=== PATIENT | female | born 1940 | race Caucasian/White ===

== ENCOUNTER 2020-01-18 09:33 | Outpatient (CLI) | payer MEDICARE, SELFPAY ==
--- NOTE | ~2020-01-18 | DEXA_ITS ---
Bone Density Report Name: Umm Hutson V Age: 79 Sex: Female Ethnicity: White Date of : 1940 Indication: postmenopausal; height loss; hysterectomy; Referring Provider: Marielena Cintron Study: Bone densitometry was performed. Exam Date: January 18, 2020 Accession number: [id number] Bone Density: Region BMD T-score Z-score Classification AP Spine (L1-L4) 0.999 -0.4 2.2 Normal Femoral Neck (Right) 0.564 -2.6 -0.3 Osteoporosis Total Hip (Right) 0.749 -1.6 0.4 Osteopenia World Health Organization criteria for BMD impression classify patients as: Normal (T-score at or above -1.0), Osteopenia (T-score between -1.0 and -2.5), or Osteoporosis (T-score at or below -2.5). 10-year Fracture Risk: FRAX not reported because: Some T-score for Spine Total or Hip Total or Femoral Neck at or below -2.5 Clinical Information Provided by Patient: Has the following medical conditions: Hysterectomy Patient maximum height was 67 Menopause Age: 51 Onset of menses at age 17 Number of children 3 Impression: The patient has osteoporosis, based on the Right Femoral Neck T-score. Discussion: INCREASED RISK OF FRACTURE. BONE DENSITY IS UNDESIRABLY LOW AT ONE OR MORE SKELETAL SITES, CONSISTENT WITH POSTMENOPAUSAL OSTEOPOROSIS. This patient's lowest T-score meets the World Health Organization's (WHO) criteria for osteoporosis at one or more sites (T-score -2.5 or below). In untreated patients, the risk of osteoporotic fracture increases approximately two-fold for each 1.0 SD decrease in T-score. Low bone density is not the only risk factor for fracture; also consider factors such as patient's age, frailty or poor health, risk of falling, risk of injury, previous osteoporotic fracture, family history of osteoporosis, cigarette smoking, low body weight, etc. Not everyone with low bone mineral density has osteoporosis; osteomalacia and other metabolic bone disorders should also be considered. Patients who have osteoporosis should be evaluated for specific diseases and conditions (secondary causes) that may cause or contribute to bone loss. The [place] [employer]ocrinologists (AACE) and National Osteoporosis Foundation (NOF) recommend pharmacologic intervention for all postmenopausal women whose T-score is in this range. The patient should follow a healthful lifestyle (good nutrition with adequate calcium and vitamin D, and appropriate weight-bearing exercise). Follow-Up: Consider a repeat BMD and Vertebral Fracture Assessment (VFA) exam in 2 years or sooner if medically necessary, to reassess this patient's status. Reported by: SILKE on 01/18/2020 10:04:00 AM. Reviewed, dictated and finalized at location AGareth ANDERSON
== END 2020-01-18 09:34 | disposition home or self-care (01) ==
PROVIDERS: PCP Family Medicine; Visit Provider Family Medicine
DX: Z78.0 Asymptomatic menopausal state (principal); M81.0 Age-related osteoporosis without current pathological fracture; M85.851 Other specified disorders of bone density and structure, right thigh
CPT/HCPCS: 77080

== ENCOUNTER 2020-02-09 14:27 | Outpatient (CLI) | payer MEDICARE, SELFPAY ==
--- NOTE | 2020-02-09 15:09 | ECHO_ITS ---
Patient Info Name: Umm Hutson Age: 79 years : 1940 Gender: Female Ht: 67 in Wt: 230 lbs BSA: 2.26 m2 HR: 58 bpm BP: 109 / 54 mmHg Technical Quality: Good Exam Date: 02/09/2020 3:18 PM Exam Location: [facility] Patient Status: Outpatient Admit Date: 02/09/2020 Staff Ordering Physician: Paulie Alegre DO Drum Reel Cutter: Ana Mason RCS Attending Provider: Paulie Alegre DO Referring Physician: Codey HUGO; Exam Type: CA echo doppler color flow Study Info Indications - heart failure Complete two-dimensional, color flow and Doppler transthoracic echocardiogram is performed. Summary 1. Complete two-dimensional, color flow and Doppler transthoracic echocardiogram is performed. 2. Left ventricular chamber dimension is normal. 3. Left ventricular systolic function is normal, estimated at 60-65%. 4. The left ventricular diastolic function is grade I diastolic dysfunction. 5. E/e' 9 is minimally elevated. 6. No pulmonary hypertension, estimated pulmonary arterial systolic pressure is 23 mmHg. 7. There is trace pulmonic regurgitation. Left Ventricle E/e' 9 is minimally elevated. Left ventricular chamber dimension is normal. Left ventricular systolic function is normal, estimated at 60-65%. The left ventricular diastolic function is grade I diastolic dysfunction. Right Ventricle Right ventricular chamber dimension is normal. Right ventricular systolic function is normal. Left Atria Left atrial chamber dimension is normal. Right Atria Right atrial chamber dimension is normal. Aortic Valve The aortic valve is trileaflet. There is no aortic valve stenosis. There is no aortic valve regurgitation. Pulmonic Valve There is trace pulmonic regurgitation. Mitral Valve There is no mitral valve stenosis. There is no mitral valve regurgitation. Tricuspid Valve There is no tricuspid valve regurgitation. No pulmonary hypertension, estimated pulmonary arterial systolic pressure is 23 mmHg. Pericardium/Pleural There is no pericardial effusion. Inferior Vena Cava Normal inferior vena cava with >50% collapse upon inspiration consistent with normal right atrial pressure, 5 mmHg. Aorta The aortic root size at the sinus of Valsalva is normal. Left Ventricular Outflow Tract Name Value Normal LVOT 2D LVOT Diameter 2.0 cm LVOT Doppler LVOT Peak Gradient 5 mmHg LVOT Mean Gradient 3 mmHg LVOT VTI 24 cm LVOT VTI/AV VTI Ratio 0.8 LVOT Stroke Volume 73 ml LVOT CO 15.1 l/min LVOT CI 6.7 l/min/m2 Pulmonic Valve Name Value Normal PV Doppler PV Peak Gradient 3 mmHg Mitral Valve
== END 2020-02-09 14:28 | disposition home or self-care (01) ==
PROVIDERS: PCP Family Medicine; Visit Provider Internal Medicine Cardiovascular Disease
DX: I50.9 Heart failure, unspecified (principal)
CPT/HCPCS: 93306

== ENCOUNTER 2020-08-01 16:06 | Outpatient (CLI) | payer MEDICARE, SELFPAY ==
--- NOTE | ~2020-08-01 | XR_ITS ---
XR shoulder RT min 2V DATE: 08/01/2020 17:02 INDICATION: Right shoulder injury from fall TECHNIQUE: 4 views COMPARISON: July 25, 2018 right shoulder FINDINGS: Cerclage wire mid right clavicular shaft for old healed fracture deformity. Diffuse osteopenia. Right humeral head prosthesis. No recent fracture or dislocation or any periosteal reaction or bone destruction is evident. Degenerative spurring of the thoracic spine. IMPRESSION: Right humeral head replacement Old internally fixated right clavicular shaft fracture, healed No recent fracture or dislocation is evident Reviewed, dictated and finalized at location B. [employer]PRESENT[employer]IVE
== END 2020-08-01 16:07 | disposition home or self-care (01) ==
PROVIDERS: PCP Family Medicine; Visit Provider Family Medicine
DX: S49.90XA Unspecified injury of shoulder and upper arm, unspecified arm, initial encounter (principal); X58.XXXA Exposure to other specified factors, initial encounter
CPT/HCPCS: 73030

== ENCOUNTER 2021-01-24 11:20 | Outpatient (CLI) | payer MEDICARE, SELFPAY ==
[2021-01-24 12:13] LABS: Basophils Percent Auto 0.4 % (0.2-1.2); Eosinophils Percent Auto 0.7 % (0-4.4); Hematocrit 40.3 % (37.0-47.0); Hemoglobin 12.6 g/dL (12.0-15.0); Immature Granulocyte Absolute 0.03 K/mm3 (0.00-0.031); Immature Granulocyte Percent A 0.6 % (0-0.5); Lymphocytes Absolute Auto 2.08 K/mm3 (0.9-3.2); Lymphocytes Percent Auto 38.3 % (18.3-44.2); Mean Corpuscular HGB Conc 31.3 g/dl (32-36); Mean Corpuscular Hemoglobin 29.2 pg (26-34); Mean Corpuscular Volume 93.3 fl (80-100); Mean Platelet Volume 8.8 fl (7.4-10.4); Monocytes Absolute Auto 0.4 K/mm3 (0.1-0.6); Monocytes Percent Auto 7.7 % (2.6-8.5); Neutrophils Absolute Auto 2.8 K/mm3 (1.3-6.7); Neutrophils Percent Auto 52.3 % (45.5-73.1); Platelet Count Result 213 k/mm3 (150-375); Red Blood Count 4.32 M/mm3 (4.2-5.4); Red Cell Distribution Width 13.2 % (11.5-14.5); White Blood Count 5.4 K/mm3 (4.5-10.0)
[2021-01-24 13:22] LABS: Erythrocyte Sedimentation Rate 19 mm/hr (0-20)
== END 2021-01-24 11:21 | disposition home or self-care (01) ==
PROVIDERS: PCP Family Medicine; Visit Provider Physician Assistant
DX: R10.31 Right lower quadrant pain (principal); R10.32 Left lower quadrant pain
CPT/HCPCS: 36415; 85025; 85652

== ENCOUNTER 2022-04-05 18:32 | Emergency (ER) | payer MEDICARE, SELFPAY ==
[2022-04-05] VITALS (16 sets, daily range): BP systolic 125–136; BP diastolic 63–82; PULSE 54–78; RESP 15–20; TEMP 36.1; O2SAT 96–98
--- NOTE | ~2022-04-05 | CT_ITS ---
EXAMINATION: CT brain wo con INDICATION: Slurred speech COMPARISON: 03/14/2016 TECHNIQUE: Standard unenhanced head CT. The dose-length product (DLP) was 605.33 mGy-cm. The mA was a djusted according to patient size. Iterative reconstruction technique was employed. FINDINGS: There is no acute intraparenchymal hemorrhage. No evidence of mass lesion. No evidence of a cute infarction. There is moderate periventricular and subcortical hypodensity probably related to sm all vessel ischemic disease. There is moderate prominence of the sulci and ventricles related to cere bral atrophy. Intracranial calcified cerebral atherosclerosis is noted. There are no extra-axial irma ections. There is no mass effect or midline shift. The orbits and soft tissues are unremarkable. The visualized sinuses and mastoid air cells are well aerated. IMPRESSION: 1. No acute intracranial abnormality. 2. Age related findings. Reviewed, dictated and finalized at location F.
--- NOTE | ~2022-04-05 | XR_ITS ---
EXAMINATION: XR chest 1V portable INDICATION: Possible CVA TECHNIQUE: Portable AP chest at 1931 hours COMPARISON: 01/16/2019 FINDINGS: There is scarring of the lung apices. No pleural effusion or pneumothorax. There are minima l airspace opacities of the left lung base. The cardiomediastinal silhouette is normal. There are moisés nges of right shoulder arthroplasty. Advanced osteoarthritis is noted in the partially imaged left gl enohumeral joint. IMPRESSION: 1. Minimal left basilar airspace opacity, consistent with atelectasis versus pneumonia. Reviewed, dictated and finalized at location F. IMPRESSION: 1. Minimal left basilar airspace opacity, consistent with atelectasis versus pn eumonia.
--- NOTE | 2022-04-05 18:52 | ECG_ITS ---
Measurements Intervals [place] Rate: 64 P: 54 NE: 170 QRS: 20 QRSD: 109 T: 55 QT: 420 QTc: 435 Interpretive Statements SINUS RHYTHM PROBABLE INFERIOR MYOCARDIAL INFARCTION , OF INDETERMINATE AGE WITH POSTERIOR EXTENSION [35 ms Q WAVE IN II/aVFPROMINENT R WAV COMPARED TO ECG 01/24/2019 15:02:40 SINUS RHYTHM NOW PRESENT Electronically Signed On 04-05-2022 19:51:47 CDT by Sara Carrasquillo M.D.
[2022-04-05 18:59] LABS: Glucose Point of Care 160 mg/dl (65-105)
[2022-04-05 19:26] LABS: Basophils Percent Auto 0.8 % (0.2-1.2); Eosinophils Absolute Auto 0.1 K/mm3 (0-0.3); Eosinophils Percent Auto 1.8 % (0-4.4); Hematocrit 38.2 % (37.0-47.0); Hemoglobin 12.1 g/dL (12.0-15.0); Immature Granulocyte Absolute 0.01 K/mm3 (0.00-0.031); Immature Granulocyte Percent A 0.3 % (0-0.5); Lymphocytes Absolute Auto 2.05 K/mm3 (0.9-3.2); Lymphocytes Percent Auto 51.9 % (18.3-44.2); Mean Corpuscular HGB Conc 31.7 g/dl (32-36); Mean Corpuscular Hemoglobin 30.2 pg (26-34); Mean Corpuscular Volume 95.3 fl (80-100); Mean Platelet Volume 8.9 fl (7.4-10.4); Monocytes Absolute Auto 0.3 K/mm3 (0.1-0.6); Monocytes Percent Auto 8.6 % (2.6-8.5); Neutrophils Absolute Auto 1.5 K/mm3 (1.3-6.7); Neutrophils Percent Auto 36.6 % (45.5-73.1); Platelet Count Result 168 k/mm3 (150-375); Red Blood Count 4.01 M/mm3 (4.2-5.4); Red Cell Distribution Width 13.4 % (11.5-14.5)
--- NOTE | 2022-04-05 19:29 | ED.GENADULT ---
HPI - General Adult General Chief complaint: Neuro Symptoms/Deficit Stated complaint: Dizziness Time Seen by Provider: 04/05/22 19:04 History of Present Illness HPI narrative: Patient is an 81-year-old female with a history of seizures, dementia, CHF, hyperlipidemia, TIA presenting with lightheadedness. Patient states that she was in her room at her nursing facility today when she stood up to walk out. As she stood up she felt very lightheaded and felt that she would fall if she continued walking so she sat back down. She states that she had some slurred speech during this episode so EMS was called. Patient was noted to have some mildly slurred speech and weakness in her right arm. Patient states that she is always weak in her right arm. To me, she denied any new focal weakness or numbness. She states that her speech feels back to normal. She denies any pain. No chest pain, shortness of breath, palpitations, vision changes, abdominal pain, nausea or vomiting, diarrhea, dysuria. States that she has had a cough lately. Related Data Home Medications Medication Instructions Recorded Confirmed acetaminophen 650 mg 650 mg PO Q12H 07/17/19 03/24/22 tablet,extended release (Tylenol Arthritis Pain) cholecalciferol (vitamin D3) 25 1,000 unit PO DAILY 07/17/19 03/24/22 mcg (1,000 unit) tablet clonazepam 0.5 mg tablet 0.5 mg PO DAILY 07/17/19 03/24/22 multivitamin with iron 1 tablet PO DAILY 07/17/19 03/24/22 (Tab-A-Alee/Iron tablet) peg 400-propylene glycol (PF) 0.4 1 drop RIGHT EYE DAILY 07/17/19 03/24/22 %-0.3 % eye drops in a dropperette (Systane (PF)) zonisamide 100 mg capsule 100 mg PO DAILY 07/17/19 03/24/22 propranolol 60 mg capsule,24 60 mg PO DAILY 08/13/20 03/24/22 hr,extended release quetiapine 300 mg tablet (Seroquel) 300 mg PO QHS 01/24/21 03/24/22 primidone 250 mg tablet 50 mg PO BID 08/14/21 03/24/22 sertraline 100 mg tablet 100 mg PO DAILY 10/10/21 03/24/22 Allergies Allergy/AdvReac Type Severity Reaction Status Date / Time codeine Allergy Mild Hallucinati Verified 04/05/22 21:20 ons morphine Allergy Mild hallucinate Verified 04/05/22 21:20 Review of Systems Review of Systems: All systems reviewed & are unremarkable except as noted in HPI and below PMFSH Past Medical History Medical History Abnormality of gait Benign essential HTN Bipolar 1 disorder, depressed CHF (congestive heart failure) Chronic respiratory failure Colon polyp Dementia Diverticulitis Family history of ectopic antidiuretic hormone secretion Hypoxemia Parkinson disease Surgical History Surgical History History of appendectomy Hx of colonoscopy Family History Family History Other Family history of malignant neoplasm Family history of malignant neoplasm of thyroid Social History Social History Social History: Smoking status: Never smoker Second hand tobacco smoke exposure: No Alcohol intake: never Substance use: never Substance use type: does not use Additional living arrangements comments: [facility], Independent Living Gender identity (if verbalized by the patient): Female Sexual Orientation (if Verbalized by the Patient): Straight or Heterosexual Exam Narrative: GENERAL: Elderly female in no acute distress HEAD: Normocephalic, atraumatic. EYES: PERRLA and EOMI. ENT: Nares clear, no rhinorrhea or epistaxis. Mucous membranes moist. NECK: Supple. CHEST: Clear to auscultation. No respiratory distress. HEART: Regular rate and rhythm. No murmur heard. Normal peripheral pulses. ABDOMEN: Soft, nontender, nondistended, normal active bowel sounds. EXTREMITIES: Normal range of motion. No edema. SKIN: Warm, dry, no rash. NEURO: Alert and oriented x3.
[2022-04-05 19:36] LABS: Alanine Aminotransferase 7 U/L (6-35); Albumin Level 3.6 g/dL (3.5-5.1); Alkaline Phosphatase 53 U/L (38-126); Anion Gap 8 mmol/L (8-16); Aspartate Amino Transferase 23 U/L (14-36); Bilirubin,Total 0.3 mg/dL (0.2-1.3); Blood Urea Nitrogen 24 mg/dL (7-17); Calcium 8.6 mg/dL (8.4-10.2); Carbon Dioxide 28 mmol/L (22-30); Chloride 99 mmol/L (98-107); Estimated CRCL calculation 46 ml/min; Estimated Glomerular Filt Rate 48; Glucose 135 mg/dL (65-110); Potassium 3.8 mmol/L (3.4-5.0); Prothrombin Time 13.1 Seconds (11.1-14.7); Sodium 135 mmol/L (137-145)
[2022-04-05 19:37] LABS: Partial Thromboplastin Time 26.1 SECONDS (22.3-36.8)
[2022-04-05 19:47] LABS: Troponin I < 0.012 ng/mL (0.000-0.034)
[2022-04-05 20:53] LABS: Influenza A QL RT-PCR Negative (Negative); Influenza B QL RT-PCR Negative (Negative); SARS-CoV-2 RNA PCR Negative
[2022-04-05 21:06] LABS: Add Urine Microscopic? YES; Appearance Urine Clear (Clear); Bacteria Urine Trace /hpf; Bilirubin Urine Negative (Negative); Blood Urine Negative (Negative); Color Urine Yellow (Yellow); Glucose Urine UA Negative (Negative); Ketones Urine Trace mg/dL (Negative); Leukocyte Esterase Ur Negative LEU/UL (Negative); Mucus Urine Rare /lpf; Nitrate Urine Negative (Negative); Protein Urine Negative (Negative); RBC Urine 0-2 /hpf (0-2); Specific Grav Ur 1.017 (1.001-1.035); Squamous Epithelial Cell Urine Rare /hpf (Few); Urobilinogen Urine Negative mg/dL (<2.0); WBC Urine 0-3 /hpf
[2022-04-05] MEDS: SODIUM CHLORIDE 0.9% IV 1,000 ML 999 ML IV CONT (21:48)
== END 2022-04-05 23:41 ==
PROVIDERS: Emergency Medicine; Emergency Provider Emergency Medicine; PCP Family Medicine
DX: R42 Dizziness and giddiness (principal); E86.0 Dehydration; Z20.822 Contact with and (suspected) exposure to COVID-19; F03.90 Unspecified dementia, unspecified severity, without behavioral disturbance, psychotic disturbance, mood disturbance, and anxiety; I50.9 Heart failure, unspecified; E78.5 Hyperlipidemia, unspecified; I11.0 Hypertensive heart disease with heart failure; J96.10 Chronic respiratory failure, unspecified whether with hypoxia or hypercapnia; G20 Parkinson's disease; Z86.010 Personal history of colon polyps; Z86.73 Personal history of transient ischemic attack (TIA), and cerebral infarction without residual deficits
CPT/HCPCS: 36415; 70450; 71045; 80053; 81001; 82948; 84484; 85025; 85610; 85730; 87502; 93005; 96360; 99284; C9803; J7030; U0003; U0005

== ENCOUNTER 2022-09-02 14:51 | Outpatient (CLI) | payer MEDICARE, SELFPAY ==
--- NOTE | ~2022-09-02 | XR_ITS ---
EXAM: XR abdomen/kub 1V DATE: 09/02/2022 15:19 HISTORY: r/o kidney stone, PAIN ACROSS ENTIRE LOWER ABDOMEN . COMPARISON: CT abdomen pelvis 05/20/2019. FINDINGS: Clear lung bases. Normal bowel gas pattern. Enlarged liver. Punctate calcifications over t he bilateral renal shadows. Degenerative lumbar disc disease. Partially visualized left hip arthropla sty. Atherosclerotic calcifications. Pelvic phleboliths. IMPRESSION: Hepatomegaly. Bilateral punctate nephrolithiasis. Reviewed, dictated and finalized at location K.
== END 2022-09-02 14:52 | disposition home or self-care (01) ==
PROVIDERS: PCP Family Medicine; Visit Provider Nurse Practitioner Gerontology
DX: R10.30 Lower abdominal pain, unspecified (principal); N20.0 Calculus of kidney
CPT/HCPCS: 74018

== ENCOUNTER 2022-12-01 12:56 | Emergency (ER) | payer MEDICARE, SELFPAY ==
[2022-12-01 13:02] VITALS: BP 93/45; PULSE 66; RESP 20; TEMP 36.6; O2SAT 98
--- NOTE | 2022-12-01 13:14 | ED.ABDPAIN ---
HPI - Abdominal Pain General Chief Complaint: Abdominal Pain Stated Complaint: ABD PAIN Time Seen by Provider: 12/01/22 13:14 Source: patient, RN notes reviewed and old records reviewed Mode of arrival: ambulatory Limitations: no limitations History of Present Illness HPI narrative: 82-year-old female presents to the [facility] with lower abdominal pain that has been increasing over the last 3 days. Denies any nausea or vomiting. denies chest pain or shortness of breath. daughter reports that she does drink plenty of water. Last bowel movement was this morning which was normal. Has a history of chronic UTIs, takes Bactrim daily. reports history kidney stones, Parkinson's, anxiety, heart failure, hypertension, acid reflux. denies fevers reports that she pees frequently and feels like she cannot empty her bladder denies burning with urination Onset (ago): day(s) (3) Related Data Home Medications Medication Instructions Recorded Confirmed acetaminophen 650 mg 650 mg PO Q12H 07/17/19 12/01/22 tablet,extended release (Tylenol Arthritis Pain) cholecalciferol (vitamin D3) 25 1,000 unit PO DAILY 07/17/19 12/01/22 mcg (1,000 unit) tablet multivitamin with iron 1 tablet PO DAILY 07/17/19 12/01/22 (Tab-A-Alee/Iron tablet) peg 400-propylene glycol (PF) 0.4 1 drop RIGHT EYE DAILY 07/17/19 12/01/22 %-0.3 % eye drops in a dropperette (Systane (PF)) zonisamide 100 mg capsule 100 mg PO DAILY 07/17/19 12/01/22 propranolol 60 mg capsule,24 60 mg PO DAILY 08/13/20 12/01/22 hr,extended release quetiapine 300 mg tablet (Seroquel) 300 mg PO QHS 01/24/21 12/01/22 primidone 250 mg tablet 50 mg PO BID 08/14/21 12/01/22 sertraline 100 mg tablet 100 mg PO DAILY 10/10/21 12/01/22 Allergies Allergy/AdvReac Type Severity Reaction Status Date / Time codeine Allergy Mild Hallucinati Verified 09/02/22 14:03 ons morphine Allergy Mild hallucinate Verified 09/02/22 14:03 Review of Systems Review of Systems: All systems reviewed & are unremarkable except as noted in HPI and below Constitutional: Constitutional: Reports no additional constitutional complaints Eyes: Eyes: Reports no additional eye complaints ENT: Reports system reviewed and no additional complaints, except as documented Cardiovascular: Cardiovascular: Reports no additional cardiovascular complaints, Denies chest pain and Denies dyspnea Respiratory: Respiratory: Reports no additional respiratory complaints, Denies chest congestion, Denies cough and Denies dyspnea Gastrointestinal: Gastrointestinal: Reports as per HPI, Reports abdominal pain, Denies nausea and Denies vomiting Genitourinary: Genitourinary: Reports as per HPI and Reports urinary urgency Musculoskeletal: Musculoskeletal: Reports no additional musculoskeletal complaints Integumentary/Breasts: Skin/Breast: Reports system reviewed and no additional complaints, except as docu Neurologic: Reports system reviewed and no additional complaints, except as documented Psychiatric: Psychiatric: Reports no additional psychiatric complaints Allergic/Immunologic: Allergic/Immunologic: Reports no additional allergic/immunologic complaints PMFSH Past Medical History Medical History Abnormality of gait Benign essential HTN Bipolar 1 disorder, depressed CHF (congestive heart failure) Chronic respiratory failure Colon polyp Dementia Diverticulitis Family history of ectopic antidiuretic hormone secretion Hypoxemia Parkinson disease Surgical History Surgical History History of appendectomy Hx of colonoscopy Family History Family History Other Family history of malignant neoplasm Family history of malignant neoplasm of thyroid Social History Social History Social Hist
[2022-12-01 13:22] VITALS: BP 93/45; PULSE 66; RESP 20; TEMP 36.6; O2SAT 98
== END 2022-12-01 13:30 | disposition short-term general hospital (02) ==
PROVIDERS: Emergency Provider Nurse Practitioner; PCP Family Medicine
DX: R10.30 Lower abdominal pain, unspecified (principal); I10 Essential (primary) hypertension; I50.9 Heart failure, unspecified; F03.90 Unspecified dementia, unspecified severity, without behavioral disturbance, psychotic disturbance, mood disturbance, and anxiety; G20 Parkinson's disease; F02.80 Dementia in other diseases classified elsewhere, unspecified severity, without behavioral disturbance, psychotic disturbance, mood disturbance, and anxiety; F31.9 Bipolar disorder, unspecified
CPT/HCPCS: 81003; 99212; G0463

== ENCOUNTER 2022-12-01 13:49 | Emergency (ER) | payer MEDICARE, SELFPAY ==
--- NOTE | ~2022-12-01 | CT_ITS ---
EXAMINATION: CT abdomen pelvis w con DATE: 12/01/2022 16:28 INDICATION: Low abdominal pain for 3 days TECHNIQUE: Computed tomography (CT) of the abdomen and pelvis was performed without intravenous contr ast. The dose-length product was 1222.29 mGy-cm. Automated exposure control and iterative reconstruct ion technique were employed. COMPARISON: CT dated 05/20/2019. FINDINGS: Heart size normal. No significant pleural or pericardial effusion. Mild atherosclerosis wit hout aneurysm. There are multiple liver cysts. Gallbladder is present. There is an extra cc splenule. The pancreas, adrenal glands are unremarkable. There are small bilateral renal cysts. There are nono bstructing bilateral renal stones. Nonobstructive bowel pattern. There is a left hip arthroplasty. Th ere is acute diverticulitis of the descending colon. No evidence for perforation or abscess. IMPRESSION: 1. Acute uncomplicated diverticulitis of the descending colon. Reviewed, dictated and finalized at location L.
[2022-12-01 13:52] VITALS: BP 111/54; PULSE 67; RESP 18; TEMP 36.2; O2SAT 95
[2022-12-01 14:08] LABS: Basophils Percent Auto 0.2 % (0.2-1.2); Eosinophils Absolute Auto 0.1 K/mm3 (0-0.3); Hematocrit 39.8 % (37.0-47.0); Hemoglobin 12.4 g/dL (12.0-15.0); Immature Granulocyte Absolute 0.01 K/mm3 (0.00-0.031); Immature Granulocyte Percent A 0.2 % (0-0.5); Lymphocytes Absolute Auto 1.57 K/mm3 (0.9-3.2); Mean Corpuscular HGB Conc 31.2 g/dl (32-36); Mean Corpuscular Hemoglobin 28.1 pg (26-34); Monocytes Absolute Auto 0.6 K/mm3 (0.1-0.6); Monocytes Percent Auto 8.9 % (2.6-8.5); Neutrophils Absolute Auto 4.1 K/mm3 (1.3-6.7); Neutrophils Percent Auto 64.7 % (45.5-73.1); Platelet Count Result 204 k/mm3 (150-375); Red Blood Count 4.42 M/mm3 (4.2-5.4); Red Cell Distribution Width 14.5 % (11.5-14.5); White Blood Count 6.3 K/mm3 (4.5-10.0)
[2022-12-01 14:24] LABS: Alanine Aminotransferase 6 U/L (6-35); Albumin Level 3.7 g/dL (3.5-5.1); Alkaline Phosphatase 79 U/L (38-126); Anion Gap 5 mmol/L (8-16); Aspartate Amino Transferase 30 U/L (14-36); Bilirubin,Total 0.5 mg/dL (0.2-1.3); Blood Urea Nitrogen 17 mg/dL (7-17); Calcium 9.1 mg/dL (8.4-10.2); Carbon Dioxide 33 mmol/L (22-30); Chloride 96 mmol/L (98-107); Estimated CRCL calculation 43 ml/min; Estimated Glomerular Filt Rate 48; Glucose 106 mg/dL (65-110); Lipase 47 U/L (23-300); Potassium 4.1 mmol/L (3.4-5.0); Sodium 134 mmol/L (137-145)
--- NOTE | 2022-12-01 15:31 | ED.ABDPAIN ---
HPI - Abdominal Pain General Chief Complaint: Abdominal Pain Stated Complaint: abd pain Time Seen by Provider: 12/01/22 15:02 History of Present Illness HPI narrative: Pt presents with low abdominal pain for 2-3 days getting progressively worse. Pt denies fever, vomiting, or diarrhea. Pt has been moving bowels. Per family pt has had an appendectomy, hysterectomy and cholecystectomy. Related Data Home Medications Medication Instructions Recorded Confirmed acetaminophen 650 mg 650 mg PO Q12H 07/17/19 12/01/22 tablet,extended release (Tylenol Arthritis Pain) cholecalciferol (vitamin D3) 25 1,000 unit PO DAILY 07/17/19 12/01/22 mcg (1,000 unit) tablet multivitamin with iron 1 tablet PO DAILY 07/17/19 12/01/22 (Tab-A-Alee/Iron tablet) peg 400-propylene glycol (PF) 0.4 1 drop RIGHT EYE DAILY 07/17/19 12/01/22 %-0.3 % eye drops in a dropperette (Systane (PF)) zonisamide 100 mg capsule 100 mg PO DAILY 07/17/19 12/01/22 propranolol 60 mg capsule,24 60 mg PO DAILY 08/13/20 12/01/22 hr,extended release quetiapine 300 mg tablet (Seroquel) 300 mg PO QHS 01/24/21 12/01/22 primidone 250 mg tablet 50 mg PO BID 08/14/21 12/01/22 sertraline 100 mg tablet 100 mg PO DAILY 10/10/21 12/01/22 Allergies Allergy/AdvReac Type Severity Reaction Status Date / Time codeine Allergy Mild Hallucinati Verified 12/01/22 15:48 ons morphine Allergy Mild hallucinate Verified 12/01/22 15:48 Review of Systems Review of Systems: All systems reviewed & are unremarkable except as noted in HPI and below PMFSH Past Medical History Medical History Abnormality of gait Benign essential HTN Bipolar 1 disorder, depressed CHF (congestive heart failure) Chronic respiratory failure Colon polyp Dementia Diverticulitis Family history of ectopic antidiuretic hormone secretion Hypoxemia Parkinson disease Surgical History Surgical History History of appendectomy Hx of colonoscopy Family History Family History Other Family history of malignant neoplasm Family history of malignant neoplasm of thyroid Social History Social History Social History: Smoking status: Never smoker Second hand tobacco smoke exposure: No Alcohol intake: never Substance use: never Substance use type: does not use Living arrangements: assisted living Additional living arrangements comments: [place] [facility], Independent Living Occupation/Education: retired Gender identity (if verbalized by the patient): Female Sexual Orientation (if Verbalized by the Patient): Straight or Heterosexual Exam Const: General: healthy appearing Nutritional Appearance: well nourished Orientation/consciousness: patient oriented x3 Limitations: no limitations Eyes: Pupils: Equal, round and reactive pupils present EOM: EOMs intact bilaterally Neck: Neck: normal visual inspection and no lymphadenopathy Resp: Effort & Inspection: normal respiratory effort Auscultation: clear to auscultation bilaterally Cardio: Rate: regular rate Rhythm: regular rhythm GI: GI Palp: Yes Soft to palpation and Yes Tenderness to palpation present (GI) (low abdomen) Auscultation: normal bowel sounds Back/Spine/Pelvis: Back: no CVA tenderness Skin: General skin exam: normal color Rashes: no rashes Wounds: no wounds Neuro: General: patient oriented x3, moves all extremities, no meningeal signs and CN's II-XI intact bilaterally Speech: normal speech Extrem: General: normal to inspection Psych: Mental Status: mental status grossly normal Affect: normal affect Attitude: cooperative Course Vital Signs Vital signs: Vital Signs Temperature 97.2 F L 12/01/22 13:52 Pulse Rate 67 12/01/22 13:52 Respiratory Rate 18 12/01/22 13:52
[2022-12-01] MEDS: ONDANSETRON INJ 4 MG/2 ML VIAL IV PUSH (16:08)
[2022-12-01] MEDS: fentaNYL CITRATE INJ (*CRX) 100 MCG/2 ML VIAL 25 MCG IV PUSH (16:08)
[2022-12-01 16:16] LABS: Appearance Urine Clear (Clear); Bilirubin Urine Negative (Negative); Blood Urine Negative (Negative); Color Urine Dark Yellow (Yellow); Glucose Urine UA Negative (Negative); Ketones Urine Trace mg/dL (Negative); Leukocyte Esterase Ur Negative LEU/UL (Negative); Nitrate Urine Negative (Negative); Protein Urine Negative (Negative); pH Urine 7.5 (5.0-9.0)
[2022-12-01 16:23] LABS: Basophils Percent Auto 0.4 % (0.2-1.2); Eosinophils Absolute Auto 0.1 K/mm3 (0-0.3); Eosinophils Percent Auto 1.2 % (0-4.4); Hematocrit 41.6 % (37.0-47.0); Hemoglobin 12.8 g/dL (12.0-15.0); Immature Granulocyte Absolute 0.04 K/mm3 (0.00-0.031); Immature Granulocyte Percent A 0.6 % (0-0.5); Mean Corpuscular HGB Conc 30.8 g/dl (32-36); Mean Corpuscular Hemoglobin 27.8 pg (26-34); Mean Corpuscular Volume 90.2 fl (80-100); Monocytes Absolute Auto 0.6 K/mm3 (0.1-0.6); Monocytes Percent Auto 7.9 % (2.6-8.5); Neutrophils Absolute Auto 4.4 K/mm3 (1.3-6.7); Neutrophils Percent Auto 63.9 % (45.5-73.1); Platelet Count Result 214 k/mm3 (150-375); Red Blood Count 4.61 M/mm3 (4.2-5.4); Red Cell Distribution Width 14.7 % (11.5-14.5); White Blood Count 6.9 K/mm3 (4.5-10.0)
[2022-12-01 16:39] LABS: Lactic Acid Reflex 0.9 mmol/L (0.7-2.0)
[2022-12-01 16:41] LABS: Add Urine Microscopic? NO
[2022-12-01 16:42] LABS: INR 0.9; Prothrombin Time 12.4 Seconds (11.1-14.7)
[2022-12-01 16:43] LABS: Partial Thromboplastin Time 27.6 SECONDS (22.3-36.8)
[2022-12-01 17:00] VITALS: BP 153/53; PULSE 69; RESP 18; O2SAT 97
[2022-12-01 18:09] LABS: Alanine Aminotransferase 6 U/L (6-35); Alkaline Phosphatase 94 U/L (38-126); Anion Gap 5 mmol/L (8-16); Aspartate Amino Transferase 28 U/L (14-36); Bilirubin,Total 0.5 mg/dL (0.2-1.3); Blood Urea Nitrogen 17 mg/dL (7-17); Calcium 8.9 mg/dL (8.4-10.2); Carbon Dioxide 30 mmol/L (22-30); Chloride 96 mmol/L (98-107); Estimated CRCL calculation 47 ml/min; Estimated Glomerular Filt Rate 53; Glucose 79 mg/dL (65-110); Potassium 4.2 mmol/L (3.4-5.0); Sodium 131 mmol/L (137-145)
== END 2022-12-01 17:32 | disposition home or self-care (01) ==
PROVIDERS: Emergency Provider Emergency Medicine; PCP Family Medicine
DX: K57.32 Diverticulitis of large intestine without perforation or abscess without bleeding (principal); I50.9 Heart failure, unspecified; I11.0 Hypertensive heart disease with heart failure; J96.10 Chronic respiratory failure, unspecified whether with hypoxia or hypercapnia; F03.90 Unspecified dementia, unspecified severity, without behavioral disturbance, psychotic disturbance, mood disturbance, and anxiety; G20 Parkinson's disease; F31.9 Bipolar disorder, unspecified; Z86.010 Personal history of colon polyps; Z90.710 Acquired absence of both cervix and uterus; Z90.49 Acquired absence of other specified parts of digestive tract
CPT/HCPCS: 36415; 74177; 80053; 81003; 83605; 83690; 85025; 85610; 85730; 96374; 96375; 99284; J2405; J3010; Q9967

== ENCOUNTER 2022-12-04 13:50 | Outpatient (CLI) | payer MEDICARE, SELFPAY ==
--- NOTE | ~2022-12-04 | CT_ITS ---
EXAMINATION: CT abdomen pelvis w con DATE: 12/04/2022 14:41 INDICATION: Diverticulitis. TECHNIQUE: Computed tomography (CT) of the abdomen and pelvis was performed with 100 cc Omnipaque 350 intravenous contrast. The dose-length product was 1244.09 mGy-cm. Automated exposure control and ite rative reconstruction technique were employed. COMPARISON: 12/01/2022. FINDINGS: There is dependent atelectasis. Heart size normal. No significant pleural or pericardial ef fusion. There are multiple liver cysts. There is a right renal cyst. There is an accessory splenule. The pancreas, adrenal glands are unremarkable. There are nonobstructing bilateral renal stones. Gallb ladder is distended. No definite gallstones. Mild residual diverticulitis of the descending colon non obstructive bowel pattern. No free air or free fluid. No evidence for abscess. There is atheroscleros is of the aorta without aneurysm. No lymphadenopathy. There is a left total hip arthroplasty. No acut e osseous abnormality. IMPRESSION: 1. Improved mild uncomplicated diverticulitis of the descending colon. Reviewed, dictated and finalized at location []
[2022-12-04 15:34] LABS: Basophils Percent Auto 0.7 % (0.2-1.2); Eosinophils Absolute Auto 0.1 K/mm3 (0-0.3); Eosinophils Percent Auto 1.7 % (0-4.4); Hematocrit 39.4 % (37.0-47.0); Hemoglobin 12.2 g/dL (12.0-15.0); Immature Granulocyte Absolute 0.01 K/mm3 (0.00-0.031); Immature Granulocyte Percent A 0.2 % (0-0.5); Lymphocytes Absolute Auto 2.09 K/mm3 (0.9-3.2); Mean Corpuscular Hemoglobin 27.4 pg (26-34); Mean Corpuscular Volume 88.5 fl (80-100); Mean Platelet Volume 8.8 fl (7.4-10.4); Monocytes Absolute Auto 0.4 K/mm3 (0.1-0.6); Monocytes Percent Auto 8.6 % (2.6-8.5); Neutrophils Absolute Auto 1.6 K/mm3 (1.3-6.7); Neutrophils Percent Auto 38.8 % (45.5-73.1); Platelet Count Result 217 k/mm3 (150-375); Red Blood Count 4.45 M/mm3 (4.2-5.4); Red Cell Distribution Width 14.3 % (11.5-14.5); White Blood Count 4.2 K/mm3 (4.5-10.0)
[2022-12-04 15:45] LABS: Albumin Level 3.8 g/dL (3.5-5.1); Alkaline Phosphatase 85 U/L (38-126); Anion Gap 1 mmol/L (8-16); Aspartate Amino Transferase 22 U/L (14-36); Bilirubin,Total 0.3 mg/dL (0.2-1.3); Blood Urea Nitrogen 13 mg/dL (7-17); Carbon Dioxide 32 mmol/L (22-30); Chloride 97 mmol/L (98-107); Estimated Glomerular Filt Rate > 60; Glucose 92 mg/dL (65-110); Potassium 4.4 mmol/L (3.4-5.0); Sodium 130 mmol/L (137-145)
[2022-12-04 16:12] LABS: Alanine Aminotransferase < 6 U/L (6-35)
== END 2022-12-04 13:51 | disposition home or self-care (01) ==
PROVIDERS: PCP Family Medicine; Visit Provider Physician Assistant
DX: K57.32 Diverticulitis of large intestine without perforation or abscess without bleeding (principal); R10.829 Rebound abdominal tenderness, unspecified site
CPT/HCPCS: 36415; 74177; 80053; 85025; Q9967

== ENCOUNTER 2023-06-06 16:42 | Emergency (ER) | payer MEDICARE, SELFPAY ==
[2023-06-06 17:25] VITALS: BP 151/76; PULSE 62; RESP 20; TEMP 36.3; O2SAT 96
[2023-06-06 19:04] LABS: Appearance Urine Clear (Clear); Bilirubin Urine Negative (Negative); Blood Urine Negative (Negative); Color Urine Yellow (Yellow); Glucose Urine UA Negative (Negative); Ketones Urine Trace mg/dL (Negative); Leukocyte Esterase Ur Negative LEU/UL (Negative); Nitrate Urine Negative (Negative); Protein Urine Negative (Negative); Specific Grav Ur 1.015 (1.001-1.035); Urobilinogen Urine 0.2 mg/dL (<2.0)
[2023-06-06 19:13] LABS: Add Urine Microscopic? NO
--- NOTE | 2023-06-06 19:31 | ED.FEMALEGU ---
HPI - Female Genitourinary General Chief complaint: Urogenital-Female Stated complaint: unable to urinate Time Seen by Provider: 06/06/23 18:45 Source: patient and family Mode of arrival: wheelchair Limitations: no limitations History of Present Illness HPI Narrative: This is a 82 year old female that presents to the ER for difficulty urinating. Ongoing since yesterday. Reports some vaginal irritation. She has history of frequent UTIs and is on antibiotic prophylaxis for this. Denies fever, vomiting, flank pain. Related Data Home Medications Medication Instructions Recorded Confirmed alendronate 70 mg tablet mg PO 06/06/23 carbidopa 25 mg-levodopa 100 mg tablet 06/06/23 tablet clonazepam 0.5 mg tablet mg 06/06/23 diphenhydramine 25 tablet 06/06/23 mg-acetaminophen 500 mg tablet (Acetaminophen PM) docusate sodium 100 mg capsule mg PO 06/06/23 (Colace) ferrous sulfate 325 mg (65 mg mg 06/06/23 06/06/23 iron) tablet (Iron (ferrous sulfate)) furosemide 40 mg tablet mg 06/06/23 lisinopril 10 mg tablet mg 06/06/23 memantine 10 mg tablet mg 06/06/23 montelukast 10 mg tablet mg 06/06/23 oxybutynin chloride 5 mg mg PO 06/06/23 tablet,extended release 24 hr pantoprazole 40 mg tablet,delayed mg PO 06/06/23 release pravastatin 10 mg tablet mg 06/06/23 primidone 50 mg tablet mg 06/06/23 propranolol 60 mg capsule,24 mg PO 06/06/23 hr,extended release quetiapine 300 mg tablet mg 06/06/23 sertraline 100 mg tablet mg 06/06/23 sulfamethoxazole 400 tablet 06/06/23 mg-trimethoprim 80 mg tablet zonisamide 100 mg capsule mg PO 06/06/23 Allergies Allergy/AdvReac Type Severity Reaction Status Date / Time codeine Allergy Mild Hallucinati Verified 04/28/23 13:53 ons morphine Allergy Mild hallucinate Verified 04/28/23 13:53 Review of Systems Review of Systems: CONSTITUTIONAL: Denies fever GASTROINTESTINAL: Denies abdominal pain, nausea, vomiting GENITOURINARY: Reports dysuria. Denies hematuria. All systems reviewed & are unremarkable except as noted in HPI and below PMFSH Past Medical History Medical History Abnormal urine Abnormality of gait Benign essential HTN Bipolar 1 disorder, depressed CHF (congestive heart failure) Chronic respiratory failure Colon polyp Dementia Diverticulitis Family history of ectopic antidiuretic hormone secretion Fracture of humeral head, left, closed Hepatomegaly Hypoxemia Parkinson disease Rotator cuff arthropathy Surgical History Surgical History History of appendectomy Hx of colonoscopy Family History Family History Other Family history of malignant neoplasm Family history of malignant neoplasm of thyroid Social History Social History Social History: Smoking status: Never smoker Second hand tobacco smoke exposure: No Alcohol intake: never Substance use: never Substance use type: does not use Lack of Transportation: No Lack of Food: Never True Current Housing: I Have Housing Concerned About Future Housing: No Difficulty Paying Gas/Electric Bills: No Difficulty Paying for Meds: No Currently Unemployed: YES Education: Decline to Answer Difficulty w/ Childcare or Family Care: No Living arrangements: assisted living Additional living arrangements comments: [facility] Garcia, Independent Living Occupation/Education: retired Gender identity (if verbalized by the patient): Female Sexual Orientation (if Verbalized by the Patient): Straight or Heterosexual Exam Narrative: GENERAL: Elderly, well-nourished, and in no acute distress. HEAD: Normocephalic, atraumatic. EYES: EOMI. CHEST: No respiratory distress. HEART: Regular rate EXTREMITIES: Normal range of mot
[2023-06-06] MEDS: FLUCONAZOLE 150 MG TABLET PO (19:39)
[2023-06-06 20:26] VITALS: BP 156/82; PULSE 75; RESP 17; O2SAT 99
== END 2023-06-06 20:27 | disposition home or self-care (01) ==
PROVIDERS: Emergency Medicine; Emergency Provider Physician Assistant; PCP Family Medicine
DX: B37.31 Acute candidiasis of vulva and vagina (principal); G20.A1 Parkinson's disease without dyskinesia, without mention of fluctuations; F02.80 Dementia in other diseases classified elsewhere, unspecified severity, without behavioral disturbance, psychotic disturbance, mood disturbance, and anxiety; I11.0 Hypertensive heart disease with heart failure; I50.9 Heart failure, unspecified; Z79.899 Other long term (current) drug therapy
CPT/HCPCS: 81003; 99283; A9270

== ENCOUNTER 2023-06-27 18:18 | Emergency (ER) | payer MEDICARE, SELFPAY ==
--- NOTE | ~2023-06-27 | CT_ITS ---
CT of the Abdomen and Pelvis: Indication: Abdominal pain Technique: 2.5 mm axial scans were obtained through the abdomen and pelvis following intravenous adm inistration of 100 cc of Omnipaque 350. Dose reduction technique was used on this scan by utilizing a utomated exposure control and iterative reconstruction technique. The dose-length product (DLP) was 9 64.75 mGy-cm. COMPARISON: 12/04/2022 Findings: Scans through the lung bases are unremarkable. Small gallstone present. Hepatic cysts are present, similar to prior exam. The spleen, pancreas, and adrenal glands are within normal limits. Probable small nonobstructing renal stones present. There ar e atherosclerotic calcifications of the aorta. No lymphadenopathy. No bowel obstruction or bowel wall thickening. There is no evidence to suggest acute appendicitis. Images through the pelvis are degraded by streak artifact from left hip arthroplasty. Urinary bladder grossly unremarkable. No pelvic mass identified. No ascites seen. Impression: No acute abnormality seen. Small gallstone. Probable small nonobstructing renal stones. Reviewed, dictated and finalized at [facility]. [employer] Impression: No acute abnormality seen. Small gallstone. Probable small nonobstructing renal stones.
[2023-06-27 18:21] VITALS: PULSE 69; RESP 16; TEMP 36.4; O2SAT 96
--- NOTE | 2023-06-27 18:46 | ED.ABDPAIN ---
HPI - Abdominal Pain General Chief Complaint: Abdominal Pain Stated Complaint: right flank pain Time Seen by Provider: 06/27/23 18:29 History of Present Illness HPI narrative: patient presents with right side pain that started 2 days ago, has not had any recent injuries, she does have a remote history of kidney stones, as well as diverticulitis. No nausea or vomiting or diarrhea. No burning or pain when she urinates. No fevers or chills Related Data Home Medications Medication Instructions Recorded Confirmed alendronate 70 mg tablet mg PO 06/06/23 carbidopa 25 mg-levodopa 100 mg tablet 06/06/23 tablet clonazepam 0.5 mg tablet mg 06/06/23 diphenhydramine 25 tablet 06/06/23 mg-acetaminophen 500 mg tablet (Acetaminophen PM) docusate sodium 100 mg capsule mg PO 06/06/23 (Colace) ferrous sulfate 325 mg (65 mg mg 06/06/23 06/06/23 iron) tablet (Iron (ferrous sulfate)) furosemide 40 mg tablet mg 06/06/23 lisinopril 10 mg tablet mg 06/06/23 memantine 10 mg tablet mg 06/06/23 montelukast 10 mg tablet mg 06/06/23 oxybutynin chloride 5 mg mg PO 06/06/23 tablet,extended release 24 hr pantoprazole 40 mg tablet,delayed mg PO 06/06/23 release pravastatin 10 mg tablet mg 06/06/23 primidone 50 mg tablet mg 06/06/23 propranolol 60 mg capsule,24 mg PO 06/06/23 hr,extended release quetiapine 300 mg tablet mg 06/06/23 sertraline 100 mg tablet mg 06/06/23 sulfamethoxazole 400 tablet 06/06/23 mg-trimethoprim 80 mg tablet zonisamide 100 mg capsule mg PO 06/06/23 Allergies Allergy/AdvReac Type Severity Reaction Status Date / Time codeine Allergy Mild Hallucinati Verified 04/28/23 13:53 ons morphine Allergy Mild hallucinate Verified 04/28/23 13:53 Review of Systems Review of Systems: CONST: No fever. HEENT: No sore throat C/V: No chest pain RESP: No cough GI: Reports abdominal pain : No dysuria. M/S: No joint pain. SKIN: No rash. NEURO: [No headache or focal numbness or weakness] PSYCH: [No depression] [facility] Past Medical History Medical History Abnormal urine Abnormality of gait Benign essential HTN Bipolar 1 disorder, depressed CHF (congestive heart failure) Chronic respiratory failure Colon polyp Dementia Diverticulitis Family history of ectopic antidiuretic hormone secretion Fracture of humeral head, left, closed Hepatomegaly Hypoxemia Parkinson disease Rotator cuff arthropathy Surgical History Surgical History History of appendectomy Hx of colonoscopy Family History Family History Other Family history of malignant neoplasm Family history of malignant neoplasm of thyroid Social History Social History Social History: Smoking status: Never smoker Second hand tobacco smoke exposure: No Alcohol intake: never Substance use: never Substance use type: does not use Lack of Transportation: No Lack of Food: Never True Current Housing: I Have Housing Concerned About Future Housing: No Difficulty Paying Gas/Electric Bills: No Difficulty Paying for Meds: No Currently Unemployed: YES Education: Decline to Answer Difficulty w/ Childcare or Family Care: No Living arrangements: assisted living Additional living arrangements comments: [facility] Garcia, Independent Living Occupation/Education: retired Gender identity (if verbalized by the patient): Female Sexual Orientation (if Verbalized by the Patient): Straight or Heterosexual Exam Narrative: EXAMINATION OF ORGAN SYSTEMS/BODY AREAS: Constitutional: Vital signs per nursing GENERAL:[No acute distress, non-toxic appearing.] HEAD: Normal with no signs of head trauma. EYES: EOMI, conjunctiva normal ENT: Hearing grossly intact LUNG
[2023-06-27 19:20] VITALS: BP 139/57; PULSE 64; RESP 16; O2SAT 98
[2023-06-27 19:28] LABS: Basophils Percent Auto 0.5 % (0.2-1.2); Eosinophils Absolute Auto 0.1 K/mm3 (0-0.3); Eosinophils Percent Auto 2.1 % (0-4.4); Hematocrit 38.3 % (37.0-47.0); Hemoglobin 11.8 g/dL (12.0-15.0); Lymphocytes Absolute Auto 1.83 K/mm3 (0.9-3.2); Lymphocytes Percent Auto 48.9 % (18.3-44.2); Mean Corpuscular HGB Conc 30.8 g/dl (32-36); Mean Corpuscular Hemoglobin 29.4 pg (26-34); Mean Corpuscular Volume 95.3 fl (80-100); Monocytes Absolute Auto 0.4 K/mm3 (0.1-0.6); Monocytes Percent Auto 10.2 % (2.6-8.5); Neutrophils Absolute Auto 1.4 K/mm3 (1.3-6.7); Neutrophils Percent Auto 38.3 % (45.5-73.1); Platelet Count Result 176 k/mm3 (150-375); Red Blood Count 4.02 M/mm3 (4.2-5.4); Red Cell Distribution Width 13.5 % (11.5-14.5); White Blood Count 3.7 K/mm3 (4.5-10.0)
[2023-06-27 19:38] LABS: Albumin Level 3.3 g/dL (3.5-5.1); Alkaline Phosphatase 72 U/L (38-126); Anion Gap 3 mmol/L (8-16); Aspartate Amino Transferase 25 U/L (14-36); Bilirubin,Total 0.4 mg/dL (0.2-1.3); Blood Urea Nitrogen 18 mg/dL (7-17); Calcium 9.7 mg/dL (8.4-10.2); Carbon Dioxide 35 mmol/L (22-30); Chloride 94 mmol/L (98-107); Estimated CRCL calculation 46 ml/min; Estimated Glomerular Filt Rate 53; Glucose 132 mg/dL (65-110); Lipase 58 U/L (23-300); Sodium 132 mmol/L (137-145)
[2023-06-27 19:54] LABS: Appearance Urine Cloudy (Clear); Bacteria Urine None Seen /hpf; Bilirubin Urine Negative (Negative); Blood Urine Negative (Negative); Color Urine Yellow (Yellow); Glucose Urine UA Negative (Negative); Ketones Urine Trace mg/dL (Negative); Leukocyte Esterase Ur Negative LEU/UL (Negative); Nitrate Urine Negative (Negative); Non Pathogenic Casts 0-2; Protein Urine Negative (Negative); Specific Grav Ur 1.015 (1.001-1.035); Squamous Epithelial Cell Urine None seen /hpf (Few); Urobilinogen Urine 0.2 mg/dL (<2.0); WBC Urine 0-5 /hpf; pH Urine 8.5 (5.0-9.0)
[2023-06-27 20:04] LABS: Add Urine Microscopic? YES
[2023-06-27 20:30] LABS: Alanine Aminotransferase < 6 U/L (6-35)
[2023-06-27] MEDS: ACETAMINOPHEN 500 MG TABLET 1000 MG PO (20:59)
[2023-06-27] MEDS: DICYCLOMINE HCL 10 MG CAPSULE 20 MG PO (21:01)
[2023-06-27] MEDS: TAMSULOSIN HCL 0.4 MG CAPSULE PO (21:01)
== END 2023-06-27 21:04 ==
PROVIDERS: Emergency Provider Emergency Medicine; PCP Family Medicine
DX: R10.9 Unspecified abdominal pain (principal); I11.0 Hypertensive heart disease with heart failure; I50.9 Heart failure, unspecified; J96.10 Chronic respiratory failure, unspecified whether with hypoxia or hypercapnia; F03.90 Unspecified dementia, unspecified severity, without behavioral disturbance, psychotic disturbance, mood disturbance, and anxiety; G20.A1 Parkinson's disease without dyskinesia, without mention of fluctuations; F31.9 Bipolar disorder, unspecified; Z86.010 Personal history of colon polyps; Z87.442 Personal history of urinary calculi
CPT/HCPCS: 36415; 74177; 80053; 81001; 83690; 85025; 99284; A9270; Q9967

== ENCOUNTER 2023-07-15 08:36 | Outpatient (CLI) | payer MEDICARE, SELFPAY ==
--- NOTE | ~2023-07-15 | US_ITS ---
EXAMINATION: US right upper quadrant DATE: 07/15/2023 09:47 INDICATION: Calculus of gallbladder without cholecystitis. TECHNIQUE: Multiple grayscale and Doppler ultrasound images of the abdomen were obtained. COMPARISON: CT abdomen and pelvis 06/27/2023 FINDINGS: The visualized portions of the head, body, and tail of the pancreas are normal. There are c ysts in the liver measuring up to 4.6 cm. There is normal flow in main portal vein. The gallbladder i s normal in size and contains gallstones. No gallbladder wall thickening or sonographic Patel sign. The common duct is normal and measures 5 mm. IMPRESSION: 1. Cholelithiasis. No evidence of acute cholecystitis. Reviewed, dictated and finalized at location A. [facility] [employer]
== END 2023-07-15 08:37 | disposition home or self-care (01) ==
PROVIDERS: PCP Family Medicine; Visit Provider Surgery
DX: K80.20 Calculus of gallbladder without cholecystitis without obstruction (principal)
CPT/HCPCS: 76705

== ENCOUNTER 2023-07-27 14:18 | Observation (INO) | payer MEDICARE, SELFPAY ==
[2023-07-13 14:26] VITALS: BMI 32.9
--- NOTE | 2023-07-13 15:54 | PC.NURSE ---
PRE-OP INSTRUCTIONS, PLEASE READ CAREFULLY Report to the Outpatient Waiting Room, entrance under the green pavilion located off [facility], at time _1130_ on date _07/26/23_. Planned Procedure Time: _1:30 PM_. Time changes happen often and if your time is changed the preop area will call you the afternoon before. - You and your visitor will be asked to self-screen and do not enter if you have any COVID symptoms. - A mask is optional within the hospital at this time. Patients may have clear liquids (water, carbonated beverages, clear teas, apple juice) until 3 hours prior to surgery (1030 AM) with a maximum of 20 ounces. - No food from midnight until time of surgery Take the following medications with a SIP of water the morning of surgery: _CARBIDOPA-LEVODOPA, MONTELUKAST, PRIMIDONE, PROPRANOLOL, SERTRALINE, BACTRIM, ZONISAMIDE, EYE DROP, & CLONAZEPAM IF NEEDED_ DO NOT STOP ANY OF YOUR OTHER PRESCRIPTION MEDICATIONS PRIOR TO SURGERY ?EXCEPT THE FOLLOWING Medications to discontinue per ANESTHESIA - _MULTIVITAMIN, PRO-BIOTIC 3 DAYS PRIOR TO SURGERY, Date to take last dose 07/22/23_ Please no make-up, nail tajik, hairspray, perfume, deodorant, or body powder the day of surgery. No jewelry (including any body piercings) or valuables the day of surgery, leave them at home. Please take a shower or bath the night before, or the morning of, surgery with an antibacterial soap. Wear comfortable, loose fitting clothing. - Jewelry must be removed prior to entering the operating room. Rings and piercings that are not removed may be cut off. - The hospital will not accept responsibility for valuables. - Please leave all valuables, including medications, at home the day of surgery. If you are going home after surgery, a licensed pack train driver must drive you home. - NO public transportation without another adult if you receive anesthesia. - We recommend that an adult stay with you for 24 hours following discharge. - We also recommend that you do not drive, make important decision, drink alcoholic beverages, or take any drugs that were not prescribed by your health care provider for at least 24 hours after your discharge time. Follow any additional instructions given to you from your surgeon. DR. PEPE - [phone] If you or anyone in your household have experienced Covid symptoms in the past week, please notify your surgeon or the nurse liaison at the phone number below for possible testing. Telephone instructions given/FAXED to _WILLIE CONNER _and asked if any additional questions and then verbalized understanding. Patient advised to call surgeon office or pre surgery nurse liaison [phone] if any additional questions.
[2023-07-26] VITALS (8 sets, daily range): BP systolic 141–162; BP diastolic 63–77; PULSE 55–74; RESP 12–20; TEMP 36–36.8; O2SAT 95–100
--- NOTE | 2023-07-26 08:33 | WPDANESEPPF ---
Anes - Initial Pre Proc Eval Procedure: Operation Date: 07/26/23 13:30 Proposed Procedures p Laparoscopic Cholecystectomy - Aneesh Vo DO Date/Time: 07/26/23 08:33 Surgeon: Aneesh Vo DO Pre Op Diagnosis: symptomatic cholelithiasis Patient Data Age: 83 Gender: F Height: 1.7 m Weight: 95.45 kg Allergies Allergy/AdvReac Type Severity Reaction Status Date / Time codeine AdvReac Mild Hallucinati Verified 07/26/23 08:42 ons morphine AdvReac Mild hallucinate Verified 07/26/23 08:42 Home Medications Medication Instructions Recorded Confirmed Type alendronate 70 mg tablet 70 mg PO WEEKLY 06/06/23 07/13/23 History carbidopa 25 mg-levodopa 100 mg 1 tablet TID 06/06/23 07/13/23 History tablet clonazepam 0.5 mg tablet 0.5 mg DAILY PRN Anxiety 06/06/23 07/13/23 History docusate sodium 100 mg capsule 100 mg PO DAILY 06/06/23 07/13/23 History (Colace) furosemide 40 mg tablet 40 mg DAILY 06/06/23 07/13/23 History lisinopril 10 mg tablet 10 mg DAILY 06/06/23 07/13/23 History memantine 10 mg tablet 10 mg HS 06/06/23 07/13/23 History montelukast 10 mg tablet 10 mg DAILY 06/06/23 07/13/23 History oxybutynin chloride 5 mg 5 mg PO DAILY 06/06/23 07/13/23 History tablet,extended release 24 hr pantoprazole 40 mg tablet,delayed 40 mg PO DAILY 06/06/23 07/13/23 History release (Protonix) pravastatin 10 mg tablet 10 mg DAILY 06/06/23 07/13/23 History propranolol 60 mg capsule,24 60 mg PO DAILY 06/06/23 07/13/23 History hr,extended release quetiapine 300 mg tablet (Seroquel) 300 mg HS 06/06/23 07/13/23 History sertraline 100 mg tablet 100 mg DAILY 06/06/23 07/13/23 History zonisamide 100 mg capsule 100 mg PO DAILY 06/06/23 07/13/23 History aspirin 81 mg capsule 81 mg PO DAILY 06/30/23 07/13/23 History calcium amino acid chelate 200 mg 200 mg PO DAILY 06/30/23 07/13/23 History calcium tablet cholecalciferol (vitamin D3) 50 50 mcg PO DAILY 06/30/23 07/13/23 History mcg (2,000 unit) capsule sulfamethoxazole 400 1 tablet PO DAILY #90 tabs 07/01/23 07/13/23 Rx mg-trimethoprim 80 mg tablet lactobacillus combination no.4 15 15,000 mmu cells PO DAILY 07/13/23 07/13/23 History billion cell capsule multivitamin with iron 1 tablet PO DAILY 07/13/23 07/13/23 History peg 400-propylene glycol (PF) 0.4 1 drp RIGHT EYE DAILY 07/13/23 07/13/23 History %-0.3 % eye drops in a dropperette primidone 250 mg tablet 250 mg PO BID 07/13/23 07/13/23 History Patient hx anesthesia problems: none Family hx anesthesia problems: none Results Review: All pre-operative results and documents have been reviewed as part of the pre-operative evaluation. [facility] Past Medical History Medical History (Updated 07/26/23 @ 08:36 by Jose Meyer DO) Abnormal urine Abnormality of gait Benign essential HTN Bipolar 1 disorder, depressed CHF (congestive heart failure) EF 60-65% Chronic respiratory failure Colon polyp Dementia Diverticulitis Family history of ectopic antidiuretic hormone secretion Fracture of humeral head, left, closed Hepatomegaly Hypoxemia Parkinson disease Rotator cuff arthropathy Surgical History Surgical History (Updated 06/30/23 @ 10:03 by Gina Connors MA) History of appendectomy History of hip surgery History of shoulder surgery History of tonsillectomy and adenoidectomy Hx of colonoscopy Hx of hysterectomy Hx of knee surgery Family History Family History Other Family history of malignant neoplasm Family history of malignant neoplasm of thyroid Social History Social History Social History: Smoking status: Never smoker Second hand tobacco smoke exposure: No Alcohol intake: never Substance use: never Substance use type: does not use Lack of Transportation: No Lack of Food: Never True Current Housing: I Have Housing
--- NOTE | 2023-07-26 12:20 | WPDHPUPDATE1 ---
History and Physical Update Update Date/Time: 07/26/23 12:21 History and Physical has been reviewed, including an updated exam of the patient. There are NO changes in the patient's condition. Risks, benefits, and alternatives have been discussed and questions answered. Patient agrees to proceed with procedure.
--- NOTE | 2023-07-26 12:32 | ECG_ITS ---
Measurements Intervals [place] Rate: 47 P: 47 DC: 210 QRS: 12 QRSD: 111 T: 42 QT: 444 QTc: 394 Interpretive Statements SINUS BRADYCARDIA WITH FIRST DEGREE AV BLOCK EARLY PRECORDIAL R-WAVE TRANSITION BORDERLINE ECG COMPARED TO ECG 04/05/2022 19:16:51 HEART RATE IS REDUCED AND FIRST-DEGREE AV BLOCK IS SEEN Electronically Signed On 07-26-2023 15:16:28 CLAY ARTIST by Abdoulaye Durant M.D.
[2023-07-26] MEDS: ACETAMINOPHEN 500 MG TABLET 1000 MG PO (12:51)
[2023-07-26] MEDS: KETOROLAC 15 MG/ML VIAL (*BKC) IV PUSH (13:47)
[2023-07-26] MEDS: LACTATED RINGERS 1,000 ML 30 ML IV CONT ×2 (13:47→15:52)
[2023-07-26 14:15] LABS: Amylase 97 U/L (30-110)
[2023-07-26] MEDS: ceFAZolin 2 GM/D5W 50 ML 2 GM/50 ML BAG IVPB (14:24)
[2023-07-26] MEDS: BUPIVACAINE/EPINEPHRINE 0.5% 30 ML VIAL INFILTRATE (14:35)
--- NOTE | 2023-07-26 15:51 | W.PM.PROC2 ---
Procedure Note - Detailed Date of Procedure 07/26/23 Pre-op Diagnosis symptomatic cholelithiasis Post-op Diagnosis Same Procedure Performed Laparoscopic Cholecystectomy Surgeon Aneesh Vo, DO Anesthesia General and Local (0.5% bupivacaine) Indications This is an 83-year-old woman who presented with intermittent upper abdominal pains for the past couple months. Her pain has mostly been after eating. In the last month she had a severe episode that brought her to the emergency department. Workup showed evidence of cholelithiasis but no other significant abnormalities. Discussions were made with the patient and her daughter about treatment options and decision was made to proceed with laparoscopic cholecystectomy, possible open. Findings Laparoscopic cholecystectomy was performed. The patient did have some omental adhesions up her midline abdominal wall near the umbilicus. I had to take down some of the is adhesions to visualize where my supraumbilical port was going to be. She then also had a very elongated gallbladder that was barely attached at the gallbladder fossa. The cystic duct appeared normal in size. There were some pericholecystic adhesions that had to be carefully taken down. Due to the adhesions in the midline and at the gallbladder there was some minor bleeding. Most of this was able to be controlled with electrocautery but there was some minor oozing at the omentum that was then also controlled with Tisseel. Total blood loss was about 100 mL. The gallbladder was removed and sent to the lab for pathology. Description of Procedure Procedure as well as risks, benefits, and alternatives were discussed with patient. Written consent was obtained and placed in chart prior to procedure. The patient was brought back to surgical suite. Patient was placed in supine position on operating table. Time-out was done to confirm patient and procedure. Patient was then intubated by the anesthesia department. Abdomen was prepped and draped in sterile fashion using chlorhexidine prep. 0.5% bupivacaine with epinephrine was infiltrated at each site of incision. A 5 millimeter incision was made near the umbilicus, and a 5 millimeter Optiview trocar was advanced through the abdominal layers under direct visualization. Once inside the abdominal cavity, carbon dioxide was insufflated to create a pneumoperitoneum. The camera was inserted and the abdomen was inspected. There were some adhesions up to the periumbilical region which made visualization in the right upper quadrant difficult. I placed a left upper quadrant port and another left mid abdominal port and took down these midline adhesions using scissors with electrocautery. I was then able to visualize the remainder of the abdominal cavity and no other abnormalities were seen. The patient was placed in reverse Trendelenburg position and rotated slightly to the left. An 11 millimeter incision was made in the subxiphoid region, and an 11 millimeter trocar was inserted under direct visualization. Two 5 millimeter incisions were made in the right upper quadrant, and two 5 millimeter trocars were inserted under direct visualization. The gallbladder was identified and grasped at the fundus and retracted superiorly. It was then grasped at the infundibulum retracted laterally. Careful dissection around the neck of the gallbladder was performed using blunt dissection with a [place] grasper and hook electrocautery. The cystic duct was identified, and a window was created behind it. The cystic artery was also identified and a window was created behind it. The critical view of safety was identified, visualizing the cystic duct running directly into the neck of the gallbladder, and the cystic artery running directly into the wall of the gallbladder. A 5 millimeter clip international recruiter was then used to place 2 clips proximally and 1 clip distally on both the cystic duct and cystic artery. They were then both transec
--- NOTE | 2023-07-26 18:36 | ADMGEN ---
This patient, Umm Llanos, was admitted to [address] [place] [address] Room 305-01. Patient/family oriented to hospital policies and general routines including ID bracelet, bed and alarms, visiting hours, pain management, procedures, bathroom and other care routines, personal items, smoking policy, room service/diet, and visiting hours. Information on how to activate the Rapid Response Team has been discussed. Patient/Family are encouraged to report perceived risks to care and to ask questions if they do not understand what they are told or what they should do.
[2023-07-26] MEDS: LACTATED RINGERS 1,000 ML 100 ML IV CONT (19:05)
[2023-07-26] MEDS: CARBIDOPA/LEVODOPA 25/100 MG TABLET 1 TABLET BY MOUTH (19:05)
[2023-07-26] MEDS: traMADol HCL (*CRX) 25 MG TABLET PO (19:06)
[2023-07-26] MEDS: PRIMIDONE 250 MG TABLET PO (19:06)
[2023-07-26] MEDS: QUEtiapine FUMARATE 100 MG TABLET 300 MG PO (20:29)
[2023-07-26] MEDS: MEMANTINE 10 MG TABLET PO (20:29)
--- NOTE | 2023-07-26 21:04 | WPDCN ---
Assessment and Plan Assessment and plan (1) Symptomatic cholelithiasis: Code(s): K80.20 - Calculus of gallbladder without cholecystitis without obstruction Status: Acute Assessment and Plan: Postoperative day 0 status post laparoscopic cholecystectomy. Wound care, pain control, DVT prophylaxis deferred to Dr. Vo. (2) Parkinson disease: Code(s): G20 - Parkinson's disease Status: Acute Assessment and Plan: Resume carbidopa-levodopa and primidone. (3) Benign essential hypertension: Code(s): I10 - Essential (primary) hypertension Status: Acute Assessment and Plan: Blood pressures were reviewed and they have been running a bit high postoperatively, likely due to pain. Continue lisinopril 10 mg daily and propranolol 60 mg daily. Monitor blood pressures and make adjustments accordingly, depending on how she trends. (4) Heart failure with preserved ejection fraction: Code(s): I50.30 - Unspecified diastolic (congestive) heart failure Status: Acute Assessment and Plan: Significant pitting edema which she states is chronic. Avoid over-hydration and monitor volume status with daily weights and I/O. (5) Psychiatric illness: Code(s): F99 - Mental disorder, not otherwise specified Status: Acute Assessment and Plan: No acute issues. Continue clonazepam as needed and quetiapine at bedtime. (6) Seizure: Code(s): R56.9 - Unspecified convulsions Status: Acute Assessment and Plan: Continue zonisamide. Plan Thank you for allowing us to participate in this patient's care. Please do not hesitate to contact us with any questions. HPI Data of Consult Date/Time: 07/26/23 21:35 Requesting Physician: Aneesh Vo DO Consult Narrative Reason for consult: Medical management. Narrative: This is an 83-year-old female with Parkinson's disease, seizures, congestive heart failure, hypertension, hyperlipidemia, anemia, depression, bipolar disorder, and schizophrenia who presented today for elective laparoscopic cholecystectomy per Dr. Vo due to ongoing, intermittent abdominal discomfort, mainly with eating. The hospitalist service has been consulted in this setting for help managing her medical conditions. Her surgery was performed under general and local anesthesia with no immediate complications documented an estimated blood loss of 100 mL. Postoperatively her vital signs have been stable. Her pain is been well controlled. She denies fever, chills, sweats, chest pain, shortness a breath, nausea, and vomiting. Regarding her chronic medical conditions; she reports her Parkinson's is pretty well controlled on medications. She denies recent seizures. She has chronic, significant lower changed and she denies orthopnea and paroxysmal nocturnal dyspnea. She believes that her blood pressures are well controlled on home medications. No recent issues with regards to her psychiatric illness. Review of Systems Review of Systems: Twelve systems were reviewed and are negative except for as per HPI. [facility] Past Medical History Medical History (Updated 07/26/23 @ 21:10 by Marti Swanson PA-C) Anxiety and depression Benign essential hypertension Bipolar 1 disorder, depressed Chronic respiratory failure Colon polyp Dementia Diverticulitis Fracture of humeral head, left, closed Heart failure with preserved ejection fraction EF 60 to 65%. Parkinson disease Schizophrenia Seizure Surgical History Surgical History (Updated 07/26/23 @ 21:09 by Marti Swanson PA-C) History of appendectomy History of bilateral knee replacement History of cataract extraction History of colonoscopy with polypectomy History of hip surgery History of hysterectomy History of left shoulder replacement History of tonsillectomy and adenoidectomy Family History Family History (Reviewed 07/26/23 @ 21:09 by Marti Hayden
[2023-07-26] MEDS: clonazePAM (*CRX) 0.5 MG TABLET BY MOUTH (21:51)
[2023-07-26] MEDS: ACETAMINOPHEN 500 MG TABLET PO (21:51)
[2023-07-27] VITALS (7 sets, daily range): BP systolic 91–128; BP diastolic 40–54; PULSE 70–94; RESP 19–20; TEMP 36.1–36.8; O2SAT 93–99
[2023-07-27 07:26] LABS: Hematocrit 30.4 % (37.0-47.0); Hemoglobin 9.5 g/dL (12.0-15.0); Mean Corpuscular HGB Conc 31.3 g/dl (32-36); Mean Corpuscular Volume 95.9 fl (80-100); Mean Platelet Volume 9.4 fl (7.4-10.4); Platelet Count Result 144 k/mm3 (150-375); Red Blood Count 3.17 M/mm3 (4.2-5.4); Red Cell Distribution Width 13.5 % (11.5-14.5); White Blood Count 4.3 K/mm3 (4.5-10.0)
[2023-07-27 07:42] LABS: Albumin Level 2.6 g/dL (3.5-5.1); Alkaline Phosphatase 59 U/L (38-126); Anion Gap 0 mmol/L (8-16); Aspartate Amino Transferase 32 U/L (14-36); Bilirubin,Total 0.4 mg/dL (0.2-1.3); Blood Urea Nitrogen 19 mg/dL (7-17); Calcium 8.5 mg/dL (8.4-10.2); Carbon Dioxide 29 mmol/L (22-30); Chloride 103 mmol/L (98-107); Estimated CRCL calculation 49 ml/min; Estimated Glomerular Filt Rate 60; Glucose 72 mg/dL (65-110); Magnesium 1.8 mg/dL (1.6-2.3); Potassium 3.7 mmol/L (3.4-5.0); Sodium 132 mmol/L (137-145)
[2023-07-27 07:49] LABS: INR 1.1; Prothrombin Time 14.2 Seconds (11.1-14.7)
[2023-07-27 08:03] LABS: Alanine Aminotransferase < 6 U/L (6-35)
[2023-07-27] MEDS: DOCUSATE SODIUM 100 MG CAPSULE PO (10:34)
[2023-07-27] MEDS: SERTRALINE HCL 50 MG TABLET 100 MG PO (10:34)
[2023-07-27] MEDS: MONTELUKAST SODIUM 10 MG TABLET PO (10:34)
[2023-07-27] MEDS: oxyBUTYnin CHLORIDE XL 5 MG TAB.ER.24 PO (10:34)
[2023-07-27] MEDS: traMADol HCL (*CRX) 50 MG TABLET PO ×3 (10:34→18:46)
[2023-07-27] MEDS: PRAVASTATIN SODIUM 10 MG TABLET PO (10:35)
[2023-07-27] MEDS: ASPIRIN 81 MG ENTERIC TABLET PO (10:35)
[2023-07-27] MEDS: clonazePAM (*CRX) 0.5 MG TABLET BY MOUTH (10:35)
[2023-07-27] MEDS: PANTOPRAZOLE 40 MG TABLET PO (10:35)
[2023-07-27] MEDS: lisinopriL 10 MG TABLET PO (10:35)
[2023-07-27] MEDS: SULFAMETHOXAZOLE/TRIMETHOPRIM 400/80 MG TABLET 1 TAB PO (10:35)
[2023-07-27] MEDS: CARBIDOPA/LEVODOPA 25/100 MG TABLET 1 TABLET BY MOUTH ×3 (10:35→18:47)
[2023-07-27] MEDS: FUROSEMIDE 40 MG TABLET PO (10:35)
[2023-07-27] MEDS: PRIMIDONE 250 MG TABLET PO ×2 (10:35→18:47)
[2023-07-27] MEDS: ZONISAMIDE 100 MG CAPSULE PO (10:37)
[2023-07-27] MEDS: PROPRANOLOL HCL 60 MG CAPSULE CR PO (10:37)
--- NOTE | 2023-07-27 11:23 | WPDANESPN ---
Anes - Prog Note Post-Op Date/Time: 07/27/23 11:23 Cardiovascular status: normal Respiratory status: normal Airway patency: baseline Mental status: baseline Post-Op hydration status: normal Vital Signs: Last Vital Signs Temp 36.1 C L 07/27/23 02:47 Pulse 76 07/27/23 02:47 Resp 20 07/27/23 02:47 BP 102/49 L 07/27/23 02:47 Pulse Ox 99 07/27/23 02:47 O2 Del Method Nasal Cannula 07/26/23 16:55 O2 Flow Rate 2 07/26/23 16:55 Pain Score (VAS): Patient asleep when rounding. No nonverbal signs of pain present at that time. I/O: Intake & Output 07/26/23 07/27/23 07/27/23 23:59 07:59 15:59 Intake Total 100 760 Balance 100 760 Laboratory Tests 07/27/23 07:02 07/27/23 07:02 07/26/23 07/27/23 13:22 07:02 WBC 4.3 L RBC 3.17 L Hgb 9.5 L Hct 30.4 L MCV 95.9 MCH 30.0 MCHC 31.3 L RDW 13.5 Plt Count 144 L MPV 9.4 PT 14.2 INR 1.1 Sodium 132 L Potassium 3.7 Chloride 103 Carbon Dioxide 29 Anion Gap 0 L BUN 19 H Creatinine 0.90 Estim Creat Clear Calc 49 Estimated GFR 60 Glucose 72 Calcium 8.5 Magnesium 1.8 Total Bilirubin 0.4 AST 32 ALT < 6 L Alkaline Phosphatase 59 Total Protein 5.0 L Albumin 2.6 L Amylase 97 Post-procedural complaints: none Patient Feedback: Patient satisfied with anesthetic care.
--- NOTE | 2023-07-27 11:24 | PM.PNGS ---
Progress Note: A&P Assessment and Plan (1) Symptomatic cholelithiasis: Code(s): K80.20 - Calculus of gallbladder without cholecystitis without obstruction Status: Acute Assessment and Plan: Doing well postop day 1. Will advance to a low-fat diet. Start increasing activity as tolerated. She came from [facility]. Will order PT and OT to evaluate patient and give recommendations for discharge. Plan I have discussed the patient's case and plan of care with Dr. Vo. Subjective Subjective Date/Time Seen: 07/27/23 11:24 Post Op day: 1 (Laparoscopic cholecystectomy) Patient reports: tolerating liquids well, voiding w/o difficulty, flatus and no bowel movement Interval history: Patient doing well this morning. She had some hallucinations after taking some pain medication last night per nursing. Her pain medication was switched to tramadol, which she is tolerating well. This morning, she is alert and oriented. She reports incisional pain mostly near the periumbilical trocar incision. She also feels constipated and is requesting MiraLax, which she takes home. Per nursing, she has some bruising and swelling at the left lateral trocar incision. No nausea or vomiting. Tolerating full liquids. Nursing got the patient up to the chair and felt she was very shaky. They are requesting PT/OT evaluation. Exam Const: General: comfortable and no acute distress Orientation/consciousness: patient oriented x3 GI: Inspection: non-distended and incision (incisions dry, ecchymosis at LUQ trocar incision extending laterally) GI Palp: Yes Soft to palpation, Yes Tenderness to palpation present (GI) (incisional) and No Guarding due to palpation present (GI) Auscultation: normal bowel sounds Neuro: General: moves all extremities and no focal motor deficits Psych: Mental Status: mental status grossly normal Insight: Good insight present (Psych) Objective Data Vital Signs Vital Signs: Vital Signs - 24 hr 07/26/23 13:39 07/26/23 15:55 07/26/23 16:10 Temperature 98.3 F 97.5 F L Pulse Rate 55 L 67 72 Respiratory Rate 18 12 20 Blood Pressure 150/77 H 141/69 H 146/63 H Pulse Oximetry 98 98 100 Oxygen Delivery Room Air Simple Face Mask Simple Face Mask Oxygen Flow Rate 8 8 07/26/23 16:25 07/26/23 16:40 07/26/23 16:55 Temperature Pulse Rate 68 66 69 Respiratory Rate 17 18 16 Blood Pressure 142/70 H 162/73 H 159/71 H Pulse Oximetry 100 95 95 Oxygen Delivery Simple Face Mask Nasal Cannula Nasal Cannula Oxygen Flow Rate 8 2 2 07/26/23 17:17 07/26/23 21:23 07/27/23 02:47 Temperature 96.8 F L 97.4 F L 97.0 F L Pulse Rate 62 74 76 Respiratory Rate 17 19 20 Blood Pressure 161/64 H 149/71 H 102/49 L Pulse Oximetry 100 98 99 Oxygen Delivery Oxygen Flow Rate Intake/Output Intake/Output: Intake & Output 07/24/23 07/25/23 07/26/23 07/27/23 23:59 23:59 23:59 23:59 Intake Total 150 760 Output Total 800 Balance -650 760 Meds/Results Medications: Active Medications Generic Name Dose Route Start Last Admin Trade Name Freq PRN Reason Stop Dose Admin Acetaminophen 500 mg 07/26/23 17:02 07/26/23 21:51 Acetaminophen 500 Mg Tablet PO 500 mg Q6H PRN Administration Mild Pain (1-3) or Fever Aspirin 81 mg 07/27/23 09:00 07/27/23 10:35 Aspirin 81 Mg Enteric Tablet PO 81 mg QAM DIANE Administration Carbidopa/Levodopa 1 tablet 07/26/23 17:02 07/27/23 10:35 Carbidopa/Levodopa 25/100 Mg Tablet BY MOUTH 1 tablet TID DIANE Administration Clonazepam 0.5 mg 07/26/23 21:13 07/27/23 10:35 Clonazepam (*Crx) 0.5 Mg Tablet BY MOUTH 0.5 mg DAILY PRN Administration Anxiety Docusate Sodium 100 mg 07/27/23 09:00 07/27/23 10:34 Docusate Sodium 100 Mg Capsule PO 100 mg DAILY DIANE Administration Furosemide 40 mg 07/27/23 09:00 07/27/23 10:35 Furosemide 40 Mg Tablet PO 40 mg DAILY DIANE Administration Hydromorphone H
--- NOTE | 2023-07-27 11:30 | PM.IMCN ---
Assessment and Plan Assessment and plan (1) Symptomatic cholelithiasis: Code(s): K80.20 - Calculus of gallbladder without cholecystitis without obstruction Status: Acute Assessment and Plan: Postoperative day 1 status post laparoscopic cholecystectomy. Wound care, pain control, DVT prophylaxis deferred to Dr. Vo. (2) Parkinson disease: Code(s): G20 - Parkinson's disease Status: Chronic Assessment and Plan: Resume carbidopa-levodopa and primidone. (3) Benign essential hypertension: Code(s): I10 - Essential (primary) hypertension Status: Chronic Assessment and Plan: Blood pressures were reviewed and they have been running a bit high postoperatively, likely due to pain. Continue lisinopril 10 mg daily and propranolol 60 mg daily. Monitor blood pressures and make adjustments accordingly, depending on how she trends. (4) Heart failure with preserved ejection fraction: Code(s): I50.30 - Unspecified diastolic (congestive) heart failure Status: Chronic Assessment and Plan: Significant pitting edema which she states is chronic. Avoid over-hydration and monitor volume status with daily weights and I/O. Last ECHO dated 02/09/20 per our EMR. At that time the pt had a normal LVSF and EF of 60-65%. (5) Psychiatric illness: Code(s): F99 - Mental disorder, not otherwise specified Status: Chronic Assessment and Plan: No acute issues. Continue clonazepam as needed and quetiapine at bedtime. (6) Seizure: Code(s): R56.9 - Unspecified convulsions Status: Chronic Assessment and Plan: Continue zonisamide. Plan Thank you for allowing us to participate in this patient's care. Please do not hesitate to contact us with any questions. Medicine to sign off at this time. Ok for discharge from our standpoint. HPI Date of Consult Consult date: 07/27/23 Requesting Physician: Aneesh Vo DO Primary Care Provider: Renay Rhodes MD Consult Narrative Narrative: Umm Llanos is a 83 year old female who is assessed at the bedside today as we are medical consult for her during her hospitalization for a Cholecystectomy. Today is POD#1. Pt is up, out of bed, tolerating current diet and pain is well controlled. Her VSS, and she has no other acute complaints. Labs are unremarkable. Review of Systems Review of Systems: All systems reviewed & are unremarkable except as noted in HPI and below PMFSH Past Medical History Medical History Anxiety and depression Benign essential hypertension Bipolar 1 disorder, depressed Chronic respiratory failure Colon polyp Dementia Diverticulitis Fracture of humeral head, left, closed Heart failure with preserved ejection fraction EF 60 to 65%. Parkinson disease Schizophrenia Seizure Surgical History Surgical History History of appendectomy History of bilateral knee replacement History of cataract extraction History of colonoscopy with polypectomy History of hip surgery History of hysterectomy History of left shoulder replacement History of tonsillectomy and adenoidectomy Family History Family History Other Family history of malignant neoplasm Family history of malignant neoplasm of thyroid Social History Social History Social History: Surrogate medical decision maker: Rubia Basilio, daughter. Code status: Full code. Smoking status: Never smoker Second hand tobacco smoke exposure: No Alcohol intake: never Substance use: never Substance use type: does not use Do You Feel Safe in your Home?: Yes Lack of Transportation: No Lack of Food: Never True Current Housing: [facility]
--- NOTE | 2023-07-27 13:22 | PCOTNOTE ---
Attempted occupational therapy evaluation. RN reports that patient has been up and down with PRICING MANAGER to go to the bathroom, however stated that she felt dizzy. BP within normal limits. Pt and family requested that pt take a nap before therapy. Following.
[2023-07-27] MEDS: MEMANTINE 10 MG TABLET PO (20:05)
[2023-07-27] MEDS: QUEtiapine FUMARATE 100 MG TABLET 300 MG PO (20:05)
[2023-07-28 06:15] LABS: Hematocrit 30.3 % (37.0-47.0); Hemoglobin 9.5 g/dL (12.0-15.0); Mean Corpuscular HGB Conc 31.4 g/dl (32-36); Mean Corpuscular Hemoglobin 29.7 pg (26-34); Mean Corpuscular Volume 94.7 fl (80-100); Mean Platelet Volume 9.6 fl (7.4-10.4); Platelet Count Result 144 k/mm3 (150-375); Red Cell Distribution Width 13.6 % (11.5-14.5); White Blood Count 4.2 K/mm3 (4.5-10.0)
[2023-07-28 06:26] LABS: Anion Gap 2 mmol/L (8-16); Blood Urea Nitrogen 24 mg/dL (7-17); Calcium 8.3 mg/dL (8.4-10.2); Carbon Dioxide 30 mmol/L (22-30); Chloride 102 mmol/L (98-107); Estimated CRCL calculation 41 ml/min; Estimated Glomerular Filt Rate 48; Glucose 86 mg/dL (65-110); Potassium 4.4 mmol/L (3.4-5.0); Sodium 134 mmol/L (137-145)
[2023-07-28 06:44] VITALS: BP 107/43; PULSE 64; RESP 17; TEMP 36.7; O2SAT 91
[2023-07-28 08:30] VITALS: O2SAT 98
[2023-07-28 08:39] VITALS: PULSE 74
[2023-07-28] MEDS: SERTRALINE HCL 50 MG TABLET 100 MG PO (08:39)
[2023-07-28] MEDS: PROPRANOLOL HCL 60 MG CAPSULE CR PO (08:39)
[2023-07-28] MEDS: SULFAMETHOXAZOLE/TRIMETHOPRIM 400/80 MG TABLET 1 TAB PO (08:40)
[2023-07-28] MEDS: CARBIDOPA/LEVODOPA 25/100 MG TABLET 1 TABLET BY MOUTH ×2 (08:40→13:13)
[2023-07-28] MEDS: PRIMIDONE 250 MG TABLET PO (08:40)
[2023-07-28] MEDS: ASPIRIN 81 MG ENTERIC TABLET PO (08:40)
[2023-07-28] MEDS: MONTELUKAST SODIUM 10 MG TABLET PO (08:40)
[2023-07-28] MEDS: FUROSEMIDE 40 MG TABLET PO (08:40)
[2023-07-28] MEDS: oxyBUTYnin CHLORIDE XL 5 MG TAB.ER.24 PO (08:40)
[2023-07-28] MEDS: ZONISAMIDE 100 MG CAPSULE PO (08:40)
[2023-07-28] MEDS: PANTOPRAZOLE 40 MG TABLET PO (08:41)
[2023-07-28] MEDS: PRAVASTATIN SODIUM 10 MG TABLET PO (08:41)
[2023-07-28] MEDS: DOCUSATE SODIUM 100 MG CAPSULE PO (08:41)
[2023-07-28] MEDS: lisinopriL 10 MG TABLET PO (08:41)
--- NOTE | 2023-07-28 11:34 | PM.DS ---
DS: Admitting Diagnosis Discharge Date 07/28/2023 Admitting Diagnosis Symptomatic cholelithiasis, Parkinson's disease, bipolar disorder, hypertension, seizure disorder DS: Discharge Diagnosis Discharge Diagnosis (1) Symptomatic cholelithiasis: Code(s): K80.20 - Calculus of gallbladder without cholecystitis without obstruction Status: Acute (2) Parkinson disease: Code(s): G20 - Parkinson's disease Status: Chronic (3) Benign essential hypertension: Code(s): I10 - Essential (primary) hypertension Status: Chronic (4) Bipolar 1 disorder, depressed: Code(s): F31.9 - Bipolar disorder, unspecified Status: Acute (5) Seizure: Code(s): R56.9 - Unspecified convulsions Status: Chronic DS: Summary Hospital Course Reason for hospitalization: Recovery after laparoscopic cholecystectomy Hospital Course: This is an 83-year-old woman who presented for laparoscopic cholecystectomy on 07/26/2023. She was placed in the hospital for recovery after the surgery due to her multiple comorbidities and smoked for perioperative complications. She was carefully monitored with vitals and frequent examinations. Her diet and activity were slowly advanced as tolerated postoperatively. On postop day 1 she was having some dizziness and weakness and was getting up with assistance. She was keeping food down but was not having much appetite yet. On postop day 2 she was continuing to improve and was tolerating a low-fat diet. She remained hemodynamically stable. Discharged on postop day 2. Status at Discharge Functional status at discharge: independent ambulation Overall status at discharge: patient is progressing back to baseline Time Spent with Patient Time attestation: Total time spent providing and/or coordinating discharge services: Time spent: Less than 30 minutes Exam Const: General: comfortable, no acute distress and alert Resp: Effort & Inspection: normal respiratory effort Auscultation: clear to auscultation bilaterally Cardio: Rate: regular rate Rhythm: regular rhythm Heart sounds: S1 normal heart sound present and S2 normal heart sound present GI: Inspection: non-distended and incision (Intact with glue, mild ecchymosis) GI Palp: Yes Soft to palpation, Yes Tenderness to palpation present (GI) (Incisional) and No Guarding due to palpation present (GI) DS: Data Data Completed and Pending Completed studies during hospitalization: Pending at discharge 07/26/23 14:58 Surgical [PTH] Routine Labs on day of discharge: Labs from last 24 hours 07/28/23 05:46 WBC 4.2 L RBC 3.20 L Hgb 9.5 L Hct 30.3 L MCV 94.7 MCH 29.7 MCHC 31.4 L RDW 13.6 Plt Count 144 L MPV 9.6 Sodium 134 L Potassium 4.4 Chloride 102 Carbon Dioxide 30 Anion Gap 2 L BUN 24 H Creatinine 1.10 H Estim Creat Clear Calc 41 Estimated GFR 48 L Glucose 86 Calcium 8.3 L Discharge Plan Discharge Attending physician on discharge: Aneesh Pepe Consulting providers: Judit Jennings; Marti Swanson Discharging Clinician: Aneesh Pepe Patient Disposition: [facility] Activity: other - see discharge instructions Diet: low fat Wound Care Instructions: other - see discharge instructions Discharge Instructions: DISCHARGE INSTRUCTION SHEET FOR HERNIA, GALLBLADDER AND APPENDIX SURGERIES DR. PEPE PATIENT TO TAKE HOME 1. May shower, no soaking in bath x 2weeks. 2. Call office for: Wound increasingly painful or bleeding Vomiting Fever of greater than 101 degrees 3. If no bowel movement for three days, take 1 oz. (30 ml) Milk of Magnesia or MiraLax 17g 1 to 2 times daily. 4. No heavy lifting > 10-15 pounds x 2 weeks for laparoscopic cholecystectomy or appendectomy. 5. No driving for 3 days or while taking narcotic pain medications. 6. Ice to surgical site for 48 hours (30 min on, then 30 min off).
[2023-07-28] MEDS: traMADol HCL (*CRX) 25 MG TABLET PO (13:12)
== END 2023-07-28 13:15 ==
LOC: ANHSURGERY 14:26 → ANH3MEDSUR 14:26
PROVIDERS: Admitting Provider Surgery; PCP Family Medicine; Visit Provider Surgery
PROC: 0FT44ZZ Resection of Gallbladder, Percutaneous Endoscopic Approach (ICD-10-PCS; CPT 47562; principal; 2023-07-26 13:30)
DX: K80.10 Calculus of gallbladder with chronic cholecystitis without obstruction (principal); G20.A1 Parkinson's disease without dyskinesia, without mention of fluctuations; I11.0 Hypertensive heart disease with heart failure; I50.30 Unspecified diastolic (congestive) heart failure; G40.909 Epilepsy, unspecified, not intractable, without status epilepticus; J96.11 Chronic respiratory failure with hypoxia; R16.0 Hepatomegaly, not elsewhere classified; D64.9 Anemia, unspecified; F31.9 Bipolar disorder, unspecified; F20.9 Schizophrenia, unspecified; I44.0 Atrioventricular block, first degree; R00.1 Bradycardia, unspecified; E66.9 Obesity, unspecified; Z68.31 Body mass index [BMI] 31.0-31.9, adult; Z79.82 Long term (current) use of aspirin; Z79.899 Other long term (current) drug therapy
CPT/HCPCS: 47562; 36415; 80048; 80053; 82150; 83735; 85027; 85610; 88304; 93005; 97161; 97165; A9270; G0378; J0690; J1100; J1596; J1885; J2371; J2405; J2704; J3010; J7120

== ENCOUNTER 2023-11-11 15:07 | Outpatient (CLI) | payer MEDICARE, SELFPAY ==
--- NOTE | ~2023-11-11 | XR_ITS ---
XR chest 2V 11/11/2023 14:47 Indication: Shortness of breath Procedure: 2 view chest Comparison: Comparison to multiple prior studies sequentially, with oldest reviewed study dated 03/06. Findings: Heart size normal. No focal air space disease, pulmonary edema, pleural effusion or suspect ed pneumothorax. No acute osseous abnormality. There are bilateral shoulder arthroplasties. Moderate thoracic spondylosis. Impression: 1: No acute cardiopulmonary disease. Reviewed, dictated and finalized at location B. Impression: 1: No acute cardiopulmonary disease.
[2023-11-11 15:37] LABS: Basophils Percent Auto 0.6 % (0.2-1.2); Eosinophils Absolute Auto 0.1 K/mm3 (0-0.3); Eosinophils Percent Auto 1.5 % (0-4.4); Hematocrit 41.8 % (37.0-47.0); Hemoglobin 12.9 g/dL (12.0-15.0); Immature Granulocyte Absolute 0.01 K/mm3 (0.00-0.031); Immature Granulocyte Percent A 0.2 % (0-0.5); Lymphocytes Absolute Auto 1.92 K/mm3 (0.9-3.2); Lymphocytes Percent Auto 40.7 % (18.3-44.2); Mean Corpuscular HGB Conc 30.9 g/dl (32-36); Mean Corpuscular Hemoglobin 28.5 pg (26-34); Mean Corpuscular Volume 92.3 fl (80-100); Monocytes Absolute Auto 0.5 K/mm3 (0.1-0.6); Monocytes Percent Auto 9.5 % (2.6-8.5); Neutrophils Absolute Auto 2.2 K/mm3 (1.3-6.7); Neutrophils Percent Auto 47.5 % (45.5-73.1); Platelet Count Result 212 k/mm3 (150-375); Red Blood Count 4.53 M/mm3 (4.2-5.4); Red Cell Distribution Width 14.5 % (11.5-14.5); White Blood Count 4.7 K/mm3 (4.5-10.0)
[2023-11-11 19:08] LABS: Albumin Level 4.2 g/dL (3.5-5.1); Alkaline Phosphatase 79 U/L (38-126); Anion Gap 1 mmol/L (4-12); Aspartate Amino Transferase 29 U/L (14-36); Bilirubin,Total 0.5 mg/dL (0.2-1.3); Blood Urea Nitrogen 21 mg/dL (7-17); Calcium 9.9 mg/dL (8.4-10.2); Carbon Dioxide 34 mmol/L (22-30); Chloride 100 mmol/L (98-107); Estimated Glomerular Filt Rate 43; Glucose 87 mg/dL (65-110); Potassium 4.7 mmol/L (3.4-5.0); Sodium 135 mmol/L (137-145)
[2023-11-11 21:07] LABS: Alanine Aminotransferase < 6 U/L (6-35)
== END 2023-11-11 15:08 | disposition home or self-care (01) ==
PROVIDERS: PCP Family Medicine; Visit Provider Family Medicine
DX: R53.83 Other fatigue (principal); I10 Essential (primary) hypertension; R06.02 Shortness of breath
CPT/HCPCS: 36415; 71046; 80053; 82607; 85025

== ENCOUNTER 2023-11-19 14:31 | Outpatient (CLI) | payer MEDICARE, SELFPAY ==
--- NOTE | 2023-11-19 14:49 | ECHO_ITS ---
Patient Info Name: Umm Llanos Age: 83 years : 1940 Gender: Female Ht: 70 in Wt: 180 lbs BSA: 2.02 m2 HR: 55 bpm BP: 158 / 78 mmHg Technical Quality: Poor Exam Date: 11/19/2023 3:25 PM Exam Location: Echo Lab Patient Status: Outpatient Admit Date: 11/19/2023 Staff Ordering Physician: Renay Rhodes MD Attending Provider: Renay Rhodes MD Referring Physician: Meagan REYNA; Exam Type: CA echo doppler color flow Study Info Indications R01.1 - Cardiac murmur, unspecified Complete two-dimensional, color flow and Doppler transthoracic echocardiogram is performed. Summary 1. Complete two-dimensional, color flow and Doppler transthoracic echocardiogram is performed. 2. Technically suboptimal study due to poor sonographic images. 3. Left ventricular chamber dimension is normal. 4. Left ventricular systolic function is normal, estimated at 55-60%. 5. The left ventricular diastolic function is grade I diastolic dysfunction. 6. Left atrial chamber dimension is mildly enlarged. 7. Right atrial chamber dimension is mildly enlarged. 8. The aortic valve is not well visualized. Cannot determine number of aortic valve leaflets. 9. There is trace aortic valve regurgitation. 10. There is mild mitral valve regurgitation. 11. No pulmonary hypertension, estimated pulmonary arterial systolic pressure is 33 mmHg. 12. Dilated inferior vena cava with >50% collapse upon inspiration consistent with elevated right atrial pressure, 10 mmHg. Left Ventricle Technically suboptimal study due to poor sonographic images. Left ventricular chamber dimension is normal. Left ventricular systolic function is normal, estimated at 55-60%. The left ventricular diastolic function is grade I diastolic dysfunction. Right Ventricle Right ventricular systolic function is normal and with normal TAPSE 2.8 cm. Right ventricular chamber dimension is normal. Left Atria Left atrial chamber dimension is mildly enlarged. Right Atria Right atrial chamber dimension is mildly enlarged. Aortic Valve The aortic valve is not well visualized. Cannot determine number of aortic valve leaflets. There is no aortic valve stenosis. There is trace aortic valve regurgitation. Pulmonic Valve There is no pulmonic regurgitation. Mitral Valve There is no mitral valve stenosis. There is mild mitral valve regurgitation. Tricuspid Valve There is no tricuspid valve regurgitation. No pulmonary hypertension, estimated pulmonary arterial systolic pressure is 33 mmHg. Pericardium/Pleural There is no pericardial effusion. Inferior Vena Cava Dilated inferior vena cava with >50% collapse upon inspiration consistent with elevated right atrial pressure, 10 mmHg. Aorta The aortic root size at the sinus of Valsalva is normal. Left Ventricular Outflow Tract Name Value Normal LVOT 2D LVOT Diameter 2.1 cm LVOT Doppler LVOT Peak Gradient 8 mmHg LVOT Mean Gradient 3 mmHg LVOT VTI 33 cm LVOT VTI/AV VTI Ratio 0.9 LVOT Stroke Volume 110 ml LVOT CO 6.6 l/min
== END 2023-11-19 14:32 | disposition home or self-care (01) ==
LOC: ANHLAB 14:32
PROVIDERS: PCP Family Medicine; Visit Provider Family Medicine
DX: R01.1 Cardiac murmur, unspecified (principal); I10 Essential (primary) hypertension; I35.1 Nonrheumatic aortic (valve) insufficiency; I34.0 Nonrheumatic mitral (valve) insufficiency
CPT/HCPCS: 93306

== ENCOUNTER 2024-02-25 11:09 | Outpatient (CLI) | payer MEDICARE, SELFPAY ==
--- NOTE | ~2024-02-25 | XR_ITS ---
EXAMINATION: XR chest 2V DATE: 02/25/2024 11:58 INDICATION: Shortness of breath. TECHNIQUE: Frontal and lateral views of the chest were obtained. COMPARISON: Chest 2 views 11/11/2023 FINDINGS: There is no pneumonia, pleural effusion, or pneumothorax. The heart size is normal. There a re bilateral shoulder arthroplasties. There are old healed left rib fractures. IMPRESSION: 1. No acute cardiopulmonary disease. Reviewed, dictated and finalized at location A.
--- NOTE | ~2024-02-25 | XR_ITS ---
EXAMINATION: XR lumbar spine 2-3V DATE: 02/25/2024 11:58 INDICATION: Dorsalgia, unspecified. TECHNIQUE: 3 views of lumbar spine were obtained. COMPARISON: Lumbar spine radiographs 06/29/2014 FINDINGS: Alignment is normal. Vertebral body heights are normal. There is severely decreased disc he ight at L1-L2, mildly decreased disc height at L2-L3 and L3-L4, and severely decreased disc height at L4-L5 and L5-S1. There is multilevel severe facet joint osteoarthritis. There are surgical clips in right abdomen. There is a left hip arthroplasty. IMPRESSION: 1. Severe lumbar spondylosis. Reviewed, dictated and finalized at location A.
[2024-02-25 12:50] LABS: Basophils Percent Auto 0.5 % (0.2-1.2); Eosinophils Absolute Auto 0.1 K/mm3 (0-0.3); Eosinophils Percent Auto 1.5 % (0-4.4); Hemoglobin 13.5 g/dL (12.0-15.0); Immature Granulocyte Absolute 0.01 K/mm3 (0.00-0.031); Immature Granulocyte Percent A 0.2 % (0-0.5); Lymphocytes Absolute Auto 2.37 K/mm3 (0.9-3.2); Lymphocytes Percent Auto 43.1 % (18.3-44.2); Mean Corpuscular HGB Conc 31.4 g/dl (32-36); Mean Corpuscular Hemoglobin 29.5 pg (26-34); Mean Corpuscular Volume 94.1 fl (80-100); Mean Platelet Volume 9.2 fl (7.4-10.4); Monocytes Absolute Auto 0.4 K/mm3 (0.1-0.6); Monocytes Percent Auto 7.3 % (2.6-8.5); Neutrophils Absolute Auto 2.6 K/mm3 (1.3-6.7); Neutrophils Percent Auto 47.4 % (45.5-73.1); Platelet Count Result 255 k/mm3 (150-375); Red Blood Count 4.57 M/mm3 (4.2-5.4); Red Cell Distribution Width 13.3 % (11.5-14.5); White Blood Count 5.5 K/mm3 (4.5-10.0)
[2024-02-25 12:57] LABS: Add Urine Microscopic? NO; Appearance Urine Clear (Clear); Bilirubin Urine Negative (Negative); Blood Urine Negative (Negative); Color Urine Yellow (Yellow); Glucose Urine UA Negative (Negative); Ketones Urine Negative (Negative); Leukocyte Esterase Ur Negative LEU/UL (Negative); Nitrate Urine Negative (Negative); Protein Urine Negative (Negative); Urobilinogen Urine 0.2 mg/dL (<2.0)
[2024-02-25 13:01] LABS: Albumin Level 4.1 g/dL (3.5-5.1); Alkaline Phosphatase 79 U/L (38-126); Anion Gap 7 mmol/L (4-12); Aspartate Amino Transferase 29 U/L (14-36); Bilirubin,Total 0.4 mg/dL (0.2-1.3); Blood Urea Nitrogen 32 mg/dL (7-17); Calcium 10.2 mg/dL (8.4-10.2); Carbon Dioxide 38 mmol/L (22-30); Chloride 92 mmol/L (98-107); Estimated Glomerular Filt Rate 43; Glucose 74 mg/dL (65-110); Potassium 4.2 mmol/L (3.4-5.0); Sodium 137 mmol/L (137-145)
[2024-02-25 13:08] LABS: Alanine Aminotransferase < 6 U/L (6-35)
== END 2024-02-25 11:10 | disposition home or self-care (01) ==
LOC: ANHLAB 11:16
PROVIDERS: PCP Family Medicine; Visit Provider Physician Assistant
DX: R06.02 Shortness of breath (principal); R53.1 Weakness; I10 Essential (primary) hypertension; M54.9 Dorsalgia, unspecified; M47.896 Other spondylosis, lumbar region
CPT/HCPCS: 36415; 71046; 72100; 80053; 81003; 85025

== ENCOUNTER 2024-05-07 17:28 | Emergency (ER) | payer MEDICARE, SELFPAY ==
[2024-05-07 17:32] VITALS: BP 147/79; PULSE 70; RESP 14; TEMP 36.7; O2SAT 93
[2024-05-07 19:35] VITALS: BP 179/81; PULSE 68; RESP 18; O2SAT 98
[2024-05-07 19:47] LABS: Add Urine Microscopic? YES; Appearance Urine Cloudy (Clear); Bacteria Urine None Seen /hpf; Bilirubin Urine Negative (Negative); Blood Urine Negative (Negative); Color Urine Yellow (Yellow); Glucose Urine UA Negative (Negative); Ketones Urine Negative (Negative); Leukocyte Esterase Ur Trace LEU/UL (Negative); Nitrate Urine Negative (Negative); Non Pathogenic Casts 0-2; Protein Urine Negative (Negative); Specific Grav Ur 1.015 (1.001-1.035); Squamous Epithelial Cell Urine None Seen /hpf (Few); Urobilinogen Urine 0.2 mg/dL (<2.0); WBC Urine 0-5 /hpf (0-3); pH Urine >=9.0 (5.0-9.0)
--- NOTE | 2024-05-07 20:20 | ED.FEMALEGU ---
HPI - Female Genitourinary General Chief complaint: Urogenital-Female Stated complaint: bladder infection Time Seen by Provider: 05/07/24 19:02 History of Present Illness HPI Narrative: 83-year-old female with history of dementia, congestive heart failure, frequent urinary tract infections. She presents today accompanied by her daughter for concerns of urinary tract infection with burning with urination. She resides at a skilled care facility. Patient states it has been burning when she urinates frequently and knows that she urinates more often throughout the last few days. He states his resembles her usual urinary tract infection symptoms. Denies any abdominal pain, back pain, fever, chills and was otherwise in her normal state of health. She attributes the increased urination to recently being placed on a diuretic for her lack swelling from congestive heart failure. Related Data Home Medications Medication Instructions Recorded Confirmed alendronate 70 mg tablet 70 mg PO WEEKLY 06/06/23 04/26/24 carbidopa 25 mg-levodopa 100 mg 1 tablet TID 06/06/23 04/26/24 tablet clonazepam 0.5 mg tablet 0.5 mg DAILY PRN Anxiety 06/06/23 04/26/24 docusate sodium 100 mg capsule 100 mg PO DAILY 06/06/23 04/26/24 (Colace) propranolol 60 mg capsule,24 60 mg PO DAILY 06/06/23 04/26/24 hr,extended release quetiapine 300 mg tablet (Seroquel) 300 mg HS 06/06/23 04/26/24 sertraline 100 mg tablet 100 mg DAILY 06/06/23 04/26/24 zonisamide 100 mg capsule 100 mg PO DAILY 06/06/23 04/26/24 aspirin 81 mg capsule 81 mg PO DAILY 06/30/23 04/26/24 calcium amino acid chelate 200 mg PO DAILY 06/30/23 04/26/24 cholecalciferol (vitamin D3) 50 50 mcg PO DAILY 06/30/23 04/26/24 mcg (2,000 unit) capsule lactobacillus combination no.4 15 15,000 mmu cells PO DAILY 07/13/23 04/26/24 billion cell capsule multivitamin with iron 1 tablet PO DAILY 07/13/23 04/26/24 peg 400-propylene glycol (PF) 0.4 1 drp RIGHT EYE DAILY 07/13/23 04/26/24 %-0.3 % eye drops in a dropperette primidone 250 mg tablet 250 mg PO BID 07/13/23 04/26/24 Allergies Allergy/AdvReac Type Severity Reaction Status Date / Time codeine AdvReac Mild Hallucinati Verified 05/07/24 17:29 ons morphine AdvReac Mild hallucinate Verified 05/07/24 17:29 Review of Systems Review of Systems: As reviewed above in [facility] Past Medical History Medical History Anxiety and depression Benign essential hypertension Bipolar 1 disorder, depressed Chronic respiratory failure Colon polyp Dementia Diverticulitis Fracture of humeral head, left, closed Heart failure with preserved ejection fraction EF 60 to 65%. Parkinson disease Schizophrenia Seizure Surgical History Surgical History History of appendectomy History of bilateral knee replacement History of cataract extraction History of colonoscopy with polypectomy History of hip surgery History of hysterectomy History of left shoulder replacement History of tonsillectomy and adenoidectomy Hx laparoscopic cholecystectomy 07/26/23 Dr. Vo Family History Family History Other Family history of malignant neoplasm Family history of malignant neoplasm of thyroid Social History Social History Social History: Surrogate medical decision maker: Rubia Basilio, daughter. Code status: Full code. Smoking status: Never smoker Second hand tobacco smoke exposure: No Alcohol intake: never Substance use: never Substance use type: does not use Do You Feel Safe in your Home?: Yes Lack of Transportation: No Lack of Food: Never True Current Housing: I Have Housing Concerned About Future Housing: No Difficulty Paying Gas/Electric Bills: No Difficulty Paying for Meds: No Currently Unemployed: YES Education: Decline to Answer Difficulty w/ Childcare or Family Care: No Living arrangements: assisted living Additional living arrangements comments: . Lives in assisted living at [facility]. [facility] (PHONE [phone]) Occupation/Education: retired Spiritual care concerns: No Exam Narrative: GENERAL: [Well-appearing, well-nourished, and in no acute distress.] HEAD: [Normocephalic, atraumatic.] EYES: [PERRLA and EOMI.] ENT: Nares clear, no rhinorrhea or epistaxis. Mucous membranes moist. NECK: Supple. CHEST: [Clear to auscultation. No respiratory distress.] HEART: [Regular rate and rhythm]. No murmur heard. [Normal peripheral pulses.] ABDOMEN: [Soft, nondistended], [nontender], [No rigidity or guarding] EXTREMITIES: Normal range of motion. 2+ pitting edema to the ankles SKIN: Warm, dry, no rash. NEURO: [No focal deficits]. Alert and oriented [x3.] PSYCH: [Normal mood and affect.] Course Vital Signs Vital signs: Vital Signs Temperature 36.7 C 05/07/24 17:32 Pulse Rate 70 05/07/24 17:32 Respiratory Rate 14 05/07/24 17:32 Blood Pressure 147/79 H 05/07/24 17:32 Pulse Oximetry 93 05/07/24 17:32 Oxygen Delivery Room Air 05/07/24 17:32 Temperature 36.7 C 05/07/24 17:32 Pulse Rate 74 05/07/24 20:41 Respiratory Rate 18 05/07/24 20:41 Blood Pressure 174/72 H 05/07/24 20:41 Pulse Oximetry 97 05/07/24 20:41 Oxygen Delivery Room Air 05/07/24 17:32 MDM - Female Genitourinary MDM Narrative Medical decision making narrative: 83-year-old female with history of dementia, CHF, frequent urinary tract infections. Patient presents to the emergency depart with burning urination and increased frequency. She attributed this to urinary infection and states this feels very similar to her previous urinary infections. She is accompanied by her daughter corroborates the story. She was recently seen by her screen maker and on Lasix 40 mg daily for her CHF. She has been urinating more frequently in this could also be contributing to that. She denies any fever chills or back pain. She otherwise appears well has a soft nondistended nontender abdomen. Overall well appearance and is at her baseline mentation and has normal reassuring vital signs without any significant derangements such as fever, hypoxia, tachycardia or significant elevations in blood pressure. Patient's signs symptoms are very consistent with urinary tract infection and increased frequency could be secondary to the diuretic therapy she has been on, but could also be secondary to infection as well. Urinalysis will be obtained. Urinalysis reveals some scant red blood cells 3-5, no bacteria were seen, trace leukocyte esterase but negative nitrates. No convincing evidence for urinary tract infection. recommendations at this time would be to prescribe the patient azathioprine for symptomatic control of the urinary burning and to follow up with her regular primary care provider as she does not require any kind of antibiotics this time. Urine will be sent for culture. Patient was informed of these findings and plan of care and was agreeable with discharge home at this time. Patient's questions were answered and she was given return precautions and follow-up instructions with her PCP. Medical Records Attestation: I reviewed the patient's medical records. Lab Data Attestation: I reviewed the patient's lab results. Labs: Lab Results 05/07/24 Range/Units 19:35 Urine Color Yellow (Yellow) Urine Appearance Cloudy H (Clear) Urine pH >=9.0 H (5.0-9.0) Ur Specific [place] 1.015 (1.001-1.035) Urine Protein Negative (Negative) mg/dL Urine Glucose (UA) Negative (Negative) mg/dL Urine Ketones Negative (Negative) mg/dL Ur Blood (Man) Negative (Negative) Urine Nitrate Negative (Negative) Urine Bilirubin Negative (Negative) Urine Urobilinogen 0.2 (<2.0) mg/dL Leukocyte Esterase Rfl Trace H (Negative) MEEK/UL Urine RBC 3-5 H (0-2) /hpf Urine WBC 0-5 (0-3) /hpf Ur Squamous Epith Cells None seen (Few) /hpf Urine Bacteria None seen /hpf Urine Casts 0-2 Discharge Plan Discharge Clinical Impression: Chronic cystitis, Urinary pain Patient Disposition: Home, Self-Care Condition: Stable Instructions: Antibiotic Form, Phenazopyridine (By mouth), Interstitial Cystitis (ED) Additional Instructions: your urine does not show any signs of urinary tract infection but there is some scant blood and cells which could be attributed to irritation of the bladder lining called interstitial cystitis. We have given her prescription medication to try for the pain because also take ibuprofen or other NSAIDs for continued aches and pains. Please follow-up with your primary care provider outpatient. your recent diuretic therapy could also be attributing to the urinary frequency and also causing the symptoms as your urinating more often. Return at any point with any new or worsening concerns. Prescriptions: New phenazopyridine 200 mg tablet 200 mg PO TID Qty: 10 0RF No Action lisinopril 2.5 mg tablet 2.5 mg PO DAILY Qty: 90 3RF calcium amino acid chelate 200 mg calcium tablet 200 mg PO DAILY cholecalciferol (vitamin D3) 50 mcg (2,000 unit) capsule 50 mcg PO DAILY aspirin 81 mg capsule 81 mg PO DAILY quetiapine [Seroquel] 300 mg tablet 300 mg HS alendronate 70 mg tablet 70 mg PO WEEKLY Rx Instructions: TAKES ON THURSDAYS clonazepam 0.5 mg tablet 0.5 mg DAILY PRN (Reason: Anxiety) propranolol 60 mg capsule,extended release 24 hr 60 mg PO DAILY sertraline 100 mg tablet 100 mg DAILY zonisamide 100 mg capsule 100 mg PO DAILY carbidopa-levodopa 25-100 mg tablet 1 tablet TID docusate sodium [Colace] 100 mg Capsule 100 mg PO DAILY primidone 250 mg Tablet 250 mg PO BID multivitamin with iron Tablet 1 tablet PO DAILY peg 400-propylene glycol (PF) 0.4-0.3 % Dropperette 1 drp RIGHT EYE DAILY lactobacillus combination no.4 15 billion cell Capsule 15,000 mmu cells PO DAILY Rx Instructions: administer with a meal oxybutynin chloride 5 mg tablet extended release 24hr 5 mg PO DAILY Qty: 90 4RF furosemide 40 mg tablet See Rx Instructions .ROUTE .COMPLEX Qty: 90 3RF Dose Instruction: TAKE 1 TABLET EVERY MORNING Rx Instructions: TAKE 1 TABLET EVERY MORNING memantine 10 mg tablet 10 mg PO HS Qty: 90 4RF montelukast 10 mg tablet See Rx Instructions .ROUTE .COMPLEX Qty: 90 3RF Dose Instruction: TAKE 1 TABLET EVERY DAY Rx Instructions: TAKE 1 TABLET EVERY DAY pantoprazole 40 mg tablet,delayed release (DR/EC) See Rx Instructions .ROUTE .COMPLEX Qty: 90 3RF Dose Instruction: TAKE 1 TABLET EVERY MORNING Rx Instructions: TAKE 1 TABLET EVERY MORNING pravastatin 10 mg tablet 10 mg PO QHS Qty: 90 4RF acetaminophen 500 mg capsule 500 mg PO Q6H MDD 2000 PRN (Reason: fever or pain) Qty: 30 0RF fluticasone propionate 50 mcg/actuation spray,suspension 1 spray intranasal Q12H Qty: 16 0RF Rx Instructions: administer into each nostril Follow-up/Referrals: Renay Rhodes MD [Primary Care Provider] - Time of Disposition: 20:32
[2024-05-07 20:41] VITALS: BP 174/72; PULSE 74; RESP 18; O2SAT 97
== END 2024-05-07 20:55 | disposition home or self-care (01) ==
PROVIDERS: Emergency Provider Student in an Organized Health Care Education/Training Program; PCP Family Medicine
DX: N30.20 Other chronic cystitis without hematuria (principal); F03.90 Unspecified dementia, unspecified severity, without behavioral disturbance, psychotic disturbance, mood disturbance, and anxiety; I50.9 Heart failure, unspecified; I11.0 Hypertensive heart disease with heart failure; G20.A1 Parkinson's disease without dyskinesia, without mention of fluctuations; J96.10 Chronic respiratory failure, unspecified whether with hypoxia or hypercapnia; F41.9 Anxiety disorder, unspecified; F31.9 Bipolar disorder, unspecified; F20.9 Schizophrenia, unspecified; Z96.653 Presence of artificial knee joint, bilateral; Z96.612 Presence of left artificial shoulder joint; Z86.0100 Personal history of colon polyps, unspecified; Z98.49 Cataract extraction status, unspecified eye; Z90.710 Acquired absence of both cervix and uterus; Z90.49 Acquired absence of other specified parts of digestive tract; Z79.899 Other long term (current) drug therapy; Z79.82 Long term (current) use of aspirin
CPT/HCPCS: 81001; 99283

== ENCOUNTER 2024-08-22 14:36 | Outpatient (CLI) | payer MEDICARE, SELFPAY ==
[2024-08-22 15:17] LABS: Add Urine Microscopic? YES; Appearance Urine Cloudy (Clear); Bacteria Urine None Seen /hpf; Bilirubin Urine 1+ (Negative); Blood Urine Negative (Negative); Color Urine Dark Yellow (Yellow); Glucose Urine UA Negative (Negative); Ketones Urine Trace mg/dL (Negative); Leukocyte Esterase Ur 1+ LEU/UL (Negative); Need Manual Microscopic Reviewed; Nitrate Urine Positive (Negative); Non Pathogenic Casts 0-2; Protein Urine Trace mg/dL (Negative); RBC Urine 0-2 /hpf (0-2); Specific Grav Ur 1.012 (1.001-1.035); Squamous Epithelial Cell Urine None Seen /hpf (Few); WBC Urine 0-5 /hpf (0-3)
--- OUTSIDE RECORDS SUMMARY | 2024-08-22 16:30 | XMS_ITS | Clinical Summary ---
Author Organization [facility] Address [address] [place] [address] Care Team Providers Care Sole Layer Name Role Phone Renay Rhodes MD Primary Care Provider + Source Comments [facility],non-owned Affiliates and Associated Physician Practices is amultiple site organization consisting of ambulatory clinics and hospital sitesin [place], [place], [place] and [place]. This disclosure is being madepursuant to the Care Everywhere program and may not contain all information available regarding this patient. Last updated 18.[facility] Allergies Active Allergy Reactions Criticality Noted Date Comments Codeine Other Low 10/31/2013 Pt said it makes her too sedated Influenza Vaccines Unknown 05/08/2019 Morphine Other Low 10/31/2013 Makes too sedated Tramadol Other 07/06/2016 ACTIVATES SEIZURES Medications * Be aware that medications may not be up to date on this document. Alwaysverify current medications with the patient. Medication Sig Dispensed Refills Start Date End Date Status acetaminophen CR (TYLENOL ARTHRITIS PAIN) 650 MG tablet Take 1 (one) tablet by mouth Active alendronate (FOSAMAX) 70 MG tablet Take 1 (one) tablet by mouth Active aspirin (ASPIRIN) 81 MG chew tablet Take 1 (one) tablet by mouth 09/05/2014 Active Calcium Carb-Cholecalcife rol (CALCIUM + D3) 600-200 MG-UNIT Take 600 mg by mouth 09/05/2014 Active vitamin D3 (CHOLECALCIFEROL) 1000 UNITS tablet 09/05/2014 Active montelukast (SINGULAIR) 10 MG tablet Take 1 (one) tablet by mouth 09/05/2014 Active Multiple Vitamins-Iron (TAB-A-TIFFANIE/IRON) TABS Take 1 tablet by mouth Active oxybutynin CR 24hr (DITROPAN-XL) 5 MG tablet Take 1 (one) tablet by mouth Active pantoprazole EC (PROTONIX) 40 MG tablet Take 1 (one) tablet by mouth 09/05/2014 Active polyethylene glycol 3350 (MIRALAX) packet Take 17 (seventeen) g by mouth Active sennosides (SENOKOT) 8.6 MG tablet Take 1 (one) tablet by mouth Active lisinopril (PRINIVIL; ZESTRIL) 10 MG tablet 07/06/2018 Active POLY-IRON 150 150 MG capsule 08/05/2018 Active multivitamin (OPURITY) CHEW tablet 08/17/2016 Active multivitamin (OPURITY) CHEW tablet 08/17/2016 Active celecoxib (CELEBREX) 200 MG capsule Take 1 (one) capsule by mouth once daily 12/17/2020 Active furosemide (LASIX) 40 MG tablet 03/23/2021 Active zonisamide (Zonegran) 100 MG capsule Take 1 (one) capsule by mouth once daily 90 capsule 3 01/13/2024 Active propranolol ER 24hr (Inderal LA) 60 MG capsuleIndication s:tremor Take 1 (one) capsule by mouth once daily Reasons: tremor 90 capsule 3 01/13/2024 Active carbidopa-levodop a (Sinemet) 25-100 MG tablet Take 3 (three) tablets by mouth 4 times daily 2160 tablet 3 01/13/2024 Active sulfamethoxazole- trimethoprim (Bactrim DS; Septra DS) 800-160 MG tablet 11/13/2022 Active primidone (Mysoline) 50 MG tabletIndications :Essential Tremor TAKE 1 TABLET TWICE DAILY FOR FINE TO COARSE SLOW TREMOR AFFECTING HEAD, HANDS AND VOICE Reasons: Fine to Coarse Slow Tremor Affecting Head, Hands & Voice 180 tablet 5 06/19/2024 Active clonazePAM (KlonoPIN) 0.5 MG tabletIndications :Anxiety Take 1 (one) tablet by mouth at bedtime for 90 days Reasons: Feeling Anxious 30 tablet 2 08/07/2024 5 Active QUEtiapine (SEROquel) 300 MG tabletIndications :Depressive Phase Bipolar Mood Disorder TAKE 1 TABLET BY MOUTH AT BEDTIME FOR MANIC-DEPRESSION Strength: 300 mg Reasons: Depressive Phase of Manic-Depression 90 tablet 3 08/07/2024 Active sertraline (Zoloft) 100 MG tabletIndications :Panic Disorder Take 1 (one) tablet by mouth once daily for 90 days Reasons: Panic Disorder 30 tablet 2 08/07/2024 5 Active memantine (Namenda) 10 MG tabletIndications :Cognitive Dysfunction Take 1 (one) tablet by mouth once daily for 90 days Reasons: Cognitive Dysfunction 30 tablet 2 08/07/2024 5 Active memantine (Namenda) 10 MG tabletIndications :Cognitive Dysfunction Take 1 (one) tablet by mouth once daily for 90 days Reasons: Cognitive Dysfunction 30 tablet 2 03/06/2024 5 Discontinue d(Reorder) QUEtiapine (SEROquel) 300 MG tabletIndications :Depressive Phase Bipolar Mood Disorder TAKE 1 TABLET BY MOUTH AT BEDTIME FOR MANIC-DEPRESSION Strength: 300 mg Reasons: Depressive Phase of Manic-Depression 90 tablet 3 03/06/2024 5 Discontinue d(Reorder) sertraline (Zoloft) 100 MG tabletIndications :Panic Disorder Take 1 (one) tablet by mouth once daily for 90 days Reasons: Panic Disorder 30 tablet 2 05/22/2024 5 Discontinue d(Reorder) clonazePAM (KlonoPIN) 0.5 MG tabletIndications :Anxiety Take 1 (one) tablet by mouth at bedtime for 90 days Reasons: Feeling Anxious 30 tablet 2 07/06/2024 5 Discontinue d(Reorder) Active Problems Problem Noted Date Diagnosed Date Acute kidney failure, unspecified 08/14/2016 Pneumonia, unspecified organism 08/14/2016 Unspecified urinary incontinence 07/21/2016 Age-related osteoporosis wit hout current pathological fracture 07/21/2016 Gastro-esophageal reflux disease without esophag itis 07/21/2016 Iron deficiency anemia, unspecified 07/21/2016 Acute blood loss anemia 07/17/2016 Systemic infection 07/17/2016 Vitamin D deficiency 03/28/2015 Bipolar disorder, current ep isode depressed, severe, without psychotic features 08/30/2014 Anxiety 08/29/2014 Essential tremor 08/29/2014 Major depressive disorder, r ecurrent severe without psychotic features 12/18/2013 Parkinson's disease 12/13/2013 Essential (primary) hypertension 11/13/2013 Other malaise 11/13/2013 Other reduced mobility 11/13/2013 Adhesive capsulitis of shoulder 11/13/2013 Impaired mobility 11/13/2013 Convulsions 11/10/2013 Insomnia 11/10/2013 Heart failure 10/03/2013 Chronic rhinitis 09/25/2013 Epigastric pain 09/25/2013 Osteoarthritis 09/25/2013 Injury of head 09/25/2013 Dyspepsia 09/25/2013 Depression 05/24/2013 Overview (05/09/2019): Depression Resolved Problems Problem Noted Date Diagnosed Date Resolved Date Constipation 09/25/2013 10/11/2017 Encounters Date Type Department Care Team Description 08/07/2024 Travel 07/10/2024 3:00 PM WIGS SALESPERSON Video Visit [facility] - Neurology [address] [place] [address], [place] [address] Brandon Benito, SENIOR DEVELOPER-BOOK CUTTER Parkinson's disease without dyskinesia, with fluctuating manifestations ([facility]) 06/22/2024 Travel 06/19/2024 Orders Only [facility] - [facility]rology [address] [place] [address], [place] [address] Aureliano Ruiz MD from Last 3 Months Immunizations Name Administration Dates Next Due INFLUENZA VACCINE, TRIV. (AF LURIA, FLUZONE TRIVALENT; 6MO+) (IIV3) 04/21/2017 INFLUENZA VACCINE 04/11/2018 Social History Tobacco Use Types Packs/Day Years Used Date Smoking Tobacco: Never Smokeless Tobacco: Never Tobacco Cessation:Counseling Given: Not Answered Alcohol Use Standard Drinks/Week Comments No 0 (1 standard drink = 0.6 oz pur e alcohol) PHQ-2 Answer Date Recorded Patient Health Questionnaire-2 Score 0 08/07/2024 Sex and Gender Information Value Date Recorded Sex Assigned at Female 02/28/2021 9:25 PM CDT Gender Identity Not on file Sexual Orientation Not on file Last Filed Vital Signs Vital Sign Reading Time Taken Comments Blood Pressure 134/74 08/07/2024 2:38 PM WIGS SALESPERSON Pulse 66 08/07/2024 2:38 PM WIGS SALESPERSON Temperature 36.2 C (97.2 F) 06/04/2021 12:56 PM WIGS SALESPERSON Respiratory Rate 16 08/20/2015 10:20 AM WIGS SALESPERSON Oxygen Saturation 81% 08/07/2024 2:38 PM WIGS SALESPERSON Inhaled Oxygen Concentration - - Weight 87.1 kg (192 lb) 08/07/2024 2:38 PM WIGS SALESPERSON Height 170.2 cm (5' 7 ) 08/07/2024 2:38 PM WIGS SALESPERSON Body Mass Index 30.07 08/07/2024 2:38 PM WIGS SALESPERSON Plan of Treatment Health Maintenance Due Date Last Done Comments MEDICARE AWV 12 MONTHS 1941 DTAP/TDAP/TD VACCINES (1 - Tdap) 1960 PNEUMOCOCCAL VACCINE 50+ (1 of 1 - PCV) 1991 ZOSTER VACCINE (1 of 2) 1991 Respiratory Syncytial Virus (RSV) Vaccine Pt: or over 60 yrs (1 - 1-dose 75+ series) 2016 COVID-19 VACCINE ( - 2023-2 5 season) 2024 INFLUENZA VACCINE (#1) 2024 04/21/2017 BONE DENSITY TESTING Completed 07/20/2012 HEPATITIS B VACCINE Aged Out No longe r eligible based on patient's age to complete this topic HIB VACCINE Aged Out No longer eligi ble based on patient's age to complete this topic HPV VACCINE Aged Out No longer eligi ble based on patient's age to complete this topic MENINGOCOCCAL (Group B) VACCINE Aged Out No longer eligible b ased on patient's age to complete this topic MENINGOCOCCAL VACCINE Aged Out No yajaira mariusz eligible based on patient's age to complete this topic ROSA MARIA BERNAL E Personal/Family Spouse [address] [place], [place] [phone] ALLYN BERNALIN E Personal/Family Spouse [address] [place], [place] [address] ALLYN BERNALIN E Personal/Family Spouse [address] [place], [place] [address] ROSA MARIA BERNAL E Personal/Family Spouse [address] [place], [place] [phone] Allyn Bernaline V Personal/Family Self 1940 ROSA MARIA BERNAL E Personal/Family Spouse 1940 Advance Directives Documents on File Type Date Recorded Patient All Around Patternmaker Expl anation Advance Directives and Monserrat salcido Will 11/10/2013 12:00 AM Care Teams Sole Layer Relationship Specialty Start Date End Date Renay Rhodes MD [address] [facility] [address] [place] [address] PCP - General 07/15/17
--- OUTSIDE RECORDS SUMMARY | 2024-08-22 16:30 | XMS_ITS | Referral Summary ---
Author Organization [facility] Address [address] [place] [address] Care Team Providers Care Studio Operations Engineer In Charge Name Role Phone Renay Rhodes MD Primary Care Provider + Source Comments [facility],non-owned Affiliates and Associated Physician Practices is amultiple site organization consisting of ambulatory clinics and hospital sitesin [place], [place], [place] and [place]. This disclosure is being madepursuant to the Care Everywhere program and may not contain all information available regarding this patient. Last updated 18.[facility] Encounters Date Type Department Care Team Description 08/07/2024 Travel 07/10/2024 3:00 PM CERAMIC TILER Video Visit [facility] - Neurology [address] [place] [phone] Brandon Benito, HAIR SPINNER-HEAD TELLER Parkinson's disease without dyskinesia, with fluctuating manifestations (HCC) 06/22/2024 Travel 06/19/2024 Orders Only [facility] - Neurology [address] [place], [place] [address], [place] [address] [facility] from Last 3 Months Allergies Active Allergy Reactions Criticality Noted Date [...] Diagnosed Date Resolved Date Constipation 09/25/2013 10/11/2017 Immunizations Name Administration Dates Next Due INFLUENZA [...] Comments Blood Pressure 134/74 08/07/2024 2:38 PM CERAMIC TILER Pulse 66 08/07/2024 2:38 PM CERAMIC TILER Temperature 36.2 C (97.2 F) 06/04/2021 12:56 PM CERAMIC TILER Respiratory Rate 16 08/20/2015 10:20 AM CERAMIC TILER Oxygen Saturation 81% 08/07/2024 2:38 PM CERAMIC TILER Inhaled Oxygen Concentration - - Weight 87.1 kg (192 lb) 08/07/2024 2:38 PM CERAMIC TILER Height 170.2 cm (5' 7 ) 08/07/2024 2:38 PM CERAMIC TILER Body Mass Index 30.07 08/07/2024 2:38 PM CERAMIC TILER Plan of Treatment Not on file ROSA MARIA BERNAL E Personal/Family Spouse [address] [place], [place] [phone] DOLORESROSA MARIA E Personal/Family Spouse [address] [place], [place] [id number] DOLORES,ROSA MARIA E Personal/Family Spouse [address] [place] [address] DOLORES,ROSA MARIA E Personal/Family Spouse [address] [place], [place] [phone] Nicole Bernaline V Personal/Family Self 1940 NICOLE BERNALIN E Personal/Family Spouse 1940 Advance Directives Documents on File Type Date Recorded Patient Blue Leather Sorter Expl anation Advance Directives and Livin g Will 11/10/2013 12:00 AM Care Teams Studio Operations Engineer In Charge Relationship Specialty Start Date End Date Renay Rhodes MD [address] [place] [address] PCP - General 07/15/17
--- OUTSIDE RECORDS SUMMARY | 2024-08-22 16:30 | XMS_ITS | Encounter Summary ---
Author Organization [facility] Address [address] [place] [address] Care Team Providers Care Drum Worker Name Role Phone Renay Rhodes MD Primary Care Provider + Reason for Visit * Reason Onset Date Comments MEDICATION REFILL 08/05/2018 Encounter Details Date Type Department Care Team (Late st Contact Info) Description 08/05/[address] [facility] Neurology [address] [place] [address] Aureliano Ruiz MD MEDICATION REFILL Social History Tobacco Use Types Packs/Day Years Used Date Smoking Tobacco: Never Smokeless Tobacco: Never Alcohol Use Standard Drinks/Week Comments No 0 (1 standard drink = 0.6 oz pur e alcohol) Sex and Gender Information Value Date Recorded Sex Assigned at Female 02/28/2021 9:25 PM CDT Gender Identity Not on file Sexual Orientation Not on file documented as of this encounter Plan of Treatment Not on file documented as of this encounter Visit Diagnoses Not on filedocumented in this encounter Care Teams Drum Worker Relationship Specialty Start Date End Date Renay Rhodes MD [address] [place] [address] PCP - General 07/15/17 documented as of this encounter
--- OUTSIDE RECORDS SUMMARY | 2024-08-22 16:30 | XMS_ITS | Patient Health Summary ---
Author Organization [facility] Address [address] [place] [address] Care Team Providers Care Adoption Worker Name Role Phone Renay Rhodes MD Primary Care Provider + Note from [facility],non-owned Affiliates and Associated Physician Practices is amultiple site organization consisting of ambulatory clinics and hospital sitesin [place], [place], [place] and [place]. This disclosure is being madepursuant to the Care Everywhere program and may not contain all information available regarding this patient. Last updated 18.[facility] Allergies * Codeine(Other) -Low Criticality * Influenza Vaccines(Unknown) * Morphine(Other) -Low Criticality * Tramadol(Other) Medications * Be aware that medications may not be up to date on this document. Alwaysverify current medications with the patient. * acetaminophen CR (TYLENOL ARTHRITIS PAIN) 650 MG tablet Take 1 (one) tablet by mouth * alendronate (FOSAMAX) 70 MG tablet Take 1 (one) tablet by mouth * aspirin (ASPIRIN) 81 MG chew tablet(Started 09/05/2014) Take 1 (one) tablet by mouth * Calcium Carb-Cholecalciferol (CALCIUM + D3) 600-200 MG-UNIT(Started 09/05/2014) Take 600 mg by mouth * vitamin D3 (CHOLECALCIFEROL) 1000 UNITS tablet(Started 09/05/2014) * montelukast (SINGULAIR) 10 MG tablet(Started 09/05/2014) Take 1 (one) tablet by mouth * Multiple Vitamins-Iron (TAB-A-TIFFANIE/IRON) TABS Take 1 tablet by mouth * oxybutynin CR 24hr (DITROPAN-XL) 5 MG tablet Take 1 (one) tablet by mouth * pantoprazole EC (PROTONIX) 40 MG tablet(Started 09/05/2014) Take 1 (one) tablet by mouth * polyethylene glycol 3350 (MIRALAX) packet Take 17 (seventeen) g by mouth * sennosides (SENOKOT) 8.6 MG tablet Take 1 (one) tablet by mouth * lisinopril (PRINIVIL; ZESTRIL) 10 MG tablet(Started 07/06/2018) * POLY-IRON 150 150 MG capsule(Started 08/05/2018) * multivitamin (OPURITY) CHEW tablet(Started 08/17/2016) * multivitamin (OPURITY) CHEW tablet(Started 08/17/2016) * celecoxib (CELEBREX) 200 MG capsule(Started 12/17/2020) Take 1 (one) capsule by mouth once daily * furosemide (LASIX) 40 MG tablet(Started 03/23/2021) * zonisamide (Zonegran) 100 MG capsule(Started 01/13/2024) Take 1 (one) capsule by mouth once daily 3 refills by 01/12/2025 * propranolol ER 24hr (Inderal LA) 60 MG capsule(Started 01/13/2024) Take 1 (one) capsule by mouth once daily Reasons: tremor 3 refills by 01/12/2025 * carbidopa-levodopa (Sinemet) 25-100 MG tablet(Started 01/13/2024) Take 3 (three) tablets by mouth 4 times daily 3 refills by 01/12/2025 * sulfamethoxazole-trimethoprim (Bactrim DS; Septra DS) 800-160 MG tablet (Started 11/13/2022) * primidone (Mysoline) 50 MG tablet(Started 06/19/2024) TAKE 1 TABLET TWICE DAILY FOR FINE TO COARSE SLOW TREMOR AFFECTING HEAD, HANDS AND VOICE Reasons: Fine to Coarse Slow Tremor Affecting Head, Hands & Voice 5 refills by 06/19/2025 * clonazePAM (KlonoPIN) 0.5 MG tablet(Started 08/07/2024) Take 1 (one) tablet by mouth at bedtime for 90 days Reasons: Feeling Anxious 2 refills by 02/03/2025 * QUEtiapine (SEROquel) 300 MG tablet(Started 08/07/2024) TAKE 1 TABLET BY MOUTH AT BEDTIME FOR MANIC-DEPRESSION Strength: 300 mg Reasons: Depressive Phase of Manic-Depression 3 refills by 08/07/2025 * sertraline (Zoloft) 100 MG tablet(Started 08/07/2024) Take 1 (one) tablet by mouth once daily for 90 days Reasons: Panic Disorder 2 refills by 08/07/2025 * memantine (Namenda) 10 MG tablet(Started 08/07/2024) Take 1 (one) tablet by mouth once daily for 90 days Reasons: Cognitive Dysfunction 2 refills by 08/07/2025 Ended Medications* memantine (Namenda) 10 MG tablet(Started 03/06/2024) (Discontinued) Take 1 (one) tablet by mouth once daily for 90 days Reasons: Cognitive Dysfunction 2 refills by 03/06/2025 * QUEtiapine (SEROquel) 300 MG tablet(Started 03/06/2024)(Discontinued) TAKE 1 TABLET BY MOUTH AT BEDTIME FOR MANIC-DEPRESSION Strength: 300 mg Reasons: Depressive Phase of Manic-Depression 3 refills by 03/06/2025 * sertraline (Zoloft) 100 MG tablet(Started 05/22/2024)(Discontinued) Take 1 (one) tablet by mouth once daily for 90 days Reasons: Panic Disorder 2 refills by 05/22/2025 * clonazePAM (KlonoPIN) 0.5 MG tablet(Started 07/06/2024)(Discontinued) Take 1 (one) tablet by mouth at bedtime for 90 days Reasons: Feeling Anxious 2 refills by 01/02/2025 Active Problems Problem Noted Date Diagnosed Date [...] of head 09/25/2013 Dyspepsia 09/25/2013 Depression 05/24/2013 Resolved Problems Problem Noted Date Diagnosed Date Resolved Date Constipation 09/25/2013 10/11/2017 Immunizations * INFLUENZA VACCINE, TRIV. (AFLURIA, FLUZONE TRIVALENT; 6MO+) (IIV3)(Given 04/21/2017) * INFLUENZA VACCINE(Given 04/11/2018) Social History Tobacco Use Types Packs/Day Years [...] Comments Blood Pressure 134/74 08/07/2024 2:38 PM SNIPPER Pulse 66 08/07/2024 2:38 PM SNIPPER Temperature 36.2 C (97.2 F) 06/04/2021 12:56 PM SNIPPER Respiratory Rate 16 08/20/2015 10:20 AM SNIPPER Oxygen Saturation 81% 08/07/2024 2:38 PM SNIPPER Inhaled Oxygen Concentration - - Weight 87.1 kg (192 lb) 08/07/2024 2:38 PM SNIPPER Height 170.2 cm (5' 7 ) 08/07/2024 2:38 PM SNIPPER Body Mass Index 30.07 08/07/2024 2:38 PM SNIPPER Procedures * MRI BRAIN WWO CONTRAST(Performed 09/03/2018) Performed for Benign essential tremor * CREATININE BLOOD - POCT (IP) [facility](Performed 09/03/2018) Performed for Benign essential tremor * DRUG ABUSE PANEL 10-20+ETHANOL URINE NO CONFIRM(Performed 08/30/2014) * URINALYSIS W/MICROSCOPIC NO CULTURE(Performed 08/30/2014) * VITAMIN B12(Performed 08/30/2014) * FOLATE(Performed 08/30/2014) * T4 FREE(Performed 08/30/2014) * TSH(Performed 08/30/2014) * VITAMIN D 25-HYDROXY(Performed 08/30/2014) * COMPREHENSIVE METABOLIC PANEL(Performed 08/30/2014) * CBC W AUTO DIFFERENTIAL(Performed 08/30/2014) * CBC W AUTO DIFFERENTIAL(Performed 08/30/2014) * EKG 12-LEAD(Performed 08/30/2014) * BASIC METABOLIC PANEL (CALCIUM TOTAL)(Performed 12/04/2013) * BASIC METABOLIC PANEL (CALCIUM TOTAL)(Performed 12/01/2013) * BASIC METABOLIC PANEL (CALCIUM TOTAL)(Performed 11/27/2013) * BASIC METABOLIC PANEL (CALCIUM TOTAL)(Performed 11/27/2013) * EKG 12-LEAD(Performed 11/27/2013) * BASIC METABOLIC PANEL (CALCIUM TOTAL)(Performed 11/26/2013) * BASIC METABOLIC PANEL (CALCIUM TOTAL)(Performed 11/25/2013) * BASIC METABOLIC PANEL (CALCIUM TOTAL)(Performed 11/23/2013) * BASIC METABOLIC PANEL (CALCIUM TOTAL)(Performed 11/22/2013) * BASIC METABOLIC PANEL (CALCIUM TOTAL)(Performed 11/21/2013) * BASIC METABOLIC PANEL (CALCIUM TOTAL)(Performed 11/20/2013) * BASIC METABOLIC PANEL (CALCIUM TOTAL)(Performed 11/19/2013) * BASIC METABOLIC PANEL (CALCIUM TOTAL)(Performed 11/18/2013) * BASIC METABOLIC PANEL (CALCIUM TOTAL)(Performed 11/17/2013) * BASIC METABOLIC PANEL (CALCIUM TOTAL)(Performed 11/16/2013) * BASIC METABOLIC PANEL (CALCIUM TOTAL)(Performed 11/15/2013) * FERRITIN(Performed 11/14/2013) * TRANSFERRIN(Performed 11/14/2013) * IRON BLOOD(Performed 11/14/2013) * NM BRAIN IMAGING KYLER SCAN(Performed 11/14/2013) * MRI BRAIN WO CONTRAST(Performed 11/14/2013) * BASIC METABOLIC PANEL (CALCIUM TOTAL)(Performed 11/14/2013) * BASIC METABOLIC PANEL (CALCIUM TOTAL)(Performed 11/13/2013) * OSMOLALITY BLOOD(Performed 11/13/2013) * BASIC METABOLIC PANEL (CALCIUM TOTAL)(Performed 11/13/2013) * POTASSIUM URINE RANDOM(Performed 11/13/2013) * CHLORIDE URINE RANDOM(Performed 11/13/2013) * OSMOLALITY URINE(Performed 11/13/2013) * URINALYSIS REFLEX TO MICROSCOPIC NO CULTURE(Performed 11/13/2013) * OSMOLALITY URINE(Performed 11/13/2013) * BASIC METABOLIC PANEL (CALCIUM TOTAL)(Performed 11/13/2013) * SODIUM URINE RANDOM(Performed 11/13/2013) * RENAL FUNCTION PANEL(Performed 11/12/2013) * C-REACTIVE PROTEIN(Performed 11/10/2013) * LIPID PROFILE(Performed 11/10/2013) * VITAMIN B1(Performed 11/10/2013) * VITAMIN D 1,25 DIHYDROXY(Performed 11/10/2013) * VITAMIN B12(Performed 11/10/2013) * TSH(Performed 11/10/2013) * COMPREHENSIVE METABOLIC PANEL(Performed 11/10/2013) * HOMOCYSTEINE BLOOD QUANTITATIVE(Performed 11/10/2013) * CBC W AUTO DIFFERENTIAL(Performed 11/10/2013) * CBC W AUTO DIFFERENTIAL(Performed 11/10/2013) * LAB HISTORICAL RESULTS-ONBASE(Performed 10/05/2013) Results * MRI BRAIN WWO CONTRAST (09/03/2018 3:38 PM CDT) Anatomical Region Laterality Modality Head Magnetic Resonan ce 09/05/2018 7:35 AM CDT Impressions 09/05/2018 1:04 PM CDT IMPRESSION: Compared to study dated 11/14/2013, there is no interval change. Redemonstration of stable senescent mild periventricular and subcortical white matter FLAIR hyperintensities. No interval infarction or focal abnormality is identified especially in the bilateral thalami and subthalamic regions. I, Dr. PRASHANT PATRICIA have personally reviewed and interpreted this examination/study. This report was electronically signed by PRASHANT PATRICIA on 09/05/2018 1:04 PM . Narrative 09/05/2018 1:04 PM CDT EXAMINATION: Magnetic resonance imaging (MRI) of the brain without and with contrast HISTORY: Essential tremor TECHNIQUE: MRI of the brain was performed prior to and following the uneventful administration of 10 mL Gadavist intravenous gadolinium contrast according to movement disorder protocol. COMPARISON: MRI brain without contrast performed 11/14/2013. FINDINGS: The brain volume is normal for age with mild generalized cerebral and cerebellar atrophy. The thalami and subthalamic regions are normal and symmetric. In particular, there is no evidence of an old thalamic lacunar infarction. No acute infarction or foci of restricted diffusion is identified. There is no intracranial hemorrhage, hemosiderin deposition or interval infarction. Borderline ex vacuo ventricular dilatation of the ventricles is similar to the previous examination and there is no hydrocephalus. The supratentorial white matter changes are stable associated with mild nonspecific periventricular and subcortical white matter FLAIR hyperintensities in each cerebral hemisphere. No enhancing lesions are identified. The corpus callosum and sella appear normal. The posterior fossa, brainstem, and craniocervical junction appear normal. The orbital contents are normal and symmetric. The paranasal sinuses, and mastoids are clear. Normal flow voids are demonstrated in the carotid arteries and basilar artery. The calvarium and visualized cervical spine appear normal. Procedure Note Prashant Patricia MD - 09/05/2018 EXAMINATION: Magnetic resonance imaging (MRI) of the brain without and with contrast HISTORY: Essential tremor TECHNIQUE: MRI of the brain was performed prior to and following the uneventful administration of 10 mL Gadavist intravenous gadolinium contrast according to movement disorder protocol. COMPARISON: MRI brain without contrast performed 11/14/2013. FINDINGS: The brain volume is normal for age with mild generalized cerebral and cerebellar atrophy. The thalami and subthalamic regions are normal and symmetric. In particular, there is no evidence of an old thalamiclacunar infarction. No acute infarction or foci of restricted diffusion is identified. There is no intracranial hemorrhage, hemosiderin depositionor interval infarction. Borderline ex vacuo ventricular dilatation of the ventricles is similar to the previous examination and there is no hydrocephalus. The supratentorial white matter changes are stable associated with mild nonspecific periventricular and subcortical white matter FLAIR hyperintensities in each cerebral hemisphere. No enhancing lesions are identified. The corpus callosum and sella appear normal. The posterior fossa, brainstem, and craniocervical junction appear normal. The orbital contents are normal and symmetric. The paranasal sinuses,and mastoids are clear. Normal flow voids are demonstrated in the carotid arteries and basilar artery. The calvarium and visualized cervical spine appear normal. IMPRESSION: Compared to study dated 11/14/2013, there is no interval change. Redemonstration of stable senescent mild periventricular and subcortical white matter FLAIR hyperintensities. No interval infarction or focal abnormality is identified especially in the bilateral thalami and subthalamic regions. I, Dr. PRASHANT PATRICIA have personally reviewed and interpreted this examination/study. This report was electronically signed by PRASHANT PATRICIA on 09/05/2018 1:04 PM . Aureliano Brown MD MR ORDERABLES * CREATININE BLOOD - POCT (IP) [facility] (09/03/2018 2:30 PM CDT) Creatinine POCT 0.75 0.3 - 1.3 mg/dL [facility] eGFR POCT 60 60 ml/min [facility] Blood BLOOD SPECIMEN / Unknown 09/03/2018 2:30 PM CDT Aureliano Brown MD LAB - POINT OF CARE ORDERABLES [facility] [address] [phone] * (ABNORMAL) URINALYSIS W/MICROSCOPIC NO CULTURE (08/30/2014 6:34 PM CDT) Color UA Yellow Straw, Yellow, Colorless, Light Yellow [facility] Clarity UA Hazy(A) Clear [facility] Specific [place] UA 1.012 1.001 - 1.030 [facility] pH UA 7.5 5.0 - 8.0 [facility] Protein UA Negative <=20 mg/dL [facility] Glucose UA Negative Negative mg/dL [facility] Ketone UA Negative Negative mg/dL [facility] Bilirubin UA Negative Negative mg/dL [facility] Blood UA Negative Negative [facility] Nitrite UA Negative Negative [facility] Leukocyte Esterase Large(A) Negative [facility] Urobilinogen UA <2.0 <2.0 mg/dL [facility] RBC UA 10(H) 0 - 8 /HPF [facility] WBC UA 38(H) 0 - 2 /HPF [facility] Bacteria UA Moderate(A) Rare, Occasional, None /HPF [facility] Squamous Epithelial Cells UA 1 0 - 1 /HPF [facility] Mucus UA Occasional( A) None /LPF [facility] Yeast Budding UA Occasional( A) None /HPF [facility] Urine specimen (specimen) 08/30/2014 6:34 PM CDT 08/30/2014 6:39 PM CDT Historical Provider LAB - URINALYSIS ORDERABLES [address] [phone] * (ABNORMAL) DRUG ABUSE PANEL 10-20+ETHANOL URINE NO CONFIRM (08/30/2014 6:34 PM CDT) Amphetamines Screen Urine Negative Negative : < 1000 ng/mL [facility] Barbiturates Screen Urine Positive(A) Negative : < 200 ng/mL [facility] Comment: Positive urine barbiturate screening results should be confirmed by another generally accepted non-immunological method such as gas chromatography or mass spectrometry. Benzodiazepine Screen Urine Negative Negative : < 200 ng/mL [facility] Opiates Urine Negative Negative : < 300 ng/mL [facility] Cocaine Metabolites Urine Negative Negative : < 300 ng/mL [facility] Phencyclidine Screen Urine Negative Negative : < 25 ng/ml [facility] Cannabinoids Screen Urine Negative Negative : <50 ng/mL [facility] Methadone Screen Urine Negative Negative : < 300 ng/mL [facility] Urine specimen (specimen) 08/30/2014 6:34 PM CDT 08/30/2014 6:39 PM CDT Narrative [facility] - 08/30/2014 7:34 PM CDT The Urine Toxicology Screening Panel does not screen for Propoxyphene, Meprobamate, Carisoprodol, Trazodone, plal-yzn-frqagiz medications and/or volatiles (Acetone, Isopropanol, Methanol or Ethylene Glycol). Ethanol, Salicylate, Acetaminophen, Tricyclic Antidepressants and several therapeutic drugs may be individually assayed in serum or plasma specimen. Toxicology testing by the [facility] is an aid to medical diagnosis and treatment of patients. No documented chain of custody was maintained. Results are intended to be used for clinical purposes only. Historical Provider LAB - URINE CHEMI STRY ORDERABLES Performing Organization Address [facility] Co de Phone Number [address] [phone] * VITAMIN D 25-HYDROXY (08/30/2014 1:53 PM CDT) Pathologist [facility] Vitamin D, 25 Hydroxy 51.5 >30.0 ng/mL [facility] Comment: The recommendations for 25-Hydroxy Vitamin D clinical decision points are as follows: Deficient: <20.0 ng/mL Insufficient: 20.0 - 30.0 ng/mL Sufficient: >30.0 ng/mL If the 25-Hydroxy Vitamin D results are inconsitent with clinical evidence, it is recommended that follow-up testing using a method such as LC/MS/MS be performed to confirm the result. Blood specimen (specimen) BLOOD SPECIMEN / Unknown 08/30/2014 1:53 PM CDT 08/30/2014 1:59 PM CDT Historical Provider LAB - CHEMISTRY O RDERABLES Performing Organization Address [facility] Co de Phone Number [address] [phone] * (ABNORMAL) CBC W AUTO DIFFERENTIAL (08/30/2014 1:53 PM CDT) Only the most recent of4 resultswithin the time period is included. [facility] WBC 4.4 3.5 - 10.5 10 3/uL [facility] RBC 4.18 3.90 - 5.00 10 6/uL [facility] Hemoglobin 12.4 12.0 - 15.5 g/dL [facility] Hematocrit 36.9 35.0 - 45.0 % [facility] MCV 88.3 81.0 - 97.0 fL [facility] MCH 29.7 28.0 - 34.0 pg [facility] MCHC 33.6 32.0 - 36.0 g/dL [facility] Platelet Count 264 150 - 400 10 3/uL [facility] RDW-SD 44.5 36.0 - 50.0 fL [facility] RDW-CV 13.8 11.2 - 14.8 % [facility] MPV 8.8(L) 9.3 - 12.8 fL [facility] Neutrophils % 58.1 35.0 - 70.0 % [facility] Lymphocytes % 33.6 19.7 - 55.1 % [facility] Monocytes % 7.4 3.0 - 15.0 % [facility] Eosinophils % 0.7 0.0 - 6.0 % [facility] Basophil % 0.2 0.0 - 1.5 % [facility] Neutrophils Absolute 2.5 1.6 - 7.0 10 3/uL [facility] Lymphocyte Absolute 1.5 0.8 - 2.9 10 3/uL [facility] Monocytes Absolute 0.32 0.14 - 0.66 10 3/uL [facility] Eosinophils Absolute 0.03 0.00 - 0.22 10 3/uL [facility] Basophils Absolute 0.01 0.00 - 0.06 10 3/uL [facility] Immature Granulocytes % 0.2 0.0 - 1.0 % [facility] Blood specimen (specimen) BLOOD SPECIMEN / Unknown 08/30/2014 1:53 PM CDT 08/30/2014 2:00 PM CDT Historical Provider LAB - HEMATOLOGY ORDERABLES [place] [id number] [address] [phone] * (ABNORMAL) COMPREHENSIVE METABOLIC PANEL (08/30/2014 1:53 PM CDT) Only the most recent of2 resultswithin the time period is included. BUN 10 7 - 26 mg/dL [facility] Creatinine 0.7 0.6 - 1.2 mg/dL [facility] Sodium 133(L) 136 - 145 mmol/L [facility] Potassium 4.2 3.5 - 4.5 mmol/L [facility] Chloride 95(L) 98 - 107 mmol/L [facility] CO2 29 22 - 29 mmol/L [facility] Glucose 80 70 - 115 mg/dL [facility] Calcium 9.4 8.4 - 10.2 mg/dL [facility] Protein Total 6.1 6.0 - 8.3 g/dL [facility] Albumin 3.2(L) 3.4 - 5.0 g/dL [facility] Bilirubin Total 0.3 0.2 - 1.2 mg/dL [facility] Alkaline Phosphatase 102 40 - 150 Units/L [facility] ALT <5 0 - 55 Units/L [facility] AST 11 5 - 34 Units/L [facility] Anion Gap 13 8 - 18 [facility] BUN/Creatinine Ratio 14 7 - 23 [facility] Osmolality Calculated 260(L) 270 - 300 mOsm/kg [facility] Albumin/Globulin Ratio 1.1 1.1 - 2.3 [facility] eGFR >60 >60 mL/min/1.7 3 m2 [facility] Blood specimen (specimen) BLOOD SPECIMEN / Unknown 08/30/2014 1:53 PM CDT 08/30/2014 1:59 PM CDT Historical Provider LAB - CHEMISTRY O MAC [address] [phone] * FOLATE (08/30/2014 1:53 PM CDT) Folate 18.8 7.0 - 31.4 ng/mL [facility] Blood specimen (specimen) BLOOD SPECIMEN / Unknown 08/30/2014 1:53 PM CDT 08/30/2014 1:59 PM CDT Historical Provider LAB - CHEMISTRY O MAC [address] [phone] * VITAMIN B12 (08/30/2014 1:53 PM CDT) Only the most recent of2 resultswithin the time period is included. Vitamin B12 757 213 - 816 pg/mL [facility] Blood specimen (specimen) BLOOD SPECIMEN / Unknown 08/30/2014 1:53 PM CDT 08/30/2014 1:59 PM CDT Historical Provider LAB - CHEMISTRY O MAC Performing Organization Address [facility] Co de Phone Number [address] [phone] * (ABNORMAL) TSH (08/30/2014 1:53 PM CDT) Only the most recent of2 resultswithin the time period is included. TSH 0.280(L) 0.350 - 4.940 uIU/mL [facility] Blood specimen (specimen) BLOOD SPECIMEN / Unknown 08/30/2014 1:53 PM CDT 08/30/2014 1:59 PM CDT Historical Provider LAB - CHEMISTRY O MAC Performing Organization Address [facility]/ZIP Co de Phone Number [address] [phone] * T4 FREE (08/30/2014 1:53 PM CDT) T4 Free 1.0 0.7 - 1.5 ng/dL [facility] Blood specimen (specimen) BLOOD SPECIMEN / Unknown 08/30/2014 1:53 PM CDT 08/30/2014 2:55 PM CDT Historical Provider LAB - CHEMISTRY O MAC Performing Organization Address [facility]/ZIP Co de Phone Number [address] [phone] * EKG 12-LEAD (08/30/2014 12:00 AM CDT) Only the most recent of2 resultswithin the time period is included. EKG [facility] Comment: Exam Date/Time: Aug 30 2014 10:58:50 Test Reason : pre ect protocol Blood Pressure : / mmHG Vent. Rate : 061 BPM Atrial Rate : 061 BPM P-R Int : 192 ms QRS Dur : 104 ms QT Int : 394 ms P-R-T Axes : 068 014 058 degrees QTc Int : 396 ms Normal sinus rhythm Normal ECG When compared with ECG of 27-NOV-2013 08:34, No significant change was found Confirmed by Mago JEFFERSON, AURA ([id number]), editor city Baron Balbuena ([id number]) on 09/04/2014 2:41:47 PM Referred By: REFERRING NO Confirmed By:AURA JEFFERSON M.D. 08/30/2014 Lexi Vick MD ECG ORDERABLES [facility] * (ABNORMAL) BASIC METABOLIC PANEL (CALCIUM TOTAL) (12/04/2013 7:04 AM CDT) Only the most recent of19 resultswithin the time period is included. BUN 16 7 - 26 mg/dL [facility] Anion Gap 12 8 - 18 [facility] BUN/Creatinine Ratio 20 7 - 23 [facility] Osmolality Calculated 266(L) 270 - 300 mOsm/kg [facility] Creatinine 0.8 0.6 - 1.2 mg/dL [facility] Sodium 135(L) 136 - 145 mmol/L [facility] Potassium 3.9 3.5 - 4.5 mmol/L [facility] Chloride 102 98 - 107 mmol/L [facility] CO2 25 22 - 29 mmol/L [facility] Glucose 82 70 - 115 mg/dL [facility] Calcium 9.2 8.4 - 10.2 mg/dL [facility] eGFR >60 >60 mL/min/1.7 3 m2 [facility] Blood specimen (specimen) BLOOD SPECIMEN / Unknown 12/04/2013 7:04 AM CDT 12/04/2013 7:04 AM CDT Historical Provider LAB - CHEMISTRY O RDERABLES [address] [phone] * TRANSFERRIN (11/14/2013 5:17 PM CDT) Transferrin 222 174 - 382 mg/dL [facility] Transferrin Saturation % 23 16 - 50 % [facility] Blood specimen (specimen) BLOOD SPECIMEN / Unknown 11/14/2013 5:17 PM CDT 11/14/2013 5:29 PM CDT Historical Provider LAB - CHEMISTRY O RDERAMEIR Performing Organization Address [facility]/ZIP Co de Phone Number [address] [phone] * IRON BLOOD (11/14/2013 5:17 PM CDT) Iron 63 40 - 150 mcg/dL [facility] Blood specimen (specimen) BLOOD SPECIMEN / Unknown 11/14/2013 5:17 PM CDT 11/14/2013 5:29 PM CDT Historical Provider LAB - CHEMISTRY O RDERAMEIR Performing Organization Address City/[facility]/ZIP Co de Phone Number [address] [phone] * FERRITIN (11/14/2013 5:17 PM CDT) Ferritin 46 13 - 204 ng/mL [facility] Blood specimen (specimen) BLOOD SPECIMEN / Unknown 11/14/2013 5:17 PM CDT 11/14/2013 5:29 PM CDT Historical Provider LAB - CHEMISTRY O RDERABLES [address] [phone] * NM BRAIN IMAGING KYLER SCAN (11/14/2013 1:55 PM CDT) Anatomical Region Laterality Modality Other Impressions 11/14/2013 3:26 PM CDT Impression: The findings are suggestive of Parkinson's disease. This report was approved by Anahi Dennison M.D. on 11/14/2013 2:[address] KIANA Tong D.O. have personally reviewed and interpreted this examination/study. This report was electronically signed by KIANA MACHADO D.O. on 11/14/2013 3:26 PM . Narrative 11/14/2013 3:26 PM CDT Dopamine transporter (DaTscan) brain SPECT Agent: 5.5 mCi I-123 Ioflupane (DaTscan) administered IV right antecubital fossa. History: 73-year-old female patient with tremors. Indication for scan is differentiation between Parkinson's disease and essential tremor. Procedure: 30 minutes after oral administration of SSKI for thyroid blockade, 5.5 mCi I-123 Ioflupane was administered intravenously. Three hours post administration tomographic whole brain SPECT imaging was performed. Findings: Right caudate nucleus: Mild decreased activity Right putamen nucleus: Absent activity Left caudate nucleus: Moderate decreased activity Left putamen nucleus: Mild decreased activity Procedure Note Kiana Machado, DO - 09/11/2017 Dopamine transporter (DaTscan) brain SPECT Agent: 5.5 mCi I-123 Ioflupane (DaTscan) administered IV right antecubitalfossa. History: 73-year-old female patient with tremors. Indication for scan isdifferentiation between Parkinson's disease and essential tremor. Procedure: 30 minutes after oral administration of SSKI for thyroidblockade, 5.5 mCi I-123 Ioflupane was administered intravenously. Threehours post administration tomographic whole brain SPECT imaging wasperformed. Findings: Right caudate nucleus: Mild decreased activity Right putamen nucleus: Absent activity Left caudate nucleus: Moderate decreased activity Left putamen nucleus: Mild decreased activity IMPRESSION Impression: The findings are suggestive of Parkinson's disease. This report was approved by Anahi Dennison M.D. on 11/14/2013 2:[address] KIANA Tong D.O. have personally reviewed and interpreted thisexamination/study. This report was electronically signed by KIANA MACHADO D.O. on 11/14/20133:26 PM . Historical Provider MD JARAMILLO ORDERABLES * MRI BRAIN WO CONTRAST (11/14/2013 9:48 AM CDT) Anatomical Region Laterality Modality Head Other Impressions 11/14/2013 9:51 AM CDT IMPRESSION: 1. Mild diffuse cerebral volume loss and subcortical and periventricular FLAIR hyperintensities are nonspecific but can be seen in the setting of small vessel ischemic disease. This report was approved by Sade Anderson M.D. on 11/14/2013 9:[address] KIRT Tong M.D. have personally reviewed and interpreted this examination/study. This report was electronically signed by KIRT NETTLES M.D. on 11/14/2013 9:51 AM . Narrative 11/14/2013 9:51 AM CDT EXAMINATION: Magnetic resonance imaging (MRI) of the brain without contrast HISTORY: 73-year-old female with tremors. TECHNIQUE: MRI of the brain was performed without contrast according to standard protocol. FINDINGS: No prior study is available for comparison. No evidence of acute or chronic hemorrhage is identified. No evidence of acute cerebral infarction is seen. There is mild diffuse cerebral volume loss with associated ex vacuo ventricular dilatation. No mass effect or midline shift is seen. Subcortical and periventricular FLAIR hyperintensities are nonspecific but may be seen in the setting of chronic small vessel ischemic disease. The corpus callosum and sella appear normal. The posterior fossa, brainstem, and craniocervical junction appear normal. The visualized portions of the orbits, paranasal sinuses, and mastoids appear normal. Normal flow voids are demonstrated in the carotid arteries and basilar artery. The calvarium and visualized cervical spine appear normal. Procedure Note Kirt Nettles MD - 09/11/2017 EXAMINATION: Magnetic resonance imaging (MRI) of the brain withoutcontrast HISTORY: 73-year-old female with tremors. TECHNIQUE: MRI of the brain was performed without contrast according tostandard protocol. FINDINGS: No prior study is available for comparison. No evidence of acute or chronic hemorrhage is identified. No evidence ofacute cerebral infarction is seen. There is mild diffuse cerebral volumeloss with associated ex vacuo ventricular dilatation. No mass effect ormidline shift is seen. Subcortical and periventricular FLAIR hyperintensities are nonspecific but may be seenin the setting of chronic small vessel ischemic disease. The corpuscallosum and sella appear normal. The posterior fossa, brainstem, andcraniocervical junction appear normal. The visualized portions of the orbits, paranasal sinuses, and mastoidsappear normal. Normal flow voids are demonstrated in the carotid arteriesand basilar artery. The calvarium and visualized cervical spine appearnormal. IMPRESSION IMPRESSION: 1. Mild diffuse cerebral volume loss and subcortical and periventricularFLAIR hyperintensities are nonspecific but can be seen in the setting ofsmall vessel ischemic disease. This report was approved by Sade Anderson M.D. on 11/14/2013 9:49AM . I, Dr. KIRT NETTLES M.D. have personally reviewed and interpreted thisexamination/study. This report was electronically signed by KIRT NETTLES M.D. on 11/14/20139:51 AM . Historical Provider MR ORDERABLES * OSMOLALITY BLOOD (11/13/2013 4:22 PM CDT) Osmolality 276 270 - 300 mOsm/kg [facility] Blood specimen (specimen) BLOOD SPECIMEN / Unknown 11/13/2013 4:22 PM CDT 11/13/2013 4:43 PM CDT Historical Provider LAB - CHEMISTRY O RDERABLES [address] [phone] * (ABNORMAL) URINALYSIS REFLEX TO MICROSCOPIC NO CULTURE (11/13/2013 1:49 PM CDT) Color UA Yellow Straw, Yellow, Colorless, Light Yellow [facility] Clarity UA Clear Clear [facility] Specific [place] UA 1.007 1.001 - 1.030 [facility] pH UA 7.0 5.0 - 8.0 [facility] Protein UA Negative <=20 mg/dL [facility] Glucose UA Negative Negative mg/dL [facility] Ketone UA Negative Negative mg/dL [facility] Bilirubin UA Negative Negative mg/dL [facility] Blood UA Negative Negative [facility] Nitrite UA Negative Negative [facility] Leukocyte Esterase Negative Negative [facility] Urobilinogen UA <2.0 <2.0 mg/dL [facility] RBC UA 3 0 - 8 /HPF [facility] Squamous Epithelial Cells UA 1 0 - 1 /HPF [facility] Mucus UA Rare(A) None /LPF [facility] Amorphous Crystals Occasional Rare, Occasional, Few, Moderate, None /HPF [facility] Urine specimen (specimen) URINE SPECIMEN OBTAINED BY CLEAN CATCH PROCEDURE / Unknown 11/13/2013 1:49 PM CDT 11/13/2013 2:26 PM CDT Historical Provider LAB - URINALYSIS ORDERABLES Performing Organization Address City/[facility]/ZIP Co de Phone Number [address] [phone] * POTASSIUM URINE RANDOM (11/13/2013 1:49 PM CDT) Potassium Urine 24 Not Established mmol/L [facility] Urine specimen (specimen) URINE SPECIMEN OBTAINED BY CLEAN CATCH PROCEDURE / Unknown 11/13/2013 1:49 PM CDT 11/13/2013 2:26 PM CDT Historical Provider LAB - URINE CHEMI STRY ORDERABLES Performing Organization Address [facility]/ZIP Co de Phone Number [address] [phone] * (ABNORMAL) OSMOLALITY URINE (11/13/2013 1:49 PM CDT) Only the most recent of2 resultswithin the time period is included. Osmolality Urine 300(L) 500 - 800 mOsm/kg [facility] Urine specimen (specimen) URINE SPECIMEN OBTAINED BY CLEAN CATCH PROCEDURE / Unknown 11/13/2013 1:49 PM CDT 11/13/2013 2:26 PM CDT Historical Provider LAB - URINE CHEMI STRY ORDERABLES [address] [phone] * CHLORIDE URINE RANDOM (11/13/2013 1:49 PM CDT) Chloride Random Urine <20 Not Established mmol/L [facility] Urine specimen (specimen) URINE SPECIMEN OBTAINED BY CLEAN CATCH PROCEDURE / Unknown 11/13/2013 1:49 PM CDT 11/13/2013 2:26 PM CDT Historical Provider LAB - URINE CHEMI STRY ORDERABLES [address] [phone] * SODIUM URINE RANDOM (11/13/2013 5:50 AM CDT) Sodium Urine <20 Not Established mmol/L [facility] Urine specimen (specimen) URINE / Unknown 11/13/2013 5:50 AM CDT 11/13/2013 6:05 AM CDT Historical Provider LAB - URINE CHEMI STRY ORDERABLES Performing Organization Address [facility] Co de Phone Number [address] [phone] * (ABNORMAL) RENAL FUNCTION PANEL (11/12/2013 6:41 AM CDT) BUN 15 7 - 26 mg/dL [facility] Phosphorus 3.3 2.3 - 4.7 mg/dL [facility] Anion Gap 13 8 - 18 [facility] BUN/Creatinine Ratio 19 7 - 23 [facility] Osmolality Calculated 238(L) 270 - 300 mOsm/kg [facility] Creatinine 0.8 0.6 - 1.2 mg/dL [facility] Sodium 120(L) 136 - 145 mmol/L [facility] Potassium 3.7 3.5 - 4.5 mmol/L [facility] Chloride 88(L) 98 - 107 mmol/L [facility] CO2 23 22 - 29 mmol/L [facility] Glucose 82 70 - 115 mg/dL [facility] Calcium 8.8 8.4 - 10.2 mg/dL [facility] Albumin 3.2(L) 3.4 - 5.0 g/dL [facility] eGFR >60 >60 mL/min/1.7 3 m2 [facility] Blood specimen (specimen) BLOOD SPECIMEN / Unknown 11/12/2013 6:41 AM CDT 11/12/2013 7:06 AM CDT Historical Provider LAB - CHEMISTRY O MAC Performing Organization Address City/[facility]/ZIP Co de Phone Number [address] [phone] * C-REACTIVE PROTEIN (11/10/2013 6:14 PM CDT) C-Reactive Protein <0.5 <=0.5 mg/dL [facility] Blood specimen (specimen) BLOOD SPECIMEN / Unknown 11/10/2013 6:14 PM CDT 11/10/2013 7:13 PM CDT Historical Provider LAB - CHEMISTRY O MAC Performing Organization Address City/[facility] Co de Phone Number [address] [phone] * (ABNORMAL) LIPID PROFILE (11/10/2013 6:14 PM CDT) Cholesterol Total 214(H) <200 mg/dL [facility] HDL 97 >40 mg/dL [facility] Comment: ATP III Classification of HDL Cholesterol: <40 mg/dL: Considered a major risk factor. >60 mg/dL: Considered a negative risk factor. LDL Calculated 109(H) <100 mg/dL [facility] Comment: ATP III Classification of LDL Cholesterol: <100 mg/dL: Optimal 100 - 129 mg/dL: Near Optimal/Above Optimal 130 - 159 mg/dL: Borderline High 160 - 189 mg/dL: High >190 mg/dL: Very High Triglycerides 38 <150 mg/dL [facility] Comment: ATP III Classification of Triglycerides: <150 mg/dL: Normal 150 - 199 mg/dL: Borderline High 200 - 400 mg/dL: High >500 mg/dL: Very High Blood specimen (specimen) BLOOD SPECIMEN / Unknown 11/10/2013 6:14 PM CDT 11/10/2013 7:13 PM CDT Historical Provider LAB - CHEMISTRY O RDJOSE [address] [phone] * VITAMIN B1 (11/10/2013 12:38 PM CDT) Vitamin B1 Whole Blood 132.2 66.5 - 200.0 nmol/L [facility]) Blood specimen (specimen) BLOOD SPECIMEN / Unknown 11/10/2013 12:38 PM CDT 11/10/2013 1:00 PM CDT Narrative [facility] ([place]) - 11/15/2013 5:14 PM CDT Performed at: [address] [place] [address] [id number] Movie Star: Everett Spicer MD, Phone: [phone] Historical Provider LAB - CHEMISTRY O MAC Performing Organization Address City/[facility]/ZIP Co de Phone Number [facility] ([place]) * HOMOCYSTEINE BLOOD QUANTITATIVE (11/10/2013 12:38 PM CDT) Homocysteine 10.4 4.4 - 16.2 umol/L [facility] Blood specimen (specimen) BLOOD SPECIMEN / Unknown 11/10/2013 12:38 PM CDT 11/10/2013 1:01 PM CDT Historical Provider LAB - CHEMISTRY O RDJOSE [address] [phone] * VITAMIN D 1,25 DIHYDROXY (11/10/2013 12:38 PM CDT) Calcitriol (1,25 di-OH Vit D) 57.8 10.0 - 75.0 pg/mL [facility] ([place]) Blood specimen (specimen) BLOOD SPECIMEN / Unknown 11/10/2013 12:38 PM CDT 11/10/2013 1:03 PM CDT Narrative [facility] ([place]) - 11/14/2013 7:31 AM CDT Performed at: [address] [id number] [employer]: Everett Spicer MD, Phone: [phone] Historical Provider LAB - CHEMISTRY O MAC [facility] ([place]) * LAB HISTORICAL RESULTS-ONBASE (10/05/2013) 10/05/2013 Narrative [facility] - 10/06/2013 9:29 AM CDT Historical Provider LAB - CHEMISTRY O MAC [facility] [address] Care Teams Adoption Worker Relationship Specialty Start Date End Date Renay Rhodes MD [address] [place] [address] PCP - General 07/15/17
--- OUTSIDE RECORDS SUMMARY | 2024-08-22 16:31 | XMS_ITS | Clinical Summary ---
Author Organization [facility] [address] Address [address] [place] [address] Care Team Providers Care Line Camera Operator Name Role Phone Renay Rhodes MD Primary Care Provider Allergies Active Allergy Reactions Criticality Noted Date Comments Codeine Hallucinations,Other (See comments) Medium 06/05/2011 Reaction: HALLUCINATIONS, , Other reaction(s): Headache Reaction: Headache Morphine Mental status changes Medium 06/05/2011 Reaction: CONFUSION, , Other reaction(s): Headache Headache Medications pantoprazole DR (PROTONIX) 40 mg EC tablet take 1 tablet by oral route 2 times every day 0 0 3 Active Additional Information Patient taking differently:40 mgEvery morning, Informant: [facility], Reported on 09/01/2022 primidone (MYSOLINE) 50 mg tablet take 1 Tablet by oral route 3 times every day 0 0 3 Active Additional Information Patient taking differently:50 mg2 times daily, Informant: [facility], Reported on 09/01/2022 acetaminophen (TYLENOL) 325 mg tablet take 2 Tablet by oral route every 6 hours as needed 0 0 3 Active Additional Information Patient taking differently: 650 mg 2 times daily, Informant: [facility], Reported on 09/01/2022 montelukast (SINGULAIR) 10 mg tablet take 1 tablet by oral route every day in the evening 0 0 3 Active Additional Information Patient taking differently:10 mgNightly, Informant: [facility], Reported on 09/01/2022 cholecalciferol (cholecalcifero l) 1,000 unit tablet 0 0 4 Active Additional Information Patient taking differently: 2,000 Units Daily, Informant: [facility], Reported on 09/01/2022 lisinopril (PRINIVIL,ZESTR IL) 20 mg tablet take 1 tablet by oral route every day 0 0 4 Active Additional Information Patient taking differently: 10 mg Every morning, Informant: [facility], Reported on 09/01/2022 furosemide (LASIX) 40 mg tablet take 1 tablet by oral route 2 times every day 0 0 4 Active Additional Information Patient taking differently:40 mgoral Every morning, Informant: [facility], Reported on 09/01/2022 pravastatin (PRAVACHOL) 10 mg tabletIndicatio ns:hyperlipidem ia Take 10 mg by mouth daily 3 Active memantine (NAMENDA) 10 mg tablet Take 10 mg by mouth daily 3 Active QUEtiapine (SEROquel) 300 mg tablet 300 mg nightly 3 Active sertraline (ZOLOFT) 100 mg tablet 100 mg every morning 3 Active carbidopa-levod opa (SINEMET) 25-100 mg per tablet Take 3.5 tablets by mouth 4 (four) times a day 3 Active zonisamide (ZONEGRAN) 100 mg capsule 100 mg daily 3 Active oxybutynin XL (DITROPAN-XL) 5 mg 24 hr tablet 5 mg every morning 3 Active propranolol LA (INDERAL LA) 60 mg 24 hr capsule 60 mg nightly 3 Active docusate sodium (COLACE) 100 mg capsuleIndicati ons:constipatio n Take 200 mg by mouth nightly Active clonazePAM (KlonoPIN) 0.5 mg tablet 0.25 mg nightly 3 Active sulfamethoxazol e-trimethoprim (BACTRIM) 400-80 mg per tablet 1 tablet every morning 3 Active calcium carbonate-vitam in D3 1500 mg (600 mg elemental) -200 units per tablet Take 600 mg by mouth every morning 5 Active oxygenIndicatio ns:Dyspnea Administer 2 L/min into each nostril as needed Night Active traMADoL (ULTRAM) 50 mg tablet Take 1 tablet (50 mg total) by mouth every 8 (eight) hours as needed for pain 30 tablet 3 Active aspirin 81 mg enteric coated tabletIndicatio ns:Deep Vein Thrombosis Prevention Take 1 tablet (81 mg total) by mouth 2 (two) times a day for 14 days 28 tablet 3 Active celecoxib (CeleBREX) 100 mg capsuleIndicati ons:Postoperati ve Acute Pain,Pain Take 1 capsule (100 mg total) by mouth 2 (two) times a day for 14 days 28 capsule 3 Active Active Problems Problem Noted Date Diagnosed Date Rotator cuff arthropathy of left shoulder 2022 Rotator cuff tear arthropathy of left shoulder 0 08/26/2022 Overview (08/26/2022): Added automatically from request for surgery [id number] Acute kidney failure, unspecified 08/14/2016 Pneumonia, unspecified organism 08/14/2016 Age-related osteoporosis wit hout current pathological fracture 07/21/2016 Gastro-esophageal reflux disease without esophag itis 07/21/2016 Iron deficiency anemia, unspecified 07/21/2016 Unspecified urinary incontinence 07/21/2016 Acute blood loss anemia 07/17/2016 Anemia 07/17/2016 Postoperative hypovolemic shock 07/17/2016 Sepsis 07/17/2016 Systemic infection 07/17/2016 Hypotension 07/16/2016 Chronic obstructive pulmonary disease 10/04/2015 Overview (09/18/2016): COPD Arthralgia of hip 10/04/2015 Overview (09/18/2016): Hip pain Knee pain 10/04/2015 Overview (09/18/2016): Knee pain Vitamin D deficiency 03/28/2015 Anxiety 08/29/2014 Essential tremor 08/29/2014 Major depressive disorder, r ecurrent severe without psychotic features 12/18/2013 Parkinson's disease 12/13/2013 Adhesive capsulitis of shoulder 11/13/2013 Essential (primary) hypertension 11/13/2013 Other malaise 11/13/2013 Convulsions 11/10/2013 Insomnia 11/10/2013 Heart failure 10/03/2013 Chronic rhinitis 09/25/2013 Dyspepsia 09/25/2013 Epigastric pain 09/25/2013 Injury of head 09/25/2013 Intermittent tremor 05/24/2013 Overview (09/17/2016): Occasional tremors Affective psychosis, bipolar 05/24/2013 Overview (07/28/2022): Depression Generalized seizure 11/12/2011 Osteoarthritis 11/19/2010 Encounters Date Type Department Care Team Description 08/21/2024 1:42 PM CDT - 08/21/2024 11:59 PM CDT Hospital Encounter [facility] [address] [place] [address] Status post reverse total arthroplasty of left shoulder Discharge Disposition: Discharge to home or self care 08/21/2024 1:40 PM CDT Office Visit [facility] Orthopaedic Surgery [id number] [place] [address] [address] [place] [address] Augusto Palomino MD Status post reverse total arthroplasty of left shoulder (Primary Dx) from Last 3 Months Surgical History Surgery Date Site/Laterality Comments OTHER SURGICAL HISTORY Hysterectomy -1983 OTHER SURGICAL HISTORY Sinus surgery - 1998 OTHER SURGICAL HISTORY Tonsillectomy - 1973 OTHER SURGICAL HISTORY Right knee arthroscopy - 1994 KNEE ARTHROSCOPY Left knee arthroscopy FRACTURE SURGERY HYSTERECTOMY JOINT REPLACEMENT Medical History Medical History Date Comments Hx Other Medical Right total kne e replacement 07-17-14.; Comments: LOLI 08/22/2014 - Hx Other Medical Left total knee replacement 10-22-15; Comments: LOLI 11/18/2015 - Hx Other Medical 07-15-16 Left tot al hip replacement.; Comments: LOLI 08/24/2016 - GERD (gastroesophageal reflux disease) Anxiety Arthritis Osteoporosis Depression Seizures (HCC) Parkinson disease (HCC) Kidney stone Family History Medical History Relation Name Comments Other Father CHF - cause of ; Other Mother Heart attack - cause of ; Other Other Family history of cancer.; Relation Name Status Comments Father Mother Other Pt adopted Social History Tobacco Use Types Packs/Day Years Used Date Smoking Tobacco: Never Smokeless Tobacco: Never Tobacco Cessation:Counseling Given: Not Answered AUDIT-C Answer Date Recorded Q1: How often do you have a drink containing alcohol? Never 09/08/2022 Q2: How many drinks containi ng alcohol do you have on a typical day when you are drinking? Patient does not drink Q3: How often do you have si x or more drinks on one occasion? Never 09/08/2022 Personal Safety Answer Date Recorded Have you ever been in or are you currently in a harmful physical or emotional relationship or is someone making you feel afraid or unsafe? Denies 09/08/2022 Comments Unknown Sex and Gender Information Value Date Recorded Sex Assigned at Not on file Legal Sex Female 4:58 PM PROJECT MANAGEMENT Gender Identity Not on file Sexual Orientation Not on file Obstetrics History Comments S/p Hysterectomy Last Filed Vital Signs Vital Sign Reading Time Taken Comments Blood Pressure 99/43 09/16/2022 9:32 AM CDT Pulse 84 09/16/2022 9:32 AM CDT Temperature 36.7 C (98.1 F) 09/16/2022 7:22 AM CDT Respiratory Rate 15 09/16/2022 7:22 AM CDT Oxygen Saturation 98% 09/16/2022 7:22 AM CDT Inhaled Oxygen Concentration - - Weight 99.8 kg (220 lb) 09/08/2022 4:00 PM CDT Height 170.2 cm (5' 7 ) 09/08/2022 4:00 PM CDT Body Mass Index 34.46 09/08/2022 4:00 PM CDT Plan of Treatment Health Maintenance Due Date Last Done Comments Depression Screening 1941 DTaP/Tdap/Td Vaccine (1 - Tdap) 1952 Hepatitis B Screening 1959 Zoster Vaccine (1 of 2) 1991 Well Visit 65+ 2006 Osteoporosis Screening-Bone Density Scan 07/20/2014 07/20/2012 Pneumococcal vaccine 65+ (2 of 2 - PPSV23) 08/05/2015 06/10/2015 Fall Risk Assessment 09/17/2023 09/16/2022 Covid-19 Vaccine (6 - 2023-2 5 season) 2024 03/26/2022, 11/04/2021, 03/26/2021, Additional history exists Influenza Vaccine (#1) 2024 8, 04/21/2017, 03/15/2016, Additional history exists Medical Devices Implanted Type Area Friction Welding Machine Operator Device Identifier Shelf Expiration Date Model / Serial / Lot Depuy Synthes [employer] Inc Metaglene 10mm Long Peg Fixation [id number] - [id number] Implanted:Qty: 1 on 09/08/2022 by Augusto Palomino MD at [facility] [employer] [id number] 01/11/2025 [id number] / / [id number] [employer] Simplex P Full Dose Radiopaque Preblend Cement Bone Tobramycin 6197-9-001 - [id number] - [id number] Implanted:Qty: 1 on 09/08/20[facility] 11/12/2023 6197-9-001 / [id number] / [place] [employer] Simplex P Full Dose Radiopaque Preblend Cement Bone Tobramycin 6197-9-001 - [id number] - [id number] Implanted:Qty: 1 on 09/08/2022 by [facility] 11/12/2023 6197-9-001 / [id number] / [id number] Depuy Orth[employer]ed[employer] Inc Delta Xtend 38mm Shoulder +3mm Standard Cup Humeral Polyethylene Latex Free [id number] - [id number] - [id number] Implanted:Qty: 1 on 09/08/2022 by Augusto Palomino MD at [facility] [employer] [id number] 05/13/2027 [id number] / [id number] / [id number] Depuy Orth[employer]ed[employer] Inc Global Unite 10mm 113mm Modular Shoulder Standard Stem Humeral [id number] - [id number] - [id number] Implanted:Qty: 1 on 09/08/2022 by Augusto Palomino MD at [facility] [employer] [id number] 05/13/2032 [id number] / [id number] / [id number] [employer] Delta Xtend 4.5mm 42mm Lock Shoulder Glenoid Screw Bone Metaglene [id number] - [id number] Implanted:Qty: 1 on 09/08/2022 by Augusto Palomino MD at [facility] [employer] [id number] 04/13/2027 [id number] / / [id number] [employer] Delta Xtend 4.5mm 36mm Lock Shoulder Glenoid Screw Bone Metaglene [id number] - [id number] - [id number] Implanted:Qty: 1 on 09/08/2022 by Augusto Palomino MD at [facility] [employer] [id number] 02/11/2027 [id number] / [id number] / [id number] Dep[employer] Component Glenoid Delta Xtend +2mm Eccentric Od38mm [id number] - [id number] - [id number] Implanted:Qty: 1 on 09/08/2022 by Augusto Palomino MD at [facility] [employer] Inc [id number] 06/13/2026 [id number] / [id number] / [id number] [employer] Delta Xtend 4.5mm 18mm Shoulder Glenoid Screw Bone Metaglene [id number] - [id number] - [id number] Implanted:Qty: 1 on 09/08/2022 by Augusto Palomino MD at [facility] [employer] Inc 06/13/2027 [id number] / [id number] / [id number] [employer] Inc Delta Xtend 4.5mm 18mm Shoulder Glenoid Screw Bone Metaglene [id number] - [id number] - [id number] Implanted:Qty: 1 on 09/08/2022 by Augusto Palomino MD at [facility] [employer] Inc 04/13/2025 [id number] / [id number] / [id number] Dep[employer] Inc Implant Shldr Xtend Modecc 155epi Por Sz1 Lt [id number] - [id number] - [id number] Implanted:Qty: 1 on 09/08/2022 by Augusto Palomino MD at [facility] [employer] [id number] 09/12/2031 [id number] / [id number] / [id number] Anonymous You Latitude 8-15mm Restrictor Elbow Restrictor Cement [id number] - [id number] - [id number] Implanted:Qty: 1 on 09/08/2022 by Augusto Palomino MD at [facility] Anonymous You [id number] 05/29/2027 [id number] / [id number] / [id number] [employer] cartmi Implant Shldr Xtend Modecc 145epi Por Sz1 Lt [id number] - [id number] - [id number] Implanted:Qty: 1 on 09/08/2022 by Augusto Palomino MD at [facility] [employer] cartmi [id number] 01/12/2032 [id number] / [id number] / [id number] Procedures Procedure Name Priority Date/Time Associated Diagnosis Comments XR SHOULDER LEFT 2 OR MORE VIEWS Schedule Routine, Read Routine (OP Routine) 08/21/2024 1:54 PM CDT Status post reverse total arthroplasty of left shoulder DEXA AXIAL SKELETON BONE DENSITY 1 OR MORE SITES Routine 07/20/2012 10:12 AM PROJECT MANAGEMENT from Last 3 Months or Most Recently Relevant to Health Maintenance Results * XR Shoulder Left 2+ View (08/21/2024 1:54 PM CDT) Anatomical Region Laterality Modality Upper Extremities, Shoulder Left Comp uted Radiography 08/21/2024 3:00 PM CDT Impressions 08/21/2024 3:00 PM CDT 1. Unchanged reverse ocix-avi-pzzfni left total shoulder arthroplasty in expected position Electronically signed by: Yunier Rosas MD Narrative 08/21/2024 3:00 PM CDT EXAMINATION: XR SHOULDER LEFT 2 OR MORE VIEWS HISTORY: Left shoulder arthroplasty FINDINGS: 4 radiographs of the left shoulder are compared to 08/23/2023. Unchanged reverse wunx-wyu-yeeokb left total shoulder arthroplasty in expected position. No new acute periprosthetic fracture or lucency. 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 Multiple healed left rib fracture deformities are noted. Procedure Note Judith Rosas MD - 08/21/2024 EXAMINATION: XR SHOULDER LEFT 2 OR MORE VIEWS HISTORY: Left shoulder arthroplasty FINDINGS: 4 radiographs of the left shoulder are compared to 08/23/2023. Unchanged reverse utwu-blk-btbtgo left total shoulder arthroplasty in expected position. No new acute periprosthetic fracture or lucency. 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 Multiple healed left rib fracture deformities are noted. IMPRESSION: 1. Unchanged reverse azps-vxn-auitue left total shoulder arthroplasty in expected position Electronically signed by: Yunier Rosas MD Augusto Palomino MD IMG XR PROCEDURES Final Result * Dexa Axial Skeleton Bone Density 1 or 2 Site (07/20/2012 10:12 AM PROJECT MANAGEMENT) Anatomical Region Laterality Modality Body N/A Radiographic Alyssa ging 07/20/2012 10:1 2 AM PROJECT MANAGEMENT Narrative 07/21/2012 6:15 AM PROJECT MANAGEMENT DEXA Bone Density Axial Acc#: [id number] DATE OF EXAM: Jul 20 2012 CLINICAL HISTORY: 72 year old post menopausal female who states a history of hysterectomy. The patient currently takes vitamin D and calcium. RESULT: DXA LEFT HIP RESULTS SUMMARY: BMD (g/cm'b2) T-score Z-score Neck 0.493 -3.2 -1.4 Total 0.670 -2.2 -0.7 DXA L-SPINE RESULTS SUMMARY: BMD (g/cm'b2) T-score Z-score L1 0.839 -1.4 0.6 L2 0.976 -0.5 1.7 L3 0.998 -0.8 1.5 L4 1.085 0.2 2.5 Total 0.977 -0.6 1.5 IMPRESSION: 1. BONE MINERAL DENSITY OF THE LUMBAR SPINE IS WITHIN NORMAL LIMITS. 2. BONE MINERAL DENSITY OF THE LEFT FEMORAL NECK IS MODERATELY DECREASED AND INDICATIVE OF OSTEOPOROSIS BY WORLD HEALTH ORGANIZATION CRITERIA. COMMENT: W.H.O. defines the T-score of between -1 and -2.5 as osteopenia, the level at which there may be an increased risk of developing osteoporosis and fractures in the future. Osteoporosis is defined as T-score lower than -2.5 (significantly increased risk of fracture due to osteoporosis). T-score is a comparison to peak bone mineral density of young adult reference population. Z-score is a comparison to bone mineral density of sex and age group population. Interpreting Physician: DR NABIL CANO M.D. Read on: Jul 20 2012 3:27P Transcribed by: heriberto On: Jul 20 2012 6:56P Approved Electronically by: RACHAEL Mercedes, DR FERRER on: Jul 21 2012 6:15A Ordering DR: TOMMY GODOY Attending DR: TOMMY GODOY Procedure Note Provider, MD [place] - 10/07/2016 DEXA Bone Density Axial Acc#: [id number] DATE OF EXAM: Jul 20 2012 CLINICAL HISTORY: 72 year old post menopausal female who states a history of hysterectomy.The patient currently takes vitamin D and calcium. RESULT: DXA LEFT HIP RESULTS SUMMARY: BMD (g/cm'b2) T-score Z-score Neck 0.493 -3.2 -1.4 Total 0.670 -2.2-0.7 DXA L-SPINE RESULTS SUMMARY: BMD (g/cm'b2) T-score Z-score L1 0.839 -1.4 0.6 L2 0.976 -0.5 1.7 L30.998 -0.8 1.5 L4 1.085 0.2 2.5 Total 0.977 -0.6 1.5 IMPRESSION: 1. BONE MINERAL DENSITY OF THE LUMBAR SPINE IS WITHIN NORMAL LIMITS. 2. BONE MINERAL DENSITY OF THE LEFT FEMORAL NECK IS MODERATELY DECREASEDAND INDICATIVE OF OSTEOPOROSIS BY WORLD HEALTH ORGANIZATION CRITERIA. COMMENT: W.H.O. defines the T-score of between -1 and -2.5 as osteopenia, thelevel at which there may be an increased risk of developing osteoporosisand fractures in the future. Osteoporosis is defined as T-score lowerthan -2.5 (significantly increased risk of fracture due to osteoporosis).T-score is a comparison to peak bone mineral density of young adultreference population. Z-score is a comparison to bone mineral density ofsex and age group population. Interpreting Physician: DR NABIL CANO M.D. Read on: Jul 20 20123:27P Transcribed by: heriberto On: Jul 20 2012 6:56P Approved Electronically by: RACHAEL Mercedes, DR FERRER on: Jul 21 20126:15A Ordering DR: TOMMY GODOY Attending DR: TOMMY GODOY Historical Provider MD DESAI DXA PROCEDURES Final Result from Last 3 Months or Most Recently Relevant to Health Maintenance Insurance MEDICARE COMMERCIAL GENERIC MEDICARE [facility] MEDICARE SUPPLEMENT MEDICARE [facility] MEDICARE SUPPLEMENT Advance Directives For more information, please contact: [phone] Documents on File Type Date Recorded Patient Medical Reimbursement Manager Expl anation ADVANCE DIRECTIVE 08/05/2022 3:26 PM POWER OF OPERATIONS PROFESSIONAL-MEDICAL * Full Code (Latest Code Status on File) Date Activated Date Inactivated Comments 09/08/2022 3:53 PM 09/16/2022 6:55 PM Care Teams Line Camera Operator Relationship Specialty Start Date End Date Renay Rhodes MD [address] [place] [id number] PCP - General Family Medicine 09/03/17
--- OUTSIDE RECORDS SUMMARY | 2024-08-22 16:31 | XMS_ITS | Continuity of Care Document ---
Author Name Auto Generated, Auto Generated Organization [facility] ices Support Name Relationship Address Phone [employer] Responsible Libertarian [address] [place] [address] RomiUmm Self [address] [place] [address] Summary Purpose Consult/Referral Allergies, Adverse Reactions, Alerts Type Description/Agent Code Date Allergy Active Date Allergy Inactivated Date of Last Reaction Adverse Reactions Severity Status Comments Source of Information FDB Medic ation Ingre dient morphine Active Patient History FDB Medic ation Ingre dient codeine Active Patient History FDB Medic ation Ingre dient tramadol Active Patient History Medications Medications Prescription Date Begun Date Discontinued Status Associated Diagnoses Ordering Provider carbidopa 25 mg-levodopa 100 mg tablet 2 tabs 4 Times Daily 08/18/19 17 Active Nacho Ramirez Calcium 600 + D(3) 600 mg-125 unit tablet 600-125 mg-unit 1 Time Daily 08/18/19 17 Active Nacho Ramirez aspirin 81 mg chewable tablet 81mg 1 Time Daily 08/18/19 17 Active Nacho Ramirez alendronate 70 mg tablet 70mg 1 Time Weekly 08/18/19 17 Active Nacho Ramirez Tylenol 325 mg tablet 650mg 3 Times Daily 08/18/19 17 Active Nacho Ramirez fexofenadine 180 mg tablet 180mg 1 Time Daily 08/18/19 17 Active Nacho Ramirez ferrous sulfate 325 mg (65 mg iron) tablet 325 (65iron) 1 Time Daily 08/18/19 17 Active Nacho Ramirez Vitamin D3 2,000 unit capsule 2000units 1 Time Daily 08/18/19 17 Active Nacho Ramirez HYDROcodone 5 mg-acetaminophen 325 mg tablet 5-325 PRN 08/18/19 17 Nacho Helms Pegram 5 mg-325 mg tablet 2 tabs PRN 08/18/19 17 Nacho Helms ipratropium bromide 0.06 % nasal spray 2 sprays 3 Times Daily 08/18/19 17 Nacho Helms multivitamin tablet 1 tab 1 Time Daily 08/18/19 17 Nacho Helms montelukast 10 mg tablet 10mg 1 Time Daily 08/18/19 17 Nacho Helms metoprolol tartrate 25 mg tablet 25mg 2 Times Daily 08/18/19 17 Nacho Helms lisinopril 20 mg tablet 20mg 1 Time Daily 08/18/19 17 Nacho Helms polyethylene glycol 3350 17 gram/dose oral powder 17g PRN 08/18/19 17 Nacho Helms sertraline 50 mg tablet 50mg 1 Time Daily 08/18/19 17 Nacho Helms Senna Laxative-Stool Softener 8.6 mg-50 mg tablet 1 tab 1 Time Daily 08/18/19 17 Nacho Helms primidone 50 mg tablet 50mg 3 Times Daily 08/18/19 17 Nacho Helms QUEtiapine 300 mg tablet 300mg 1 Time Daily 08/18/19 17 [place] Helms omeprazole 20 mg tablet,delayed release 20mg 1 Time Daily 08/18/19 17 Nacho Helms traZODone 100 mg tablet 100mg 1 Time Daily 08/18/19 17 Nacho Helms oxybutynin chloride ER 10 mg tablet,extended release 24 hr 10mg 1 Time Daily 08/18/19 17 Nacho Helms furosemide 20 mg tablet 20mg 2 Times Daily 08/18/19 17 Nacho Helms Conditions/Problems Problem/Diagnosis Awareness of Diagnosis Code (ICD-10) Onset Date (Start Date) Resolution Date (End Date) Status Source Comments CHRONIC OBSTRUCTIVE PULMONARY DISEASE, UNSPECIFIED J44.9 08/16/19 17 Nacho Helms ESSENTIAL (PRIMARY) HYPERTENSION I10 08/16/19 17 Nacho Helms PARKINSON'S DISEASE G20 08/16/19 17 Nacho Helms PRESENCE OF LEFT ARTIFICIAL KNEE JOINT Z96.652 08/16/19 17 Nacho Helms PRESENCE OF RIGHT ARTIFICIAL SHOULDER JOINT Z96.611 08/16/19 17 Nacho Helms PRESENCE OF LEFT ARTIFICIAL SHOULDER JOINT Z96.612 08/16/19 17 Nacho Helms SPACE SCIENCES DIRECTOR (CURRENT) USE OF ASPIRIN Z79.82 08/16/19 17 Nacho Helms SEPSIS, UNSPECIFIED ORGANISM A41.9 08/16/19 17 Nacho Helms SEVERE SEPSIS WITH SEPTIC SHOCK R65.21 08/16/19 17 Nacho Helms PNEUMONIA, UNSPECIFIED ORGANISM J18.9 08/16/19 17 Nacho Helms ACUTE KIDNEY FAILURE, UNSPECIFIED N17.9 08/16/19 17 Nacho Helms UNILATERAL PRIMARY OSTEOARTHRITIS, LEFT HIP M16.12 08/16/19 17 Nacho Helms CHRONIC DIASTOLIC (CONGESTIVE) HEART FAILURE I50.32 07/22/19 17 Nacho Helms HYPERTENSIVE HEART DISEASE WITH HEART FAILURE I11.0 07/22/19 17 Nacho Helms UNSPECIFIED URINARY INCONTINENCE R32 07/22/19 17 Nacho Helms GASTRO-ESOPHAGEAL REFLUX DISEASE WITHOUT ESOPHAGITIS K21.9 07/22/19 17 Nacho Helms BIPOLAR DISORDER, UNSPECIFIED F31.9 07/22/19 17 Nacho Helms ANXIETY DISORDER, UNSPECIFIED F41.9 07/22/19 17 Nacho Helms INSOMNIA DUE TO OTHER MENTAL DISORDER F51.05 07/22/19 17 Nacho Helms AGE-RELATED OSTEOPOROSIS WITHOUT CURRENT PATHOLOGICAL FRACTURE M81.0 07/22/19 17 Nacho Helms UNSPECIFIED OSTEOARTHRITIS, UNSPECIFIED SITE M19.90 07/22/19 17 Nacho Helms IRON DEFICIENCY ANEMIA, UNSPECIFIED D50.9 07/22/19 17 Nacho Helms ALLERGIC RHINITIS, UNSPECIFIED J30.9 07/22/19 17 Nacho Helms AFTERCARE FOLLOWING JOINT REPLACEMENT SURGERY Z47.1 07/22/19 17 Nacho Helms PRESENCE OF LEFT ARTIFICIAL HIP JOINT Z96.642 07/22/19 17 Nacho Helms HYPOTENSION, UNSPECIFIED I95.9 07/22/19 17 Nacho Helms ACUTE POSTHEMORRHAGIC ANEMIA D62 07/22/19 17 Nacho Helms Procedures No Known Procedures
--- OUTSIDE RECORDS SUMMARY | 2024-08-22 16:31 | XMS_ITS | Referral Summary ---
Author Organization [facility] [address] Address [address] [place] [address] Care Team Providers Care Human Resources Leader Name Role Phone Renay Rhodes MD Primary Care Provider Encounters Date Type Department Care Team Description 08/21/2024 1:42 PM CDT - 08/21/2024 11:59 PM CDT Hospital Encounter [facility] [address] [place] [address] Status post reverse total arthroplasty of left shoulder Discharge Disposition: Discharge to home or self care 08/21/2024 1:40 PM CDT Office Visit [facility] [id number] [place] [address] 2nd [address] [place] [address] Augusto Palomino MD Status post reverse total arthroplasty of left shoulder (Primary Dx) from Last 3 Months Allergies Active Allergy [...] Information Patient taking differently:40 mgEvery morning, Informant: [facility], Reported on 09/01/2022 primidone (MYSOLINE) 50 mg tablet take 1 Tablet by oral route 3 times every day 0 0 3 Active Additional Information Patient taking differently:50 mg2 times daily, Informant: [facility], Reported on 09/01/2022 acetaminophen (TYLENOL) 325 mg tablet take 2 Tablet by oral route every 6 hours as needed 0 0 3 Active Additional Information Patient taking differently: 650 mg 2 times daily, Informant: [facility], Reported on 09/01/2022 montelukast (SINGULAIR) 10 mg tablet take 1 tablet by oral route every day in the evening 0 0 3 Active Additional Information Patient taking differently:10 mgNightly, Informant: [facility], Reported on 09/01/2022 cholecalciferol (cholecalcifero l) 1,000 unit tablet 0 0 4 Active Additional Information Patient taking differently: 2,000 Units Daily, Informant: [facility], Reported on 09/01/2022 lisinopril (PRINIVIL,ZESTR IL) 20 mg tablet take 1 tablet by oral route every day 0 0 4 Active Additional Information Patient taking differently: 10 mg Every morning, Informant: [facility], Reported on 09/01/2022 furosemide (LASIX) 40 mg tablet take 1 tablet by oral route 2 times every day 0 0 4 Active Additional Information Patient taking differently:40 mgoral Every morning, Informant: [facility], Reported on 09/01/2022 pravastatin (PRAVACHOL) [...] (08/26/2022): Added automatically from request for surgery [id number] Acute kidney failure, unspecified 08/14/2016 Pneumonia, unspecified [...] (07/28/2022): Depression Generalized seizure 11/12/2011 Osteoarthritis 11/19/2010 Social History Tobacco Use Types Packs/Day Years [...] on file Legal Sex 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 Gender Identity Not on file Sexual Orientation [...] 09/08/2022 4:00 PM CDT Plan of Treatment Not on file Medical Devices Implanted Type Area Biological Sciences Instructor Device Identifier Shelf Expiration Date Model / Serial / Lot Depuy [employer] Metaglene 10mm Long Peg Fixation [id number] - [id number] Implanted:Qty: 1 on 09/08/2022 by Augusto Palomino MD at [facility] SP[employer]H [employer] [id number] 01/11/2025 [id number] / / [id number] [place] [employer] Simplex P Full Dose Radiopaque Preblend Cement Bone Tobramycin 6197-9-001 - [id number] - [id number] Implanted:Qty: 1 on 09/08/2022 [facility] 11/12/2023 6197-9-001 / [id number] / [place] [employer] Simplex P Full Dose Radiopaque Preblend Cement Bone Tobramycin 6197-9-001 - [id number] - [id number] Implanted:Qty: 1 on 09/08/2022 [facility] 11/12/2023 6197-9-001 / [id number] / [id number] [employer] Delta Xtend 38mm Shoulder +3mm Standard Cup Humeral Polyethylene Latex Free [id number] - [id number] - [id number] Implanted:Qty: 1 on 09/08/2022 by Augusto Palomino MD at [facility] [employer] [id number] 05/13/2027 [id number] / [id number] / [id number] Dep[employer] Orth[employer]ed[employer] Inc Global Unite 10mm 113mm Modular Shoulder Standard Stem Humeral [id number] - [id number] - [id number] Implanted:Qty: 1 on 09/08/2022 by Augusto Palomino MD at [facility] [employer] Inc [id number] 05/13/2032 [id number] / [id number] / [id number] Dep[employer] Orth[employer] Inc Delta Xtend 4.5mm 42mm Lock Shoulder Glenoid Screw Bone Metaglene [id number] - [id number] Implanted:Qty: 1 on 09/08/2022 by Augusto Palomino MD at [facility] [employer] Inc [id number] 04/13/2027 [id number] / / [id number] Dep[employer] Inc Delta Xtend 4.5mm 36mm Lock Shoulder Glenoid Screw Bone Metaglene [id number] - [id number] - [id number] Implanted:Qty: 1 on 09/08/2022 by Augusto Palomino MD at [facility] [employer] Orth[employer]ed[employer] Inc [id number] 02/11/2027 [id number] / [id number] / [id number] Depuy Orthopaed[employer] Inc Component Glenoid Delta Xtend +2mm Eccentric Od38mm [id number] - [id number] - [id number] Implanted:Qty: 1 on 09/08/2022 by Augusto Palomino MD at [facility] [employer] Inc [id number] 06/13/2026 [id number] / [id number] / [id number] Dep[employer] Delta Xtend 4.5mm 18mm Shoulder Glenoid Screw Bone Metaglene [id number] - [id number] - [id number] Implanted:Qty: 1 on 09/08/2022 by Augusto Palomino MD at [facility] [employer] Inc 06/13/2027 [id number] / [id number] / [id number] Dep[employer] Orth[employer]ed[employer] Inc Delta Xtend 4.5mm 18mm Shoulder Glenoid Screw Bone Metaglene [id number] - [id number] - [id number] Implanted:Qty: 1 on 09/08/2022 by Augusto Palomino MD at [facility] [employer] Orth[employer] Inc 04/13/2025 [id number] / [id number] / [id number] Depuy Orthopaed[employer] Inc Implant Shldr Xtend Modecc 155epi Por Sz1 Lt [id number] - [id number] - [id number] Implanted:Qty: 1 on 09/08/2022 by Augusto Palomino MD at [facility] [employer] Inc [id number] 09/12/2031 [id number] / [id number] / [id number] [employer] [facility] Latitude 8-15mm Restrictor Elbow Restrictor Cement [id number] - [id number] - [id number] Implanted:Qty: 1 on 09/08/2022 by Augusto Palomino MD at [facility] [employer] [id number] 05/29/2027 [id number] / [id number] / [id number] Depuy Orthopaed[employer] Inc Implant Shldr Xtend Modecc 145epi Por Sz1 Lt [id number] - [id number] - [id number] Implanted:Qty: 1 on 09/08/2022 by Augusto Palomino MD at [facility] [employer] Orth[employer] Inc [id number] 01/12/2032 [id number] / [id number] / [id number] Procedures Procedure Name Priority Date/Time Associated Diagnosis Comments XR SHOULDER LEFT 2 OR MORE VIEWS Schedule Routine, Read Routine (OP Routine) 08/21/2024 1:54 PM CDT Status post reverse total arthroplasty of left shoulder DEXA AXIAL SKELETON BONE DENSITY 1 OR MORE SITES Routine 07/20/2012 10:12 AM 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 Unchanged reverse skws-cja-rehirv left total shoulder arthroplasty in expected position Electronically signed by: Yunier Rosas MD Narrative 08/21/2024 3:00 PM CDT EXAMINATION: XR SHOULDER LEFT 2 OR MORE VIEWS HISTORY: Left shoulder arthroplasty FINDINGS: 4 radiographs of the left shoulder are compared to 08/23/2023. Unchanged reverse wgbk-urr-jkcbxj left total shoulder arthroplasty in expected position. No new acute periprosthetic fracture or lucency. 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 Multiple healed left rib fracture deformities are noted. Procedure Note Judith Rosas MD - 08/21/2024 EXAMINATION: XR SHOULDER LEFT 2 OR MORE VIEWS HISTORY: Left shoulder arthroplasty FINDINGS: 4 radiographs of the left shoulder are compared to 08/23/2023. Unchanged reverse ylrb-kfl-bkyhlh left total shoulder arthroplasty in expected position. No new acute periprosthetic fracture or lucency. 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 Multiple healed left rib fracture deformities are noted. IMPRESSION: 1. Unchanged reverse wxvz-zjm-uuqcxn left total shoulder arthroplasty in expected position Electronically signed by: Yunier Rosas MD Augusto Palomino MD IMG XR PROCEDURES Final Result * Dexa Axial Skeleton Bone Density 1 or 2 Site (07/20/2012 10:12 AM SMALL CRAFT OPERATOR) Anatomical Region Laterality Modality Body N/A Radiographic Alyssa ging 07/20/2012 10:1 2 AM SMALL CRAFT OPERATOR Narrative 07/21/2012 6:15 AM SMALL CRAFT OPERATOR DEXA Bone Density Axial Acc#: [id number] DATE OF EXAM: Jul 20 2012 CLINICAL [...] - 10/07/2016 DEXA Bone Density Axial Acc#: [id number] DATE OF EXAM: Jul 20 2012 CLINICAL [...] Ordering DR: TOMMY GODOY Attending DR: TOMMY OGDOY Historical Provider MD DESAI DXA PROCEDURES Final Result from Last 3 Months or Most Recently Relevant to Health Maintenance Insurance MEDICARE COMMERCIAL GENERIC MEDICARE [facility] MEDICARE SUPPLEMENT MEDICARE [facility] MEDICARE SUPPLEMENT Advance Directives For more information, please contact: [phone] Documents on File Type Date Recorded Patient Director Of Global Marketing Expl anation ADVANCE DIRECTIVE 08/05/2022 3:26 PM POWER OF [employer]ONG [employer] * Full Code (Latest Code Status on File) Date Activated Date Inactivated Comments 09/08/2022 3:53 PM 09/16/2022 6:55 PM Care Teams Human Resources Leader Relationship Specialty Start Date End Date Renay Rhodes MD [address] [facility] [address] [place] [address] PCP - General Family Medicine 09/03/17
--- OUTSIDE RECORDS SUMMARY | 2024-08-22 16:31 | XMS_ITS | Encounter Summary ---
Author Organization [facility] Address [address] [place] [address] Care Team Providers Care Telecommunicator Supervisor Name Role Phone Renay Rhodes MD Primary Care Provider + Reason for Visit * Reason Onset Date Comments MEDICATION REFILL 01/10/2021 Encounter Details Date Type Department Care Team (Late st Contact Info) Description 01/10/2021 Refill [facility] [address] [place] [address] Aureliano Ruiz MD MEDICATION REFILL Social History Tobacco Use Types Packs/Day Years Used Date Smoking Tobacco: Never Smokeless Tobacco: Never Alcohol Use Standard Drinks/Week Comments No 0 (1 standard drink = 0.6 oz pur e alcohol) PHQ-2 Answer Date Recorded PHQ2 TOTAL SCORE 1 01/10/2021 Sex and Gender Information Value Date Recorded Sex Assigned at Female 02/28/2021 9:25 PM CDT Gender Identity Not on file Sexual Orientation Not on file documented as of this encounter Plan of Treatment Not on file documented as of this encounter Visit Diagnoses Not on filedocumented in this encounter Care Teams Telecommunicator Supervisor Relationship Specialty Start Date End Date Renay Rhodes MD [address] [facility] [address] [place] [id number] PCP - General 07/15/17 documented as of this encounter
--- OUTSIDE RECORDS SUMMARY | 2024-08-22 16:31 | XMS_ITS | Encounter Summary ---
Author Organization [facility] Healthcare Address [address] [place] [address] Care Team Providers Care Engineering Tech Name Role Phone Renay Rhodes MD Primary Care Provider Reason for Referral * Diagnostic Imaging (Routine) - Closed Specialty Diagnoses / Procedures Referred By Lisbeth ruano Referred To Contact Diagnoses Status post reverse total arthroplasty of left shoulder Procedures XR Shoulder Left 2+ View Augusto Palomino MD [address] [facility] [address] [place] [address] Phone: tel: fax: [facility] [place] Referral ID Status Reason Start Date Expiration Date Visits Re quested Visits Authorized [id number] Closed 08/18/2024 09/17/2025 1 1 Reason for Visit * Diagnostic Imaging (Routine) - Closed Specialty Diagnoses / Procedures Referred By Lisbeth ruano Referred To Contact Diagnoses Status post reverse total arthroplasty of left shoulder Procedures XR Shoulder Left 2+ View Augusto Palomino MD [address] [facility] [address] [place] [address] Phone: tel: fax: [facility] Referral ID Status Reason Start Date Expiration Date Visits Re quested Visits Authorized [id number] Closed 08/18/2024 09/17/2025 1 1 Encounter Details Date Type Department Care Team (Latest Contact Info) Description 08/21/2024 1:42 PM CDT - 08/21/2024 11:59 PM CDT Hospital Encounter [facility] [address] [place] [address] Status post reverse total arthroplasty of left shoulder Discharge Disposition: Discharge to home or self care Social History Tobacco Use Types Packs/Day Years Used Date Smoking Tobacco: Never Smokeless Tobacco: Never AUDIT-C Answer Date Recorded Q1: How often [...] on file 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 Gender Identity Not on file Sexual Orientation Not on file documented as of this encounter Medications at Time of Discharge acetaminophen (TYLENOL) 325 mg tablet take 2 Tablet by oral route every 6 hours as needed 0 0 05/24/2013 calcium carbonate-vitami n D3 1500 mg (600 mg elemental) -200 units per tablet Take 600 mg by mouth every morning 09/05/2014 carbidopa-levodo pa (SINEMET) 25-100 mg per tablet Take 3.5 tablets by mouth 4 (four) times a day 06/23/2022 cholecalciferol (cholecalciferol ) 1,000 unit tablet 0 0 07/07/2013 clonazePAM (KlonoPIN) 0.5 mg tablet 0.25 mg nightly 07/28/2022 docusate sodium (COLACE) 100 mg capsuleIndicatio ns:constipation Take 200 mg by mouth nightly furosemide (LASIX) 40 mg tablet take 1 tablet by oral route 2 times every day 0 0 07/07/2013 lisinopril (PRINIVIL,ZESTRI L) 20 mg tablet take 1 tablet by oral route every day 0 0 07/07/2013 memantine (NAMENDA) 10 mg tablet Take 10 mg by mouth daily 07/14/2022 montelukast (SINGULAIR) 10 mg tablet take 1 tablet by oral route every day in the evening 0 0 05/24/2013 oxybutynin XL (DITROPAN-XL) 5 mg 24 hr tablet 5 mg every morning 07/16/2022 oxygenIndication s:Dyspnea Administer 2 L/min into each nostril as needed Night pantoprazole DR (PROTONIX) 40 mg EC tablet take 1 tablet by oral route 2 times every day 0 0 05/24/2013 pravastatin (PRAVACHOL) 10 mg tabletIndication s:hyperlipidemia Take 10 mg by mouth daily 07/26/2022 primidone (MYSOLINE) 50 mg tablet take 1 Tablet by oral route 3 times every day 0 0 05/24/2013 propranolol LA (INDERAL LA) 60 mg 24 hr capsule 60 mg nightly 07/14/2022 QUEtiapine (SEROquel) 300 mg tablet 300 mg nightly 07/12/2022 sertraline (ZOLOFT) 100 mg tablet 100 mg every morning 07/29/2022 sulfamethoxazole -trimethoprim (BACTRIM) 400-80 mg per tablet 1 tablet every morning 08/25/2022 traMADoL (ULTRAM) 50 mg tablet Take 1 tablet (50 mg total) by mouth every 8 (eight) hours as needed for pain 30 tablet 09/11/2022 zonisamide (ZONEGRAN) 100 mg capsule 100 mg daily 07/14/2022 documented as of this encounter Discharge Disposition Disposition Code Departure Means Destination Discharge to home or self care documented in this encounter Plan of Treatment Not on file documented as of this encounter Procedures Procedure Name Priority Date/Time Associated Diagnosis Comments XR SHOULDER LEFT 2 OR MORE VIEWS Schedule Routine, Read Routine (OP Routine) 08/21/2024 1:54 PM CDT Status post reverse total arthroplasty of left shoulder documented in this encounter Results * XR Shoulder Left 2+ View (08/21/2024 1:54 PM CDT) Anatomical Region Laterality Modality Upper Extremities, Shoulder Left Comp uted Radiography 08/21/2024 3:00 PM CDT Impressions 08/21/2024 3:00 PM CDT 1. Unchanged reverse eena-rbt-hauitq left total shoulder arthroplasty in expected position Electronically signed by: Yunier Rosas MD Narrative 08/21/2024 3:00 PM CDT EXAMINATION: XR SHOULDER LEFT 2 OR MORE VIEWS HISTORY: Left shoulder arthroplasty FINDINGS: 4 radiographs of the left shoulder are compared to 08/23/2023. Unchanged reverse jflc-iet-hqltjc left total shoulder arthroplasty in expected position. No new acute periprosthetic fracture or lucency. 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 Multiple healed left rib fracture deformities are noted. Procedure Note Judith Rosas MD - 08/21/2024 EXAMINATION: XR SHOULDER LEFT 2 OR MORE VIEWS HISTORY: Left shoulder arthroplasty FINDINGS: 4 radiographs of the left shoulder are compared to 08/23/2023. Unchanged reverse ntqj-ohe-kqlshb left total shoulder arthroplasty in expected position. No new acute periprosthetic fracture or lucency. 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 Multiple healed left rib fracture deformities are noted. IMPRESSION: 1. Unchanged reverse umbz-vgs-tjlfwm left total shoulder arthroplasty in expected position Electronically signed by: Yunier Rosas MD Augusto Palomino MD IMG XR PROCEDURES Final Result documented in this encounter Visit Diagnoses Diagnosis Status post reverse total arthroplasty of left shoulder documented in this encounter Care Teams Engineering Tech Relationship Specialty Start Date End Date Renay Rhodes MD [address] [address] PCP - General Family Medicine 09/03/17 documented as of this encounter
--- OUTSIDE RECORDS SUMMARY | 2024-08-22 16:31 | XMS_ITS | Encounter Summary ---
Author Organization [facility] Address [address] [place] [address] Care Team Providers Care Death Surveys Coder Name Role Phone Renay Rhodes MD Primary Care Provider + Reason for Visit * Reason Onset Date Comments MEDICATION REFILL 06/29/2018 Encounter Details Date Type Department Care Team (Late st Contact Info) Description 06/29/2018 Refill [facility] [address] [place] [address] Aureliano Ruiz MD MEDICATION REFILL Social History [...] documented as of this encounter Visit Diagnoses Diagnosis Benign essential tremor Essential and other specified forms of tremor Parkinson disease (HCC) Paralysis agitans documented in this encounter Care Teams Death Surveys Coder Relationship Specialty Start Date End Date Renay Rhodes MD [address] [facility] [address] [place] [id number] PCP - General 07/15/17 documented as of this encounter
--- OUTSIDE RECORDS SUMMARY | 2024-08-22 16:31 | XMS_ITS | Clinical Summary ---
Author Organization [facility] Address [address] [place] [address] Phone Care Team Providers Care Auction Assistant Name Role Phone Provider, None Primary Care Provider Unavailabl e Allergies Active Allergy Reactions Criticality Noted Date Comments Codeine Hallucinations 07/06/2016 Morphine Hallucinations 07/06/2016 Tramadol Other (see Comments) 07/06/2016 ACTIVATES SEIZURES Medications sertraline (ZOLOFT) 50 MG Tablet Take 50 mg by mouth every morning. Active alendronate (FOSAMAX) 70 MG Tablet Take 70 mg by mouth every 7 days. WEDNESDAY Active carbidopa-levod opa (SINEMET) 25-100 MG Tablet Take 2 Tabs by mouth 4 times daily. Active ferrous sulfate 325 (65 FE) MG Tablet Take 325 mg by mouth daily. Active fexofenadine (CHASE) 180 MG Tablet Take 180 mg by mouth nightly. Active ipratropium (ATROVENT) 0.06 % Solution 2 Sprays by Nasal route 3 times daily. Active lisinopril (PRINIVIL, ZESTRIL) 20 MG Tablet Take 20 mg by mouth daily. Active metoprolol tartrate (LOPRESSOR) 25 MG Tablet Take 25 mg by mouth 2 times daily. Active montelukast (SINGULAIR) 10 MG Tablet Take 10 mg by mouth every evening. Active pantoprazole (PROTONIX) 40 MG Tablet Delayed Response Take 40 mg by mouth daily. Active primidone (MYSOLINE) 50 MG Tablet Take 50 mg by mouth 3 times daily. Active QUEtiapine Fumarate (SEROQUEL) 300 MG Tablet Take 300 mg by mouth nightly. Active Acetaminophen (TYLENOL ARTHRITIS PAIN PO) Take 650 mg by mouth 3 times daily. Active senna-docusate (SENNA-PLUS) 8.6-50 MG Tablet Take 1 Tab by mouth daily. Active Cholecalciferol (VITAMIN D3) 2000 UNITS Tablet Take 1 Tab by mouth daily. Active Aspirin 81 MG Tablet Take 81 mg by mouth daily. Active Multiple Vitamin (MULTIVITAMINS PO) Take 1 Tab by mouth daily. Active polyethylene glycol (MIRALAX) Powder Take 17 g by mouth daily as needed. 17 g = 1 scoop. Dissolve in 4 -8 oz of water or other liquid. Active traZODone (DESYREL) 100 MG Tablet Take 100 mg by mouth nightly. Active oxybutynin (DITROPAN-XL) 5 MG TABLET SR 24 HR Take 5 mg by mouth daily. Active Calcium Carb-Cholecalci ferol (CALCIUM 600 + D PO) Take 1 Tab by mouth daily. Active HYDROcodone-silvia taminophen (NORCO) 5-325 MG TabletIndicatio ns:Moderate to Moderately Severe Pain Take 1-2 Tabs by mouth every 6 hours as needed. Indications: Moderate to Moderately Severe Pain 60 Tab 0 7 Active Active Problems Problem Noted Date Diagnosed Date Severe sepsis (<HCC>) 07/17/2016 Anemia 07/17/2016 Postoperative hypovolemic shock 07/17/2016 Acute blood loss anemia 07/17/2016 Hypotension 07/16/2016 Resolved Problems Problem Noted Date Diagnosed Date Resolved Date Acute renal failure with tubular necrosis 07/17/2016 07/18/2016 Urinary retention 07/16/2016 07/18/2016 Social History Tobacco Use Types Packs/Day Years Used Date Smoking Tobacco: Never Alcohol Use Standard Drinks/Week Comments No 0 (1 standard drink = 0.6 oz pur e alcohol) Comments Unknown Sex and Gender Information Value Date Recorded Sex Assigned at Not on file Legal Sex Female 10:40 PM CDT Gender Identity Not on file Sexual Orientation Not on file Last Filed Vital Signs Vital Sign Reading Time Taken Comments Blood Pressure 126/67 07/22/2016 7:23 AM OBSERVER ELECTRICAL PROSPECTING Pulse 82 07/22/2016 7:23 AM OBSERVER ELECTRICAL PROSPECTING Temperature 36.5 C (97.7 F) 07/22/2016 7:23 AM OBSERVER ELECTRICAL PROSPECTING Respiratory Rate 20 07/22/2016 7:23 AM OBSERVER ELECTRICAL PROSPECTING Oxygen Saturation 92% 07/22/2016 8:27 AM OBSERVER ELECTRICAL PROSPECTING Inhaled Oxygen Concentration - - Weight 131.5 kg (289 lb 14.5 oz) 07/20/2016 7:21 AM OBSERVER ELECTRICAL PROSPECTING Height 175.3 cm (5' 9 ) 07/15/2016 5:41 PM OBSERVER ELECTRICAL PROSPECTING Body Mass Index 42.81 07/15/2016 5:41 PM OBSERVER ELECTRICAL PROSPECTING Plan of Treatment Health Maintenance Due Date Last Done Comments DEXA Bone Density 1940 Hepatitis C Virus (HCV) Screening 1940 TdaP Immunization 1940 Pneumococcal Immunization (5 0+ years) (1 of 1 - PCV) 1991 Zoster Immunization (1 of 2) 1991 Respiratory Syncytial Virus (RSV) Immunization (Adult) (1 - 1-dose 75+ series) 2016 Influenza Immunization (#1) 2024 SARS-COV-2 Immunization ( - season) 2024 Hepatitis B Immunization Aged Out No longer eligible based on patient's age to complete this topic Meningococcal Immunization (ACWY) Aged Out No longer eligible based on patient's age to complete this topic Rotavirus Immunization Aged Out No lo nger eligible based on patient's age to complete this topic Medical Devices Implanted Type Area Supervisor Adult Education Device Identifier Shelf Expiration Date Model / Serial / Lot Implant Hip Stem Femoral Stem Sz 7 Accol - [id number] Implanted:Qty: 1 on 07/15/2016 by Nacho Ramirez MD at [facility] IMPLANT Left: Hip BOBO / ORTHOPAEDICS 03/09/2020 [id number] / / [id number] [employer] Admx3 Insert Id 2 - [id number] Implanted:Qty: 1 on 07/15/2016 by Nacho Ramirez MD at [facility] IMPLANT Left: Hip BOBO / ORTHOPAEDICS 04/07/2021 1236-2-852 / / [id number] Head Fem Lfric V40 28mm -4mm Vit - [id number] Implanted:Qty: 1 on 07/15/2016 by Nacho Ramirez MD at [facility] IMPLANT Left: Hip BOBO / ORTHOPAEDICS 10/30/2020 [id number] / / [id number] [employer] Adm Anatomic Dual Mobility Acetabular Cup Implanted:Qty: 1 on 07/15/2016 by Nacho Ramirez MD at [facility] Left: Hip BOBO / ORTHOPAEDICS 12/15/2020 [id number] / / [id number] Insurance MEDICARE [employer] GENERIC Advance Directives * Full Code (Latest Code Status on File) Date Activated Date Inactivated Comments 07/16/2016 5:46 PM 07/22/2016 6:39 PM CPR-Full Treat ment: FULL ARREST: Attempt Resuscitation/CPR wit intubation and mechanical ventilation. PRE-ARREST: Use entire range of life support measures to stabilize the patient. Care Teams Auction Assistant Relationship Specialty Start Date End Date Provider, None [place] PCP - General 07/16/16
--- OUTSIDE RECORDS SUMMARY | 2024-08-22 16:31 | XMS_ITS | Encounter Summary ---
Author Organization [facility] Address [address] [place] [address] Phone Care Team Providers Care Ham Facer Name Role Phone Renay Rhodes MD Primary Care Provider Reason for Referral * Consultation (Routine) - Authorized Specialty Diagnoses / Procedures Referred By Lisbeth ruano Referred To Contact Physical Therapy Diagnoses Status post reverse total arthroplasty of left shoulder Augusto Palomino MD [address] [facility] [address] [place] [address] Phone: tel: fax: External Order Referral ID Status Reason Start Date Expiration Date Visits Requested Visits Authorized [id number] Authorized Evaluate and Treat 08/21/2024 09/20/2025 24 24 Question Answer PTRFR PT Evaluate and Treat Therapy options discussed with patient? Yes Location provided for therapy services is: Patient requested/Patient preferred Please select the performing region: External Order [171] # of visits: 24 Comments [facility] Ramon Palomino MD Shoulder and Elbow Service Date: 08/21/24 Patient Name: Umm Llanos : 1940 Diagnosis: Status post reverse total arthroplasty of left shoulder Surgery Date: 09/08/2022 Procedure: Arthroplasty Shoulder - Reverse Total - Left PHYSICAL THERAPY REFERRAL: Reverse total shoulder arthroplasty protocol (Phase 2: beyond 7-8 weeks) Therapy Instructions: Progress AROM as tolerated. May progress stretching and PROM as tolerated in all planes including IR behind the back. Advance home ROM program. Gentle deltoid and cuff strengthening - emphasize ER and elevation. Generalized conditioning Special Instructions: Avoid overhead strengthening of shoulder. RSA patients are at risk for acromial stress fractures - strengthening progression should be slow. Frequency & Duration: 1-2 days/week, therapists discretion. Augusto Palomino MD ATTENTION THERAPY PROVIDER- Please be sure to include the Patient's Name & Date of on All Correspondence with our office- For all PT reports that require a signature-please fax to [phone] For all other PT progress notes-please fax to [phone] SCHEDULING PHYSICAL THERAPY APPOINTMENTS: THIS IS YOUR THERAPY ORDER. BE SURE AND TAKE THIS WITH YOU TO YOUR THERAPY APPOINTMENT AND GIVE TO YOUR THERAPIST. WITHOUT THIS PAPER THE THERAPIST WILL NOT BE ABLE TO START YOUR THERAPY PROGRAM. Your Physical Therapy Provider may complete the pre-certification process on your behalf. If you need assistance from the Orthopedic Pre-Certifiction office, please call [phone] and a steam plant control room operator will assist you. Workman's compensation patients: you must contact your vocational case manager regarding where you are to go for your physical therapy. 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 Reason for Visit * Reason Comments Follow-up Encounter Details Date Type Department Care Team (Late st Contact Info) Description 08/21/2024 1:40 PM CDT Office Visit [facility] Orthopaedic Surgery [id number] [place] [address] [address]nd [address] [place] [address] Augusto Palomino MD [address] [facility] [address] [place] [address] Status post reverse total arthroplasty of left shoulder (Primary Dx) Social History Tobacco Use Types Packs/Day Years [...] on file Legal Sex 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 Pain has been well-controlled. She is doing generally well. She does not have significant pain but also has some weakness in the shoulder. PHYSICAL EXAMINATION No acute distress, alert and oriented X 3. Incision healing is noted with no sign of infection. Active assisted forward elevation is to 90??. She is able to maintain this position. She has some difficult desk external rotation but is able to externally rotate to 20?? and maintain this position. Shewill bring her hand to her mouth. She can bring her hand to the back of her head but this is by moving her head as well.. Distal motor and sensory function is normal. REVIEW OF X-RAYS/STUDIES X-rays of the left shoulder were ordered, obtained, independently reviewed by me today. These demonstrate a stable reverse total shoulder arthroplasty IMPRESSION/DIAGNOSIS Doing well 2 years from left reverse total shoulder arthroplasty TREATMENT/PLAN We will continue with routine postoperative rehabilitation. She is doing well overall. Her pain is well-controlled we are going to provide her with a physical therapy script just to work on some generalized conditioning. We reviewed precautions and they voiced understanding. All questions were answered today. FOLLOW UP For routine surveillance Augusto Palomino MD [facility] Shoulder and Elbow Service [facility] Dr. Ramon Palomino dictating using Fluency Direct. Barge Master variances may occur. documented in this encounter Plan of Treatment Scheduled Referrals Name Type Priority Associated Diagnoses Orde r Schedule Ambulatory referral order to Physical Therapy - Outpatient Referral Routine Status post reverse total arthroplasty of left shoulder Expected: 09/04/2024 (Approximate), Expires: 08/21/2025 documented as of this encounter Results * XR Shoulder Left 2+ View (08/21/2024 1:54 PM CDT) Anatomical Region Laterality Modality Upper Extremities, Shoulder Left Comp uted Radiography 08/21/2024 3:00 PM CDT Impressions 08/21/2024 3:00 PM CDT 1. Unchanged reverse ylai-ldb-rxaitp left total shoulder arthroplasty in expected position Electronically signed by: Yunier Rosas MD Narrative 08/21/2024 3:00 PM CDT EXAMINATION: XR SHOULDER LEFT 2 OR MORE VIEWS HISTORY: Left shoulder arthroplasty FINDINGS: 4 radiographs of the left shoulder are compared to 08/23/2023. Unchanged reverse ozxl-dnc-uqealu left total shoulder arthroplasty in expected position. No new acute periprosthetic fracture or lucency. 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 Multiple healed left rib fracture deformities are noted. Procedure Note Judith Rosas MD - 08/21/2024 EXAMINATION: XR SHOULDER LEFT 2 OR MORE VIEWS HISTORY: Left shoulder arthroplasty FINDINGS: 4 radiographs of the left shoulder are compared to 08/23/2023. Unchanged reverse ugvz-cgd-zvgwvb left total shoulder arthroplasty in expected position. No new acute periprosthetic fracture or lucency. 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 Multiple healed left rib fracture deformities are noted. IMPRESSION: 1. Unchanged reverse kjxu-fgr-skmkgr left total shoulder arthroplasty in expected position Electronically signed by: Yunier Rosas MD Augusto Palomino MD IMG XR PROCEDURES Final Result documented in this encounter Visit Diagnoses Diagnosis Status post reverse total arthroplasty of left shoulder- Primary Status post reverse total arthroplasty of left shoulder documented in this encounter Care Teams Ham Facer Relationship Specialty Start Date End Date Renay Rhodes MD [address] [facility] [address] [place] [id number] PCP - General Family Medicine 09/03/17 documented as of this encounter
== END 2024-08-22 14:37 | disposition home or self-care (01) ==
PROVIDERS: PCP Family Medicine; Visit Provider Student in an Organized Health Care Education/Training Program
DX: R30.0 Dysuria (principal)
CPT/HCPCS: 81001; 87086

== ENCOUNTER 2024-08-23 15:10 | Emergency (ER) | payer MEDICARE, SELFPAY ==
--- NOTE | ~2024-08-23 | CT_ITS ---
CLINICAL INDICATION: Right lower quadrant and suprapubic pain with urinary tract infection. COMPARISON: 06/27/2023 and dating back to 01/24/2019. TECHNIQUE: Multiple contiguous axial images of the abdomen and pelvis were performed following the ad ministration of with 100 mL Omnipaque-350 intravenous contrast The dose-length product (DLP) was 1000.66 mGy-cm. Automated exposure control and iterative reconstruction technique were employed. FINDINGS/OBSERVATIONS: Visualized lower thorax: The bilateral lung bases are clear. The heart is enlarged, unchanged, without pericardial effusion. Liver: Five well-circumscribed foci of decreased attenuation within the liver, unchanged dating back to 01/24/2019, statistically cysts. The remainder of the liver demonstrates otherwise homogeneous enhancement and is not enlarged measuri ng 18 cm in longitudinal dimension. Gallbladder and biliary system: The gallbladder is surgically absent. Pancreas: The pancreas enhances homogeneously without ductal dilatation. Spleen: The spleen enhances homogeneously and is not enlarged measuring 9 cm in longitudinal dimension. Kidneys: 3 mm nonobstructing calculus within the interpolar region of the left kidney. The remainder of the bilateral kidneys otherwise enhance symmetrically without hydronephrosis or linh tional renal calculi. Adrenal glands: Unremarkable. Gastrointestinal tract: Colonic diverticulosis without surrounding inflammatory change. Appendix: Multiple surgical clips are identified within the posterior base of the cecum suggesting prior append ectomy Vasculature: Densely calcified atherosclerotic disease without aneurysmal dilatation or significant stenosis. Lymph nodes: No pathologically enlarged or morphologically suspicious lymph nodes within the retroperitoneum or at the root of the mesentery. Pelvic structures: The bladder is only minimally distended, and otherwise unremarkable. The uterus is either surgically absent or markedly atrophic. Evaluation of the deep pelvis is limited secondary to streak metallic artifact from patient's left hi p prosthesis. Body wall and musculoskeletal: Degenerative disease within the lumbar spine with osteophyte formation, disc space narrowing, endplat e changes and vacuum phenomena most prominent at the levels of L1/L2 L5/S1 and to a lesser extent L4/ L5. Moderate facet arthropathy is also noted. IMPRESSION: No acute pathology detected within the abdomen or pelvis. Innumerable nonacute findings, as detailed above. Reviewed, dictated and finalized at location A.
[2024-08-23 15:17] VITALS: BP 141/68; PULSE 67; RESP 20; TEMP 36.7; O2SAT 92
[2024-08-23 16:28] VITALS: BP 151/85; PULSE 74; RESP 18; O2SAT 92
[2024-08-23 17:10] LABS: Basophils Percent Auto 0.8 % (0.2-1.2); Eosinophils Absolute Auto 0.1 K/mm3 (0-0.3); Eosinophils Percent Auto 1.8 % (0-4.4); Hematocrit 36.5 % (37.0-47.0); Hemoglobin 11.5 g/dL (12.0-15.0); Immature Granulocyte Absolute 0.01 K/mm3 (0.00-0.031); Immature Granulocyte Percent A 0.3 % (0-0.5); Lymphocytes Absolute Auto 1.94 K/mm3 (0.9-3.2); Lymphocytes Percent Auto 49.1 % (18.3-44.2); Mean Corpuscular HGB Conc 31.5 g/dl (32-36); Mean Corpuscular Hemoglobin 28.8 pg (26-34); Mean Corpuscular Volume 91.3 fl (80-100); Mean Platelet Volume 8.5 fl (7.4-10.4); Monocytes Absolute Auto 0.4 K/mm3 (0.1-0.6); Monocytes Percent Auto 9.1 % (2.6-8.5); Neutrophils Absolute Auto 1.5 K/mm3 (1.3-6.7); Neutrophils Percent Auto 38.9 % (45.5-73.1); Platelet Count Result 169 k/mm3 (150-375); Red Cell Distribution Width 14.6 % (11.5-14.5)
[2024-08-23 17:12] LABS: Add Urine Microscopic? YES; Appearance Urine Clear (Clear); Bacteria Urine None Seen /hpf; Bilirubin Urine Negative (Negative); Blood Urine Negative (Negative); Glucose Urine UA Negative (Negative); Ketones Urine Negative (Negative); Leukocyte Esterase Ur Trace LEU/UL (Negative); Need Manual Microscopic Reviewed; Nitrate Urine Positive (Negative); Non Pathogenic Casts 0-2; Protein Urine Negative (Negative); RBC Urine 0-2 /hpf (0-2); Specific Grav Ur 1.008 (1.001-1.035); Squamous Epithelial Cell Urine None Seen /hpf (Few); WBC Urine 0-5 /hpf (0-3)
--- OUTSIDE RECORDS SUMMARY | 2024-08-23 17:13 | XMS_ITS | Clinical Summary ---
Author Organization [facility] Address [address] [place] [address] Care Team Providers Care Food Service Team Member Name Role Phone Renay Rhodes MD Primary Care Provider + Source Comments [facility],non-owned Affiliates and Associated Physician Practices is amultiple site organization consisting of ambulatory clinics and hospital sitesin [place], [place], [place] and [place]. This disclosure is being madepursuant to the Care Everywhere program and may not contain all information available regarding this patient. Last updated 18.[facility] Allergies Active Allergy Reactions Criticality Noted [...] Team Description 08/07/2024 Travel 07/10/2024 3:00 PM TRAINING INTERN Video Visit [facility] - [facility]rology [address] [place] [address], [place] [address] Brandon Benito, REMOTE SENSING SURVEYOR-REGIONAL WILDLIFE AGENT Parkinson's disease without dyskinesia, with fluctuating manifestations ([facility]) 06/22/2024 Travel 06/19/2024 Orders Only [facility] [address] [place] [address], [facility] [place] [address] Aureliano Ruiz MD from Last 3 Months [...] Comments Blood Pressure 134/74 08/07/2024 2:38 PM TRAINING INTERN Pulse 66 08/07/2024 2:38 PM TRAINING INTERN Temperature 36.2 C (97.2 F) 06/04/2021 12:56 PM TRAINING INTERN Respiratory Rate 16 08/20/2015 10:20 AM TRAINING INTERN Oxygen Saturation 81% 08/07/2024 2:38 PM TRAINING INTERN Inhaled Oxygen Concentration - - Weight 87.1 kg (192 lb) 08/07/2024 2:38 PM TRAINING INTERN Height 170.2 cm (5' 7 ) 08/07/2024 2:38 PM TRAINING INTERN Body Mass Index 30.07 08/07/2024 2:38 PM TRAINING INTERN Plan of Treatment Health Maintenance Due Date [...] complete this topic MENINGOCOCCAL (Group B) VACCINE SHARED DECISION-MAKING Aged Out No longer eligible based on patient's age to complete this topic MENINGOCOCCAL GROUPS A/C/Y/W VACCINE Aged Out No longer eligible b ased on patient's age to complete this topic ROSA MARIA BERNAL E Personal/Family Spouse [address] [place], [place] [phone] NICOLE BERNALIN E Personal/Family Spouse [address] [place] [phone] ROSA MARIA BERNAL E Personal/Family Spouse [address] [place], [place] [phone] NICOLE BERNALIN E Personal/Family Spouse [address] [place] [phone] Nicole Bernaline V Personal/Family Self 1940 ROSA MARIA BERNAL E Personal/Family Spouse 1940 Advance Directives Documents on File Type Date Recorded Patient Radiologic Electronic Specialist Expl anation Advance Directives and Livin g Will 11/10/2013 12:00 AM Care Teams Food Service Team Member Relationship Specialty Start Date End Date Renay Rhodes MD [address] [place] [address] PCP - General 07/15/17
--- OUTSIDE RECORDS SUMMARY | 2024-08-23 17:13 | XMS_ITS | Encounter Summary ---
Author Organization [facility] Address [address] [place] [address] Care Team Providers Care Therapist Asst Name Role Phone Renay Rhodes MD Primary Care Provider Reason for Referral * Diagnostic Imaging (Routine) - Closed Specialty Diagnoses / Procedures Referred By Lisbeth ruano Referred To Contact Diagnoses Status post reverse total arthroplasty of left shoulder Procedures XR Shoulder Left 2+ View Augusto Palomino MD [address] [facility] [address] [place] [address] Phone: tel: fax: [facility] Orth[facility] [place] Referral ID Status Reason Start Date Expiration Date Visits Re quested Visits Authorized [id number] Closed 08/18/2024 09/17/2025 1 1 Reason for Visit * Diagnostic Imaging (Routine) - Closed Specialty Diagnoses / Procedures Referred By Lisbeth ruano Referred To Contact Diagnoses Status post reverse total arthroplasty of left shoulder Procedures XR Shoulder Left 2+ View Augusto Palomino MD [address] [facility] [address] [place] [address] Phone: tel: fax: [facility] Referral ID Status Reason Start Date Expiration Date Visits Re quested Visits Authorized [id number] Closed 08/18/2024 09/17/2025 1 1 Encounter Details Date Type Department Care Team (Latest Contact Info) Description 08/21/2024 1:42 PM CDT - 08/21/2024 11:59 PM CDT Hospital Encounter 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 Unchanged reverse lvfk-pgb-tjjric left total shoulder arthroplasty in expected position Electronically signed by: Yunier Rosas MD Narrative 08/21/2024 3:00 PM CDT EXAMINATION: XR SHOULDER LEFT 2 OR MORE VIEWS HISTORY: Left shoulder arthroplasty FINDINGS: 4 radiographs of the left shoulder are compared to 08/23/2023. Unchanged reverse ctac-lpe-uerkgm left total shoulder arthroplasty in expected position. No new acute periprosthetic fracture or lucency. 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 Multiple healed left rib fracture deformities are noted. Procedure Note Judith Rosas MD - 08/21/2024 EXAMINATION: XR SHOULDER LEFT 2 OR MORE VIEWS HISTORY: Left shoulder arthroplasty FINDINGS: 4 radiographs of the left shoulder are compared to 08/23/2023. Unchanged reverse jxxi-tar-uqhdcm left total shoulder arthroplasty in expected position. No new acute periprosthetic fracture or lucency. 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 Multiple healed left rib fracture deformities are noted. IMPRESSION: 1. Unchanged reverse hntl-vtt-dcposl left total shoulder arthroplasty in expected position Electronically signed by: Yunier Rosas MD Augusto Palomino MD IMG XR PROCEDURES Final Result documented in this encounter Visit Diagnoses Diagnosis Status post reverse total arthroplasty of left shoulder documented in this encounter Care Teams Therapist Asst Relationship Specialty Start Date End Date Renay Rhodes MD [address] [address] PCP - General Family Medicine 09/03/17 documented as of this encounter
--- OUTSIDE RECORDS SUMMARY | 2024-08-23 17:13 | XMS_ITS | Referral Summary ---
Author Organization [facility] Address [address] [place] [address] Care Team Providers Care Balance Wheel Facer Name Role Phone Renay Rhodes MD Primary Care Provider + Source Comments [facility],non-owned Affiliates and Associated Physician Practices is amultiple site organization consisting of ambulatory clinics and hospital sitesin [place], [place], [place] and [place]. This disclosure is being madepursuant to the Care Everywhere program and may not contain all information available regarding this patient. Last updated 18.[facility] Encounters Date Type Department Care Team Description 08/07/2024 Travel 07/10/2024 3:00 PM DISASTER RECOVERY MANAGER Video Visit [facility] [address] [place] [phone] Brandon Benito, ACCOUNTS PAYABLE SPECIALIST-INTRANET SPECIALIST Parkinson's disease without dyskinesia, with fluctuating manifestations ([facility]) 06/22/2024 Travel 06/19/2024 Orders Only [facility] [address] [place], [place] [address], [place] [address] [facility] Last [facility] Months Allergies [...] Comments Blood Pressure 134/74 08/07/2024 2:38 PM DISASTER RECOVERY MANAGER Pulse 66 08/07/2024 2:38 PM DISASTER RECOVERY MANAGER Temperature 36.2 C (97.2 F) 06/04/2021 12:56 PM DISASTER RECOVERY MANAGER Respiratory Rate 16 08/20/2015 10:20 AM DISASTER RECOVERY MANAGER Oxygen Saturation 81% 08/07/2024 2:38 PM DISASTER RECOVERY MANAGER Inhaled Oxygen Concentration - - Weight 87.1 kg (192 lb) 08/07/2024 2:38 PM DISASTER RECOVERY MANAGER Height 170.2 cm (5' 7 ) 08/07/2024 2:38 PM DISASTER RECOVERY MANAGER Body Mass Index 30.07 08/07/2024 2:38 PM DISASTER RECOVERY MANAGER Plan of Treatment Not on file ROSA MARIA BERNAL E Personal/Family Spouse [address] [place], [place] [phone] DOLROESROSA MARIA E Personal/Family Spouse [address] [place], [place] [phone] DOLORES,ROSA MARIA E Personal/Family Spouse [address] [place] [address] DOLORES,ROSA MARIA E Personal/Family Spouse [address] [place], [place] [phone] Nicole Bernaline V Personal/Family Self 1940 NICOLE BERNALIN E Personal/Family Spouse 1940 Advance Directives Documents on File Type Date Recorded Patient Dip Stand Loader Expl anation Advance Directives and Livin g Will 11/10/2013 12:00 AM Care Teams Balance Wheel Facer Relationship Specialty Start Date End Date Renay Rhodes MD [address] [place] [address] PCP - General 07/15/17
--- OUTSIDE RECORDS SUMMARY | 2024-08-23 17:13 | XMS_ITS | Patient Health Summary ---
Author Organization [facility] Address [address] [place] [address] Care Team Providers Care Massage Therapist Name Role Phone Renay Rhodes MD Primary Care Provider + Note from [facility],non-owned Affiliates and Associated Physician Practices is amultiple site organization consisting of ambulatory clinics and hospital sitesin [place], [place], [place] and [place]. This disclosure is being madepursuant to the Care Everywhere program and may not contain all information available regarding this patient. Last updated 18.[facility] Allergies * Codeine(Other) -Low Criticality * Influenza [...] Comments Blood Pressure 134/74 08/07/2024 2:38 PM PLUMBING MANAGER Pulse 66 08/07/2024 2:38 PM PLUMBING MANAGER Temperature 36.2 C (97.2 F) 06/04/2021 12:56 PM PLUMBING MANAGER Respiratory Rate 16 08/20/2015 10:20 AM PLUMBING MANAGER Oxygen Saturation 81% 08/07/2024 2:38 PM PLUMBING MANAGER Inhaled Oxygen Concentration - - Weight 87.1 kg (192 lb) 08/07/2024 2:38 PM PLUMBING MANAGER Height 170.2 cm (5' 7 ) 08/07/2024 2:38 PM PLUMBING MANAGER Body Mass Index 30.07 08/07/2024 2:38 PM PLUMBING MANAGER Procedures * MRI BRAIN WWO CONTRAST(Performed 09/03/2018) [...] ORDERABLES * CREATININE BLOOD - POCT (IP) [facility] (09/03/2018 2:30 PM CDT) Creatinine POCT 0.75 0.3 - 1.3 mg/dL [facility] POCT TESTING eGFR POCT 60 60 ml/min [facility] POCT TESTING Blood BLOOD SPECIMEN / Unknown 09/03/2018 2:30 PM CDT Aureliano Brown MD LAB - POINT OF CARE ORDERABLES [facility] POCT TESTING [address] [phone] * (ABNORMAL) URINALYSIS W/MICROSCOPIC NO CULTURE (08/30/2014 6:34 PM CDT) Color UA Yellow Straw, Yellow, Colorless, Light Yellow [facility] Clarity UA Hazy(A) Clear [facility] Specific [place] UA 1.012 1.001 - 1.030 [facility] pH UA 7.5 5.0 - 8.0 [facility] Protein UA Negative <=20 mg/dL [facility] Glucose UA Negative Negative mg/dL [facility] Ketone UA Negative Negative mg/dL [facility] Bilirubin UA Negative Negative mg/dL [facility] Blood UA Negative Negative [facility] Nitrite UA Negative Negative [facility] Leukocyte Esterase Large(A) Negative [facility] Urobilinogen UA <2.0 <2.0 mg/dL [facility] RBC UA 10(H) 0 - 8 /HPF [facility] WBC UA 38(H) 0 - 2 /HPF [facility] Bacteria UA Moderate(A) Rare, Occasional, None /HPF [facility] Squamous Epithelial Cells UA 1 0 - 1 /HPF [facility] Mucus UA Occasional( A) None /LPF [facility] Yeast Budding UA Occasional( A) None /HPF [facility] Urine specimen (specimen) 08/30/2014 6:34 PM CDT 08/30/2014 6:39 PM CDT Historical Provider LAB - URINALYSIS ORDERABLES [address] [phone] * (ABNORMAL) DRUG ABUSE PANEL 10-20+ETHANOL URINE NO CONFIRM (08/30/2014 6:34 PM CDT) Amphetamines Screen Urine Negative Negative : < 1000 ng/mL [facility] Barbiturates Screen Urine Positive(A) Negative : < 200 ng/mL [facility] Comment: Positive urine barbiturate screening results should be confirmed by another generally accepted non-immunological method such as gas chromatography or mass spectrometry. Benzodiazepine Screen Urine Negative Negative : < 200 ng/mL [facility] Opiates Urine Negative Negative : < 300 ng/mL [facility] Cocaine Metabolites Urine Negative Negative : < 300 ng/mL [facility] Phencyclidine Screen Urine Negative Negative : < 25 ng/ml [facility] Cannabinoids Screen Urine Negative Negative : <50 ng/mL [facility] Methadone Screen Urine Negative Negative : < 300 ng/mL [facility] Urine specimen (specimen) 08/30/2014 6:34 PM CDT 08/30/2014 6:39 PM CDT Narrative [facility] - 08/30/2014 7:34 PM CDT The Urine Toxicology Screening Panel does not screen for Propoxyphene, Meprobamate, Carisoprodol, Trazodone, [id number] medications and/or volatiles (Acetone, Isopropanol, Methanol or Ethylene Glycol). Ethanol, Salicylate, Acetaminophen, Tricyclic Antidepressants and several therapeutic drugs may be individually assayed in serum or plasma specimen. Toxicology testing by the [facility] is an aid to medical diagnosis and treatment of patients. No documented chain of custody was maintained. Results are intended to be used for clinical purposes only. Historical Provider LAB - URINE CHEMI STRY ORDERABLES Performing Organization Address [facility] Co de Phone Number [address] [phone] * VITAMIN D 25-HYDROXY (08/30/2014 1:53 PM CDT) Pathologist [facility] Vitamin D, 25 Hydroxy 51.5 >30.0 ng/mL [facility] Comment: The recommendations for 25-Hydroxy Vitamin [...] - CHEMISTRY O RDERABLES Performing Organization Address [facility] Co de Phone Number [address] [phone] * (ABNORMAL) CBC W AUTO DIFFERENTIAL (08/30/2014 1:53 PM CDT) Only the most recent of4 resultswithin the time period is included. [facility] WBC 4.4 3.5 - 10.5 10 3/uL [facility] RBC 4.18 3.90 - 5.00 10 6/uL [facility] Hemoglobin 12.4 12.0 - 15.5 g/dL [facility] Hematocrit 36.9 35.0 - 45.0 % [facility] MCV 88.3 81.0 - 97.0 fL [facility] MCH 29.7 28.0 - 34.0 pg [facility] MCHC 33.6 32.0 - 36.0 g/dL [facility] Platelet Count 264 150 - 400 10 3/uL [facility] RDW-SD 44.5 36.0 - 50.0 fL [facility] RDW-CV 13.8 11.2 - 14.8 % [facility] MPV 8.8(L) 9.3 - 12.8 fL [facility] Neutrophils % 58.1 35.0 - 70.0 % [facility] Lymphocytes % 33.6 19.7 - 55.1 % [facility] Monocytes % 7.4 3.0 - 15.0 % [facility] Eosinophils % 0.7 0.0 - 6.0 % [facility] Basophil % 0.2 0.0 - 1.5 % [facility] Neutrophils Absolute 2.5 1.6 - 7.0 10 3/uL [facility] Lymphocyte Absolute 1.5 0.8 - 2.9 10 3/uL [facility] Monocytes Absolute 0.32 0.14 - 0.66 10 3/uL [facility] Eosinophils Absolute 0.03 0.00 - 0.22 10 3/uL [facility] Basophils Absolute 0.01 0.00 - 0.06 10 3/uL [facility] Immature Granulocytes % 0.2 0.0 - 1.0 % [facility] Blood specimen (specimen) BLOOD SPECIMEN / Unknown 08/30/2014 1:53 PM CDT 08/30/2014 2:00 PM CDT Historical Provider LAB - HEMATOLOGY ORDERABLES [place] [id number] [address] [phone] * (ABNORMAL) COMPREHENSIVE METABOLIC PANEL (08/30/2014 1:53 PM CDT) Only the most recent of2 resultswithin the time period is included. BUN 10 7 - 26 mg/dL [facility] Creatinine 0.7 0.6 - 1.2 mg/dL [facility] Sodium 133(L) 136 - 145 mmol/L [facility] Potassium 4.2 3.5 - 4.5 mmol/L [facility] Chloride 95(L) 98 - 107 mmol/L [facility] CO2 29 22 - 29 mmol/L [facility] Glucose 80 70 - 115 mg/dL [facility] Calcium 9.4 8.4 - 10.2 mg/dL [facility] Protein Total 6.1 6.0 - 8.3 g/dL [facility] Albumin 3.2(L) 3.4 - 5.0 g/dL [facility] Bilirubin Total 0.3 0.2 - 1.2 mg/dL [facility] Alkaline Phosphatase 102 40 - 150 Units/L [facility] ALT <5 0 - 55 Units/L [facility] AST 11 5 - 34 Units/L [facility] Anion Gap 13 8 - 18 [facility] BUN/Creatinine Ratio 14 7 - 23 [facility] Osmolality Calculated 260(L) 270 - 300 mOsm/kg [facility] Albumin/Globulin Ratio 1.1 1.1 - 2.3 [facility] eGFR >60 >60 mL/min/1.7 3 m2 [facility] Blood specimen (specimen) BLOOD SPECIMEN / Unknown 08/30/2014 1:53 PM CDT 08/30/2014 1:59 PM CDT Historical Provider LAB - CHEMISTRY O MAC [address] [phone] * FOLATE (08/30/2014 1:53 PM CDT) Folate 18.8 7.0 - 31.4 ng/mL [facility] Blood specimen (specimen) BLOOD SPECIMEN / Unknown 08/30/2014 1:53 PM CDT 08/30/2014 1:59 PM CDT Historical Provider LAB - CHEMISTRY O MAC [address] [phone] * VITAMIN B12 (08/30/2014 1:53 PM CDT) Only the most recent of2 resultswithin the time period is included. Vitamin B12 757 213 - 816 pg/mL [facility] Blood specimen (specimen) BLOOD SPECIMEN / Unknown 08/30/2014 1:53 PM CDT 08/30/2014 1:59 PM CDT Historical Provider LAB - CHEMISTRY O MAC Performing Organization Address [facility] [place]/[facility] Co de Phone Number [address] [phone] * (ABNORMAL) TSH (08/30/2014 1:53 PM CDT) Only the most recent of2 resultswithin the time period is included. TSH 0.280(L) 0.350 - 4.940 uIU/mL [facility] Blood specimen (specimen) BLOOD SPECIMEN / Unknown 08/30/2014 1:53 PM CDT 08/30/2014 1:59 PM CDT Historical Provider LAB - CHEMISTRY O MAC Performing Organization Address [facility] [place]/[facility]/ZIP Co de Phone Number [address] [phone] * T4 FREE (08/30/2014 1:53 PM CDT) T4 Free 1.0 0.7 - 1.5 ng/dL [facility] Blood specimen (specimen) BLOOD SPECIMEN / Unknown 08/30/2014 1:53 PM CDT 08/30/2014 2:55 PM CDT Historical Provider LAB - CHEMISTRY O MAC Performing Organization Address [facility] [place]/[facility]/ZIP Co de Phone Number [address] [phone] * EKG 12-LEAD (08/30/2014 12:00 AM CDT) Only the most recent of2 resultswithin the time period is included. EKG [facility] Comment: Exam Date/Time: Aug 30 [...] found Confirmed by Mago JEFFERSON, AURA ([id number]), editorial writer Baron Balbuena ([id number]) on 09/04/2014 2:41:47 PM Referred By: REFERRING NO Confirmed By:AURA JEFFERSON M.D. 08/30/2014 Lexi Vick MD ECG ORDERABLES [facility] * (ABNORMAL) BASIC METABOLIC PANEL (CALCIUM TOTAL) (12/04/2013 7:04 AM CDT) Only the most recent of19 resultswithin the time period is included. BUN 16 7 - 26 mg/dL [facility] Anion Gap 12 8 - 18 [facility] BUN/Creatinine Ratio 20 7 - 23 [facility] Osmolality Calculated 266(L) 270 - 300 mOsm/kg [facility] Creatinine 0.8 0.6 - 1.2 mg/dL [facility] Sodium 135(L) 136 - 145 mmol/L [facility] Potassium 3.9 3.5 - 4.5 mmol/L [facility] Chloride 102 98 - 107 mmol/L [facility] CO2 25 22 - 29 mmol/L [facility] Glucose 82 70 - 115 mg/dL [facility] Calcium 9.2 8.4 - 10.2 mg/dL [facility] eGFR >60 >60 mL/min/1.7 3 m2 [facility] Blood specimen (specimen) BLOOD SPECIMEN / Unknown 12/04/2013 7:04 AM CDT 12/04/2013 7:04 AM CDT Historical Provider LAB - CHEMISTRY O RDERABLES [address] [phone] * TRANSFERRIN (11/14/2013 5:17 PM CDT) Transferrin 222 174 - 382 mg/dL [facility] Transferrin Saturation % 23 16 - 50 % [facility] Blood specimen (specimen) BLOOD SPECIMEN / Unknown 11/14/2013 5:17 PM CDT 11/14/2013 5:29 PM CDT Historical Provider LAB - CHEMISTRY O RDERAMEIR Performing Organization Address [facility] [place]/[facility]/ZIP Co de Phone Number [address] [phone] * IRON BLOOD (11/14/2013 5:17 PM CDT) Iron 63 40 - 150 mcg/dL [facility] Blood specimen (specimen) BLOOD SPECIMEN / Unknown 11/14/2013 5:17 PM CDT 11/14/2013 5:29 PM CDT Historical Provider LAB - CHEMISTRY O RDERAMEIR Performing Organization Address City/[facility]/ZIP Co de Phone Number [address] [phone] * FERRITIN (11/14/2013 5:17 PM CDT) Ferritin 46 13 - 204 ng/mL [facility] Blood specimen (specimen) BLOOD SPECIMEN / Unknown 11/14/2013 5:17 PM CDT 11/14/2013 5:29 PM CDT Historical Provider LAB - CHEMISTRY O RDERABLES [address] [phone] * NM BRAIN IMAGING KYLER SCAN (11/14/2013 [...] CDT) Osmolality 276 270 - 300 mOsm/kg [facility] Blood specimen (specimen) BLOOD SPECIMEN / Unknown 11/13/2013 4:22 PM CDT 11/13/2013 4:43 PM CDT Historical Provider LAB - CHEMISTRY O RDERABLES [address] [phone] * (ABNORMAL) URINALYSIS REFLEX TO MICROSCOPIC NO CULTURE (11/13/2013 1:49 PM CDT) Color UA Yellow Straw, Yellow, Colorless, Light Yellow [facility] Clarity UA Clear Clear [facility] Specific [place] UA 1.007 1.001 - 1.030 [facility] pH UA 7.0 5.0 - 8.0 [facility] Protein UA Negative <=20 mg/dL [facility] Glucose UA Negative Negative mg/dL [facility] Ketone UA Negative Negative mg/dL [facility] Bilirubin UA Negative Negative mg/dL [facility] Blood UA Negative Negative [facility] Nitrite UA Negative Negative [facility] Leukocyte Esterase Negative Negative [facility] Urobilinogen UA <2.0 <2.0 mg/dL [facility] RBC UA 3 0 - 8 /HPF [facility] Squamous Epithelial Cells UA 1 0 - 1 /HPF [facility] Mucus UA Rare(A) None /LPF [facility] Amorphous Crystals Occasional Rare, Occasional, Few, Moderate, None /HPF [facility] Urine specimen (specimen) URINE SPECIMEN OBTAINED BY CLEAN CATCH PROCEDURE / Unknown 11/13/2013 1:49 PM CDT 11/13/2013 2:26 PM CDT Historical Provider LAB - URINALYSIS ORDERABLES Performing Organization Address City/[facility]/ZIP Co de Phone Number [address] [phone] * POTASSIUM URINE RANDOM (11/13/2013 1:49 PM CDT) Potassium Urine 24 Not Established mmol/L [facility] Urine specimen (specimen) URINE SPECIMEN OBTAINED BY CLEAN CATCH PROCEDURE / Unknown 11/13/2013 1:49 PM CDT 11/13/2013 2:26 PM CDT Historical Provider LAB - URINE CHEMI STRY ORDERABLES Performing Organization Address [facility] [place]/[facility]/ZIP Co de Phone Number [address] [phone] * (ABNORMAL) OSMOLALITY URINE (11/13/2013 1:49 PM CDT) Only the most recent of2 resultswithin the time period is included. Osmolality Urine 300(L) 500 - 800 mOsm/kg [facility] Urine specimen (specimen) URINE SPECIMEN OBTAINED BY CLEAN CATCH PROCEDURE / Unknown 11/13/2013 1:49 PM CDT 11/13/2013 2:26 PM CDT Historical Provider LAB - URINE CHEMI STRY ORDERABLES [address] [phone] * CHLORIDE URINE RANDOM (11/13/2013 1:49 PM CDT) Chloride Random Urine <20 Not Established mmol/L [facility] Urine specimen (specimen) URINE SPECIMEN OBTAINED BY CLEAN CATCH PROCEDURE / Unknown 11/13/2013 1:49 PM CDT 11/13/2013 2:26 PM CDT Historical Provider LAB - URINE CHEMI STRY ORDERABLES [address] [phone] * SODIUM URINE RANDOM (11/13/2013 5:50 AM CDT) Sodium Urine <20 Not Established mmol/L [facility] Urine specimen (specimen) URINE / Unknown 11/13/2013 5:50 AM CDT 11/13/2013 6:05 AM CDT Historical Provider LAB - URINE CHEMI STRY ORDERABLES Performing Organization Address [facility] [place]/[facility] Co de Phone Number [address] [phone] * (ABNORMAL) RENAL FUNCTION PANEL (11/12/2013 6:41 AM CDT) BUN 15 7 - 26 mg/dL [facility] Phosphorus 3.3 2.3 - 4.7 mg/dL [facility] Anion Gap 13 8 - 18 [facility] BUN/Creatinine Ratio 19 7 - 23 [facility] Osmolality Calculated 238(L) 270 - 300 mOsm/kg [facility] Creatinine 0.8 0.6 - 1.2 mg/dL [facility] Sodium 120(L) 136 - 145 mmol/L [facility] Potassium 3.7 3.5 - 4.5 mmol/L [facility] Chloride 88(L) 98 - 107 mmol/L [facility] CO2 23 22 - 29 mmol/L [facility] Glucose 82 70 - 115 mg/dL [facility] Calcium 8.8 8.4 - 10.2 mg/dL [facility] Albumin 3.2(L) 3.4 - 5.0 g/dL [facility] eGFR >60 >60 mL/min/1.7 3 m2 [facility] Blood specimen (specimen) BLOOD SPECIMEN / Unknown 11/12/2013 6:41 AM CDT 11/12/2013 7:06 AM CDT Historical Provider LAB - CHEMISTRY O MAC Performing Organization Address City/[facility]/ZIP Co de Phone Number [address] [phone] * C-REACTIVE PROTEIN (11/10/2013 6:14 PM CDT) C-Reactive Protein <0.5 <=0.5 mg/dL [facility] Blood specimen (specimen) BLOOD SPECIMEN / Unknown 11/10/2013 6:14 PM CDT 11/10/2013 7:13 PM CDT Historical Provider LAB - CHEMISTRY O MAC Performing Organization Address City/[facility] Co de Phone Number [address] [phone] * (ABNORMAL) LIPID PROFILE (11/10/2013 6:14 PM CDT) Cholesterol Total 214(H) <200 mg/dL [facility] HDL 97 >40 mg/dL [facility] Comment: ATP III Classification of HDL Cholesterol: <40 mg/dL: Considered a major risk factor. >60 mg/dL: Considered a negative risk factor. LDL Calculated 109(H) <100 mg/dL [facility] Comment: ATP III Classification of LDL Cholesterol: <100 mg/dL: Optimal 100 - 129 mg/dL: Near Optimal/Above Optimal 130 - 159 mg/dL: Borderline High 160 - 189 mg/dL: High >190 mg/dL: Very High Triglycerides 38 <150 mg/dL [facility] Comment: ATP III Classification of Triglycerides: <150 mg/dL: Normal 150 - 199 mg/dL: Borderline High 200 - 400 mg/dL: High >500 mg/dL: Very High Blood specimen (specimen) BLOOD SPECIMEN / Unknown 11/10/2013 6:14 PM CDT 11/10/2013 7:13 PM CDT Historical Provider LAB - CHEMISTRY O RDJOSE [address] [phone] * VITAMIN B1 (11/10/2013 12:38 PM CDT) Vitamin B1 Whole Blood 132.2 66.5 - 200.0 nmol/L [facility] Blood specimen (specimen) BLOOD SPECIMEN / Unknown 11/10/2013 12:38 PM CDT 11/10/2013 1:00 PM CDT Narrative [facility] ([place] - 11/15/2013 5:14 PM CDT Performed at: [address] [place] [address] [id number] Family Independence Case Manager: vEerett Spicer MD, Phone: [phone] Historical Provider LAB - CHEMISTRY O MAC Performing Organization Address City/[facility]/ZIP Co de Phone Number [facility] ([place]) * HOMOCYSTEINE BLOOD QUANTITATIVE (11/10/2013 12:38 PM CDT) Homocysteine 10.4 4.4 - 16.2 umol/L [facility] Blood specimen (specimen) BLOOD SPECIMEN / Unknown 11/10/2013 12:38 PM CDT 11/10/2013 1:01 PM CDT Historical Provider LAB - CHEMISTRY O RDJOSE [address] [phone] * VITAMIN D 1,25 DIHYDROXY (11/10/2013 12:38 PM CDT) Calcitriol (1,25 di-OH Vit D) 57.8 10.0 - 75.0 pg/mL [facility] ([place]) Blood specimen (specimen) BLOOD SPECIMEN / Unknown 11/10/2013 12:38 PM CDT 11/10/2013 1:03 PM CDT Narrative [facility] ([place]) - 11/14/2013 7:31 AM CDT Performed at: [address] [id number] [employer] Case Manager: Everett Spicer MD, Phone: [phone] Historical Provider LAB - CHEMISTRY O MAC [facility] ([place]) * LAB HISTORICAL RESULTS-ONBASE (10/05/2013) 10/05/2013 Narrative [facility] - 10/06/2013 9:29 AM CDT Historical Provider LAB - CHEMISTRY O MAC [facility] [address] Care Teams Massage Therapist Relationship Specialty Start Date End Date Renay Rhodes MD [address] [place] [address] PCP - General 07/15/17
--- OUTSIDE RECORDS SUMMARY | 2024-08-23 17:13 | XMS_ITS | Encounter Summary ---
Author Organization [facility] Address [address] [place] [address] Care Team Providers Care Gathering Worker Name Role Phone Renay Rhodes MD Primary Care Provider + Reason for Visit * Reason Onset Date Comments MEDICATION REFILL 01/10/2021 Encounter Details Date Type Department Care Team (Late st Contact Info) Description 01/10/2021 Refill [facility] [address] [place] [address] Aureliano Ruiz MD MEDICATION REFILL Social History [...] on filedocumented in this encounter Care Teams Gathering Worker Relationship Specialty Start Date End Date Renay Rhodes MD [address] [facility] [address] [place] [phone] PCP - General 07/15/17 documented as of this encounter
--- OUTSIDE RECORDS SUMMARY | 2024-08-23 17:13 | XMS_ITS | Encounter Summary ---
Author Organization [facility] Address [address] [place] [address] Care Team Providers Care Box Stapler Name Role Phone Renay Rhodes MD Primary Care Provider + Reason for Visit * Reason Onset Date Comments MEDICATION REFILL 06/29/2018 Encounter Details Date Type Department Care Team (Late st Contact Info) Description 06/29/2018 Refill [facility] [address] [place] [address] Aureliano Ruiz MD MEDICATION REFILL Social History [...] agitans documented in this encounter Care Teams Box Stapler Relationship Specialty Start Date End Date Renay Rhodes MD [address] [facility] [address] [place] [phone] PCP - General 07/15/17 documented as of this encounter
--- OUTSIDE RECORDS SUMMARY | 2024-08-23 17:13 | XMS_ITS | Clinical Summary ---
Author Organization [facility] [address] Address [address] [place] [address] Care Team Providers Care Educational Sign Language Interpreter Name Role Phone Renay Rhodes MD Primary [...] Information Patient taking differently:40 mgEvery morning, Informant: Receiving Worker Care Facility, Reported on 09/01/2022 primidone (MYSOLINE) 50 mg tablet take 1 Tablet by oral route 3 times every day 0 0 3 Active Additional Information Patient taking differently:50 mg2 times daily, Informant: Custodial Care Facility, Reported on 09/01/2022 acetaminophen (TYLENOL) 325 mg tablet take 2 Tablet by oral route every 6 hours as needed 0 0 3 Active Additional Information Patient taking differently: 650 mg 2 times daily, Informant: Custodial Care Facility, Reported on 09/01/2022 montelukast (SINGULAIR) 10 mg tablet take 1 tablet by oral route every day in the evening 0 0 3 Active Additional Information Patient taking differently:10 mgNightly, Informant: Receiving Worker Care Facility, Reported on 09/01/2022 cholecalciferol (cholecalcifero l) 1,000 unit tablet 0 0 4 Active Additional Information Patient taking differently: 2,000 Units Daily, Informant: Receiving Worker Care Facility, Reported on 09/01/2022 lisinopril (PRINIVIL,ZESTR IL) 20 mg tablet take 1 tablet by oral route every day 0 0 4 Active Additional Information Patient taking differently: 10 mg Every morning, Informant: Receiving Worker Care Facility, Reported on 09/01/2022 furosemide (LASIX) 40 mg tablet take 1 tablet by oral route 2 times every day 0 0 4 Active Additional Information Patient taking differently:40 mgoral Every morning, Informant: Custodial Care Facility, Reported on 09/01/2022 pravastatin (PRAVACHOL) [...] (08/26/2022): Added automatically from request for surgery [id number] Acute kidney failure, unspecified 08/14/2016 Pneumonia, unspecified [...] - 08/21/2024 11:59 PM CDT Hospital Encounter [facility] [address] [place] [address] Status post reverse total arthroplasty of left shoulder Discharge Disposition: Discharge to home or self care 08/21/2024 1:40 PM CDT Office Visit [facility] Orthopaedic Surgery [address] [place] [address] 2nd [address] [place] [address] Augusto Palomino MD Status post reverse total [...] on file Legal Sex Female 4:58 PM CORE BAKER Gender Identity Not on file Sexual Orientation [...] history exists Medical Devices Implanted Type Area Yarn Skeins Examiner Device Identifier Shelf Expiration Date Model / Serial / Lot Depuy Synthes [employer] Metaglene 10mm Long Peg Fixation [id number] - [id number] Implanted:Qty: 1 on 09/08/2022 by Augusto Palomino MD at [facility] Depuy Synthes Sales Inc [id number] 01/11/2025 [id number] / / [id number] [employer]ed[employer] Simplex P Full Dose Radiopaque Preblend Cement Bone Tobramycin 6197-9-001 - [id number] - [id number] Implanted:Qty: 1 on 09/08/2022 [facility] 11/12/2023 6197-9-001 / [id number] / [place] [employer] Simplex P Full Dose Radiopaque Preblend Cement Bone Tobramycin 6197-9-001 - [id number] - [id number] Implanted:Qty: 1 on 09/08/2022 by [facility] 11/12/2023 6197-9-001 / [id number] / [id number] Depuy Orthopaedics Inc Delta Xtend 38mm Shoulder +3mm Standard Cup Humeral Polyethylene Latex Free [id number] - [id number] - [id number] Implanted:Qty: 1 on 09/08/2022 by Augusto Palomino MD at [facility] Depuy Orthopaedics Inc [id number] 05/13/2027 [id number] / [id number] / [id number] Depuy Orthopaedics Inc Global Unite 10mm 113mm Modular Shoulder Standard Stem Humeral [id number] - [id number] - [id number] Implanted:Qty: 1 on 09/08/2022 by Augusto Palomino MD at [facility] Depuy Orthopaedics Inc [id number] 05/13/2032 [id number] / [id number] / [id number] Depuy Orthopaedics Inc Delta Xtend 4.5mm 42mm Lock Shoulder Glenoid Screw Bone Metaglene [id number] - [id number] Implanted:Qty: 1 on 09/08/2022 by Augusto Palomino MD at [facility] [employer]uy Orthopaedics Inc [id number] 04/13/2027 [id number] / / [id number] Depuy Orthopaedics Inc Delta Xtend 4.5mm 36mm Lock Shoulder Glenoid Screw Bone Metaglene [id number] - [id number] - [id number] Implanted:Qty: 1 on 09/08/2022 by Augusto Palomino MD at [facility] Depuy Orthopaedics Inc [id number] 02/11/2027 [id number] / [id number] / [id number] Depuy Orthopaedics Inc Component Glenoid Delta Xtend +2mm Eccentric Od38mm [id number] - [id number] - [id number] Implanted:Qty: 1 on 09/08/2022 by Augusto Palomino MD at [facility] Depuy Orthopaedics Inc [id number] 06/13/2026 [id number] / [id number] / [id number] Depuy Orthopaedics Inc Delta Xtend 4.5mm 18mm Shoulder Glenoid Screw Bone Metaglene 789068605 - [id number] - [id number] Implanted:Qty: 1 on 09/08/2022 by Augusto Palomino MD at [facility] Depuy Orthopaedics Inc 06/13/2027 [id number] / [id number] / [id number] Depuy Orthopaedics Inc Delta Xtend 4.5mm 18mm Shoulder Glenoid Screw Bone Metaglene [id number] - [id number] - [id number] Implanted:Qty: 1 on 09/08/2022 by Augusto Palomino MD at [facility] Depuy Orthopaedics Inc 04/13/2025 [id number] / [id number] / [id number] Depuy Orthopaedics Inc Implant Shldr Xtend Modecc 155epi Por Sz1 Lt [id number] - [id number] - [id number] Implanted:Qty: 1 on 09/08/2022 by Augusto Palomino MD at [facility] [employer]k Orthopaedics Inc [id number] 09/12/2031 [id number] / [id number] / [id number] [employer] Latitude 8-15mm Restrictor Elbow Restrictor Cement [id number] - [id number] - [id number] Implanted:Qty: 1 on 09/08/2022 by Augusto Palomino MD at [facility] [employer] [id number] 05/29/2027 [id number] / [id number] / [id number] Global Roam[employer] SNAPP' Implant Shldr Xtend Modecc 145epi Por Sz1 Lt [id number] - [id number] - [id number] Implanted:Qty: 1 on 09/08/2022 by Augusto Palomino MD at [facility] [employer]opaedics SNAPP' [id number] 01/12/2032 [id number] / [id number] / [id number] Procedures Procedure Name Priority Date/Time Associated Diagnosis Comments XR SHOULDER LEFT 2 OR MORE VIEWS Schedule Routine, Read Routine (OP Routine) 08/21/2024 1:54 PM CDT Status post reverse total arthroplasty of left shoulder DEXA AXIAL SKELETON BONE DENSITY 1 OR MORE SITES Routine 07/20/2012 10:12 AM CORE BAKER from Last 3 Months or Most Recently Relevant to Health Maintenance Results * XR Shoulder Left 2+ View (08/21/2024 1:54 PM CDT) Anatomical Region Laterality Modality Upper Extremities, Shoulder Left Comp uted Radiography 08/21/2024 3:00 PM CDT Impressions 08/21/2024 3:00 PM CDT 1. Unchanged reverse zcoo-nez-xtmnzi left total shoulder arthroplasty in expected position Electronically signed by: Yunier Rosas MD Narrative 08/21/2024 3:00 PM CDT EXAMINATION: XR SHOULDER LEFT 2 OR MORE VIEWS HISTORY: Left shoulder arthroplasty FINDINGS: 4 radiographs of the left shoulder are compared to 08/23/2023. Unchanged reverse rmyy-owm-fheyww left total shoulder arthroplasty in expected position. No new acute periprosthetic fracture or lucency. 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 Multiple healed left rib fracture deformities are noted. Procedure Note Judith Rosas MD - 08/21/2024 EXAMINATION: XR SHOULDER LEFT 2 OR MORE VIEWS HISTORY: Left shoulder arthroplasty FINDINGS: 4 radiographs of the left shoulder are compared to 08/23/2023. Unchanged reverse mhtj-tge-eoeiam left total shoulder arthroplasty in expected position. No new acute periprosthetic fracture or lucency. 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 Multiple healed left rib fracture deformities are noted. IMPRESSION: 1. Unchanged reverse qlnv-xwl-yvswkq left total shoulder arthroplasty in expected position Electronically signed by: Yunier Rosas MD Augusto Palomino MD IMG XR PROCEDURES Final Result * Dexa Axial Skeleton Bone Density 1 or 2 Site (07/20/2012 10:12 AM CORE BAKER) Anatomical Region Laterality Modality Body N/A Radiographic Alyssa ging 07/20/2012 10:1 2 AM CORE BAKER Narrative 07/21/2012 6:15 AM CORE BAKER DEXA Bone Density Axial Acc#: [id number] DATE OF EXAM: Jul 20 2012 CLINICAL [...] - 10/07/2016 DEXA Bone Density Axial Acc#: [id number] DATE OF EXAM: Jul 20 2012 CLINICAL [...] Health Maintenance Insurance MEDICARE COMMERCIAL GENERIC MEDICARE [facility] MEDICARE SUPPLEMENT MEDICARE [facility] MEDICARE SUPPLEMENT Advance Directives For more information, please contact: [phone] Documents on File Type Date Recorded Patient Director Of Music Expl anation ADVANCE DIRECTIVE 08/05/2022 3:26 PM POWER OF EXERCISE INSTRUCT-MEDICAL * Full Code (Latest Code Status on File) Date Activated Date Inactivated Comments 09/08/2022 3:53 PM 09/16/2022 6:55 PM Care Teams Educational Sign Language Interpreter Relationship Specialty Start Date End Date Renay Rhodes MD [address] [place] [id number] PCP - General Family Medicine 09/03/17
--- OUTSIDE RECORDS SUMMARY | 2024-08-23 17:13 | XMS_ITS | Referral Summary ---
Author Organization [facility] [address] Address [address] [place] [address] Care Team Providers Care Care Management Assistant Name Role Phone Renay Rhodes MD Primary Care Provider Encounters Date Type Department Care Team Description 08/21/2024 1:42 PM CDT - 08/21/2024 11:59 PM CDT Hospital Encounter [facility] [address] [place] [address] Status post reverse total arthroplasty of left shoulder Discharge Disposition: Discharge to home or self care 08/21/2024 1:40 PM CDT Office Visit [facility] Orthopaedic Surgery [address] [place] [address] [address]nd [address] [place] [address] Augusto Palomino MD Status post reverse total [...] Information Patient taking differently:40 mgEvery morning, Informant: Child Daycare Worker Care Facility, Reported on 09/01/2022 primidone (MYSOLINE) 50 mg tablet take 1 Tablet by oral route 3 times every day 0 0 3 Active Additional Information Patient taking differently:50 mg2 times daily, Informant: Child Daycare Worker Care Facility, Reported on 09/01/2022 acetaminophen (TYLENOL) 325 mg tablet take 2 Tablet by oral route every 6 hours as needed 0 0 3 Active Additional Information Patient taking differently: 650 mg 2 times daily, Informant: Child Daycare Worker Care Facility, Reported on 09/01/2022 montelukast (SINGULAIR) [...] taking differently: 10 mg Every morning, Informant: Child Daycare Worker Care Facility, Reported on 09/01/2022 furosemide (LASIX) 40 mg tablet take 1 tablet by oral route 2 times every day 0 0 4 Active Additional Information Patient taking differently:40 mgoral Every morning, Informant: Child Daycare Worker Care Facility, Reported on 09/01/2022 pravastatin (PRAVACHOL) [...] (08/26/2022): Added automatically from request for surgery [id number] Acute kidney failure, unspecified 08/14/2016 Pneumonia, unspecified [...] on file Legal Sex Female 4:58 PM INSTALLATION SUPERINTENDENT Gender Identity Not on file Sexual Orientation [...] on file Medical Devices Implanted Type Area Cadworx Piping Designer Device Identifier Shelf Expiration Date Model / Serial / Lot Depuy [employer] Inc Metaglene 10mm Long Peg Fixation [id number] - [id number] Implanted:Qty: 1 on 09/08/2022 by Augusto Palomino MD at [facility] [employer] Synthes [employer] [id number] 01/11/2025 [id number] / / [id number] [place] [employer] Simplex P Full Dose Radiopaque Preblend Cement Bone Tobramycin 6197-9-001 - [id number] - [id number] Implanted:Qty: 1 on 09/08/2022 [facility] 11/12/2023 6197-9-001 / [id number] / [place] [employer] Simplex P Full Dose Radiopaque Preblend Cement Bone Tobramycin 6197-9-001 - [id number] - [id number] Implanted:Qty: 1 on 09/08/2022 by [facility] 11/12/2023 6197-9-001 / [id number] / [id number] Lifetone [employer] Orthopaedics Inc Delta Xtend 38mm Shoulder +3mm Standard Cup Humeral Polyethylene Latex Free 850672742 - [id number] - [id number] Implanted:Qty: 1 on 09/08/2022 by Augusto Palomino MD at [facility] Lifet[employer] Orthopaedics Inc [id number] 05/13/2027 [id number] / [id number] / [id number] Depuy Orthopaedics Inc Global Unite 10mm 113mm Modular Shoulder Standard Stem Humeral 879902991 - [id number] - [id number] Implanted:Qty: 1 on 09/08/2022 by Augusto Palomino MD at [facility] Depuy Orthopaedics Inc [id number] 05/13/2032 [id number] / [id number] / [id number] Depuy Orthopaedics Inc Delta Xtend 4.5mm 42mm Lock Shoulder Glenoid Screw Bone Metaglene 794122653 - [id number] Implanted:Qty: 1 on 09/08/2022 by Augusto Palomino MD at [facility] Depuy Orthopaedics Inc [id number] 04/13/2027 [id number] / / [id number] Depuy Orthopaedics Inc Delta Xtend 4.5mm 36mm Lock Shoulder Glenoid Screw Bone Metaglene [id number] - [id number] - [id number] Implanted:Qty: 1 on 09/08/2022 by Augusto Palomino MD at [facility] Depuy Orthopaedics Inc [id number] 02/11/2027 [id number] / [id number] / [id number] Depuy Orthopaedics Inc Component Glenoid Delta Xtend +2mm Eccentric Od38mm [id number] - [id number] - [id number] Implanted:Qty: 1 on 09/08/2022 by Augusto Palomino MD at [facility] Depuy Orthopaedics Inc [id number] 06/13/2026 [id number] / [id number] / [id number] Depuy Orthopaedics Inc Delta Xtend 4.5mm 18mm Shoulder Glenoid Screw Bone Metaglene 346049375 - [id number] - [id number] Implanted:Qty: 1 on 09/08/2022 by Augusto Palomino MD at [facility] Depuy Orthopaedics Inc 06/13/2027 [id number] / [id number] / [id number] Depuy Orthopaedics Inc Delta Xtend 4.5mm 18mm Shoulder Glenoid Screw Bone Metaglene [id number] - [id number] - [id number] Implanted:Qty: 1 on 09/08/2022 by Augusto Palomino MD at [facility] Depuy Orthopaedics Inc 04/13/2025 [id number] / [id number] / [id number] Depuy Orthopaedics Inc Implant Shldr Xtend Modecc 155epi Por Sz1 Lt [id number] - [id number] - [id number] Implanted:Qty: 1 on 09/08/2022 by Augusto Palomino MD at [facility] Lifetone Technology Orthopaedics Inc [id number] 09/12/2031 [id number] / [id number] / [id number] [facility] Latitude 8-15mm Restrictor Elbow Restrictor Cement Txs322 - [id number] - [id number] Implanted:Qty: 1 on 09/08/2022 by Augusto Palomino MD at [facility] [employer] [id number] 05/29/2027 [id number] / [id number] / [id number] Depuy Orthopaedics Inc Implant Shldr Xtend Modecc 145epi Por Sz1 Lt [id number] - [id number] - [id number] Implanted:Qty: 1 on 09/08/2022 by Augusto Palomino MD at [facility] Lifetone Technology Orthopaedics Inc [id number] 01/12/2032 [id number] / [id number] / [id number] Procedures Procedure Name Priority Date/Time Associated Diagnosis Comments XR SHOULDER LEFT 2 OR MORE VIEWS Schedule Routine, Read Routine (OP Routine) 08/21/2024 1:54 PM CDT Status post reverse total arthroplasty of left shoulder DEXA AXIAL SKELETON BONE DENSITY 1 OR MORE SITES Routine 07/20/2012 10:12 AM INSTALLATION SUPERINTENDENT from Last 3 Months or Most Recently Relevant to Health Maintenance Results * XR Shoulder Left 2+ View (08/21/2024 1:54 PM CDT) Anatomical Region Laterality Modality Upper Extremities, Shoulder Left Comp uted Radiography 08/21/2024 3:00 PM CDT Impressions 08/21/2024 3:00 PM CDT 1. Unchanged reverse mrpb-agb-qjizcc left total shoulder arthroplasty in expected position Electronically signed by: Yunier Rosas MD Narrative 08/21/2024 3:00 PM CDT EXAMINATION: XR SHOULDER LEFT 2 OR MORE VIEWS HISTORY: Left shoulder arthroplasty FINDINGS: 4 radiographs of the left shoulder are compared to 08/23/2023. Unchanged reverse akwc-ifw-ervbrc left total shoulder arthroplasty in expected position. No new acute periprosthetic fracture or lucency. 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 Multiple healed left rib fracture deformities are noted. Procedure Note Judith Rosas MD - 08/21/2024 EXAMINATION: XR SHOULDER LEFT 2 OR MORE VIEWS HISTORY: Left shoulder arthroplasty FINDINGS: 4 radiographs of the left shoulder are compared to 08/23/2023. Unchanged reverse yaic-vpc-vxvqbt left total shoulder arthroplasty in expected position. No new acute periprosthetic fracture or lucency. 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 Multiple healed left rib fracture deformities are noted. IMPRESSION: 1. Unchanged reverse fyso-iym-xddoda left total shoulder arthroplasty in expected position Electronically signed by: Yunier Rosas MD Augusto Palomino MD IMG XR PROCEDURES Final Result * Dexa Axial Skeleton Bone Density 1 or 2 Site (07/20/2012 10:12 AM INSTALLATION SUPERINTENDENT) Anatomical Region Laterality Modality Body N/A Radiographic Alyssa ging 07/20/2012 10:1 2 AM INSTALLATION SUPERINTENDENT Narrative 07/21/2012 6:15 AM INSTALLATION SUPERINTENDENT DEXA Bone Density Axial Acc#: [id number] DATE OF EXAM: Jul 20 2012 CLINICAL [...] - 10/07/2016 DEXA Bone Density Axial Acc#: [id number] DATE OF EXAM: Jul 20 2012 CLINICAL [...] Recently Relevant to Health Maintenance Insurance MEDICARE [facility] Address: [address] [address] [place] [address] COMMERCIAL GENERIC MEDICARE [facility] MEDICARE SUPPLEMENT MEDICARE [facility] MEDIC[facility] SUPPLEMENT Advance Directives For more information, please contact: [phone] Documents on File Type Date Recorded Patient Supplemental Nurse Expl anation ADVANCE DIRECTIVE 08/05/2022 3:26 PM POWER OF ACCOUNT EXECUTIVE AGRIBUSINESS-MEDICAL * Full Code (Latest Code Status on File) Date Activated Date Inactivated Comments 09/08/2022 3:53 PM 09/16/2022 6:55 PM Care Teams Care Management Assistant Relationship Specialty Start Date End Date Renay Rhodes MD [address] [facility] [address] [place] [address] PCP - General Family Medicine 09/03/17
--- OUTSIDE RECORDS SUMMARY | 2024-08-23 17:13 | XMS_ITS | Clinical Summary ---
Author Organization [facility] Address [address] [place] [address] Phone Care Team Providers Care Driller'S Assistant Name Role Phone Provider, None Primary [...] Comments Blood Pressure 126/67 07/22/2016 7:23 AM TELLER COORDINATOR Pulse 82 07/22/2016 7:23 AM TELLER COORDINATOR Temperature 36.5 C (97.7 F) 07/22/2016 7:23 AM TELLER COORDINATOR Respiratory Rate 20 07/22/2016 7:23 AM TELLER COORDINATOR Oxygen Saturation 92% 07/22/2016 8:27 AM TELLER COORDINATOR Inhaled Oxygen Concentration - - Weight 131.5 kg (289 lb 14.5 oz) 07/20/2016 7:21 AM TELLER COORDINATOR Height 175.3 cm (5' 9 ) 07/15/2016 5:41 PM TELLER COORDINATOR Body Mass Index 42.81 07/15/2016 5:41 PM TELLER COORDINATOR Plan of Treatment Health Maintenance Due Date [...] this topic Medical Devices Implanted Type Area Maintenance Supervisor Electrical Device Identifier Shelf Expiration Date Model / Serial / Lot Implant Hip Stem Femoral Stem Sz 7 Accol - [id number] Implanted:Qty: 1 on 07/15/2016 by Nacho Ramirez MD at [facility] IMPLANT Left: Hip BOBO / ORTHOPAEDICS 03/09/2020 3785-8648 / / [id number] Admx3 Insert Id 2 - [id number] Implanted:Qty: 1 on 07/15/2016 by Nacho Ramirez MD at [facility] IMPLANT Left: Hip BOBO / ORTHOPAEDICS 04/07/2021 1236-2-852 / / [id number] Head Fem Lfric V40 28mm -4mm Vit - [id number] Implanted:Qty: 1 on 07/15/2016 by Nacho Ramirez MD at [facility] IMPLANT Left: Hip BOBO / ORTHOPAEDICS 10/30/2020 6260-9-028 / / [id number] Christian Adm Anatomic Dual Mobility Acetabular Cup Implanted:Qty: 1 on 07/15/2016 by Nacho Ramirez MD at [facility] Left: Hip BOBO / ORTHOPAEDICS 12/15/2020 1235-2-522 / / [id number] Insurance MEDICARE [employer] GENERIC Advance Directives * Full Code (Latest Code Status on File) Date Activated Date Inactivated Comments 07/16/2016 5:46 PM 07/22/2016 6:39 PM CPR-Full Treat ment: FULL ARREST: Attempt Resuscitation/CPR wit intubation and mechanical ventilation. PRE-ARREST: Use entire range of life support measures to stabilize the patient. Care Teams Driller'S Assistant Relationship Specialty Start Date End Date Provider, None [place] PCP - General 07/16/16
--- OUTSIDE RECORDS SUMMARY | 2024-08-23 17:13 | XMS_ITS | Encounter Summary ---
Author Organization [facility] Address [address] [place] [address] Care Team Providers Care Taffy Puller Name Role Phone Renay Rhodes MD Primary Care Provider + Reason for Visit * Reason Onset Date Comments MEDICATION REFILL 08/05/2018 Encounter Details Date Type Department Care Team (Late st Contact Info) Description 08/05/2018 Refill [facility] Neurology [address] [place] [address] Aureliano Ruiz MD MEDICATION REFILL Social History [...] on filedocumented in this encounter Care Teams Taffy Puller Relationship Specialty Start Date End Date Renay Rhodes MD [address] [place] [address] PCP - General 07/15/17 documented as of this encounter
[2024-08-23 17:18] LABS: Albumin Level 3.7 g/dL (3.5-5.1); Alkaline Phosphatase 89 U/L (38-126); Anion Gap 5 mmol/L (4-12); Aspartate Amino Transferase 28 U/L (14-36); Bilirubin,Total 0.6 mg/dL (0.2-1.3); Blood Urea Nitrogen 14 mg/dL (7-17); Calcium 8.8 mg/dL (8.4-10.2); Carbon Dioxide 31 mmol/L (22-30); Chloride 96 mmol/L (98-107); Estimated Glomerular Filt Rate 56; Glucose 76 mg/dL (65-110); Lipase 81 U/L (23-300); Sodium 132 mmol/L (137-145)
[2024-08-23 17:19] LABS: Color Urine Orange (Yellow)
--- NOTE | 2024-08-23 17:35 | ED_ITS ---
HPI - General Adult General Chief complaint: Abdominal Pain Stated complaint: abd pain Time Seen by Provider: 08/23/24 17:04 Source: patient Mode of arrival: ambulatory Limitations: no limitations History of Present Illness HPI narrative: This is an 84-year-old female with PMH of CHF, Parkinson disease, mild dementia, bipolar 1, chronically on 2 L nasal cannula oxygen who presents to the ED for chief complaint lower abdominal pain and dysuria. Patient states that for the past week she has had intermittent right lower quadrant and suprapubic abdominal pain. This is associated with frequency of urination and burning pain with urination. Patient's daughter is bedside and states that the patient has had increasing episodes of confusion and suspects this is due to UTI. Family member states the patient was seen at primary care yesterday and had an abnormal urinalysis but they wanted to wait on the culture for antibiotics. Denies fevers, chills, diarrhea, chest pain, shortness of breath, flank pain. Related Data Home Medications ?Medication ?Instructions ?Recorded ?Confirmed ?Last Taken ?Type alendronate 70 mg tablet 70 mg PO WEEKLY 06/06/23 07/11/24 Unknown History carbidopa 25 mg-levodopa 100 mg 1 tablet TID 06/06/23 07/11/24 Unknown History tablet clonazepam 0.5 mg tablet 0.5 mg DAILY PRN Anxiety 06/06/23 07/11/24 Unknown History docusate sodium 100 mg capsule 100 mg PO DAILY 06/06/23 07/11/24 Unknown History (Colace) propranolol 60 mg capsule,24 60 mg PO DAILY 06/06/23 07/11/24 Unknown History hr,extended release quetiapine 300 mg tablet (Seroquel) 300 mg HS 06/06/23 07/11/24 Unknown History sertraline 100 mg tablet 100 mg DAILY 06/06/23 07/11/24 Unknown History zonisamide 100 mg capsule 100 mg PO DAILY 06/06/23 07/11/24 Unknown History aspirin 81 mg capsule 81 mg PO DAILY 06/30/23 07/11/24 Unknown History calcium amino acid chelate 200 mg PO DAILY 06/30/23 07/11/24 Unknown History cholecalciferol (vitamin D3) 50 50 mcg PO DAILY 06/30/23 07/11/24 Unknown History mcg (2,000 unit) capsule lactobacillus combination no.4 15 15,000 mmu cells PO DAILY 07/13/23 07/11/24 Unknown History billion cell capsule multivitamin with iron 1 tablet PO DAILY 07/13/23 07/11/24 Unknown History peg 400-propylene glycol (PF) 0.4 1 drp RIGHT EYE DAILY 07/13/23 07/11/24 Unknown History %-0.3 % eye drops in a dropperette primidone 250 mg tablet 250 mg PO BID 07/13/23 07/11/24 Unknown History Allergies Allergy/AdvReac Type Severity Reaction Status Date / Time codeine AdvReac Mild Hallucinati Verified 07/11/24 13:53 ons morphine AdvReac Mild hallucinate Verified 07/11/24 13:53 Review of Systems 2 Review of Systems: All systems as dictated in [facility] Past Medical History Medical History Anxiety and depression Schizophrenia Seizure Heart failure with preserved ejection fraction EF 60 to 65%. Benign essential hypertension Fracture of humeral head, left, closed Colon polyp Diverticulitis Bipolar 1 disorder, depressed Dementia Parkinson disease Chronic respiratory failure Surgical History Surgical History Hx laparoscopic cholecystectomy 07/26/23 Dr. Vo History of cataract extraction History of left shoulder replacement History of bilateral knee replacement History of hysterectomy History of colonoscopy with polypectomy History of tonsillectomy and adenoidectomy History of hip surgery History of appendectomy Family History Family History Other Family history of malignant neoplasm Family history of malignant neoplasm of thyroid Social History Social History Social History: Surrogate medical decision maker: Rubia Basilio, daughter. Code status: Full code. Smoking status: Never smoker Second hand tobacco smoke exposure: No Alcohol intake: never Substance use: never Substance use type: does not use Do You Feel Safe in your Home?: Yes Lack of Transportation: No Lack of Food: Never True Current Housing: I Have Housing Concerned About Future Housing: No Difficulty Paying Gas/Electric Bills: No Difficulty Paying for Meds: No Currently Unemployed: YES Education: Decline to Answer Difficulty w/ Childcare or Family Care: No Living arrangements: assisted living Additional living arrangements comments: . Lives in assisted living at [facility]. [facility] (PHONE [phone]) Occupation/Education: retired Spiritual care concerns: No Exam 2 Narrative: GENERAL: Well-appearing, well-nourished, and in no acute distress. HEAD: Normocephalic, atraumatic. EYES: PERRLA and EOMI. ENT: Nares clear, no rhinorrhea or epistaxis. Mucous membranes moist. Oropharynx without tonsillar hypertrophy exudate or other lesions. NECK: Supple. No adenopathy or masses. CHEST: No respiratory distress. Clear to auscultation. No wheezes rales or rhonchi HEART: Regular rate and rhythm. No murmur heard. Normal peripheral pulses. ABDOMEN: Mild tenderness to the suprapubic abdomen and right lower quadrant. Soft, otherwise nontender, nondistended, normal active bowel sounds. Negative flank tenderness bilaterally. MSK: Normal range of motion. No edema. SKIN: Warm, dry, no rash. NEURO: Alert and oriented x4. No focal deficits. PSYCH: Normal mood and affect. Course Vital Signs Vital signs: Vital Signs Temperature 98.0 F 08/23/24 15:17 Pulse Rate 67 08/23/24 15:17 Respiratory Rate 20 08/23/24 15:17 Blood Pressure 141/68 H 08/23/24 15:17 Pulse Oximetry 92 08/23/24 15:17 Temperature 98.4 F 08/23/24 20:55 Pulse Rate 74 08/23/24 16:28 Respiratory Rate 18 08/23/24 16:28 Blood Pressure 151/85 H 08/23/24 16:28 Pulse Oximetry 92 08/23/24 16:28 Medical Decision Making [facility] Narrative Medical decision making narrative: This is a 84-year-old female who presents to the ED for chief complaint of lower abdominal pain and urinary frequency. Vitals are normal. Exam remarkable for the above. She does not appear toxic. She is on 2 L nasal cannula chronically. Lab work today shows mild leukopenia of 4.0. CMP unremarkable overall. Urinalysis is nitrite positive with trace leuk Estrace but no bacteria seen. CT abdomen pelvis with IV contrast: IMPRESSION: No acute pathology detected within the abdomen or pelvis. Innumerable nonacute findings, as detailed above. Symptoms and workup concerning for UTI. No evidence of pyelonephritis today. Patient and family were initially wanting to stay in the hospital for this if possible. I discussed with the hospitalist, Dr. Leggett who does not feel that the patient meets criteria for admission. It does appear that the patient's culture from outpatient labs yesterday is negative. We have repeated a culture today. Due to the patient being symptomatic with this, will prescribe cephalexin. She was given dose of Rocephin here prior to discharge. Patient and family are understanding and agreeable with plan for discharge today. They will follow-up closely with PCP on this issue. Return precautions given Vital Signs Vital Signs: Vital Signs Temperature 98.0 F 08/23/24 15:17 Pulse Rate 67 08/23/24 15:17 Respiratory Rate 20 08/23/24 15:17 Blood Pressure 141/68 H 08/23/24 15:17 Pulse Oximetry 92 08/23/24 15:17 Temperature 98.4 F 08/23/24 20:55 Pulse Rate 74 08/23/24 16:28 Respiratory Rate 18 08/23/24 16:28 Blood Pressure 151/85 H 08/23/24 16:28 Pulse Oximetry 92 08/23/24 16:28 Lab Data 08/23/24 17:01 08/23/24 17:01 Labs: Lab Results 08/23/24 08/23/24 Range/Units 16:36 17:01 WBC 4.0 L (4.5-10.0) K/mm3 RBC 4.00 L (4.2-5.4) M/mm3 Hgb 11.5 L (12.0-15.0) g/dL Hct 36.5 L (37.0-47.0) % MCV 91.3 (80-100) fl MCH 28.8 (26-34) pg MCHC 31.5 L (32-36) g/dl RDW 14.6 H (11.5-14.5) % Plt Count 169 (150-375) k/mm3 MPV 8.5 (7.4-10.4) fl Immature Gran % (Auto) 0.3 (0-0.5) % Neut % (Auto) 38.9 L (45.5-73.1) % Lymph % (Auto) 49.1 H (18.3-44.2) % Cheshire % (Auto) 9.1 H (2.6-8.5) % Eos % (Auto) 1.8 (0-4.4) % Baso % (Auto) 0.8 (0.2-1.2) % Lymph # (Auto) 1.94 (0.9-3.2) K/mm3 Cheshire # (Auto) 0.4 (0.1-0.6) K/mm3 Eos # (Auto) 0.1 (0-0.3) K/mm3 Baso # (Auto) 0.0 (0.0-0.1) K/mm3 Abs Immat Gran (auto) 0.01 (0.00-0.031) K/mm3 Absolute Neuts (auto) 1.5 (1.3-6.7) K/mm3 Absolute Nucleated RBC 0.000 (0.0-0.012) K/mm3 Nucleated RBC % 0.0 (0.0-0.2) % Sodium 132 L (137-145) mmol/L Potassium 4.0 (3.4-5.0) mmol/L Chloride 96 L (98-107) mmol/L Carbon Dioxide 31 H (22-30) mmol/L Anion Gap 5 (4-12) mmol/L BUN 14 D (7-17) mg/dL Creatinine 0.96 (0.7-1.0) mg/dL Estim Creat Clear Calc Not Reportable Estimated GFR 56 L (59 - ) Glucose 76 (65-110) mg/dL Calcium 8.8 (8.4-10.2) mg/dL Total Bilirubin 0.6 (0.2-1.3) mg/dL AST 28 (14-36) U/L ALT < 6 L (6-35) U/L Alkaline Phosphatase 89 (38-126) U/L Total Protein 7.0 (6.3-8.2) g/dL Albumin 3.7 (3.5-5.1) g/dL Lipase 81 (23-300) U/L Urine Color Kyburz H (Yellow) Urine Appearance Clear (Clear) Urine pH 7.0 (5.0-9.0) Ur Specific Barnett 1.008 (1.001-1.035) Urine Protein Negative (Negative) mg/dL Urine Glucose (UA) Negative (Negative) mg/dL Urine Ketones Negative (Negative) mg/dL Ur Blood (Man) Negative (Negative) Urine Nitrate Positive H (Negative) Urine Bilirubin Negative (Negative) Urine Urobilinogen 1.0 (<2.0) mg/dL Add Ur Microanalysis Reviewed Leukocyte Esterase Rfl Trace H (Negative) MEEK/UL Urine RBC 0-2 (0-2) /hpf Urine WBC 0-5 (0-3) /hpf Ur Squamous Epith Cells None seen (Few) /hpf Urine Bacteria None seen /hpf Urine Casts 0-2 Discharge Plan Discharge Clinical Impression: Abnormal urinalysis Patient Disposition: [facility] Condition: Stable Instructions: Antibiotic Form Additional Instructions: Exam and workup today are reassuring overall. Please start antibiotics orally and follow-up closely with primary care doctor on this issue. If you have any new or worsening symptoms please return to the ER for further evaluation. Patient Language: Afghan Prescriptions: New cephalexin 500 mg capsule 500 mg PO Q8H 7 Days Qty: 21 0RF No Action lisinopril 2.5 mg tablet 2.5 mg PO DAILY Qty: 90 3RF calcium amino acid chelate 200 mg calcium tablet 200 mg PO DAILY cholecalciferol (vitamin D3) 50 mcg (2,000 unit) capsule 50 mcg PO DAILY aspirin 81 mg capsule 81 mg PO DAILY hyoscyamine sulfate 0.125 mg/mL drops 1 ml PO Q4-6H PRN (Reason: gastrointestinal spasms or cramping) Qty: 20 0RF phenazopyridine 200 mg tablet 200 mg PO .QD 90 Days Qty: 90 0RF quetiapine [Seroquel] 300 mg tablet 300 mg HS alendronate 70 mg tablet 70 mg PO WEEKLY Rx Instructions: TAKES ON THURSDAYS clonazepam 0.5 mg tablet 0.5 mg DAILY PRN (Reason: Anxiety) propranolol 60 mg capsule,extended release 24 hr 60 mg PO DAILY sertraline 100 mg tablet 100 mg DAILY zonisamide 100 mg capsule 100 mg PO DAILY carbidopa-levodopa 25-100 mg tablet 1 tablet TID docusate sodium [Colace] 100 mg Capsule 100 mg PO DAILY primidone 250 mg Tablet 250 mg PO BID multivitamin with iron Tablet 1 tablet PO DAILY peg 400-propylene glycol (PF) 0.4-0.3 % Dropperette 1 drp RIGHT EYE DAILY lactobacillus combination no.4 15 billion cell Capsule 15,000 mmu cells PO DAILY Rx Instructions: administer with a meal memantine 10 mg tablet 10 mg PO HS Qty: 90 4RF montelukast 10 mg tablet See Rx Instructions .ROUTE .COMPLEX Qty: 90 3RF Dose Instruction: TAKE 1 TABLET EVERY DAY Rx Instructions: TAKE 1 TABLET EVERY DAY pantoprazole 40 mg tablet,delayed release (DR/EC) See Rx Instructions .ROUTE .COMPLEX Qty: 90 3RF Dose Instruction: TAKE 1 TABLET EVERY MORNING Rx Instructions: TAKE 1 TABLET EVERY MORNING pravastatin 10 mg tablet 10 mg PO QHS Qty: 90 4RF acetaminophen 500 mg capsule 500 mg PO Q6H MDD 2000 PRN (Reason: fever or pain) Qty: 30 0RF fluticasone propionate 50 mcg/actuation spray,suspension 1 spray intranasal Q12H Qty: 16 0RF Rx Instructions: administer into each nostril furosemide 40 mg tablet See Rx Instructions .ROUTE .COMPLEX Qty: 90 2RF Dose Instruction: TAKE 1 TABLET EVERY MORNING Rx Instructions: TAKE 1 TABLET EVERY MORNING Follow-up/Referrals: Javier Kulkarni MD [Primary Care Provider] - Stand Alone Forms: Intermediate Discharge Time of Disposition: 19:39
[2024-08-23 17:37] LABS: Alanine Aminotransferase < 6 U/L (6-35)
--- OUTSIDE RECORDS SUMMARY | 2024-08-23 18:09 | XMS_ITS | Encounter Summary ---
Author Organization [facility] Address [address] [place] [address] Care Team Providers Care Cycle Liaison Name Role Phone Renay Rhodes MD Primary Care Provider + Reason for Visit * Reason Onset Date Comments MEDICATION REFILL 06/29/2018 Encounter Details Date Type Department Care Team (Late st Contact Info) Description 06/29/2018 Refill [facility] Neurology [address] [place] [address] Aureliano Ruiz MD MEDICATION REFILL Social History [...] agitans documented in this encounter Care Teams Cycle Liaison Relationship Specialty Start Date End Date Renay Rhodes MD [address] [facility] [address] [place] [id number] PCP - General 07/15/17 documented as of this encounter
--- OUTSIDE RECORDS SUMMARY | 2024-08-23 18:09 | XMS_ITS | Encounter Summary ---
Author Organization [facility] Address [address] [place] [address] Care Team Providers Care Business Law Professor Name Role Phone Renay Rhodes MD Primary Care Provider Reason for Referral * Diagnostic Imaging (Routine) - Closed Specialty Diagnoses / Procedures Referred By Lisbeth ruano Referred To Contact Diagnoses Status post reverse total arthroplasty of left shoulder Procedures XR Shoulder Left 2+ View Augusto Palomino MD [address] [employer] [facility] [address] [place] [address] Phone: tel: fax: [facility] [place] Referral ID Status Reason Start Date Expiration Date Visits Re quested Visits Authorized [id number] Closed 08/18/2024 09/17/2025 1 1 Reason for Visit * Diagnostic Imaging (Routine) - Closed Specialty Diagnoses / Procedures Referred By Lisbeth ruano Referred To Contact Diagnoses Status post reverse total arthroplasty of left shoulder Procedures XR Shoulder Left 2+ View Augusto Palomino MD [address] [employer] [facility] [address] [place] [address] Phone: tel: fax: [facility] Referral ID Status Reason Start Date Expiration Date Visits Re quested Visits Authorized [id number] Closed 08/18/2024 09/17/2025 1 1 Encounter Details Date Type Department Care Team (Latest Contact Info) Description 08/21/2024 1:42 PM CDT - 08/21/2024 11:59 PM CDT Hospital Encounter [facility] [address] [place] [address] Status post reverse total arthroplasty of left [...] on file Legal 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 Unchanged reverse uchr-zaf-cwkpsm left total shoulder arthroplasty in expected position Electronically signed by: Yunier Rosas MD Narrative 08/21/2024 3:00 PM CDT EXAMINATION: XR SHOULDER LEFT 2 OR MORE VIEWS HISTORY: Left shoulder arthroplasty FINDINGS: 4 radiographs of the left shoulder are compared to 08/23/2023. Unchanged reverse iqsh-mlu-ytqhof left total shoulder arthroplasty in expected position. No new acute periprosthetic fracture or lucency. 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 Multiple healed left rib fracture deformities are noted. Procedure Note Judith Rosas MD - 08/21/2024 EXAMINATION: XR SHOULDER LEFT 2 OR MORE VIEWS HISTORY: Left shoulder arthroplasty FINDINGS: 4 radiographs of the left shoulder are compared to 08/23/2023. Unchanged reverse pkrz-zkf-iwalbi left total shoulder arthroplasty in expected position. No new acute periprosthetic fracture or lucency. 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 Multiple healed left rib fracture deformities are noted. IMPRESSION: 1. Unchanged reverse iyav-bul-ncivel left total shoulder arthroplasty in expected position Electronically signed by: Yunier Rosas MD Augusto Palomino MD IMG XR PROCEDURES Final Result documented in this encounter Visit Diagnoses Diagnosis Status post reverse total arthroplasty of left shoulder documented in this encounter Care Teams Business Law Professor Relationship Specialty Start Date End Date Renay Rhodes MD [address] [address] PCP - General Family Medicine 09/03/17 documented as of this encounter
--- OUTSIDE RECORDS SUMMARY | 2024-08-23 18:09 | XMS_ITS | Clinical Summary ---
Author Organization [facility] Address [address] [facility] [place] [address] Care Team Providers Care Channel Worker Name Role Phone Renay Rhodes MD Primary Care Provider + Source Comments [facility],non-owned Affiliates and Associated Physician Practices is amultiple site organization consisting of ambulatory clinics and hospital sitesin [place], [place], [place] and [place]. This disclosure is being madepursuant to the Care Everywhere program and may not contain all information available regarding this patient. Last updated 18.[facility] Allergies Active Allergy Reactions Criticality Noted Date [...] Team Description 08/07/2024 Travel 07/10/2024 3:00 PM PROGRAMMING MANAGER Video Visit [facility] - Neurology [address] [place] [address], [place] [address] Brandon Benito, WEAVING SUPERVISOR-POLL CLERK Parkinson's disease without dyskinesia, with fluctuating manifestations ([facility]) 06/22/2024 Travel 06/19/2024 Orders Only [facility] - Neurology [address] [place] [address], [place] [address] Aureliano Ruiz MD from Last 3 Months [...] Comments Blood Pressure 134/74 08/07/2024 2:38 PM PROGRAMMING MANAGER Pulse 66 08/07/2024 2:38 PM PROGRAMMING MANAGER Temperature 36.2 C (97.2 F) 06/04/2021 12:56 PM PROGRAMMING MANAGER Respiratory Rate 16 08/20/2015 10:20 AM PROGRAMMING MANAGER Oxygen Saturation 81% 08/07/2024 2:38 PM PROGRAMMING MANAGER Inhaled Oxygen Concentration - - Weight 87.1 kg (192 lb) 08/07/2024 2:38 PM PROGRAMMING MANAGER Height 170.2 cm (5' 7 ) 08/07/2024 2:38 PM PROGRAMMING MANAGER Body Mass Index 30.07 08/07/2024 2:38 PM PROGRAMMING MANAGER Plan of Treatment Health Maintenance Due Date [...] ROSA MARIA BERNAL E Personal/Family Spouse [address] [place], [place] [phone] NICOLE BERNALIN E Personal/Family Spouse [address] [place] [phone] ROSA MARIA BERNAL E Personal/Family Spouse [address] [place], [place] [phone] NICOLE BERNALIN E Personal/Family Spouse [address] [place] [phone] Nicole Bernaline V Personal/Family Self 1940 ROSA MARIA BERNAL E Personal/Family Spouse 1940 Advance Directives Documents on File Type Date Recorded Patient Cafeteria Supervisor Expl anation Advance Directives and Livin g Will 11/10/2013 12:00 AM Care Teams Channel Worker Relationship Specialty Start Date End Date Renay Rhodes MD [address] [place] [address] PCP - General 07/15/17
--- OUTSIDE RECORDS SUMMARY | 2024-08-23 18:09 | XMS_ITS | Encounter Summary ---
Author Organization [facility] Address [address] [place] [address] Care Team Providers Care Linseed Oil Press Tender Name Role Phone Renay Rhodes MD Primary Care Provider + Reason for Visit * Reason Onset Date Comments MEDICATION REFILL 08/05/2018 Encounter Details Date Type Department Care Team (Late st Contact Info) Description 08/05/2018 Refill [facility] Neurology [address] [place] [address] Aureliano Ruiz MD MEDICATION REFILL Social History [...] on filedocumented in this encounter Care Teams Linseed Oil Press Tender Relationship Specialty Start Date End Date Renay Rhodes MD [address] [place] [address] PCP - General 07/15/17 documented as of this encounter
--- OUTSIDE RECORDS SUMMARY | 2024-08-23 18:09 | XMS_ITS | Referral Summary ---
Author Organization [facility] Address [address] [place] [address] Care Team Providers Care Geographic Analyst Name Role Phone Renay Rhodes MD Primary Care Provider + Source Comments [facility],non-owned Affiliates and Associated Physician Practices is amultiple site organization consisting of ambulatory clinics and hospital sitesin [place], [place], [place] and [place]. This disclosure is being madepursuant to the Care Everywhere program and may not contain all information available regarding this patient. Last updated 18.[facility] Encounters Date Type Department Care Team Description 08/07/2024 Travel 07/10/2024 3:00 PM UNIT COORDINATOR Video Visit [facility] - Neurology [address] [place] [phone] Brandon Benito, PROCESSING LEAD-MEDICAL SONOGRAPHER Parkinson's disease without dyskinesia, with fluctuating manifestations (HCC) 06/22/2024 Travel 06/19/2024 Orders Only [facility] - Neurology [address] [place], [place] [address], [place] [address] [facility] MD from Last 3 Months Allergies [...] Comments Blood Pressure 134/74 08/07/2024 2:38 PM UNIT COORDINATOR Pulse 66 08/07/2024 2:38 PM UNIT COORDINATOR Temperature 36.2 C (97.2 F) 06/04/2021 12:56 PM UNIT COORDINATOR Respiratory Rate 16 08/20/2015 10:20 AM UNIT COORDINATOR Oxygen Saturation 81% 08/07/2024 2:38 PM UNIT COORDINATOR Inhaled Oxygen Concentration - - Weight 87.1 kg (192 lb) 08/07/2024 2:38 PM UNIT COORDINATOR Height 170.2 cm (5' 7 ) 08/07/2024 2:38 PM UNIT COORDINATOR Body Mass Index 30.07 08/07/2024 2:38 PM UNIT COORDINATOR Plan of Treatment Not on file ROSA MARIA BERNAL E Personal/Family Spouse [address] [place], [place] [phone] DOLORESROSA MARIA E Personal/Family Spouse [address] [place], [place] [phone] DOLORES,ROSA MARIA E Personal/Family Spouse [address] [place] [address] DOLORES,ROSA MARIA E Personal/Family Spouse [address] [place], [place] [phone] Nicole Bernaline V Personal/Family Self 1940 NICOLE BERNALIN E Personal/Family Spouse 1940 Advance Directives Documents on File Type Date Recorded Patient Health Sciences Manager Expl anation Advance Directives and Livin g Will 11/10/2013 12:00 AM Care Teams Geographic Analyst Relationship Specialty Start Date End Date Renay Rhodes MD [address] [place] [address] PCP - General 07/15/17
--- OUTSIDE RECORDS SUMMARY | 2024-08-23 18:09 | XMS_ITS | Encounter Summary ---
Author Organization [facility] Address [address] [place] [address] Care Team Providers Care Event Marketing Manager Name Role Phone Renay Rhodes MD Primary Care Provider + Reason for Visit * Reason Onset Date Comments MEDICATION REFILL 01/10/2021 Encounter Details Date Type Department Care Team (Late st Contact Info) Description 01/10/2021 Refill [facility] [address] [place] [address] Aureliano Ruiz MD MEDICATION REFILL Social History [...] on filedocumented in this encounter Care Teams Event Marketing Manager Relationship Specialty Start Date End Date Renay Rhodes MD [address] [facility] [address] [place] [phone] PCP - General 07/15/17 documented as of this encounter
--- OUTSIDE RECORDS SUMMARY | 2024-08-23 18:09 | XMS_ITS | Clinical Summary ---
Author Organization [facility] Address [address] [place] [address] Phone Care Team Providers Care Living Manager Name Role Phone Provider, None Primary Care [...] Comments Blood Pressure 126/67 07/22/2016 7:23 AM SPOOLING MACHINE OPERATOR Pulse 82 07/22/2016 7:23 AM SPOOLING MACHINE OPERATOR Temperature 36.5 C (97.7 F) 07/22/2016 7:23 AM SPOOLING MACHINE OPERATOR Respiratory Rate 20 07/22/2016 7:23 AM SPOOLING MACHINE OPERATOR Oxygen Saturation 92% 07/22/2016 8:27 AM SPOOLING MACHINE OPERATOR Inhaled Oxygen Concentration - - Weight 131.5 kg (289 lb 14.5 oz) 07/20/2016 7:21 AM SPOOLING MACHINE OPERATOR Height 175.3 cm (5' 9 ) 07/15/2016 5:41 PM SPOOLING MACHINE OPERATOR Body Mass Index 42.81 07/15/2016 5:41 PM SPOOLING MACHINE OPERATOR Plan of Treatment Health Maintenance Due Date [...] this topic Medical Devices Implanted Type Area Diamond Saw Operator Device Identifier Shelf Expiration Date Model / Serial / Lot Implant Hip Stem Femoral Stem Sz 7 Accol - [id number] Implanted:Qty: 1 on 07/15/2016 by Nacho Ramirez MD at [facility] IMPLANT Left: Hip BOBO / ORTHOPAEDICS 03/09/2020 [id number] / / [id number] Admx3 Insert Id 2 - [id number] Implanted:Qty: 1 on 07/15/2016 by Nacho Ramirez MD at [facility] IMPLANT Left: Hip BOBO / ORTHOPAEDICS 04/07/2021 [id number] / / [id number] Head Fem Lfric V40 28mm -4mm Vit - [id number] Implanted:Qty: 1 on 07/15/2016 by Nacho Ramirez MD at [facility] IMPLANT Left: Hip BOBO / ORTHOPAEDICS 10/30/2020 [id number] / / [id number] Islam Adm Anatomic Dual Mobility Acetabular Cup Implanted:Qty: 1 on 07/15/2016 by Nacho Ramirez MD at [facility] Left: Hip BOBO / ORTHOPAEDICS 12/15/2020 [id number] / / [id number] Insurance MEDICARE [employer] GENERIC Advance Directives * Full Code (Latest Code Status on File) Date Activated Date Inactivated Comments 07/16/2016 5:46 PM 07/22/2016 6:39 PM CPR-Full Treat ment: FULL ARREST: Attempt Resuscitation/CPR wit intubation and mechanical ventilation. PRE-ARREST: Use entire range of life support measures to stabilize the patient. Care Teams Living Manager Relationship Specialty Start Date End Date Provider, None [place] PCP - General 07/16/16
--- OUTSIDE RECORDS SUMMARY | 2024-08-23 18:09 | XMS_ITS | Patient Health Summary ---
Author Organization [facility] Address [address] [place] [address] Care Team Providers Care Fire Control Technician G Name Role Phone Renay Rhodes MD Primary Care Provider + Note from [facility],non-owned Affiliates and Associated Physician Practices is amultiple site organization consisting of ambulatory clinics and hospital sitesin [place], [place], [place] and [place]. This disclosure is being madepursuant to the Care Everywhere program and may not contain all information available regarding this patient. Last updated 18.[facility] Allergies * Codeine(Other) -Low Criticality * [...] Comments Blood Pressure 134/74 08/07/2024 2:38 PM STAPLE LASTER Pulse 66 08/07/2024 2:38 PM STAPLE LASTER Temperature 36.2 C (97.2 F) 06/04/2021 12:56 PM STAPLE LASTER Respiratory Rate 16 08/20/2015 10:20 AM STAPLE LASTER Oxygen Saturation 81% 08/07/2024 2:38 PM STAPLE LASTER Inhaled Oxygen Concentration - - Weight 87.1 kg (192 lb) 08/07/2024 2:38 PM STAPLE LASTER Height 170.2 cm (5' 7 ) 08/07/2024 2:38 PM STAPLE LASTER Body Mass Index 30.07 08/07/2024 2:38 PM STAPLE LASTER Procedures * MRI BRAIN WWO CONTRAST(Performed 09/03/2018) [...] ORDERABLES [facility] POCT TESTING [address] [phone] * (ABNORMAL) URINALYSIS W/MICROSCOPIC NO CULTURE (08/30/2014 6:34 PM CDT) Color UA Yellow Straw, Yellow, Colorless, Light Yellow [facility] Clarity UA Hazy(A) Clear [facility] Specific [place] UA 1.012 1.001 - 1.030 [facility] pH UA 7.5 5.0 - 8.0 [facility] Protein UA Negative <=20 mg/dL [facility] Glucose UA Negative Negative mg/dL [facility] Ketone UA Negative Negative mg/dL [facility] Bilirubin UA Negative Negative mg/dL [facility] Blood UA Negative Negative [facility] Nitrite UA Negative Negative [facility] Leukocyte Esterase Large(A) Negative [facility] Urobilinogen UA <2.0 <2.0 mg/dL [facility] RBC UA 10(H) 0 - 8 /HPF [facility] WBC UA 38(H) 0 - 2 /HPF [facility] Bacteria UA Moderate(A) Rare, Occasional, None /HPF [facility] Squamous Epithelial Cells UA 1 0 - 1 /HPF [facility] Mucus UA Occasional( A) None /LPF [facility] Yeast Budding UA Occasional( A) None /HPF [facility] Urine specimen (specimen) 08/30/2014 6:34 PM CDT 08/30/2014 6:39 PM CDT Historical Provider LAB - URINALYSIS ORDERABLES [address] [phone] * (ABNORMAL) DRUG ABUSE PANEL 10-20+ETHANOL URINE NO CONFIRM (08/30/2014 6:34 PM CDT) Amphetamines Screen Urine Negative Negative : < 1000 ng/mL [facility] Barbiturates Screen Urine Positive(A) Negative : < 200 ng/mL [facility] Comment: Positive urine barbiturate screening results should be confirmed by another generally accepted non-immunological method such as gas chromatography or mass spectrometry. Benzodiazepine Screen Urine Negative Negative : < 200 ng/mL [facility] Opiates Urine Negative Negative : < 300 ng/mL [facility] Cocaine Metabolites Urine Negative Negative : < 300 ng/mL [facility] Phencyclidine Screen Urine Negative Negative : < 25 ng/ml [facility] Cannabinoids Screen Urine Negative Negative : <50 ng/mL [facility] Methadone Screen Urine Negative Negative : < 300 ng/mL [facility] Urine specimen (specimen) 08/30/2014 6:34 PM CDT 08/30/2014 6:39 PM CDT Narrative [facility] - 08/30/2014 7:34 PM CDT The Urine Toxicology Screening Panel does not screen for Propoxyphene, Meprobamate, Carisoprodol, Trazodone, vtus-wuf-mntjegl medications and/or volatiles (Acetone, Isopropanol, Methanol or Ethylene Glycol). Ethanol, Salicylate, Acetaminophen, Tricyclic Antidepressants and several therapeutic drugs may be individually assayed in serum or plasma specimen. Toxicology testing by the [facility] is an aid to medical diagnosis and treatment of patients. No documented chain of custody was maintained. Results are intended to be used for clinical purposes only. Historical Provider LAB - URINE CHEMI STRY ORDERABLES Performing Organization Address [facility] Co de Phone Number [address] [phone] * VITAMIN D 25-HYDROXY (08/30/2014 1:53 PM CDT) Pathologist [facility] Vitamin D, 25 Hydroxy 51.5 >30.0 ng/mL [facility] Comment: The recommendations for 25-Hydroxy Vitamin D [...] - CHEMISTRY O RDERABLES Performing Organization Address [facility] Co de Phone Number [address] [phone] * (ABNORMAL) CBC W AUTO DIFFERENTIAL (08/30/2014 1:53 PM CDT) Only the most recent of4 resultswithin the time period is included. [facility] WBC 4.4 3.5 - 10.5 10 3/uL [facility] RBC 4.18 3.90 - 5.00 10 6/uL [facility] Hemoglobin 12.4 12.0 - 15.5 g/dL [facility] Hematocrit 36.9 35.0 - 45.0 % [facility] MCV 88.3 81.0 - 97.0 fL [facility] MCH 29.7 28.0 - 34.0 pg [facility] MCHC 33.6 32.0 - 36.0 g/dL [facility] Platelet Count 264 150 - 400 10 3/uL [facility] RDW-SD 44.5 36.0 - 50.0 fL [facility] RDW-CV 13.8 11.2 - 14.8 % [facility] MPV 8.8(L) 9.3 - 12.8 fL [facility] Neutrophils % 58.1 35.0 - 70.0 % [facility] Lymphocytes % 33.6 19.7 - 55.1 % [facility] Monocytes % 7.4 3.0 - 15.0 % [facility] Eosinophils % 0.7 0.0 - 6.0 % [facility] Basophil % 0.2 0.0 - 1.5 % [facility] Neutrophils Absolute 2.5 1.6 - 7.0 10 3/uL [facility] Lymphocyte Absolute 1.5 0.8 - 2.9 10 3/uL [facility] Monocytes Absolute 0.32 0.14 - 0.66 10 3/uL [facility] Eosinophils Absolute 0.03 0.00 - 0.22 10 3/uL [facility] Basophils Absolute 0.01 0.00 - 0.06 10 3/uL [facility] Immature Granulocytes % 0.2 0.0 - 1.0 % [facility] Blood specimen (specimen) BLOOD SPECIMEN / Unknown 08/30/2014 1:53 PM CDT 08/30/2014 2:00 PM CDT Historical Provider LAB - HEMATOLOGY ORDERABLES [place] [id number] [phone] * (ABNORMAL) COMPREHENSIVE METABOLIC PANEL (08/30/2014 1:53 PM CDT) Only the most recent of2 resultswithin the time period is included. BUN 10 7 - 26 mg/dL [facility] Creatinine 0.7 0.6 - 1.2 mg/dL [facility] Sodium 133(L) 136 - 145 mmol/L [facility] Potassium 4.2 3.5 - 4.5 mmol/L [facility] Chloride 95(L) 98 - 107 mmol/L [facility] CO2 29 22 - 29 mmol/L [facility] Glucose 80 70 - 115 mg/dL [facility] Calcium 9.4 8.4 - 10.2 mg/dL [facility] Protein Total 6.1 6.0 - 8.3 g/dL [facility] Albumin 3.2(L) 3.4 - 5.0 g/dL [facility] Bilirubin Total 0.3 0.2 - 1.2 mg/dL [facility] Alkaline Phosphatase 102 40 - 150 Units/L [facility] ALT <5 0 - 55 Units/L [facility] AST 11 5 - 34 Units/L [facility] Anion Gap 13 8 - 18 [facility] BUN/Creatinine Ratio 14 7 - 23 [facility] Osmolality Calculated 260(L) 270 - 300 mOsm/kg [facility] Albumin/Globulin Ratio 1.1 1.1 - 2.3 [facility] eGFR >60 >60 mL/min/1.7 3 m2 [facility] Blood specimen (specimen) BLOOD SPECIMEN / Unknown 08/30/2014 1:53 PM CDT 08/30/2014 1:59 PM CDT Historical Provider LAB - CHEMISTRY O MAC [address] [phone] * FOLATE (08/30/2014 1:53 PM CDT) Folate 18.8 7.0 - 31.4 ng/mL [facility] Blood specimen (specimen) BLOOD SPECIMEN / Unknown 08/30/2014 1:53 PM CDT 08/30/2014 1:59 PM CDT Historical Provider LAB - CHEMISTRY O MAC [address] [phone] * VITAMIN B12 (08/30/2014 1:53 PM CDT) Only the most recent of2 resultswithin the time period is included. Vitamin B12 757 213 - 816 pg/mL [facility] Blood specimen (specimen) BLOOD SPECIMEN / Unknown 08/30/2014 1:53 PM CDT 08/30/2014 1:59 PM CDT Historical Provider LAB - CHEMISTRY O MAC Performing Organization Address [facility] Co de Phone Number [address] [phone] * (ABNORMAL) TSH (08/30/2014 1:53 PM CDT) Only the most recent of2 resultswithin the time period is included. TSH 0.280(L) 0.350 - 4.940 uIU/mL [facility] Blood specimen (specimen) BLOOD SPECIMEN / Unknown 08/30/2014 1:53 PM CDT 08/30/2014 1:59 PM CDT Historical Provider LAB - CHEMISTRY O MAC Performing Organization Address [facility]/ZIP Co de Phone Number [address] [phone] * T4 FREE (08/30/2014 1:53 PM CDT) T4 Free 1.0 0.7 - 1.5 ng/dL [facility] Blood specimen (specimen) BLOOD SPECIMEN / Unknown 08/30/2014 1:53 PM CDT 08/30/2014 2:55 PM CDT Historical Provider LAB - CHEMISTRY O MAC Performing Organization Address [facility]/ZIP Co de Phone Number [address] [phone] * EKG 12-LEAD (08/30/2014 12:00 AM CDT) [...] found Confirmed by Mago JEFFERSON, AURA ([id number]), tape editor Baron Balbuena ([id number]) on 09/04/2014 2:41:47 PM Referred By: REFERRING NO Confirmed By:AURA JEFFERSON M.D. 08/30/2014 Lexi Vick MD ECG ORDERABLES [facility] RADIOLOG[facility] * (ABNORMAL) BASIC METABOLIC PANEL (CALCIUM TOTAL) (12/04/2013 7:04 AM CDT) Only the most recent of19 resultswithin the time period is included. BUN 16 7 - 26 mg/dL [facility] Anion Gap 12 8 - 18 [facility] BUN/Creatinine Ratio 20 7 - 23 [facility] Osmolality Calculated 266(L) 270 - 300 mOsm/kg [facility] Creatinine 0.8 0.6 - 1.2 mg/dL [facility] Sodium 135(L) 136 - 145 mmol/L [facility] Potassium 3.9 3.5 - 4.5 mmol/L [facility] Chloride 102 98 - 107 mmol/L [facility] CO2 25 22 - 29 mmol/L [facility] Glucose 82 70 - 115 mg/dL [facility] Calcium 9.2 8.4 - 10.2 mg/dL [facility] eGFR >60 >60 mL/min/1.7 3 m2 [facility] Blood specimen (specimen) BLOOD SPECIMEN / Unknown 12/04/2013 7:04 AM CDT 12/04/2013 7:04 AM CDT Historical Provider LAB - CHEMISTRY O RDERABLES [address] [phone] * TRANSFERRIN (11/14/2013 5:17 PM CDT) Transferrin 222 174 - 382 mg/dL [facility] Transferrin Saturation % 23 16 - 50 % [facility] Blood specimen (specimen) BLOOD SPECIMEN / Unknown 11/14/2013 5:17 PM CDT 11/14/2013 5:29 PM CDT Historical Provider LAB - CHEMISTRY O RDERAMEIR Performing Organization Address [facility]/ZIP Co de Phone Number [address] [phone] * IRON BLOOD (11/14/2013 5:17 PM CDT) Iron 63 40 - 150 mcg/dL [facility] Blood specimen (specimen) BLOOD SPECIMEN / Unknown 11/14/2013 5:17 PM CDT 11/14/2013 5:29 PM CDT Historical Provider LAB - CHEMISTRY O RDERAMEIR Performing Organization Address City/[facility]/ZIP Co de Phone Number [address] [phone] * FERRITIN (11/14/2013 5:17 PM CDT) Ferritin 46 13 - 204 ng/mL [facility] Blood specimen (specimen) BLOOD SPECIMEN / Unknown 11/14/2013 5:17 PM CDT 11/14/2013 5:29 PM CDT Historical Provider LAB - CHEMISTRY O RDERABLES [address] [phone] * NM BRAIN IMAGING KYLER SCAN (11/14/2013 [...] ischemic disease. This report was approved by aSde Anderson M.D. on 11/14/2013 9:49 AM . [...] CDT) Osmolality 276 270 - 300 mOsm/kg [facility] Blood specimen (specimen) BLOOD SPECIMEN / Unknown 11/13/2013 4:22 PM CDT 11/13/2013 4:43 PM CDT Historical Provider LAB - CHEMISTRY O RDERABLES [address] [phone] * (ABNORMAL) URINALYSIS REFLEX TO MICROSCOPIC NO CULTURE (11/13/2013 1:49 PM CDT) Color UA Yellow Straw, Yellow, Colorless, Light Yellow [facility] Clarity UA Clear Clear [facility] Specific [place] UA 1.007 1.001 - 1.030 [facility] pH UA 7.0 5.0 - 8.0 [facility] Protein UA Negative <=20 mg/dL [facility] Glucose UA Negative Negative mg/dL [facility] Ketone UA Negative Negative mg/dL [facility] Bilirubin UA Negative Negative mg/dL [facility] Blood UA Negative Negative [facility] Nitrite UA Negative Negative [facility] Leukocyte Esterase Negative Negative [facility] Urobilinogen UA <2.0 <2.0 mg/dL [facility] RBC UA 3 0 - 8 /HPF [facility] Squamous Epithelial Cells UA 1 0 - 1 /HPF [facility] Mucus UA Rare(A) None /LPF [facility] Amorphous Crystals Occasional Rare, Occasional, Few, Moderate, None /HPF [facility] Urine specimen (specimen) URINE SPECIMEN OBTAINED BY CLEAN CATCH PROCEDURE / Unknown 11/13/2013 1:49 PM CDT 11/13/2013 2:26 PM CDT Historical Provider LAB - URINALYSIS ORDERABLES Performing Organization Address City/[facility]/ZIP Co de Phone Number [address] [phone] * POTASSIUM URINE RANDOM (11/13/2013 1:49 PM CDT) Potassium Urine 24 Not Established mmol/L [facility] Urine specimen (specimen) URINE SPECIMEN OBTAINED BY CLEAN CATCH PROCEDURE / Unknown 11/13/2013 1:49 PM CDT 11/13/2013 2:26 PM CDT Historical Provider LAB - URINE CHEMI STRY ORDERABLES Performing Organization Address [facility]/ZIP Co de Phone Number [address] [phone] * (ABNORMAL) OSMOLALITY URINE (11/13/2013 1:49 PM CDT) Only the most recent of2 resultswithin the time period is included. Osmolality Urine 300(L) 500 - 800 mOsm/kg [facility] Urine specimen (specimen) URINE SPECIMEN OBTAINED BY CLEAN CATCH PROCEDURE / Unknown 11/13/2013 1:49 PM CDT 11/13/2013 2:26 PM CDT Historical Provider LAB - URINE CHEMI STRY ORDERABLES [address] [phone] * CHLORIDE URINE RANDOM (11/13/2013 1:49 PM CDT) Chloride Random Urine <20 Not Established mmol/L [facility] Urine specimen (specimen) URINE SPECIMEN OBTAINED BY CLEAN CATCH PROCEDURE / Unknown 11/13/2013 1:49 PM CDT 11/13/2013 2:26 PM CDT Historical Provider LAB - URINE CHEMI STRY ORDERABLES [address] [phone] * SODIUM URINE RANDOM (11/13/2013 5:50 AM CDT) Sodium Urine <20 Not Established mmol/L [facility] Urine specimen (specimen) URINE / Unknown 11/13/2013 5:50 AM CDT 11/13/2013 6:05 AM CDT Historical Provider LAB - URINE CHEMI STRY ORDERABLES Performing Organization Address [facility] Co de Phone Number [address] [phone] * (ABNORMAL) RENAL FUNCTION PANEL (11/12/2013 6:41 AM CDT) BUN 15 7 - 26 mg/dL [facility] Phosphorus 3.3 2.3 - 4.7 mg/dL [facility] Anion Gap 13 8 - 18 [facility] BUN/Creatinine Ratio 19 7 - 23 [facility] Osmolality Calculated 238(L) 270 - 300 mOsm/kg [facility] Creatinine 0.8 0.6 - 1.2 mg/dL [facility] Sodium 120(L) 136 - 145 mmol/L [facility] Potassium 3.7 3.5 - 4.5 mmol/L [facility] Chloride 88(L) 98 - 107 mmol/L [facility] CO2 23 22 - 29 mmol/L [facility] Glucose 82 70 - 115 mg/dL [facility] Calcium 8.8 8.4 - 10.2 mg/dL [facility] Albumin 3.2(L) 3.4 - 5.0 g/dL [facility] eGFR >60 >60 mL/min/1.7 3 m2 [facility] Blood specimen (specimen) BLOOD SPECIMEN / Unknown 11/12/2013 6:41 AM CDT 11/12/2013 7:06 AM CDT Historical Provider LAB - CHEMISTRY O MAC Performing Organization Address City/[facility]/ZIP Co de Phone Number [address] [phone] * C-REACTIVE PROTEIN (11/10/2013 6:14 PM CDT) C-Reactive Protein <0.5 <=0.5 mg/dL [facility] Blood specimen (specimen) BLOOD SPECIMEN / Unknown 11/10/2013 6:14 PM CDT 11/10/2013 7:13 PM CDT Historical Provider LAB - CHEMISTRY O MAC Performing Organization Address City/[facility] Co de Phone Number [address] [phone] * (ABNORMAL) LIPID PROFILE (11/10/2013 6:14 PM CDT) Cholesterol Total 214(H) <200 mg/dL [facility] HDL 97 >40 mg/dL [facility] Comment: ATP III Classification of HDL Cholesterol: <40 mg/dL: Considered a major risk factor. >60 mg/dL: Considered a negative risk factor. LDL Calculated 109(H) <100 mg/dL [facility] Comment: ATP III Classification of LDL Cholesterol: <100 mg/dL: Optimal 100 - 129 mg/dL: Near Optimal/Above Optimal 130 - 159 mg/dL: Borderline High 160 - 189 mg/dL: High >190 mg/dL: Very High Triglycerides 38 <150 mg/dL [facility] Comment: ATP III Classification of Triglycerides: <150 mg/dL: Normal 150 - 199 mg/dL: Borderline High 200 - 400 mg/dL: High >500 mg/dL: Very High Blood specimen (specimen) BLOOD SPECIMEN / Unknown 11/10/2013 6:14 PM CDT 11/10/2013 7:13 PM CDT Historical Provider LAB - CHEMISTRY O RDJOSE [address] [phone] * VITAMIN B1 (11/10/2013 12:38 PM CDT) Vitamin B1 Whole Blood 132.2 66.5 - 200.0 nmol/L [facility] Blood specimen (specimen) BLOOD SPECIMEN / Unknown 11/10/2013 12:38 PM CDT 11/10/2013 1:00 PM CDT Narrative [facility] ([place]) - 11/15/2013 5:14 PM CDT Performed at: [address] [place] [address] [id number] Mission Coordinator: Everett Spicer MD, Phone: [phone] Historical Provider LAB - CHEMISTRY O MAC Performing Organization Address City/[facility]/ZIP Co de Phone Number [facility] ([place]) * HOMOCYSTEINE BLOOD QUANTITATIVE (11/10/2013 12:38 PM CDT) Homocysteine 10.4 4.4 - 16.2 umol/L [facility] Blood specimen (specimen) BLOOD SPECIMEN / Unknown 11/10/2013 12:38 PM CDT 11/10/2013 1:01 PM CDT Historical Provider LAB - CHEMISTRY O RDJOSE [address] [phone] * VITAMIN D 1,25 DIHYDROXY (11/10/2013 12:38 PM CDT) Calcitriol (1,25 di-OH Vit D) 57.8 10.0 - 75.0 pg/mL [facility] ([place]) Blood specimen (specimen) BLOOD SPECIMEN / Unknown 11/10/2013 12:38 PM CDT 11/10/2013 1:03 PM CDT Narrative [facility] ([place]) - 11/14/2013 7:31 AM CDT Performed at: [address] [id number] Mission Coordinator: Everett Spicer MD, Phone: [phone] Historical Provider LAB - CHEMISTRY O MAC [facility] ([place]) * LAB HISTORICAL RESULTS-ONBASE (10/05/2013) 10/05/2013 Narrative [facility] - 10/06/2013 9:29 AM CDT Historical Provider LAB - CHEMISTRY O MAC [facility] [address] Care Teams Fire Control Technician G Relationship Specialty Start Date End Date Renay Rhodes MD [address] [place] [address] PCP - General 07/15/17
--- OUTSIDE RECORDS SUMMARY | 2024-08-23 18:09 | XMS_ITS | Referral Summary ---
Author Organization [facility] [address] Address [address] [place] [address] Care Team Providers Care Continuous Improvement Analyst Name Role Phone Renay Rhodes MD Primary Care Provider Encounters Date Type Department Care Team Description 08/21/2024 1:42 PM CDT - 08/21/2024 11:59 PM CDT Hospital Encounter [facility] [address] [place] [address] Status post reverse total arthroplasty of left shoulder Discharge Disposition: Discharge to home or self care 08/21/2024 1:40 PM CDT Office Visit [facility] Orthopaedic Surgery [id number] [place] [address] [address]nd [address] [place] [address] Augusto Palomino MD Status post reverse total [...] Information Patient taking differently:40 mgEvery morning, Informant: [facility], Reported on 09/01/2022 primidone (MYSOLINE) 50 mg tablet take 1 Tablet by oral route 3 times every day 0 0 3 Active Additional Information Patient taking differently:50 mg2 times daily, Informant: [facility], Reported on 09/01/2022 acetaminophen (TYLENOL) 325 mg tablet take 2 Tablet by oral route every 6 hours as needed 0 0 3 Active Additional Information Patient taking differently: 650 mg 2 times daily, Informant: [facility], Reported on 09/01/2022 montelukast (SINGULAIR) 10 mg tablet take 1 tablet by oral route every day in the evening 0 0 3 Active Additional Information Patient taking differently:10 mgNightly, Informant: [facility], Reported on 09/01/2022 cholecalciferol (cholecalcifero l) 1,000 unit tablet 0 0 4 Active Additional Information Patient taking differently: 2,000 Units Daily, Informant: [facility], Reported on 09/01/2022 lisinopril (PRINIVIL,ZESTR IL) 20 mg tablet take 1 tablet by oral route every day 0 0 4 Active Additional Information Patient taking differently: 10 mg Every morning, Informant: [facility], Reported on 09/01/2022 furosemide (LASIX) 40 mg tablet take 1 tablet by oral route 2 times every day 0 0 4 Active Additional Information Patient taking differently:40 mgoral Every morning, Informant: [facility], Reported on 09/01/2022 pravastatin (PRAVACHOL) [...] (08/26/2022): Added automatically from request for surgery [id number] Acute kidney failure, unspecified 08/14/2016 Pneumonia, unspecified [...] on file Legal Sex Female 4:58 PM CO FOUNDER AND CTO Gender Identity Not on file Sexual Orientation [...] on file Medical Devices Implanted Type Area Bee Raiser Device Identifier Shelf Expiration Date Model / Serial / Lot Depuy [employer]Stage Inc Metaglene 10mm Long Peg Fixation [id number] - [id number] Implanted:Qty: 1 on 09/08/2022 by Augusto Palomino MD at [facility] [employer] Synthes OM Lat[employer] [id number] 01/11/2025 [id number] / / [id number] [employer] Simplex P Full Dose Radiopaque Preblend Cement Bone Tobramycin 6197-9-001 - [id number] - [id number] Implanted:Qty: 1 on 09/08/2022 [facility] 11/12/2023 6197-9-001 / [id number] / [employer] Simplex P Full Dose Radiopaque Preblend Cement Bone Tobramycin 6197-9-001 - [id number] - [id number] Implanted:Qty: 1 on 09/08/2022 [facility] 11/12/2023 6197-9-001 / [id number] / [id number] [employer] Orth[employer]ed[employer] Inc Delta Xtend 38mm Shoulder +3mm Standard Cup Humeral Polyethylene Latex Free [id number] - [id number] - [id number] Implanted:Qty: 1 on 09/08/2022 by Augusto Palomino MD at [facility] [employer] Orth[employer]ed[employer] Inc [id number] 05/13/2027 [id number] / [id number] / [id number] Dep[employer] Orth[employer]ed[employer] Inc Global Unite 10mm 113mm Modular Shoulder Standard Stem Humeral [id number] - [id number] - [id number] Implanted:Qty: 1 on 09/08/2022 by Augusto Palomino MD at [facility] [employer] Inc [id number] 05/13/2032 [id number] / [id number] / [id number] [employer] Inc Delta Xtend 4.5mm 42mm Lock Shoulder Glenoid Screw Bone Metaglene [id number] - [id number] Implanted:Qty: 1 on 09/08/2022 by Augusto Palomino MD at [facility] [employer] Inc [id number] 04/13/2027 [id number] / / [id number] [employer] Inc Delta Xtend 4.5mm 36mm Lock Shoulder Glenoid Screw Bone Metaglene [id number] - [id number] - [id number] Implanted:Qty: 1 on 09/08/2022 by Augusto Palomino MD at [facility] [employer] Inc [id number] 02/11/2027 [id number] / [id number] / [id number] Dep[employer] Orth[employer]edics Inc Component Glenoid Delta Xtend +2mm Eccentric Od38mm [id number] - [id number] - [id number] Implanted:Qty: 1 on 09/08/2022 by Augusto Palomino MD at [facility] [employer] Inc [id number] 06/13/2026 [id number] / [id number] / [id number] Dep[employer] Orth[employer]ed[employer] Inc Delta Xtend 4.5mm 18mm Shoulder Glenoid Screw Bone Metaglene [id number] - [id number] - [id number] Implanted:Qty: 1 on 09/08/2022 by Augusto Palomino MD at [facility] [employer] Inc 06/13/2027 [id number] / [id number] / [id number] Dep[employer] Orth[employer]ed[employer] Inc Delta Xtend 4.5mm 18mm Shoulder Glenoid Screw Bone Metaglene [id number] - [id number] - [id number] Implanted:Qty: 1 on 09/08/2022 by Augusto Palomino MD at [facility] [employer] Orth[employer]ed[employer] Inc 04/13/2025 [id number] / [id number] / [id number] Depuy Orthopaedics Inc Implant Shldr Xtend Modecc 155epi Por Sz1 Lt [id number] - [id number] - [id number] Implanted:Qty: 1 on 09/08/2022 by Augusto Palomino MD at [facility] [employer] Orthopaedics Inc [id number] 09/12/2031 [id number] / [id number] / [id number] [employer] [facility] Latitude 8-15mm Restrictor Elbow Restrictor Cement [id number] - [id number] - [id number] Implanted:Qty: 1 on 09/08/2022 by Augusto Palomino MD at [facility] [employer] [id number] 05/29/2027 [id number] / [id number] / [id number] Depuy Orthopaedics Inc Implant Shldr Xtend Modecc 145epi Por Sz1 Lt [id number] - [id number] - [id number] Implanted:Qty: 1 on 09/08/2022 by Augusto Palomino MD at [facility] [employer] Orthopaedics Inc [id number] 01/12/2032 [id number] / [id number] / [id number] Procedures Procedure Name Priority Date/Time Associated Diagnosis Comments XR SHOULDER LEFT 2 OR MORE VIEWS Schedule Routine, Read Routine (OP Routine) 08/21/2024 1:54 PM CDT Status post reverse total arthroplasty of left shoulder DEXA AXIAL SKELETON BONE DENSITY 1 OR MORE SITES Routine 07/20/2012 10:12 AM CO FOUNDER AND CTO from Last 3 Months or Most Recently Relevant to Health Maintenance Results * XR Shoulder Left 2+ View (08/21/2024 1:54 PM CDT) Anatomical Region Laterality Modality Upper Extremities, Shoulder Left Comp uted Radiography 08/21/2024 3:00 PM CDT Impressions 08/21/2024 3:00 PM CDT 1. Unchanged reverse vesq-yfe-rloasr left total shoulder arthroplasty in expected position Electronically signed by: Yunier Rosas MD Narrative 08/21/2024 3:00 PM CDT EXAMINATION: XR SHOULDER LEFT 2 OR MORE VIEWS HISTORY: Left shoulder arthroplasty FINDINGS: 4 radiographs of the left shoulder are compared to 08/23/2023. Unchanged reverse fqhg-vct-llvlnm left total shoulder arthroplasty in expected position. No new acute periprosthetic fracture or lucency. 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 Multiple healed left rib fracture deformities are noted. Procedure Note Judith Rosas MD - 08/21/2024 EXAMINATION: XR SHOULDER LEFT 2 OR MORE VIEWS HISTORY: Left shoulder arthroplasty FINDINGS: 4 radiographs of the left shoulder are compared to 08/23/2023. Unchanged reverse dudg-zgk-cyfzpr left total shoulder arthroplasty in expected position. No new acute periprosthetic fracture or lucency. 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 Multiple healed left rib fracture deformities are noted. IMPRESSION: 1. Unchanged reverse ziyy-zkp-awwxlo left total shoulder arthroplasty in expected position Electronically signed by: Yunier Rosas MD Augusto Palomino MD IMG XR PROCEDURES Final Result * Dexa Axial Skeleton Bone Density 1 or 2 Site (07/20/2012 10:12 AM CO FOUNDER AND CTO) Anatomical Region Laterality Modality Body N/A Radiographic Alyssa ging 07/20/2012 10:1 2 AM CO FOUNDER AND CTO Narrative 07/21/2012 6:15 AM CO FOUNDER AND CTO DEXA Bone Density Axial Acc#: [id number] DATE OF EXAM: Jul 20 2012 CLINICAL [...] - 10/07/2016 DEXA Bone Density Axial Acc#: [id number] DATE OF EXAM: Jul 20 2012 CLINICAL [...] Recently Relevant to Health Maintenance Insurance MEDICARE [facility] Address: [address] [address] [place] [address] COMMERCIAL GENERIC MEDICARE [facility] MEDICARE SUPPLEMENT MEDICARE [facility] MEDICARE SUPPLEMENT Advance Directives For more information, please contact: [phone] Documents on File Type Date Recorded Patient No Bake Molder Expl anation ADVANCE DIRECTIVE 08/05/2022 3:26 PM POWER OF BILINGUAL SALES REPRESENTATIVE-MEDICAL * Full Code (Latest Code Status on File) Date Activated Date Inactivated Comments 09/08/2022 3:53 PM 09/16/2022 6:55 PM Care Teams Continuous Improvement Analyst Relationship Specialty Start Date End Date Renay Rhodes MD [address] [facility] [address] [place] [address] PCP - General Family Medicine 09/03/17
--- OUTSIDE RECORDS SUMMARY | 2024-08-23 18:09 | XMS_ITS | Clinical Summary ---
Author Organization [facility] [address] Address [address] [place] [address] Care Team Providers Care Tube Heater Name Role Phone Renay Rhodes MD Primary [...] Information Patient taking differently:40 mgEvery morning, Informant: [facility], Reported on 09/01/2022 primidone (MYSOLINE) 50 mg tablet take 1 Tablet by oral route 3 times every day 0 0 3 Active Additional Information Patient taking differently:50 mg2 times daily, Informant: [facility], Reported on 09/01/2022 acetaminophen (TYLENOL) 325 mg tablet take 2 Tablet by oral route every 6 hours as needed 0 0 3 Active Additional Information Patient taking differently: 650 mg 2 times daily, Informant: [facility], Reported on 09/01/2022 montelukast (SINGULAIR) 10 mg tablet take 1 tablet by oral route every day in the evening 0 0 3 Active Additional Information Patient taking differently:10 mgNightly, Informant: [facility], Reported on 09/01/2022 cholecalciferol (cholecalcifero l) 1,000 unit tablet 0 0 4 Active Additional Information Patient taking differently: 2,000 Units Daily, Informant: [facility], Reported on 09/01/2022 lisinopril (PRINIVIL,ZESTR IL) 20 mg tablet take 1 tablet by oral route every day 0 0 4 Active Additional Information Patient taking differently: 10 mg Every morning, Informant: [facility], Reported on 09/01/2022 furosemide (LASIX) 40 mg tablet take 1 tablet by oral route 2 times every day 0 0 4 Active Additional Information Patient taking differently:40 mgoral Every morning, Informant: [facility], Reported on 09/01/2022 pravastatin (PRAVACHOL) [...] (08/26/2022): Added automatically from request for surgery [id number] Acute kidney failure, unspecified 08/14/2016 Pneumonia, unspecified [...] - 08/21/2024 11:59 PM CDT Hospital Encounter [facility] [address] [place] [address] Status post reverse total arthroplasty of left shoulder Discharge Disposition: Discharge to home or self care 08/21/2024 1:40 PM CDT Office Visit [facility] Orthopaedic Surgery [address] [place] [address] 2nd [address] [place] [address] Augusto Palomino MD Status post reverse total [...] on file Legal Sex Female 4:58 PM TABULATING MACHINE 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 Gender Identity Not on file Sexual Orientation [...] history exists Medical Devices Implanted Type Area Podiatrist Device Identifier Shelf Expiration Date Model / Serial / Lot Depuy Synthes [employer] Inc Metaglene 10mm Long Peg Fixation [id number] - [id number] Implanted:Qty: 1 on 09/08/2022 by Augusto Palomino MD at [facility] [employer] Inc [id number] 01/11/2025 [id number] / / [id number] [employer] Simplex P Full Dose Radiopaque Preblend Cement Bone Tobramycin 6197-9-001 - [id number] - [id number] Implanted:Qty: 1 on 09/08/2022 [facility] 11/12/2023 6197-9-001 / [id number] / [employer] Simplex P Full Dose Radiopaque Preblend Cement Bone Tobramycin 6197-9-001 - [id number] - [id number] Implanted:Qty: 1 on 09/08/2022 by [facility] 11/12/2023 6197-9-001 / [id number] / [id number] Dep[employer] Orthopaedics Inc Delta Xtend 38mm Shoulder +3mm Standard Cup Humeral Polyethylene Latex Free [id number] - [id number] - [id number] Implanted:Qty: 1 on 09/08/2022 by Augusto Palomino MD at [facility] [employer] Orth[employer] Inc [id number] 05/13/2027 [id number] / [id number] / [id number] Depuy Orthopaedics Inc Global Unite 10mm 113mm Modular Shoulder Standard Stem Humeral 359187436 - [id number] - [id number] Implanted:Qty: 1 on 09/08/2022 by Augusto Palomino MD at [facility] [employer] Inc [id number] 05/13/2032 [id number] / [id number] / [id number] [employer] Orth[employer]ed[employer] Inc Delta Xtend 4.5mm 42mm Lock Shoulder Glenoid Screw Bone Metaglene [id number] - [id number] Implanted:Qty: 1 on 09/08/2022 by Augusto Palomino MD at [facility] [employer] Inc [id number] 04/13/2027 [id number] / / [id number] [employer] Orth[employer] Inc Delta Xtend 4.5mm 36mm Lock Shoulder Glenoid Screw Bone Metaglene [id number] - [id number] - [id number] Implanted:Qty: 1 on 09/08/2022 by Augusto Palomino MD at [facility] [employer] Orth[employer]ed[employer] Inc [id number] 02/11/2027 [id number] / [id number] / [id number] Depuy Orthopaedics Inc Component Glenoid Delta Xtend +2mm Eccentric Od38mm [id number] - [id number] - [id number] Implanted:Qty: 1 on 09/08/2022 by Augusto Palomino MD at [facility] [employer] Inc [id number] 06/13/2026 [id number] / [id number] / [id number] [employer] Orth[employer]ed[employer] Inc Delta Xtend 4.5mm 18mm Shoulder Glenoid Screw Bone Metaglene [id number] - [id number] - [id number] Implanted:Qty: 1 on 09/08/2022 by Augusto Palomino MD at [facility] [employer] Orth[employer] Inc 06/13/2027 [id number] / [id number] / [id number] [employer] Orth[employer]ed[employer] Inc Delta Xtend 4.5mm 18mm Shoulder Glenoid Screw Bone Metaglene [id number] - [id number] - [id number] Implanted:Qty: 1 on 09/08/2022 by Augusto Palomino MD at [facility] [employer] Inc 04/13/2025 [id number] / [id number] / [id number] Depuy Orthopaedics Inc Implant Shldr Xtend Modecc 155epi Por Sz1 Lt [id number] - [id number] - [id number] Implanted:Qty: 1 on 09/08/2022 by Augusto Palomino MD at [facility] [employer] [id number] 09/12/2031 [id number] / [id number] / [id number] [employer] Latitude 8-15mm Restrictor Elbow Restrictor Cement [id number] - [id number] - [id number] Implanted:Qty: 1 on 09/08/2022 by Augusto Palomino MD at [facility] [employer] [id number] 05/29/2027 [id number] / [id number] / [id number] [employer] Implant Shldr Xtend Modecc 145epi Por Sz1 Lt [id number] - [id number] - [id number] Implanted:Qty: 1 on 09/08/2022 by Augusto Palomino MD at [facility] [employer] [id number] 01/12/2032 [id number] / [id number] / [id number] Procedures Procedure Name Priority Date/Time Associated Diagnosis Comments XR SHOULDER LEFT 2 OR MORE VIEWS Schedule Routine, Read Routine (OP Routine) 08/21/2024 1:54 PM CDT Status post reverse total arthroplasty of left shoulder DEXA AXIAL SKELETON BONE DENSITY 1 OR MORE SITES Routine 07/20/2012 10:12 AM TABULATING MACHINE MECHANIC from Last 3 Months or Most Recently Relevant to Health Maintenance Results * XR Shoulder Left 2+ View (08/21/2024 1:54 PM CDT) Anatomical Region Laterality Modality Upper Extremities, Shoulder Left Comp uted Radiography 08/21/2024 3:00 PM CDT Impressions 08/21/2024 3:00 PM CDT 1. Unchanged reverse ufft-fth-mgoxxh left total shoulder arthroplasty in expected position Electronically signed by: Yunier Rosas MD Narrative 08/21/2024 3:00 PM CDT EXAMINATION: XR SHOULDER LEFT 2 OR MORE VIEWS HISTORY: Left shoulder arthroplasty FINDINGS: 4 radiographs of the left shoulder are compared to 08/23/2023. Unchanged reverse ykyd-fpm-zayhgd left total shoulder arthroplasty in expected position. No new acute periprosthetic fracture or lucency. 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 Multiple healed left rib fracture deformities are noted. Procedure Note Judith Rosas MD - 08/21/2024 EXAMINATION: XR SHOULDER LEFT 2 OR MORE VIEWS HISTORY: Left shoulder arthroplasty FINDINGS: 4 radiographs of the left shoulder are compared to 08/23/2023. Unchanged reverse ahrl-hak-mowprv left total shoulder arthroplasty in expected position. No new acute periprosthetic fracture or lucency. 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 Multiple healed left rib fracture deformities are noted. IMPRESSION: 1. Unchanged reverse pera-fdp-sgipta left total shoulder arthroplasty in expected position Electronically signed by: Yunier Rosas MD Augusto Palomino MD IMG XR PROCEDURES Final Result * Dexa Axial Skeleton Bone Density 1 or 2 Site (07/20/2012 10:12 AM TABULATING MACHINE MECHANIC) Anatomical Region Laterality Modality Body N/A Radiographic Alyssa ging 07/20/2012 10:1 2 AM TABULATING MACHINE MECHANIC Narrative 07/21/2012 6:15 AM TABULATING MACHINE MECHANIC DEXA Bone Density Axial Acc#: [id number] DATE OF EXAM: Jul 20 2012 CLINICAL [...] - 10/07/2016 DEXA Bone Density Axial Acc#: [id number] DATE OF EXAM: Jul 20 2012 CLINICAL [...] Health Maintenance Insurance MEDICARE COMMERCIAL GENERIC MEDICARE [facility] MEDICARE SUPPLEMENT MEDICARE [facility] MEDICARE SUPPLEMENT Advance Directives For more information, please contact: [phone] Documents on File Type Date Recorded Patient Education Specialist Expl anation ADVANCE DIRECTIVE 08/05/2022 3:26 PM POWER OF SALES OPERATIONS COORDINATOR-MEDICAL * Full Code (Latest Code Status on File) Date Activated Date Inactivated Comments 09/08/2022 3:53 PM 09/16/2022 6:55 PM Care Teams Tube Heater Relationship Specialty Start Date End Date Renay Rhodes MD [address] [place] [id number] PCP - General Family Medicine 09/03/17
[2024-08-23] MEDS: ACETAMINOPHEN 500 MG TABLET 1000 MG PO (18:29)
[2024-08-23 20:55] VITALS: TEMP 36.9
== END 2024-08-23 20:05 ==
PROVIDERS: Student in an Organized Health Care Education/Training Program; Emergency Provider Physician Assistant; PCP Family Medicine
DX: R82.998 Other abnormal findings in urine (principal); I50.9 Heart failure, unspecified; I11.0 Hypertensive heart disease with heart failure; J96.10 Chronic respiratory failure, unspecified whether with hypoxia or hypercapnia; Z99.81 Dependence on supplemental oxygen; G20.A1 Parkinson's disease without dyskinesia, without mention of fluctuations; F03.90 Unspecified dementia, unspecified severity, without behavioral disturbance, psychotic disturbance, mood disturbance, and anxiety; F31.9 Bipolar disorder, unspecified; Z98.49 Cataract extraction status, unspecified eye; Z96.612 Presence of left artificial shoulder joint; Z96.653 Presence of artificial knee joint, bilateral; Z86.0100 Personal history of colon polyps, unspecified; Z90.49 Acquired absence of other specified parts of digestive tract; Z90.710 Acquired absence of both cervix and uterus; Z79.82 Long term (current) use of aspirin; Z79.899 Other long term (current) drug therapy
CPT/HCPCS: 36415; 74177; 80053; 81001; 83690; 85025; 87086; 96365; 99284; A9270; J0696; Q9967

== ENCOUNTER 2025-01-12 12:37 | Outpatient (CLI) | payer MEDICARE, SELFPAY ==
--- NOTE | ~2025-01-12 | MM_ITS ---
EXAMINATION: MM diagnostic suzan BI w cristian HISTORY: Breast pain TECHNIQUE: Additional 3-D tomosynthesis images of the breasts were performed and synthetic 2-D images were generated. CAD analysis was submitted and interpreted. COMPARISON: Comparison to multiple prior studies sequentially, with oldest reviewed study dated 11/04. BREAST PARENCHYMAL COMPOSITION: Not dense: There are scattered areas of fibroglandular density. FINDINGS: There are no suspicious masses, calcifications or architectural distortion in either breast to suggest malignancy. IMPRESSION: 1. No mammographic evidence for malignancy in either breast. 2. Routine yearly screening mammogram and regular clinical breast examination are recommended. BI-RADS Category 1: Negative Reviewed, dictated and finalized at location B. IMPRESSION: 1. No mammographic evidence for malignancy in either breast. 2. Routine yearly screening mammogram and regular clinical breast examination a re recommended. BI-RADS Category 1: Negative
--- OUTSIDE RECORDS SUMMARY | 2025-01-12 12:41 | XMS_ITS | Encounter Summary ---
Author Organization [facility] Address [address] [place] [address] Care Team Providers Care Residential Nurse Name Role Phone Renay Rhodes MD Primary Care Provider + Javier Kulkarni MD Primary Care Provider [phone] Reason for Visit * Reason Onset Date Comments MEDICATION REFILL 08/05/2018 Encounter Details Date Type Department Care Team (Late Contact Info) Description 08/05/2018 Refill [facility] [address] [place] [address] Aureliano Ruiz MD MEDICATION REFILL Social History Tobacco Use Types Packs/Day Years Used Date Smoking Tobacco: Never Smokeless Tobacco: Never Alcohol Use Standard Drinks/Week Comments No 0 (1 standard drink = 0.6 oz pur e alcohol) Comments No Sex and Gender Information Value Date Recorded Sex Assigned at Female 02/28/2021 9:25 PM CDT Legal Sex Female 5:15 PM REINFORCEMENT MAKER Gender Identity Not on file Sexual Orientation Not on file documented as of this encounter Plan of Treatment Upcoming Encounters Date Type Department Care Team (Late Contact Info) Description 05/28/2025 2:00 PM REINFORCEMENT MAKER Office Visit [facility] - Neurology [address] [place] [id number] Brandon Benito, FINANCE OFFICER-TRANSFORMER MAKER [address] [place] [address] documented as of this encounter Visit Diagnoses Not on filedocumented in this encounter Care Teams Residential Nurse Relationship Specialty Start Date End Date Renay Rhodes MD [address] [place] [address] PCP - General 07/15/17 12/05/24 Javier Kulkarni MD [address] [place] [address] PCP - General Family Medicine 12/06/24 documented as of this encounter
--- OUTSIDE RECORDS SUMMARY | 2025-01-12 12:41 | XMS_ITS | Clinical Summary ---
Author Organization [facility] Address [address] [place] [address] Phone Care Team Providers Care Manager Tax Name Role Phone Provider, None Primary Care [...] Comments Blood Pressure 126/67 07/22/2016 7:23 AM BREAKER MECHANIC Pulse 82 07/22/2016 7:23 AM BREAKER MECHANIC Temperature 36.5 C (97.7 F) 07/22/2016 7:23 AM BREAKER MECHANIC Respiratory Rate 20 07/22/2016 7:23 AM BREAKER MECHANIC Oxygen Saturation 92% 07/22/2016 8:27 AM BREAKER MECHANIC Inhaled Oxygen Concentration - - Weight 131.5 kg (289 lb 14.5 oz) 07/20/2016 7:21 AM BREAKER MECHANIC Height 175.3 cm (5' 9) 07/15/2016 5:41 PM BREAKER MECHANIC Body Mass Index 42.81 07/15/2016 5:41 PM BREAKER MECHANIC Plan of Treatment Health Maintenance Due Date Last Done Comments Hepatitis C Virus (HCV) Screening 1940 TdaP Immunization 1941 Pneumococcal Immunization (5 0+ years) (1 of 1 - PCV) 1991 Zoster Immunization (1 of 2) 1991 Respiratory Syncytial Virus (RSV) Immunization (Adult) (1 - 1-dose 75+ series) 2016 SARS-COV-2 Immunization ( - ) 02/13/2024 Influenza Immunization (#1) 2025 Hepatitis B Immunization Aged Out No longer eligible based on patient's age to complete this topic Human Papillomavirus (HPV) Immunization Aged Out No longer eligible b ased on patient's age to complete this topic Meningococcal Immunization (ACWY) Aged Out No longer eligible based on patient's age to complete this topic Rotavirus Immunization Aged Out No lo nger eligible based on patient's age to complete this topic Medical Devices Implanted Type Area Painter Supervisor Device Identifier Shelf Expiration Date Model / Serial / Lot Implant Hip Stem Femoral Stem Sz 7 Accol - [id number] Implanted:Qty: 1 on 07/15/2016 by Nacho Ramirez MD at [facility] IMPLANT Left: Hip BOBO / ORTHOPAEDICS 03/09/2020 [id number] / / [id number] Sikh [id number] Insert Id 2 - [id number] Implanted:Qty: 1 on 07/15/2016 by Nacho Ramirez MD at [facility] IMPLANT Left: Hip BOBO / ORTHOPAEDICS 04/07/2021 [id number] / / [id number] Head Fem Lfric V40 28mm -4mm Vit - [id number] Implanted:Qty: 1 on 07/15/2016 by Nacho Ramirez MD at [facility] IMPLANT Left: Hip BOBO / ORTHOPAEDICS 10/30/2020 [id number] / / [id number] Sikh Adm Anatomic Dual Mobility Acetabular Cup Implanted:Qty: 1 on 07/15/2016 by Nacho Ramirez MD at [facility] Left: Hip BOBO / ORTHOPAEDICS 12/15/2020 [id number] / / [id number] Insurance MEDICARE COMMERCIAL GENERIC Advance Directives * Full Code (Latest Code Status on File) Date Activated Date Inactivated Comments 07/16/2016 5:46 PM 07/22/2016 6:39 PM CPR-Full Treat ment: FULL ARREST: Attempt Resuscitation/CPR wit intubation and mechanical ventilation. PRE-ARREST: Use entire range of life support measures to stabilize the patient. Care Teams Manager Tax Relationship Specialty Start Date End Date Provider, None [place] PCP - General 07/16/16
--- OUTSIDE RECORDS SUMMARY | 2025-01-12 12:41 | XMS_ITS ---
Author Name Auto Generated, Auto Generated Organization [facility] Address [address] [place] [address] Phone [phone] Care Team Providers Care Bricklayer Name Role Phone Nacho Ramirez Functional Status No Results Mental Status No Results Allergies and Intolerances Name Onset Date Reaction Severity morphine (Allergy) WedJul 22 21:21:00 EST 2016 codeine (Allergy) WedJul 22 21:21:00 2016 tramadol (Allergy) WedJul 22 21:21:00 EST 2016 Medications Medication Directions Start Date End Date carbidopa 25 mg-levodopa 100 mg tablet 2 tabs (TABLET) Oral 4 Times Daily WedAug 17:00:00 EST 2016Aug 31:00:00 EDT 2016 Calcium 600 + D(3) 600 mg-125 unit tablet 600-125 mg-unit (TABLET) Oral 1 Time Daily WedAug 17:00:00 EST 2016Aug 31:00:00 EDT 2016 aspirin 81 mg chewable tablet 81mg (TABLET, CHEWABLE) Oral 1 Time Daily WedAug 17:00:00 EST 2016Aug 31:00:00 EDT 2017 alendronate 70 mg tablet 70mg (TABLET) O ral 1 Time Weekly WedAug 17:00:00 EST 2016Aug 31:00:00 EDT 2017 Tylenol 325 mg tablet 650mg (TABLET) Ora l 3 Times Daily WedAug 17:00:00 EST 2016Aug 31:00:00 EDT 2016 fexofenadine 180 mg tablet 180mg (TABLET) Oral 1 Time Daily WedAug 17:00:00 EST 2016Aug 31:00:00 EDT 2016 ferrous sulfate 325 mg (65 mg iron) tablet 325 (65iron) (TABLET) Oral 1 Time Daily WedAug 17:00:00 EST 2016Aug 31:00:00 EDT 2017 Vitamin D3 2,000 unit capsule 2000units (CAPSULE) Oral 1 Time Daily WedAug 17:00:00 EST 2016Aug 31:00:00 EDT 2017 HYDROcodone 5 mg-acetaminophen 325 mg tablet 5-325 (TABLET) Oral PRN PRN every 6 hours for pain WedAug 17:00:00 EST 2016Aug 31:00:00 EDT 2017 Arvonia 5 mg-325 mg tablet 2 tabs (TABLET) Oral PRN prn for pain every 6 hours WedAug 17:00:00 EST 2016Aug 31:00:00 EDT 2017 ipratropium bromide 0.06 % nasal spray 2 sprays (AEROSOL, SPRAY (ML)) Intranasal - Both Nostrils 3 Times Daily WedAug 17:00:00 EST 2016Aug 31:00:00 EDT 2017 multivitamin tablet 1 tab (TABLET) Oral 1 Time Daily WedAug 17:00:00 EST 2016Aug 31:00:00 EDT 2017 montelukast 10 mg tablet 10mg (TABLET) O ral 1 Time Daily WedAug 17:00:00 EST 2016Aug 31:00:00 EDT 2017 metoprolol tartrate 25 mg tablet 25mg (TABLET) Oral 2 Times Daily WedAug 17:00:00 EST 2016Aug 31:00:00 EDT 2017 lisinopril 20 mg tablet 20mg (TABLET) Or al 1 Time Daily WedAug 17:00:00 EST 2016Aug 31:00:00 EDT 2017 polyethylene glycol 3350 17 gram/dose oral powder 17g (POWDER (GRAM)) Oral PRN as needed for constipation WedAug 17:00:00 EST 2016Aug 31:00:00 EDT 2017 sertraline 50 mg tablet 50mg (TABLET) Or al 1 Time Daily WedAug 17:00:00 EST 2016Aug 31:00:00 EDT 2017 Senna Laxative-Stool Softener 8.6 mg-50 mg tablet 1 tab (TABLET) Oral 1 Time Daily WedAug 17:00:00 EST 2016Aug 31:00:00 EDT 2017 primidone 50 mg tablet 50mg (TABLET) Ora l 3 Times Daily WedAug 17:00:00 EST 2016Aug 31:00:00 EDT 2017 QUEtiapine 300 mg tablet 300mg (TABLET) Oral 1 Time Daily WedAug 17 01:00:00 EST 2016Aug 31:00: EDT 2016 omeprazole 20 mg tablet,delayed release 20mg (TABLET, DELAYED RELEASE (ENTERIC COATED Oral 1 Time Daily WedAug 17 01:00:00 EST 2016Aug 31:00:00 EDT 2016 traZODone 100 mg tablet 100mg (TABLET) O ral 1 Time Daily WedAug 17 01:00:00 EST 2016Aug 31:00: EDT 2016 UTI-Stat 3,875 mg/30 mL oral liquid 30ml (LIQUID (ML)) Oral 2 Times Daily WedAug 17 01:00:00 EST 2016Aug 17 10:19:00 EST 2016 oxybutynin chloride ER 10 mg tablet,extended release 24 hr 10mg (TABLET, EXTENDED RELEASE 24 HR) Oral 1 Time Daily WedAug 17:00:00 EST 2016Aug 31:00:00 EDT 2016 furosemide 20 mg tablet 20mg (TABLET) Or al 2 Times Daily WedAug 17:00: EST 2016Aug 31:00:00 ED2016 UTI-Stat 3,875 mg/30 mL oral liquid 30mL LIQUID (ML) Oral 2 Times Daily Dx: UTI WedAug 08 01:00:00 2016Aug 14:00:2016 oxybutynin chloride ER 10 mg tablet,extended release 24 hr 10mg TABLET, EXTENDED RELEASE 24 HR Oral 1 Time Daily Dx: Overactive bladder WedAug 07 13:00:00 2016Aug 14:00:00 EST 2016 furosemide 20 mg tablet 20mg TABLET Oral 2 Times Daily Edema WedAug 04 15:00:2016Aug 14 01:00:2016 furosemide 20 mg tablet 20mg TABLET Oral Every 1 Day CHF WedJul 27 21:00:00 2016Aug 04 15:42:00 EST 2016 TUBErsol 5 tub. unit/0.1 mL intradermal injection solution 0.1 ml VIAL (ML) Intradermal 1 Time Weekly for 2 Weeks (PPD) 1st injection upon admission. Read after 72 hours and give 2nd injection 1 week after the 1st if result is negative. If positive result, proceed with chest x-ray to rule out active disease. WedJul 23 13:00:00 2016Aug 06 12:59:00 EST 2017 TUBErsol 5 tub. unit/0.1 mL intradermal injection solution Read Results VIAL (ML) Other 1 Time Weekly for 2 Weeks Read results 72 hours after 1st and 2nd 1 week apart. If positive do chest x-ray to rule out active disease. WedJul 23 13:00:00 2016Aug 06 12:59:00 EST 2016 QUEtiapine 300 mg tablet 300mg TABLET Or al 1 Time Daily Bipolar Disorder WedJul 23 21:00:00 EST 2016Aug 14 01:00:00 EST 2017 omeprazole 20 mg capsule,delayed release 20mg CAPSULE,DELAYED RELEASE (ENTERIC COATED) Oral 1 Time Daily GERD WedJul 23 09:00:00 EST 2016Aug 14 01:00:00 EST 2016 Tylenol 325 mg tablet 650mg TABLET Oral 3 Times Daily Arthritis WedJul 22 22:00:00 EST 2016Aug 14 01:00:00 EST 2016 alendronate 70 mg tablet 70mg TABLET Ora l 1 Time Weekly Osteoporosis WedJul 22 22:00:00 EST 2016Aug 14 01:00:00 EST 2016 aspirin 81 mg chewable tablet 81mg TABLET, CHEWABLE Oral 1 Time Daily Blood thinner WedJul 22 22:00:00 EST 2016Aug 14 01:00:00 EST 2017 Calcium 600 + D(3) 600 mg-125 unit tablet 1 tab TABLET Oral 1 Time Daily Supplement WedJul 22 22:00:00 EST 2016Aug 14 01:00:00 EST 2017 carbidopa 25 mg-levodopa 100 mg tablet 2 tabs TABLET Oral 4 Times Daily Parkinson's WedJul 22 22:00:00 EST 2016Aug 14 01:00:00 EST 2017 Vitamin D3 2,000 unit capsule 2000units CAPSULE Oral 1 Time Daily Supplement WedJul 22 22:00:00 EST 2016Aug 14 01:00:00 EST 2016 ferrous sulfate 325 mg (65 mg iron) tablet 325mg TABLET Oral 1 Time Daily Anemia WedJul 22 22:00:00 EST 2016Aug 14 01:00:00 EST 2016 fexofenadine 180 mg tablet 180mg TABLET Oral 1 Time Daily Allergies WedJul 22 22:00:00 EST 2016Aug 14 01:00:00 EST 2017 fondaparinux 2.5 mg/0.5 mL subcutaneous solution syringe 0.5ml SYRINGE (ML) Subcutaneous 1 Time Daily for 7 Days Blood thinner WedJul 22 22:00:00 EST 2016 15 21:59:00 EST 2017 HYDROcodone 5 mg-acetaminophen 325 mg tablet 5-325 mg 1 tab TABLET Oral PRN Every 6 Hours Pain WedJul 22 22:00:00 EST 2016Aug 14 01:00:00 EST 2017 Arvonia 5 mg-325 mg tablet 2 tabs TABLET O ral PRN Every 6 Hours Pain WedJul 22 22:00:00 EST 2016Aug 14 01:00:00 EST 2017 ipratropium bromide 0.06 % nasal spray 2 sprays AEROSOL, SPRAY (ML) Intranasal 3 Times Daily Allergies WedJul 22 22:00:00 EST 2017 WedAug 14 01:00:00 EST 2017 lisinopril 20 mg tablet 20mg TABLET Oral 1 Time Daily HTN WedJul 22 22:00:00 EST 2016Aug 14 01:00:00 EST 2017 metoprolol tartrate 25 mg tablet 25mg TABLET Oral 2 Times Daily HTN WedJul 22 22:00:00 EST 2016Aug 14 01:00:00 EST 2017 montelukast 10 mg tablet 10mg TABLET Ora l 1 Time Daily Allergies WedJul 22 22:00:00 EST 2016Aug 14 01:00:00 EST 2017 multivitamin tablet 1 tab TABLET Oral 1 Time Daily Supplement WedJul 22 22:00:00 EST 2016Aug 14 01:00:00 EST 2017 oxybutynin chloride ER 5 mg tablet,extended release 24 hr 5mg TABLET, EXTENDED RELEASE 24 HR Oral 1 Time Daily Overactive bladder WedJul 22 22:00:00 EST 2017 WedAug 07 10:43:00 EST 2017 pantoprazole 40 mg tablet,delayed release 40mg TABLET, DELAYED RELEASE (ENTERIC COATED) Oral 1 Time Daily GERD WedJul 22 22:00:00 EST 2016Jul 24 00:15:00 EST 2017 polyethylene glycol 3350 17 gram/dose oral powder 17g POWDER (GRAM) Oral PRN Every 1 Day Constipation WedJul 22 22:00:00 EST 2016Aug 14 01:00:00 EST 2017 primidone 50 mg tablet 50mg TABLET Oral 3 Times Daily Seizure WedJul 22 22:00:00 EST 2016Aug 14 01:00:00 EST 2017 QUEtiapine 300 mg tablet 300mg TABLET Or al 1 Time Daily Depression WedJul 22 22:00:00 2016 Gay Jul 23 10:01:00 EST 2016 Senna Laxative-Stool Softener 8.6 mg-50 mg tablet 1 tab TABLET Oral 1 Time Daily Constipation WedJul 22 22:00:00 2016Aug 14 01:00:00 EST 2016 sertraline 50 mg tablet 50mg TABLET Oral 1 Time Daily Depression WedJul 22 22:00:00 2016Aug 14 01:00:00 EST 2016 traZODone 100 mg tablet 100mg TABLET Ora l 1 Time Daily Insomnia WedJul 22 22:00:00 2016Aug 14 01:00:00 EST 2016 Problems Active Concerns * Aftercare following joint replacement surgery* Code: * Start Date: WedJul 22 00:00:00 2016 * End Date: * Text: * Presence of left artificial hip joint* Code: * Start Date: WedJul 22 00:00:00 2016 * End Date: * Text: * Hypotension, unspecified* Code: * Start Date: WedJul 22 00:00:00 2016 * End Date: * Text: * Acute posthemorrhagic anemia* Code: * Start Date: WedJul 22 00:00:00 2016 * End Date: * Text: * Chronic obstructive pulmonary disease, unspecified* Code: * Start Date: WedAug 15 00:00:00 2016 * End Date: * Text: * Essential (primary) hypertension* Code: * Start Date: WedAug 15 00:00:00 2016 * End Date: * Text: * Parkinson's disease* Code: * Start Date: WedAug 15 00:00:00 2016 * End Date: * Text: * Presence of left artificial knee joint* Code: * Start Date: WedAug 15 00:00:00 2016 * End Date: * Text: * Presence of right artificial shoulder joint* Code: * Start Date: WedAug 15 00:00:00 2016 * End Date: * Text: * Presence of left artificial shoulder joint* Code: * Start Date: WedAug 15 00:00:00 2016 * End Date: * Text: * ad terminal 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* Code: * Start Date: WedAug 15 00:00:00 2016 * End Date: * Text: * Sepsis, unspecified organism* Code: * Start Date: WedAug 15::00 2016 * End Date: * Text: * Severe sepsis with septic shock* Code: * Start Date: WedAug 15 00:00:00 2016 * End Date: * Text: * Pneumonia, unspecified organism* Code: * Start Date: WedAug 15:00:00 2016 * End Date: * Text: * Acute kidney failure, unspecified* Code: * Start Date: WedAug 15 00:00:00 2016 * End Date: * Text: * Unilateral primary osteoarthritis, left hip* Code: * Start Date: WedAug 15 00:00:00 2016 * End Date: * Text: * Chronic diastolic (congestive) heart failure* Code: * Start Date: WedJul 22 00:00:00 2016 * End Date: * Text: * Hypertensive heart disease with heart failure* Code: * Start Date: WedJul 22:00:00 2016 * End Date: * Text: * Unspecified urinary incontinence* Code: * Start Date: WedJul 22:00:00 2016 * End Date: * Text: * Gastro-esophageal reflux disease without esophagitis* Code: * Start Date: WedJul 22:00:00 2016 * End Date: * Text: * Bipolar disorder, unspecified* Code: * Start Date: WedJul 22:00:00 2016 * End Date: * Text: * Anxiety disorder, unspecified* Code: * Start Date: WedJul 22:00:00 2016 * End Date: * Text: * Insomnia due to other mental disorder* Code: * Start Date: WedJul 22:00:00 2016 * End Date: * Text: * Age-related osteoporosis without current pathological fracture* Code: * Start Date: WedJul 22:00:00 2016 * End Date: * Text: * Unspecified osteoarthritis, unspecified site* Code: * Start Date: WedJul 22 00:00:00 2016 * End Date: * Text: * Iron deficiency anemia, unspecified* Code: * Start Date: WedJul 22:00:00 2016 * End Date: * Text: * Allergic rhinitis, unspecified* Code: * Start Date: WedJul 22 00:00:00 2016 * End Date: * Text: Reason for Referral Past Medical History
--- OUTSIDE RECORDS SUMMARY | 2025-01-12 12:41 | XMS_ITS | Encounter Summary ---
Author Organization [facility] Address [address] [place] [address] Care Team Providers Care Client Application Support Engineer Name Role Phone Renay Rhodes MD Primary Care Provider + Javier Kulkarni MD Primary Care Provider [phone] Reason for Visit * Reason Onset Date Comments MEDICATION REFILL 06/29/2018 Encounter Details Date Type Department Care Team (Late Contact Info) Description 06/29/2018 Refill [facility] [address] [place] [address] Aureliano Ruiz MD MEDICATION REFILL Social History Tobacco Use Types Packs/Day Years Used Date Smoking Tobacco: Never Smokeless Tobacco: Never Alcohol Use Standard Drinks/Week Comments No 0 (1 standard drink = 0.6 oz pur e alcohol) Comments No Sex and Gender Information Value Date Recorded Sex Assigned at Female 02/28/2021 9:25 PM CDT Legal Sex Female 5:15 PM BOTTLE SORTER Gender Identity Not on file Sexual Orientation Not on file documented as of this encounter Plan of Treatment Upcoming Encounters Date Type Department Care Team (Late Contact Info) Description 05/28/2025 2:00 PM BOTTLE SORTER Office Visit [facility] - [facility]rology [address] [place] [id number] Brandon Benito, OTONIEL-CLUBHOUSE ATTENDANT [address] [place] [address] documented as of this encounter Visit Diagnoses Diagnosis Benign essential tremor Essential and other specified forms of tremor Parkinson disease (HCC) Paralysis agitans documented in this encounter Care Teams Client Application Support Engineer Relationship Specialty Start Date End Date Renay Rhodes MD [address] [place] [address] PCP - General 07/15/17 12/05/24 Javier Kulkarni MD [address] [place] [address] PCP - General Family Medicine 12/06/24 documented as of this encounter
--- OUTSIDE RECORDS SUMMARY | 2025-01-12 12:41 | XMS_ITS | Clinical Summary ---
Author Organization [facility] [address] Address [address] [place] [address] Care Team Providers Care Chief Physical Therapist Name Role Phone Renay Rhodes MD [...] Information Patient taking differently:40 mgEvery morning, Informant: [facility], Reported on 09/01/2022 primidone (MYSOLINE) 50 mg tablet take 1 Tablet by oral route 3 times every day 0 0 3 Active Additional Information Patient taking differently:50 mg2 times daily, Informant: [facility], Reported on 09/01/2022 acetaminophen (TYLENOL) 325 mg tablet take 2 Tablet by oral route every 6 hours as needed 0 0 3 Active Additional Information Patient taking differently: 650 mg 2 times daily, Informant: [facility], Reported on 09/01/2022 montelukast (SINGULAIR) 10 mg tablet take 1 tablet by oral route every day in the evening 0 0 3 Active Additional Information Patient taking differently:10 mgNightly, Informant: [facility], Reported on 09/01/2022 cholecalciferol (cholecalcifero l) 1,000 unit tablet 0 0 4 Active Additional Information Patient taking differently: 2,000 Units Daily, Informant: [facility], Reported on 09/01/2022 lisinopril (PRINIVIL,ZESTR IL) 20 mg tablet take 1 tablet by oral route every day 0 0 4 Active Additional Information Patient taking differently: 10 mg Every morning, Informant: [facility], Reported on 09/01/2022 furosemide (LASIX) 40 mg tablet take 1 tablet by oral route 2 times every day 0 0 4 Active Additional Information Patient taking differently:40 mgoral Every morning, Informant: [facility], Reported on 09/01/2022 pravastatin (PRAVACHOL) [...] (08/26/2022): Added automatically from request for surgery [id number] Acute kidney failure, unspecified 08/14/2016 Pneumonia, unspecified [...] (07/28/2022): Depression Generalized seizure 11/12/2011 Osteoarthritis 11/19/2010 Surgical History Surgery Date Site/Laterality Comments OTHER [...] 07-15-16 Left tot al hip replacement.; Comments: Clarissa 08/24/2016 - GERD (gastroesophageal reflux disease) Anxiety [...] on file Legal Sex Female 4:58 PM ONLINE BANKING SPECIALIST Gender Identity Not on file Sexual [...] 4:00 PM CDT Height 170.2 cm (5' 7) 09/08/2022 4:00 PM CDT Body Mass Index [...] Risk Assessment 09/17/2023 09/16/2022 Covid-19 Vaccine (6 2023-2 5 season) 2024 03/26/2022, 11/04/2021, 03/26/2021, Additional history exists Influenza Vaccine (#1) 2025 8, 04/21/2017, 03/15/2016, Additional history exists Medical Devices Implanted Type Area Receiving Dock Checker Device Identifier Shelf Expiration Date Model / Serial / Lot marker.to Metaglene 10mm Long Peg Fixation [id number] - [id number] Implanted:Qty: 1 on 09/08/2022 by Augusto Palomino MD at [facility] [employer] [id number] 01/11/2025 [id number] / / [id number] [employer] Simplex P Full Dose Radiopaque Preblend Cement Bone Tobramycin 6197-9-001 - [id number] - [id number] Implanted:Qty: 1 on 09/08/2022 by Augusto Palomino MD at [facility] [employer] 11/12/2023 6197-9-001 / [id number] / [employer] Simplex P Full Dose Radiopaque Preblend Cement Bone Tobramycin 6197-9-001 - [id number] - [id number] Implanted:Qty: 1 on 09/08/2022 [facility] 11/12/2023 6197-9-001 / [id number] / [id number] [employer] Delta Xtend 38mm Shoulder +3mm Standard Cup Humeral Polyethylene Latex Free [id number] - [id number] - [id number] Implanted:Qty: 1 on 09/08/2022 by Augusto Palomino MD at [facility] [employer] [id number] 05/13/2027 [id number] / [id number] / [id number] Dep[employer] Global Unite 10mm 113mm Modular Shoulder Standard Stem Humeral [id number] - [id number] - [id number] Implanted:Qty: 1 on 09/08/2022 by Augusto Palomino MD at [facility] [employer] [id number] 05/13/2032 [id number] / [id number] / [id number] [employer] Delta Xtend 4.5mm 42mm Lock Shoulder Glenoid Screw Bone Metaglene [id number] - [id number] Implanted:Qty: 1 on 09/08/2022 by Augusto Palomino MD at [facility] [employer] [id number] 04/13/2027 [id number] / / [id number] [employer] Delta Xtend 4.5mm 36mm Lock Shoulder Glenoid Screw Bone Metaglene [id number] - [id number] - [id number] Implanted:Qty: 1 on 09/08/2022 by Augusto Palomino MD at [facility] [employer] [id number] 02/11/2027 [id number] / [id number] / [id number] [employer] Component Glenoid Delta Xtend +2mm Eccentric Od38mm [id number] - [id number] - [id number] Implanted:Qty: 1 on 09/08/2022 by Augusto Palomino MD at [facility] [employer] [id number] 06/13/2026 [id number] / [id number] / [id number] [employer] Delta Xtend 4.5mm 18mm Shoulder Glenoid Screw Bone Metaglene [id number] - [id number] - [id number] Implanted:Qty: 1 on 09/08/2022 by Augusto Palomino MD at [facility] [employer] 06/13/2027 [id number] / [id number] / [id number] [employer] Delta Xtend 4.5mm 18mm Shoulder Glenoid Screw Bone Metaglene [id number] - [id number] - [id number] Implanted:Qty: 1 on 09/08/2022 by Augusto Palomino MD at [facility] [employer] 04/13/2025 [id number] / [id number] / [id number] [employer] Implant Shldr Xtend Modecc 155epi Por Sz1 Lt [id number] - [id number] - [id number] Implanted:Qty: 1 on 09/08/2022 by Augusto Palomino MD at [facility] [employer] [id number] 09/12/2031 [id number] / [id number] / [id number] [employer] [facility] Latitude 8-15mm Restrictor Elbow Restrictor Cement [id number] - [id number] - [id number] Implanted:Qty: 1 on 09/08/2022 by Augutso Palomino MD at [facility] [employer] [facility] [id number] 05/29/2027 [id number] / [id number] / [id number] [employer] Implant Shldr Xtend Modecc 145epi Por Sz1 Lt [id number] - [id number] - [id number] Implanted:Qty: 1 on 09/08/2022 by Augusto Palomino MD at [facility] [employer] [facility] [id number] 01/12/2032 [id number] / [id number] / [id number] Procedures Procedure Name Priority Date/Time Associated Diagnosis Comments DEXA AXIAL SKELETON BONE DENSITY 1 OR MORE SITES Routine 07/20/2012 10:12 AM ONLINE BANKING SPECIALIST from Last 3 Months or Most Recently Relevant to Health Maintenance Results * Dexa Axial Skeleton Bone Density 1 or 2 Site (07/20/2012 10:12 AM ONLINE BANKING SPECIALIST) Anatomical Region Laterality Modality Body N/A Radiographic Alyssa ging 07/20/2012 10:1 2 AM ONLINE BANKING SPECIALIST Narrative 07/21/2012 6:15 AM ONLINE BANKING SPECIALIST DEXA Bone Density Axial Acc#: [id number] DATE OF EXAM: Jul 20 2012 CLINICAL [...] 2012 6:15A Ordering DR: TOMMY GODOY Attending : TOMMY GODOY Procedure Note Provider, MD [place] - 10/07/2016 DEXA Bone Density Axial Acc#: [id number] DATE OF EXAM: Jul 20 2012 CLINICAL [...] Recently Relevant to Health Maintenance Insurance MEDICARE [facility] Events [facility]IC [facility]IC[facility] MEDIC[facility] SUPPLEMENT [facility]ICARE [facility] MEDICARE SUPPLEMENT Advance Directives For more information, please contact: [phone] Documents on File Type Date Recorded Patient Market Director Expl anation ADVANCE DIRECTIVE 08/05/2022 3:26 PM POWER OF ACCOUNTING ASSISTANT-MEDICAL * Full Code (Latest Code Status on File) Date Activated Date Inactivated Comments 09/08/2022 3:53 PM 09/16/2022 6:55 PM Care Teams Chief Physical Therapist Relationship Specialty Start Date End Date Renay Rhodes MD [address] [facility] [address] [place] [address] PCP - General Family Medicine 09/03/17
--- OUTSIDE RECORDS SUMMARY | 2025-01-12 12:41 | XMS_ITS | Clinical Summary ---
Author Organization [facility] Address [address] [place] [address] Care Team Providers Care Shipping/Receiving Clerk Name Role Phone Javier Kulkarni MD Primary Care Provider [phone] Source Comments [facility],non-owned Affiliates and Associated Physician Practices is amultiple site organization consisting of ambulatory clinics and hospital sitesin [place], [place], [place] and [place]. This disclosure is being madepursuant to the Care Everywhere program and may not contain all information available regarding this patient. Last updated 18.[facility] Allergies Active Allergy Reactions Criticality Noted Date Comments Codeine Other Low 10/31/2013 Pt said it makes her too sedated Morphine Other Low 10/31/2013 Makes too sedated Tramadol Other 07/06/2016 ACTIVATES SEIZURES Medications * This document contains information received from the source organization and may not represent a complete record from that organization. * Be aware that medications may not be up to date on this document. Alwaysverify current medications with the patient. acetaminophen CR (TYLENOL ARTHRITIS PAIN) 650 MG tablet Take 1 (one) tablet by mouth Active alendronate (FOSAMAX) 70 MG tablet Take 1 (one) tablet by mouth Active aspirin (ASPIRIN) 81 MG chew tablet Take 1 (one) tablet by mouth 5 Active Calcium Carb-Cholecalcif sherwin (CALCIUM + D3) 600-200 MG-UNIT Take 600 mg by mouth 5 Active vitamin D3 (CHOLECALCIFEROL ) 1000 UNITS tablet 5 Active montelukast (SINGULAIR) 10 MG tablet Take 1 (one) tablet by mouth 5 Active Multiple Vitamins-Iron (TAB-A-TIFFANIE/IRON ) TABS Take 1 tablet by mouth Active oxybutynin CR 24hr (DITROPAN-XL) 5 MG tablet Take 1 (one) tablet by mouth Active pantoprazole EC (PROTONIX) 40 MG tablet Take 1 (one) tablet by mouth 5 Active polyethylene glycol 3350 (MIRALAX) packet Take 17 (seventeen) g by mouth Active sennosides (SENOKOT) 8.6 MG tablet Take 1 (one) tablet by mouth Active lisinopril (PRINIVIL; ZESTRIL) 10 MG tablet 9 Active POLY-IRON 150 150 MG capsule 9 Active multivitamin (OPURITY) CHEW tablet 7 Active multivitamin (OPURITY) CHEW tablet 7 Active celecoxib (CELEBREX) 200 MG capsule Take 1 (one) capsule by mouth once daily 1 Active furosemide (LASIX) 40 MG tablet 1 Active sulfamethoxazole -trimethoprim (Bactrim DS; Septra DS) 800-160 MG tablet 3 Active primidone (Mysoline) 50 MG tabletIndication s:Essential Tremor TAKE 1 TABLET TWICE DAILY FOR FINE TO COARSE SLOW TREMOR AFFECTING HEAD, HANDS AND VOICE Reasons: Fine to Coarse Slow Tremor Affecting Head, Hands & Voice 180 tablet 5 5 Active sertraline (Zoloft) 100 MG tabletIndication s:Panic Disorder Take 1 (one) tablet by mouth once daily for 90 days Reasons: Panic Disorder 30 tablet 2 5 01/22/20 25 Active QUEtiapine (SEROquel) 300 MG tabletIndication s:Depressive Phase Bipolar Mood Disorder TAKE 1 TABLET BY MOUTH AT BEDTIME FOR MANIC-DEPRESSIO N Strength: 300 mg Reasons: Depressive Phase of Manic-Depressio n 90 tablet 3 5 Active memantine (Namenda) 10 MG tabletIndication s:Cognitive Dysfunction Take 1 (one) tablet by mouth once daily for 90 days Reasons: Cognitive Dysfunction 30 tablet 2 5 01/22/20 25 Active zonisamide (Zonegran) 100 MG capsule Take 1 (one) capsule by mouth once daily 90 capsule 3 5 Active propranolol ER 24hr (Inderal LA) 60 MG capsuleIndicatio ns:tremor Take 1 (one) capsule by mouth once daily Reasons: tremor 90 capsule 3 5 Active clonazePAM (KlonoPIN) 0.5 MG tabletIndication s:Anxiety Take 0.5 (one-half) tablet by mouth at bedtime Reasons: Feeling Anxious 15 tablet 5 5 Active carbidopa-levodo pa (Sinemet) 25-100 MG tablet Take 3 (three) tablets by mouth 4 times daily 2160 tablet 3 5 Active Active Problems Problem Noted Date Diagnosed [...] Date Resolved Date Constipation 09/25/2013 10/11/2017 Encounters * This document contains information received from the source organization and may not represent a complete record from that organization. Date Type Department Care Team Description 12/06/2024 3:30 PM CDT Office Visit [facility] - Neurology [address] [place] [id number] ThongHillarysharath, WAIST PRESSER-TOE POUNDER Benign essential tremor (Primary Dx); Bipolar 1 disorder (HCC) 12/06/2024 Travel 10/23/2024 Travel from Last 3 Months Immunizations Immunization Administration Dates Next Due INFLUENZA VACCINE, TRIV. (AF LURIA, FLUZONE TRIVALENT; 6MO+) (IIV3) 04/21/2017 INFLUENZA VACCINE 04/11/2018 Social History Tobacco Use Types Packs/Day Years Used Date Smoking Tobacco: Never Smokeless Tobacco: Never Tobacco Cessation:Counseling Given: Not Answered Alcohol Use Standard Drinks/Week Comments No 0 (1 standard drink = 0.6 oz pur e alcohol) PHQ-2 Answer Date Recorded Patient Health Questionnaire-2 Score 0 10/23/2024 Comments No Sex and Gender Information Value Date Recorded Sex Assigned at Female 02/28/2021 9:25 PM CDT Legal Sex Female 5:15 PM PEANUT SHAKER Gender Identity Not on file Sexual Orientation Not on file Last Filed Vital Signs Vital Sign Reading Time Taken Comments Blood Pressure 144/85 12/06/2024 3:34 PM CDT Pulse 65 12/06/2024 3:34 PM CDT Temperature 36.2 C (97.2 F) 06/04/2021 12:56 PM PEANUT SHAKER Respiratory Rate 16 08/20/2015 10:20 AM PEANUT SHAKER Oxygen Saturation 97% 12/06/2024 3:34 PM CDT Inhaled Oxygen Concentration - - Weight 84.4 kg (186 lb) 12/06/2024 3:34 PM CDT Height 170.2 cm (5' 7) 10/23/2024 1:38 PM CDT Body Mass Index 29.13 10/23/2024 1:38 PM CDT Plan of Treatment Upcoming Encounters Date Type Department Care Team (Late st Contact Info) Description 05/28/2025 2:00 PM PEANUT SHAKER Office Visit [facility] - Neurology [address] [place] [phone] Brandon Benito, WAIST PRESSER-TOE POUNDER [address] [facility] [address] [facility] [place] [address] Health Maintenance Due Date Last Done Comments MEDICARE AWV 12 MONTHS 1940 DTAP/TDAP/TD VACCINES (1 - Tdap) 1960 PNEUMOCOCCAL VACCINE 50+ (1 of 1 - PCV) 1991 ZOSTER VACCINE (1 of 2) 1991 Respiratory Syncytial Virus (RSV) Vaccine Pt: or over 60 yrs (1 - 1-dose 75+ series) 2016 COVID-19 VACCINE ( - 2023-2 5 season) 2024 INFLUENZA VACCINE (#1) 2025 8, 04/21/2017 BONE DENSITY TESTING Completed 07/20/2012 HEPATITIS [...] on patient's age to complete this topic Insurance MEDICARE [facility] Advance Directives Documents on File Type Date Recorded Patient Cement Sack Breaker Expl anation Advance Directives and Livin g Will 11/10/2013 12:00 AM Care Teams Shipping/Receiving Clerk Relationship Specialty Start Date End Date Javier Kulkarni MD [address] [place] [address] PCP - General Family Medicine 12/06/24
--- OUTSIDE RECORDS SUMMARY | 2025-01-12 12:41 | XMS_ITS | Referral Summary ---
Author Organization [facility] [address] Address [address] [place] [address] Care Team Providers Care Radio Electrician Name Role Phone Renay Rhodes MD Primary [...] Information Patient taking differently:40 mgEvery morning, Informant: Email Administrator Care Facility, Reported on 09/01/2022 primidone (MYSOLINE) 50 mg tablet take 1 Tablet by oral route 3 times every day 0 0 3 Active Additional Information Patient taking differently:50 mg2 times daily, Informant: Assisted Care Facility, Reported on 09/01/2022 acetaminophen (TYLENOL) 325 mg tablet take 2 Tablet by oral route every 6 hours as needed 0 0 3 Active Additional Information Patient taking differently: 650 mg 2 times daily, Informant: Assisted Care Facility, Reported on 09/01/2022 montelukast (SINGULAIR) 10 mg tablet take 1 tablet by oral route every day in the evening 0 0 3 Active Additional Information Patient taking differently:10 mgNightly, Informant: Email Administrator Care Facility, Reported on 09/01/2022 cholecalciferol (cholecalcifero l) 1,000 unit tablet 0 0 4 Active Additional Information Patient taking differently: 2,000 Units Daily, Informant: Email Administrator Care Facility, Reported on 09/01/2022 lisinopril (PRINIVIL,ZESTR IL) 20 mg tablet take 1 tablet by oral route every day 0 0 4 Active Additional Information Patient taking differently: 10 mg Every morning, Informant: Email Administrator Care Facility, Reported on 09/01/2022 furosemide (LASIX) 40 mg tablet take 1 tablet by oral route 2 times every day 0 0 4 Active Additional Information Patient taking differently:40 mgoral Every morning, Informant: Assisted Care Facility, Reported on 09/01/2022 pravastatin (PRAVACHOL) [...] (08/26/2022): Added automatically from request for surgery [id number] Acute kidney failure, unspecified 08/14/2016 Pneumonia, unspecified [...] on file Legal Sex Female 4:58 PM ADOPTION SOCIAL WORKER Gender Identity Not on file Sexual Orientation [...] on file Medical Devices Implanted Type Area City Engineer Device Identifier Shelf Expiration Date Model / Serial / Lot DepFIELDS [employer] Metaglene 10mm Long Peg Fixation [id number] - [id number] Implanted:Qty: 1 on 09/08/2022 by Augusto Palomino MD at [facility] [employer] [id number] 01/11/2025 [id number] / / [id number] [employer] Simplex P Full Dose Radiopaque Preblend Cement Bone Tobramycin 6197-9-001 - [id number] - [id number] Implanted:Qty: 1 on 09/08/20[facility] 11/12/2023 6197-9-001 / [id number] / [employer] Simplex P Full Dose Radiopaque Preblend Cement Bone Tobramycin 6197-9-001 - [id number] - [id number] Implanted:Qty: 1 on 09/08/2022 by [facility] 11/12/2023 6197-9-001 / [id number] / [id number] Depuy [employer] Inc Delta Xtend 38mm Shoulder +3mm Standard Cup Humeral Polyethylene Latex Free [id number] - [id number] - [id number] Implanted:Qty: 1 on 09/08/2022 by Augusto Palomino MD at [facility] [employer] Inc [id number] 05/13/2027 [id number] / [id number] / [id number] Depuy [employer] Inc Global Unite 10mm 113mm Modular Shoulder Standard Stem Humeral [id number] - [id number] - [id number] Implanted:Qty: 1 on 09/08/2022 by Augusto Palomino MD at [facility] [employer] Inc [id number] 05/13/2032 [id number] / [id number] / [id number] [employer] Inc Delta Xtend 4.5mm 42mm Lock Shoulder Glenoid Screw Bone Metaglene [id number] - [id number] Implanted:Qty: 1 on 09/08/2022 by Augusto Palomino MD at [facility] [employer] Inc [id number] 04/13/2027 [id number] / / [id number] [employer] Inc Delta Xtend 4.5mm 36mm Lock Shoulder Glenoid Screw Bone Metaglene [id number] - [id number] - [id number] Implanted:Qty: 1 on 09/08/2022 by Augusto Palomino MD at [facility] [employer] Inc [id number] 02/11/2027 [id number] / [id number] / [id number] [employer] Inc Component Glenoid Delta Xtend +2mm Eccentric Od38mm [id number] - [id number] - [id number] Implanted:Qty: 1 on 09/08/2022 by Augusto Palomino MD at [facility] [employer] Inc [id number] 06/13/2026 [id number] / [id number] / [id number] [employer] Delta Xtend 4.5mm 18mm Shoulder Glenoid Screw Bone Metaglene [id number] - [id number] - [id number] Implanted:Qty: 1 on 09/08/2022 by Augusto Palomino MD at [facility] [employer] Inc 06/13/2027 [id number] / [id number] / [id number] [employer] Inc Delta Xtend 4.5mm 18mm Shoulder Glenoid Screw Bone Metaglene [id number] - [id number] - [id number] Implanted:Qty: 1 on 09/08/2022 by Augusto Palomino MD at [facility] [employer] Inc 04/13/2025 [id number] / [id number] / [id number] [employer] Inc Implant Shldr Xtend Modecc 155epi Por Sz1 Lt [id number] - [id number] - [id number] Implanted:Qty: 1 on 09/08/2022 by Augusto Palomino MD at [facility] [employer] Inc [id number] 09/12/2031 [id number] / [id number] / [id number] [facility] Latitude 8-15mm Restrictor Elbow Restrictor Cement [id number] - [id number] - [id number] Implanted:Qty: 1 on 09/08/2022 by Augusto Palomino MD at [facility] [employer] [id number] 05/29/2027 [id number] / [id number] / [id number] [employer] Inc Implant Shldr Xtend Modecc 145epi Por Sz1 Lt [id number] - [id number] - [id number] Implanted:Qty: 1 on 09/08/2022 by Augusto Palomino MD at [facility] [employer] [id number] 01/12/2032 [id number] / [id number] / [id number] Procedures Procedure Name Priority Date/Time Associated Diagnosis Comments DEXA AXIAL SKELETON BONE DENSITY 1 OR MORE SITES Routine 07/20/2012 10:12 AM ADOPTION SOCIAL WORKER from Last 3 Months or Most Recently Relevant to Health Maintenance Results * Dexa Axial Skeleton Bone Density 1 or 2 Site (07/20/2012 10:12 AM ADOPTION SOCIAL WORKER) Anatomical Region Laterality Modality Body N/A Radiographic Alyssa ging 07/20/2012 10:1 2 AM ADOPTION SOCIAL WORKER Narrative 07/21/2012 6:15 AM ADOPTION SOCIAL WORKER DEXA Bone Density Axial Acc#: [id number] DATE OF EXAM: Jul 20 2012 CLINICAL [...] - 10/07/2016 DEXA Bone Density Axial Acc#: [id number] DATE OF EXAM: Jul 20 2012 CLINICAL [...] Relevant to Health Maintenance Insurance MEDICARE COMMERCIAL [facility] MEDICARE [facility] MEDICARE SUPPLEMENT MEDICARE [facility] MEDICARE SUPPLEMENT Advance Directives For more information, please contact: [phone] Documents on File Type Date Recorded Patient Guard Dance Hall Expl anation ADVANCE DIRECTIVE 08/05/2022 3:26 PM POWER OF DIRECTOR OF MARKETING [employer] * Full Code (Latest Code Status on File) Date Activated Date Inactivated Comments 09/08/2022 3:53 PM 09/16/2022 6:55 PM Care Teams Radio Electrician Relationship Specialty Start Date End Date Renay Rhodes MD [address] [place] [address] PCP - General Family Medicine 09/03/17
--- OUTSIDE RECORDS SUMMARY | 2025-01-12 12:41 | XMS_ITS ---
Author Name Auto Generated, Auto Generated Organization [facility] Address [address] [place] [address] Phone [phone] Care Team Providers Care Income Tax Analyst Name Role Phone Nacho Ramirez Functional Status [...] WedAug 17:00:00 EST 2016Aug 31:00:00 EDT 2017 [place] 5 mg-325 mg tablet 2 tabs (TABLET) [...] 22:00:00 EST 2016Aug 14 01:00:00 EST 2017 [place] 5 mg-325 mg tablet 2 tabs TABLET [...] 2016 * End Date: * Text: * intermediate designer (current) use of aspirin* Code: * Start [...]
--- OUTSIDE RECORDS SUMMARY | 2025-01-12 12:41 | XMS_ITS | Encounter Summary ---
Author Organization [facility] Address [address] [place] [address] Care Team Providers Care Lands Resource Manager Name Role Phone Renay Rhodes MD Primary Care Provider + Javier Kulkarni MD Primary Care Provider [phone] Reason for Visit * Reason Onset Date Comments MEDICATION REFILL 01/10/2021 Encounter Details Date Type Department Care Team (Late Contact Info) Description 01/10/2021 Refill [facility] [address] [place] [address] Aureliano Ruiz MD MEDICATION REFILL Social History Tobacco Use Types Packs/Day Years Used Date Smoking Tobacco: Never Smokeless Tobacco: Never Alcohol Use Standard Drinks/Week Comments No 0 (1 standard drink = 0.6 oz pur e alcohol) PHQ-2 Answer Date Recorded PHQ2 TOTAL SCORE 1 01/10/2021 Comments No Sex and Gender Information Value Date Recorded Sex Assigned at Female 02/28/2021 9:25 PM CDT Legal Sex Female 5:15 PM SENIOR INFORMATION SECURITY ANALYST Gender Identity Not on file Sexual Orientation Not on file documented as of this encounter Plan of Treatment Upcoming Encounters Date Type Department Care Team (Late Contact Info) Description 05/28/2025 2:00 PM SENIOR INFORMATION SECURITY ANALYST Office Visit [facility] - Neurology [address] [place] [address] [place] [address] Brandon Benito, WET PROCESS TECHNICIAN-CONDOMINIUM MANAGER [address] OF [place] [address] documented as of this encounter Visit Diagnoses Not on filedocumented in this encounter Care Teams Lands Resource Manager Relationship Specialty Start Date End Date Renay Rhodes MD [address] [place] [address] PCP - General 07/15/17 12/05/24 Javier Kulkarni MD [address] [place] [address] PCP - General Family Medicine 12/06/24 documented as of this encounter
== END 2025-01-12 12:38 | disposition home or self-care (01) ==
LOC: ANHIMG 12:39
PROVIDERS: PCP Family Medicine
DX: N64.4 Mastodynia (principal)
CPT/HCPCS: 77062; 77066; G0279

== ENCOUNTER 2025-05-09 06:14 | Emergency (ER) | payer MEDICARE, SELFPAY ==
--- NOTE | ~2025-05-09 | CT_ITS ---
EXAMINATION: CT brain wo leslie, 05/09/2025 8:00 HAND UPPER AND BOTTOM LACER HISTORY: AMS COMPARISON: No comparisons available. Technique: Axial images obtained of the brain without contrast. One or more of the following dose reduction techniques were used: automated exposure control, adjustment of the mA and/or kV according to patient size, use of iterative reconstruction technique. Findings: No acute infarct or parenchymal hemorrhage. No abnormal mass or mass effect. No midline shift. No extra-axial fluid collections. No hydrocephalus. Mastoid air cells unremarkable. Sinuses and orbits unremarkable. No acute fracture. No significant facial or scalp soft tissue swelling evident. No radiopaque foreign body is seen. Impression: 1.No acute intracranial abnormality. Reviewed, dictated and finalized at location P. UPPER AND BOTTOM LACER Impression: 1.No acute intracranial abnormality.
--- NOTE | ~2025-05-09 | XR_ITS ---
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 Findings: No acute fracture or malalignment. Visualized left arthroplasty appears intact Soft tissues unremarkable. Impression: No acute fracture or malalignment. Reviewed, dictated and finalized at location P. TARY ENGINEER Impression: No acute fracture or malalignment.
--- NOTE | ~2025-05-09 | CT_ITS ---
EXAMINATION: CT cervical spine wo con COMPARISON: None HISTORY: AMS, possible fall TECHNIQUE: Axial images were obtained through the spine without IV contrast. Coronal, sagittal reconstruction images were obtained from the axial views. CT scan performed using dose optimization techniques including the following automated exposure control; adjustment of mA and/or kV; use of iterative reconstruction technique. Automatic exposure control was used to reduce radiation dose. Permanent radiation dose record is archived to PACS. FINDINGS: Grade 1 anterolisthesis of C4-C5, no acute fracture. There is a severe remote compression fracture of T2 with loss of height 90%. 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 Impression: No acute abnormality. Reviewed, dictated and finalized at location P. R [employer] Impression: No acute abnormality.
--- NOTE | ~2025-05-09 | XR_ITS ---
EXAMINATION: XR chest 1V portable COMPARISON: No comparisons available. HISTORY: Seizure FINDINGS: Mild pulmonary venous congestion. No pneumothorax. Heart is normal size. Mediastinal and hilar contours are within normal limits. Bony thorax no acute abnormality. 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
[2025-05-09 06:15] VITALS: BP 170/87; PULSE 70; RESP 20; TEMP 37.1; O2SAT 97
[2025-05-09 06:20] VITALS: O2SAT 100
--- NOTE | 2025-05-09 06:25 | ECG_ITS ---
Test Date: 2025-05-09 06:30:59 Measurements Intervals [place] Rate: 64 P: 44 [place]: 185 QRS: 11 QRSD: 122 T: 31 QT: 406 QTc: 420 Interpretive Statements SINUS RHYTHM EARLY R-WAVE TRANSITION OTHERWISE NORMAL ELECTROCARDIOGRAM No previous ECG available for comparison Electronically Signed On 05-09-2025 07:39:57 FOLDER SEAMER by Abdoulaye Durant M.D.
[2025-05-09 07:01] LABS: Hematocrit 39.6 % (37.0-47.0); Hemoglobin 12.3 g/dL (12.0-15.0); Immature Granulocyte Percent A 0.5 % (0-0.5); Lymphocytes Absolute Auto 1.19 K/mm3 (0.9-3.2); Mean Corpuscular HGB Conc 31.1 g/dl (32-36); Mean Corpuscular Hemoglobin 29.3 pg (26-34); Mean Corpuscular Volume 94.3 fl (80-100); Nucleated Red Blood Cells Absolute Auto 0.000 K/mm3 (0.0-0.012); Nucleated Red Blood Cells Perc 0.0 % (0.0-0.2); Platelet Count Result 156 k/mm3 (150-375); Red Blood Count 4.20 M/mm3 (4.2-5.4); White Blood Count 4.1 K/mm3 (4.5-10.0)
[2025-05-09 07:07] LABS: Add Urine Microscopic? YES; Appearance Urine Clear (Clear); Glucose Urine UA Negative (Negative); Leukocyte Esterase Ur Negative LEU/UL (Negative); Nitrate Urine Positive (Negative); Non Pathogenic Casts 0-2; Specific Grav Ur 1.010 (1.001-1.035)
[2025-05-09 07:10] LABS: Albumin Level 3.7 g/dL (3.5-5.1); Alkaline Phosphatase 64 U/L (38-126); Anion Gap 0 mmol/L (4-12); Aspartate Amino Transferase 22 U/L (14-36); Bilirubin,Total 0.7 mg/dL (0.2-1.3); Blood Urea Nitrogen 17 mg/dL (7-17); Calcium 9.6 mg/dL (8.4-10.2); Carbon Dioxide 34 mmol/L (22-30); Chloride 101 mmol/L (98-107); Estimated CRCL calculation 44 ml/min; Estimated Glomerular Filt Rate 59; Glucose 99 mg/dL (65-110); Potassium 3.7 mmol/L (3.4-5.0); Sodium 135 mmol/L (137-145); Total Protein 6.3 g/dL (6.3-8.2)
[2025-05-09 07:14] LABS: INR 1.0; Prothrombin Time 13.4 Seconds (11.1-14.7)
[2025-05-09 07:15] LABS: Partial Thromboplastin Time 28.7 Seconds (22.3-36.8)
[2025-05-09 07:19] LABS: Alanine Aminotransferase < 6 U/L (6-35)
--- OUTSIDE RECORDS SUMMARY | 2025-05-09 07:20 | XMS_ITS | Clinical Summary ---
Author Organization [facility] Address [address] [place] [address] Phone Care Team Providers Care Blade Aligner Name Role Phone Provider, None Primary Care [...] Comments Blood Pressure 126/67 07/22/2016 7:23 AM MEDICAL MASSAGE THERAPIST Pulse 82 07/22/2016 7:23 AM MEDICAL MASSAGE THERAPIST Temperature 36.5 C (97.7 F) 07/22/2016 7:23 AM MEDICAL MASSAGE THERAPIST Respiratory Rate 20 07/22/2016 7:23 AM MEDICAL MASSAGE THERAPIST Oxygen Saturation 92% 07/22/2016 8:27 AM MEDICAL MASSAGE THERAPIST Inhaled Oxygen Concentration - - Weight 131.5 kg (289 lb 14.5 oz) 07/20/2016 7:21 AM MEDICAL MASSAGE THERAPIST Height 175.3 cm (5' 9) 07/15/2016 5:41 PM MEDICAL MASSAGE THERAPIST Body Mass Index 42.81 07/15/2016 5:41 PM MEDICAL MASSAGE THERAPIST Plan of Treatment Health Maintenance Due Date Last Done Comments Hepatitis C Virus (HCV) Screening 1940 TdaP Immunization 1940 Pneumococcal Immunization (5 0+ years) (1 of 1 - PCV) 1991 Zoster Immunization (1 of 2) 1991 Medicare Initial AWV [id number] 06/14/2007 Respiratory Syncytial Virus (RSV) Immunization (Adult) (1 - 1-dose 75+ series) 2016 Influenza Immunization (#1) 2025 SARS-COV-2 Immunization ( - season) 2025 Hepatitis B Immunization Aged Out No [...] this topic Medical Devices Implanted Type Area Support Representative Device Identifier Shelf Expiration Date Model / Serial / Lot Implant Hip Stem Femoral Stem Sz 7 Accol - [id number] Implanted:Qty: 1 on 07/15/2016 by Nacho Ramirez MD at [facility] IMPLANT Left: Hip BOBO / ORTHOPAEDICS 03/09/2020 [id number] / / [id number] Taoist Admx3 Insert Id 2 - [id number] Implanted:Qty: 1 on 07/15/2016 by Nacho Ramirez MD at [facility] IMPLANT Left: Hip BOBO / ORTHOPAEDICS 04/07/2021 1236-2-852 / / [id number] Head Fem Lfric V40 28mm -4mm Vit - [id number] Implanted:Qty: 1 on 07/15/2016 by Nacho Ramirez MD at [facility] IMPLANT Left: Hip BOBO / ORTHOPAEDICS 10/30/2020 6260-9-028 / / [id number] Taoist Adm Anatomic Dual Mobility Acetabular Cup Implanted:Qty: 1 on 07/15/2016 by Nacho Ramirez MD at [facility] Left: Hip BOBO / ORTHOPAEDICS 12/15/2020 1235-2-522 / / [id number] Insurance MEDICARE [employer] GENERIC Advance Directives * Full Code (Latest Code Status on File) Date Activated Date Inactivated Comments 07/16/2016 5:46 PM 07/22/2016 6:39 PM CPR-Full Treat ment: FULL ARREST: Attempt Resuscitation/CPR wit intubation and mechanical ventilation. PRE-ARREST: Use entire range of life support measures to stabilize the patient. Care Teams Blade Aligner Relationship Specialty Start Date End Date Provider, None [place] PCP - General 07/16/16
--- OUTSIDE RECORDS SUMMARY | 2025-05-09 07:20 | XMS_ITS | Clinical Summary ---
Author Organization [facility] Address [address] [facility] [place] [address] Care Team Providers Care Casualty Claim Adjuster Name Role Phone Javier Kulkarni MD Primary Care Provider [phone] Source Comments [facility],non-owned Affiliates and Associated Physician Practices is amultiple site organization consisting of ambulatory clinics and hospital sitesin [place], [place] and [place]. This disclosure is being madepursuant to the Care Everywhere program and may not contain all information available regarding this patient. Last updated 18.[facility] Allergies Active Allergy Reactions Criticality Noted Date [...] & Voice 180 tablet 5 5 Active QUEtiapine (SEROquel) 300 MG tabletIndication s:Depressive Phase Bipolar Mood Disorder TAKE 1 TABLET BY MOUTH AT BEDTIME FOR MANIC-DEPRESSIO N Strength: 300 mg Reasons: Depressive Phase of Manic-Depressio n 90 tablet 3 5 Active memantine (Namenda) 10 MG tabletIndication s:Cognitive Dysfunction Take 1 (one) tablet by mouth once daily for 90 days Reasons: Cognitive Dysfunction 30 tablet 2 5 Active zonisamide (Zonegran) 100 MG capsule Take [...] times daily 2160 tablet 3 5 Active sertraline (Zoloft) 100 MG tabletIndication s:Bipolar 1 disorder, depressed, full remission (HCC) TAKE 1 TABLET ONE TIME DAILY FOR PANIC DISORDER 90 tablet 3 5 Active Active Problems Problem [...] organization. Date Type Department Care Team Description 02/19/2025 Travel from Last 3 Months Immunizations Immunization [...] PM CDT Legal Sex Female 5:15 PM FUR CLIPPER Gender Identity Not on file Sexual Orientation Not on file Last Filed Vital Signs Vital Sign Reading Time Taken Comments Blood Pressure 115/80 02/16/2025 3:03 PM CDT Pulse 65 02/16/2025 3:03 PM CDT Temperature 36.2 C (97.2 F) 06/04/2021 12:56 PM FUR CLIPPER Respiratory Rate 16 08/20/2015 10:20 AM FUR CLIPPER Oxygen Saturation 98% 02/16/2025 3:03 PM CDT Inhaled Oxygen Concentration - - Weight 86.6 kg (191 lb) 02/16/2025 3:03 PM CDT Height 170.2 cm (5' 7) 10/23/2024 1:38 PM CDT Body Mass Index 29.91 10/23/2024 1:38 PM CDT Plan of Treatment Upcoming Encounters Date Type Department Care Team (Late st Contact Info) Description 05/28/2025 2:00 PM FUR CLIPPER Office Visit [facility] - [facility] [facility] [place] [address] Brandon Benito APRN-LABORATORY CUREMAN [address] [place] [address] [place] [phone] Health Maintenance Due Date Last Done Comments MEDICARE AWV 12 MONTHS 1941 DTAP/TDAP/TD VACCINES (1 - Tdap) 1960 PNEUMOCOCCAL VACCINE 50+ (1 of 1 - PCV) 1991 ZOSTER VACCINE (1 of 2) 1991 Respiratory Syncytial Virus (RSV) Vaccine Pt: or over 60 yrs (1 - 1-dose 75+ series) 2016 COVID-19 VACCINE (1 - 2024- season) 2025 INFLUENZA VACCINE (#1) 2025 8, 04/21/2017, 03/15/2016, Additional history exists BONE DENSITY TESTING Completed 07/20/2012 HEPATITIS B [...] A/C/Y/W VACCINE Aged Out No longer eligible based on patient's age to complete this topic Insurance MEDICARE [facility] Advance Directives Documents on File Type Date Recorded Patient Brick Kiln Burner Expl anation Advance Directives and Livin g Will 11/10/2013 12:00 AM Care Teams Casualty Claim Adjuster Relationship Specialty Start Date End Date Javier Kulkarni MD [address] [place] [address] PCP - General Family Medicine 12/06/24
--- OUTSIDE RECORDS SUMMARY | 2025-05-09 07:20 | XMS_ITS | Encounter Summary ---
Author Organization [facility] Address [address] [place] [address] Care Team Providers Care Web Worker Name Role Phone Renay Rhodes MD Primary Care Provider + Javier Kulkarni MD Primary Care Provider [phone] Reason for Visit * Reason Onset Date Comments MEDICATION REFILL 08/05/2018 Encounter Details Date Type Department Care Team (Late Contact Info) Description 08/05/2018 Refill [facility] [address] [place] [address] Aureliano Ruiz MD MEDICATION REFILL Social History Tobacco Use Types Packs/Day Years Used Date Smoking Tobacco: Never Smokeless Tobacco: Never Alcohol Use Standard Drinks/Week Comments No 0 (1 standard drink = 0.6 oz pur e alcohol) Comments No Sex and Gender Information Value Date Recorded Sex Assigned at Female 02/28/2021 9:25 PM CDT Legal Sex Female 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 Gender Identity Not on file Sexual Orientation Not on file documented as of this encounter Plan of Treatment Upcoming Encounters Date Type Department Care Team (Late Contact Info) Description 05/28/2025 2:00 PM MASH GRINDER Office Visit [facility] - [facility]rology [address] [place] [address] Brandon Benito APRN-ROHIT [address] [place] [address] documented as of this encounter Visit Diagnoses Not on filedocumented in this encounter Care Teams Web Worker Relationship Specialty Start Date End Date Renay Rhodes MD [address] [place] [address] PCP - General 07/15/17 12/05/24 Javier Kulkarni MD [address] [place] [address] PCP - General Family Medicine 12/06/24 documented as of this encounter
--- OUTSIDE RECORDS SUMMARY | 2025-05-09 07:20 | XMS_ITS | Encounter Summary ---
Author Organization [facility] Address [address] [place] [address] Care Team Providers Care Meat Carver Name Role Phone Renay Rhodes MD Primary Care Provider + Javier Kulkarni MD Primary Care Provider [phone] Reason for Visit * Reason Onset Date Comments MEDICATION REFILL 06/29/2018 Encounter Details Date Type Department Care Team (Late Contact Info) Description 06/29/2018 Refill [facility] [address] [place] [address] Aureliano Ruiz MD MEDICATION REFILL Social History Tobacco Use Types Packs/Day Years Used Date Smoking Tobacco: Never Smokeless Tobacco: Never Alcohol Use Standard Drinks/Week Comments No 0 (1 standard drink = 0.6 oz pur e alcohol) Comments No Sex and Gender Information Value Date Recorded Sex Assigned at Female 02/28/2021 9:25 PM CDT Legal Sex Female 5:15 PM MANAGING PARTNER [employer] [place] Gender Identity Not on file Sexual Orientation Not on file documented as of this encounter Plan of Treatment Upcoming Encounters Date Type Department Care Team (Late Contact Info) Description 05/28/2025 2:00 PM MANAGING PARTNER [employer] [place] Office Visit [facility] - [facility] [address] [place] [address] Brandon Benito APRN-ROHIT [address] [place] [address] documented as of this encounter Visit Diagnoses Diagnosis Benign essential tremor Essential and other specified forms of tremor Parkinson disease (HCC) Paralysis agitans documented in this encounter Care Teams Meat Carver Relationship Specialty Start Date End Date Renay Rhodes MD [address] [place] [address] PCP - General 07/15/17 12/05/24 Javier Kulkarni MD [address] [place] [address] PCP - General Family Medicine 12/06/24 documented as of this encounter
--- OUTSIDE RECORDS SUMMARY | 2025-05-09 07:20 | XMS_ITS | Clinical Summary ---
Author Organization [facility] [address] Address [address] [place] [address] Care Team Providers Care Clinical Research Nurse Name Role Phone Renay Rhodes MD [...] Information Patient taking differently:40 mgEvery morning, Informant: Longterm Care Facility, Reported on 09/01/2022 primidone (MYSOLINE) 50 mg tablet take 1 Tablet by oral route 3 times every day 0 0 3 Active Additional Information Patient taking differently:50 mg2 times daily, Informant: Longterm Care Facility, Reported on 09/01/2022 acetaminophen (TYLENOL) 325 mg tablet take 2 Tablet by oral route every 6 hours as needed 0 0 3 Active Additional Information Patient taking differently: 650 mg 2 times daily, Informant: Risk Management Specialist Care Facility, Reported on 09/01/2022 montelukast (SINGULAIR) 10 mg tablet take 1 tablet by oral route every day in the evening 0 0 3 Active Additional Information Patient taking differently:10 mgNightly, Informant: Longterm Care Facility, Reported on 09/01/2022 cholecalciferol (cholecalcifero l) 1,000 unit tablet 0 0 4 Active Additional Information Patient taking differently: 2,000 Units Daily, Informant: Longterm Care Facility, Reported on 09/01/2022 lisinopril (PRINIVIL,ZESTR IL) 20 mg tablet take 1 tablet by oral route every day 0 0 4 Active Additional Information Patient taking differently: 10 mg Every morning, Informant: [facility], Reported on 09/01/2022 furosemide (LASIX) 40 mg tablet take 1 tablet by oral route 2 times every day 0 0 4 Active Additional Information Patient taking differently:40 mgoral Every morning, Informant: Longterm Care Facility, Reported on 09/01/2022 pravastatin (PRAVACHOL) [...] (08/26/2022): Added automatically from request for surgery [id number] Acute kidney failure, unspecified 08/14/2016 Pneumonia, unspecified [...] on file Legal Sex Female 4:58 PM PROPERTY AND CASUALTY INSURANCE AGENT Gender Identity Not on file Sexual Orientation [...] Pneumococcal vaccine 65+ (2 of 2 - PPSV23, PCV20, or PCV21) 08/05/2015 06/10/2015 Fall Risk Assessment 09/17/2023 09/16/2022 Covid-19 Vaccine (6 - 2024-2 6 season) 2025 03/26/2022, 11/04/2021, 03/26/2021, Additional history exists Influenza Vaccine (#1) 2025 8, 04/21/2017, 03/15/2016, Additional history exists Medical Devices Implanted Type Area Automatic Riveting Machine Operator Device Identifier Shelf Expiration Date Model / Serial / Lot [employer] Metaglene 10mm Long Peg Fixation [id number] - [id number] Implanted:Qty: 1 on 09/08/2022 by Augusto Palomino MD at [facility] [employer] [id number] 01/11/2025 [id number] / / [id number] [employer] Simplex P Full Dose Radiopaque Preblend Cement Bone Tobramycin 6197-9-001 - [id number] - [id number] Implanted:Qty: 1 on 09/08/2022 by Augusto Palomino MD at [facility] [employer] 11/12/2023 6197-9-001 / [id number] / [employer] Simplex P Full Dose Radiopaque Preblend Cement Bone Tobramycin 6197-9-001 - [id number] - [id number] Implanted:Qty: 1 on 09/08/20[facility] 11/12/2023 6197-9-001 / [id number] / [id number] [employer] Delta Xtend 38mm Shoulder +3mm Standard Cup Humeral Polyethylene Latex Free [id number] - [id number] - [id number] Implanted:Qty: 1 on 09/08/2022 by Augusto Palomino MD at [facility] [employer] [id number] 05/13/2027 [id number] / [id number] / [id number] [employer] Global Unite 10mm 113mm Modular Shoulder Standard Stem Humeral [id number] - [id number] - [id number] Implanted:Qty: 1 on 09/08/2022 by Augusto Palomino MD at [facility] [employer] [id number] 05/13/2032 [id number] / [id number] / [id number] [employer] Delta Xtend 4.5mm 42mm Lock Shoulder Glenoid Screw Bone Metaglene [id number] - [id number] Implanted:Qty: 1 on 09/08/2022 by Augusto Palomino MD at [facility] [employer] [id number] 04/13/2027 [id number] / / [id number] [employer] Delta Xtend 4.5mm 36mm Lock Shoulder Glenoid Screw Bone Metaglene [id number] - [id number] - [id number] Implanted:Qty: 1 on 09/08/2022 by Augusto Palomino MD at [facility] [employer] [id number] 02/11/2027 [id number] / [id number] / [id number] [employer] Component Glenoid Delta Xtend +2mm Eccentric Od38mm [id number] - [id number] - [id number] Implanted:Qty: 1 on 09/08/2022 by Augusto Palomino MD at [facility] [employer] [id number] 06/13/2026 [id number] / [id number] / [id number] [employer] Delta Xtend 4.5mm 18mm Shoulder Glenoid Screw Bone Metaglene [id number] - [id number] - [id number] Implanted:Qty: 1 on 09/08/2022 by Augusto Palomino MD at [facility] [employer] 06/13/2027 [id number] / [id number] / [id number] [employer] Delta Xtend 4.5mm 18mm Shoulder Glenoid Screw Bone Metaglene [id number] - [id number] - [id number] Implanted:Qty: 1 on 09/08/2022 by Augusto Palomino MD at [facility] [employer] 04/13/2025 [id number] / [id number] / [id number] [employer] Implant Shldr Xtend Modecc 155epi Por Sz1 Lt [id number] - [id number] - [id number] Implanted:Qty: 1 on 09/08/2022 by Augusto Palomino MD at [facility] [employer] [id number] 09/12/2031 [id number] / [id number] / [id number] [employer] [facility] Latitude 8-15mm Restrictor Elbow Restrictor Cement [id number] - [id number] - [id number] Implanted:Qty: 1 on 09/08/2022 by Augusto Palomino MD at [facility] [employer] [facility] [id number] 05/29/2027 [id number] / [id number] / [id number] [employer] Implant Shldr Xtend Modecc 145epi Por Sz1 Lt [id number] - [id number] - [id number] Implanted:Qty: 1 on 09/08/2022 by Augusto Palomino MD at [facility] [employer] [facility] [id number] 01/12/2032 [id number] / [id number] / [id number] Procedures Procedure Name Priority Date/Time Associated Diagnosis Comments DEXA AXIAL SKELETON BONE DENSITY 1 OR MORE SITES Routine 07/20/2012 10:12 AM PROPERTY AND CASUALTY INSURANCE AGENT from Last 3 Months or Most Recently Relevant to Health Maintenance Results * Dexa Axial Skeleton Bone Density 1 or 2 Site (07/20/2012 10:12 AM PROPERTY AND CASUALTY INSURANCE AGENT) Anatomical Region Laterality Modality Body N/A Radiographic Alyssa ging 07/20/2012 10:1 2 AM PROPERTY AND CASUALTY INSURANCE AGENT Narrative 07/21/2012 6:15 AM PROPERTY AND CASUALTY INSURANCE AGENT DEXA Bone Density Axial Acc#: [id number] DATE OF EXAM: Jul 20 2012 CLINICAL [...] - 10/07/2016 DEXA Bone Density Axial Acc#: [id number] DATE OF EXAM: Jul 20 2012 CLINICAL [...] Recently Relevant to Health Maintenance Insurance MEDICARE [employer] GENERIC MEDICARE [facility] MEDICARE SUPPLEMENT MEDICARE [facility] MEDICARE SUPPLEMENT Advance Directives For more information, please contact: [phone] Documents on File Type Date Recorded Patient Auto Overhauler Expl anation ADVANCE DIRECTIVE 08/05/2022 3:26 PM POWER OF FIELD RADIO TECHNICIAN-MEDICAL * Full Code (Latest Code Status on File) Date Activated Date Inactivated Comments 09/08/2022 3:53 PM 09/16/2022 6:55 PM Care Teams Clinical Research Nurse Relationship Specialty Start Date End Date Renay Rhodes MD [address] [facility] [address] [place] [address] PCP - General Family Medicine 09/03/17
--- OUTSIDE RECORDS SUMMARY | 2025-05-09 07:20 | XMS_ITS | Encounter Summary ---
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 Gender Identity Not on file Sexual Orientation Not on file documented as of this encounter Plan of Treatment Upcoming Encounters Date Type Department Care Team (Late Contact Info) Description 05/28/2025 2:00 PM WIRE WRAPPING MACHINE OPERATOR Office Visit [facility] [address] [place] [address] Brandon Benito, SHALE PLANER OPERATOR HELPER-FROG OR OYSTER FARMWORKER [address] [place] [address] documented as of this encounter Visit Diagnoses Not on filedocumented in this encounter Care Teams Manager Automotive Relationship Specialty Start Date End Date Renay Rhodes MD [address] [place] [address] PCP - General 07/15/17 12/05/24 Javier Kulkarni MD [address] [place] [address] PCP - General Family Medicine 12/06/24 documented as of this encounter
--- NOTE | 2025-05-09 07:40 | ED.GENADULT ---
HPI - General Adult General Chief complaint: Altered Mental Status Stated complaint: AMS Time Seen by Provider: 05/09/25 06:56 History of Present Illness HPI narrative: This is an 84-year-old female with history of seizure disorder, Parkinson's dementia presenting for altered mental status. Per the patient's daughter is at bedside the patient frequently has seizures 1st thing in morning. At her assisted living she was checked on by a staff member per orally and was altered. They were concerned that she had a stroke so they called an ambulance brought her to the hospital. Her mental status has continued to improved but the daughter she is back at her baseline. She has some tongue biting. They suspect that she has had a seizure. They said she had seizures anywhere from once a week to once a month but typically do not seek medical care. She has been evaluated by her urologist multiple times for urinary tract infections and has grown and negative cultures repeatedly. She is denying any urinary symptoms at this time. Patient denies any other symptoms such as headaches, recent illness, chest pain difficulty breathing abdominal pain nausea vomiting. Related Data Home Medications ?Medication ?Instructions ?Recorded ?Confirmed ?Last Taken ?Type alendronate 70 mg tablet 70 mg PO WEEKLY 06/06/23 01/01/25 Unknown History carbidopa 25 mg-levodopa 100 mg 1 tablet TID 06/06/23 01/01/25 Unknown History tablet clonazepam 0.5 mg tablet 0.5 mg DAILY PRN Anxiety 06/06/23 01/01/25 Unknown History docusate sodium 100 mg capsule 100 mg PO DAILY 06/06/23 01/01/25 Unknown History (Colace) propranolol 60 mg capsule,24 60 mg PO DAILY 06/06/23 01/01/25 Unknown History hr,extended release quetiapine 300 mg tablet (Seroquel) 300 mg HS 06/06/23 01/01/25 Unknown History sertraline 100 mg tablet 100 mg DAILY 06/06/23 01/01/25 Unknown History zonisamide 100 mg capsule 100 mg PO DAILY 06/06/23 07/11/24 Unknown History aspirin 81 mg capsule 81 mg PO DAILY 06/30/23 01/01/25 Unknown History calcium amino acid chelate 200 mg PO DAILY 06/30/23 01/01/25 Unknown History cholecalciferol (vitamin D3) 50 50 mcg PO DAILY 06/30/23 01/01/25 Unknown History mcg (2,000 unit) capsule lactobacillus combination no.4 15 15,000 mmu cells PO DAILY 07/13/23 01/01/25 Unknown History billion cell capsule multivitamin with iron 1 tablet PO DAILY 07/13/23 07/11/24 Unknown History peg 400-propylene glycol (PF) 0.4 1 drp RIGHT EYE DAILY 07/13/23 01/01/25 Unknown History %-0.3 % eye drops in a dropperette primidone 250 mg tablet 250 mg PO BID 07/13/23 01/01/25 Unknown History Allergies Allergy/AdvReac Type Severity Reaction Status Date / Time codeine AdvReac Mild Hallucinati Verified 07/11/24 13:53 ons morphine AdvReac Mild hallucinate Verified 07/11/24 13:53 [facility] Past Medical History Medical History Anxiety and depression Schizophrenia Seizure Heart failure with preserved ejection fraction EF 60 to 65%. Benign essential hypertension Fracture of humeral head, left, closed Colon polyp Diverticulitis Bipolar 1 disorder, depressed Dementia Parkinson disease Chronic respiratory failure Surgical History Surgical History Hx laparoscopic cholecystectomy 07/26/23 Dr. Vo History of cataract extraction History of left shoulder replacement History of bilateral knee replacement History of hysterectomy History of colonoscopy with polypectomy History of tonsillectomy and adenoidectomy History of hip surgery History of appendectomy Family History Family History Other Family history of malignant neoplasm Family history of malignant neoplasm of thyroid Social History Social History Social History: Surrogate medical decision maker: Rubia Basilio, daughter. Code status: Full code. Smoking status: Never smoker Second hand tobacco smoke exposure: No Alcohol intake: never Substance use: never Substance use type: does not use Lack of Transportation: No Lack of Food: Never True Current Housing: I Have Housing Concerned About Future Housing: No Difficulty Paying Gas/Electric Bills: No Difficulty Paying for Meds: No Currently Unemployed: YES Education: Decline to Answer Difficulty w/ Childcare or Family Care: No Living arrangements: assisted living Additional living arrangements comments: . Lives in assisted living at [facility]. [facility] (PHONE [phone]) Occupation/Education: retired Spiritual care concerns: No Exam Narrative: APPEARANCE: No apparent distress. A&O x3 Head: atraumatic. Small bite kinza in the left anterior tongue EYES: EOMI, NOSE: Atraumatic NECK: Trachea midline RESPIRATORY: No increased rate of breathing clear to auscultation CARDIOVASCULAR: RRR, no peripheral edema ABDOMINAL: Non-distended MUSCULOSKELETAl: Head to toe trauma exam did not reveal any areas of pain or injury. NEURO: Alert. Cranial nerves 2-12 grossly intact. Sensation light touch, motor function cerebellar function intact for 4 extremities except for the right upper extremity which has chronic weakness due to her Parkinson's.. Gait exam was deferred SKIN:: Warm, dry. Normal color PSYCHIATRIC: Normal affect Course Vital Signs Vital signs: Vital Signs Temperature 98.8 F 05/09/25 06:15 Pulse Rate 70 05/09/25 06:15 Respiratory Rate 20 05/09/25 06:15 Blood Pressure 170/87 H 05/09/25 06:15 Pulse Oximetry 97 05/09/25 06:15 Oxygen Delivery Nasal Cannula 05/09/25 06:15 Oxygen Flow Rate 3 05/09/25 06:15 Temperature 98.8 F 05/09/25 06:15 Pulse Rate 73 05/09/25 11:28 Respiratory Rate 17 05/09/25 11:28 Blood Pressure 165/72 H 05/09/25 11:28 Pulse Oximetry 98 05/09/25 11:28 Oxygen Delivery Nasal Cannula 05/09/25 06:20 Oxygen Flow Rate 3 05/09/25 06:20 Medical Decision Making [facility] Narrative Medical decision making narrative: -Course: 84-year-old female with a history of seizures presenting with a brief episode of altered mental status. By time I had evaluated her she was at her baseline mental status with a normal neurologic exam. Patient and her family both believe that she had a seizure this morning which was normal and that she was checked under a postictal period. Patient's workup here including CT brain, CT time chest x-ray pelvis x-ray laboratory studies were all within normal limits. Patient was monitored with no recurrence or seizures. They are comfortable being discharged home. Given return precautions. -DDX includes but is not limited to: Breakthrough seizure, intercerebral hemorrhage, UTI Vital Signs Vital Signs: Vital Signs Temperature 98.8 F 05/09/25 06:15 Pulse Rate 70 05/09/25 06:15 Respiratory Rate 20 05/09/25 06:15 Blood Pressure 170/87 H 05/09/25 06:15 Pulse Oximetry 97 05/09/25 06:15 Oxygen Delivery Nasal Cannula 05/09/25 06:15 Oxygen Flow Rate 3 05/09/25 06:15 Temperature 98.8 F 05/09/25 06:15 Pulse Rate 73 05/09/25 11:28 Respiratory Rate 17 05/09/25 11:28 Blood Pressure 165/72 H 05/09/25 11:28 Pulse Oximetry 98 05/09/25 11:28 Oxygen Delivery Nasal Cannula 05/09/25 06:20 Oxygen Flow Rate 3 05/09/25 06:20 Lab Data 05/09/25 06:43 05/09/25 06:43 Labs: Lab Results 05/09/25 Range/Units 06:43 WBC 4.1 L (4.5-10.0) K/mm3 RBC 4.20 (4.2-5.4) M/mm3 Hgb 12.3 (12.0-15.0) g/dL Hct 39.6 (37.0-47.0) % MCV 94.3 (80-100) fl MCH 29.3 (26-34) pg MCHC 31.1 L (32-36) g/dl RDW 13.6 (11.5-14.5) % Plt Count 156 (150-375) k/mm3 MPV 8.8 (7.4-10.4) fl Immature Gran % (Auto) 0.5 (0-0.5) % Neut % (Auto) 63.1 (45.5-73.1) % Lymph % (Auto) 29.3 (18.3-44.2) % [place] % (Auto) 5.4 (2.6-8.5) % Eos % (Auto) 1.2 (0-4.4) % Baso % (Auto) 0.5 (0.2-1.2) % Lymph # (Auto) 1.19 (0.9-3.2) K/mm3 [place] # (Auto) 0.2 (0.1-0.6) K/mm3 Eos # (Auto) 0.1 (0-0.3) K/mm3 Baso # (Auto) 0.0 (0.0-0.1) K/mm3 Abs Immat Gran (auto) 0.02 (0.00-0.031) K/mm3 Absolute Neuts (auto) 2.6 (1.3-6.7) K/mm3 Absolute Nucleated RBC 0.000 (0.0-0.012) K/mm3 Nucleated RBC % 0.0 (0.0-0.2) % PT 13.4 (11.1-14.7) Seconds INR 1.0 APTT 28.7 (22.3-36.8) Seconds Sodium 135 L (137-145) mmol/L Potassium 3.7 (3.4-5.0) mmol/L Chloride 101 (98-107) mmol/L Carbon Dioxide 34 H (22-30) mmol/L Anion Gap 0 L (4-12) mmol/L BUN 17 (7-17) mg/dL Creatinine 0.91 (0.7-1.0) mg/dL Estim Creat Clear Calc 44 ml/min Estimated GFR 59 (59 - ) Glucose 99 (65-110) mg/dL Calcium 9.6 (8.4-10.2) mg/dL Total Bilirubin 0.7 (0.2-1.3) mg/dL AST 22 (14-36) U/L ALT < 6 L (6-35) U/L Alkaline Phosphatase 64 (38-126) U/L Total Protein 6.3 (6.3-8.2) g/dL Albumin 3.7 (3.5-5.1) g/dL Urine Color Dark yellow (Yellow) Urine Appearance Clear (Clear) Urine pH 8.0 (5.0-9.0) Ur Specific [place] 1.010 (1.001-1.035) Urine Protein Negative (Negative) mg/dL Urine Glucose (UA) Negative (Negative) mg/dL Urine Ketones Negative (Negative) mg/dL Ur Blood (Man) Negative (Negative) Urine Nitrate Positive H (Negative) Urine Bilirubin Negative (Negative) Urine Urobilinogen 1.0 (<2.0) mg/dL Leukocyte Esterase Rfl Negative (Negative) MEEK/UL Urine RBC 0-2 (0-2) /hpf Urine WBC 0-5 (0-3) /hpf Ur Squamous Epith Cells None seen (Few) /hpf Urine Bacteria Rare /hpf Urine Casts 0-2 Discharge Plan Discharge Clinical Impression: Seizure Patient Disposition: Home Condition: Stable Instructions: Antibiotic Form, Epilepsy (ED) Additional Instructions: Lillian was seen emergency department after a seizure. She should continue all of her home medications. If she develops any new or worsening symptoms she can return to the ED for re-evaluation. Patient Language: Slovenian Prescriptions: No Action lisinopril 2.5 mg tablet 2.5 mg PO DAILY Qty: 90 3RF calcium amino acid chelate 200 mg calcium tablet 200 mg PO DAILY cholecalciferol (vitamin D3) 50 mcg (2,000 unit) capsule 50 mcg PO DAILY aspirin 81 mg capsule 81 mg PO DAILY hyoscyamine sulfate 0.125 mg/mL drops 1 ml PO Q4-6H PRN (Reason: gastrointestinal spasms or cramping) Qty: 20 0RF phenazopyridine 200 mg tablet 200 mg PO DAILY Qty: 90 3RF quetiapine [Seroquel] 300 mg tablet 300 mg HS alendronate 70 mg tablet 70 mg PO WEEKLY Rx Instructions: TAKES ON THURSDAYS clonazepam 0.5 mg tablet 0.5 mg DAILY PRN (Reason: Anxiety) propranolol 60 mg capsule,extended release 24 hr 60 mg PO DAILY sertraline 100 mg tablet 100 mg DAILY zonisamide 100 mg capsule 100 mg PO DAILY carbidopa-levodopa 25-100 mg tablet 1 tablet TID docusate sodium [Colace] 100 mg Capsule 100 mg PO DAILY primidone 250 mg Tablet 250 mg PO BID multivitamin with iron Tablet 1 tablet PO DAILY peg 400-propylene glycol (PF) 0.4-0.3 % Dropperette 1 drp RIGHT EYE DAILY lactobacillus combination no.4 15 billion cell Capsule 15,000 mmu cells PO DAILY Rx Instructions: administer with a meal acetaminophen 500 mg capsule 500 mg PO Q6H MDD 2000 PRN (Reason: fever or pain) Qty: 30 0RF fluticasone propionate 50 mcg/actuation spray,suspension 1 spray intranasal Q12H Qty: 16 0RF Rx Instructions: administer into each nostril montelukast 10 mg tablet See Rx Instructions .ROUTE .COMPLEX Qty: 90 3RF Dose Instruction: TAKE 1 TABLET EVERY DAY Rx Instructions: TAKE 1 TABLET EVERY DAY pantoprazole 40 mg tablet,delayed release (DR/EC) See Rx Instructions .ROUTE .COMPLEX Qty: 90 3RF Dose Instruction: TAKE 1 TABLET EVERY MORNING Rx Instructions: TAKE 1 TABLET EVERY MORNING memantine 10 mg tablet See Rx Instructions .ROUTE .COMPLEX Qty: 90 3RF Dose Instruction: TAKE 1 TABLET AT BEDTIME Rx Instructions: TAKE 1 TABLET AT BEDTIME furosemide 40 mg tablet See Rx Instructions .ROUTE .COMPLEX Qty: 90 2RF Dose Instruction: TAKE 1 TABLET EVERY MORNING Rx Instructions: TAKE 1 TABLET EVERY MORNING pravastatin 10 mg tablet 10 mg PO QHS Qty: 90 3RF Follow-up/Referrals: Javier Kulkarni MD [Primary Care Provider, Family Practice]
[2025-05-09 08:23] VITALS: BP 157/77; PULSE 58; RESP 18; O2SAT 99
[2025-05-09 09:46] VITALS: BP 161/72; PULSE 59; RESP 15; O2SAT 98
[2025-05-09 11:28] VITALS: BP 165/72; PULSE 73; RESP 17; O2SAT 98
[2025-05-09 14:02] VITALS: BP 159/70; PULSE 58; RESP 17; O2SAT 96
== END 2025-05-09 14:04 ==
PROVIDERS: Emergency Provider Emergency Medicine; PCP Family Medicine
DX: G40.909 Epilepsy, unspecified, not intractable, without status epilepticus (principal); I11.0 Hypertensive heart disease with heart failure; I50.9 Heart failure, unspecified; G20.A1 Parkinson's disease without dyskinesia, without mention of fluctuations; J96.10 Chronic respiratory failure, unspecified whether with hypoxia or hypercapnia; F03.90 Unspecified dementia, unspecified severity, without behavioral disturbance, psychotic disturbance, mood disturbance, and anxiety; F31.9 Bipolar disorder, unspecified; F41.9 Anxiety disorder, unspecified; F20.9 Schizophrenia, unspecified; Z96.653 Presence of artificial knee joint, bilateral; Z96.612 Presence of left artificial shoulder joint; Z86.0100 Personal history of colon polyps, unspecified; Z90.49 Acquired absence of other specified parts of digestive tract; Z90.710 Acquired absence of both cervix and uterus; Z98.49 Cataract extraction status, unspecified eye; Z79.899 Other long term (current) drug therapy; Z79.82 Long term (current) use of aspirin
CPT/HCPCS: 36415; 70450; 71045; 72125; 72170; 80053; 81001; 85025; 85610; 85730; 87086; 93005; 99284